=== PATIENT | female | born 1980 | race Caucasian/White ===

== ENCOUNTER 2018-01-30 09:49 | Emergency (ER) | payer SELFPAY ==
[~2018-01-30] VITALS: Ht 172.7 cm; Wt 113.4 kg
[2018-01-30] MEDS ORDERED: IBU600 MG PO (10:02)
== END 2018-01-30 10:05 | disposition home or self-care (01) ==
LOC: ED 09:49
DX: M25.511 Pain in right shoulder (principal)

== ENCOUNTER 2018-09-25 16:04 | Emergency (ER) | payer OTHER ==
[~2018-09-25] VITALS: Ht 172.7 cm; Wt 107.0 kg
--- OUTSIDE RECORDS SUMMARY | ~2018-09-25 | XMS | Clinical Summary ---
Demographics + + + | Address | [address] | | | [place] [address] | + + + | Home Phone | | + + + | Preferred Language | Unknown | + + + | Marital Status | Single | + + + | Taoist Affiliation | Unknown | + + + | Race | Unknown | + + + | Ethnic Group | Unknown | + + + Author + + + | Author | [facility] | | | and [place] | + + + | Organization | [facility] | | | and [place] | + + + | Address | Unknown | + + + | Phone | Unavailable | + + + Support + + +---------+ + | Name | Relationship | Address | Phone | + + +---------+ + | Lilia Borja | ECON | Unknown | | + + +---------+ + | Jose Felipe | ECON | Unknown | | + + +---------+ + Care Team Providers + +------+ + | Care Plaster And Stucco Worker Name | Role | Phone | + +------+ + | Gela Leong DO | PP | | + +------+ + Allergies No Known Allergies Medications + + + +---------+------+------+-------+ | Medication | Sig | Dispensed | Refills | Star | End | Statu | | | | | | t | Date | s | | | | | | Date | | | + + + +---------+------+------+-------+ | ibuprofen | Take 600 mg by mouth | | 0 | | | Activ | | (ADVIL,MOTRIN) 600 | every 8 hours as | | | | | e | | MG tablet | needed for Pain. | | | | | | + + + +---------+------+------+-------+ Active Problems + + + | Problem | Noted Date | + + + | Opioid contract exists | 04/25/2017 | + + + Immunizations + + + + | Name | Dates Previously Given | Next Due | + + + + | INFLUENZA PF | 03/13/2012 | | | TRIVALENT(PED/ADOL/A | | | | DULPenelope)ALEJANDRA | | | + + + + Family History + + +--------+ + | Medical History | Relation | Name | Comments | + + +--------+ + | Other (see comment) | Brother | | problems with digestion | + + +--------+ + | Hearing loss | Daughter | | | + + +--------+ + | Nephrolithiasis | Father | | | + + +--------+ + | Colon cancer | Maternal | | | | | Grandfath | | | | | er | | | + + +--------+ + | High cholesterol | Maternal | | | | | Grandfath | | | | | er | | | + + +--------+ + | Hypertension | Maternal | | | | | Grandfath | | | | | er | | | + + +--------+ + | Other (see comment) | Maternal | | Hepatitis | | | Grandfath | | | | | er | | | + + +--------+ + | Prostate cancer | Maternal | | | | | Grandfath | | | | | er | | | + + +--------+ + | Arthritis | Mother | | | + + +--------+ + | Cervical cancer | Mother | | | + + +--------+ + | Depression | Mother | | | + + +--------+ + | Asthma | Other | Aunt | | + + +--------+ + | Breast cancer | Other | Aunt | | + + +--------+ + | Diabetes | Other | Aunt | | + + +--------+ + | Alcohol abuse | Other | Family | | + + +--------+ + | Drug abuse | Other | Family | | + + +--------+ + + +--------+--------+ + | Relation | Name | Status | Comments | + +--------+--------+ + | Brother | | | | + +--------+--------+ + | Daughter | | | | + +--------+--------+ + | Father | | | | + +--------+--------+ + | Maternal Grandfather | | | | + +--------+--------+ + | Mother | | | | + +--------+--------+ + | Other | Aunt | | | + +--------+--------+ + | Other | Family | | | + +--------+--------+ + Social History + + + +--------+------+ [...] + +---------+ + | Alcohol Use | Drinks/We | oz/Week | Comments | | | ek | | | + + +---------+ + | No [...] recent travel history available. | + + Last Filed Vital Signs + + + + | Vital Sign | Reading | Time Taken | + + + + | Blood Pressure | 131/81 | 12/26/20171032 PDT | + + + + | Pulse | 92 | 12/26/20171032 PDT | + + + + | Temperature | 35.8 C (96.4 F) | 12/26/20171032 PDT | + + + + | Respiratory Rate | 16 | 12/26/20171032 PDT | + + + + | Oxygen Saturation | 99% | 12/26/20171032 PDT | + + + + | Inhaled Oxygen | - | - | | Concentration | | | + + + + | Weight | 113.4 kg (250 lb) | 12/26/20171032 PDT | + + + + | Height | 172.7 cm (5' 8") | 12/26/20171032 PDT | + + + + | Body Mass Index | 38.01 | 12/26/20171032 PDT | + + + + Plan of Treatment + + + + + | Health Maintenance | Due Date | Last Done | Comments | + + + + + | Primary Care | | | | | Outreach (Low Risk) | 9 | | | + + + + + | Vaccine: | | | | | Dtap/Tdap/Td (1 - | 8 | | | | Tdap) | | | | + + + + + | Vaccine: | | | | | Pneumococcal 19-64 | 8 | | | | (PPSV23 only) Medium | | | | | Risk (1 of 1 - | | | | | PPSV23) | | | | + + + + + | Cervical Cancer | | 02/09/2012 | | | Screening (Pap) | 7 | | | + + + + + | Vaccine: Influenza | | 03/13/2012 | | | (Season Ended) | 9 | | | + + + + + Results Not on filefrom Last 3 Months Insurance + +--------+ +--------+ +---------+--------+ | Payer | Benefi | Subscriber | Effect | Phone | Address | Type | | | t Plan | ID | dick | | | | | | / | | Dates | | | | | | Group | | | | | | + +--------+ +--------+ +---------+--------+ | [employer] | MOD[employer] | [id number] | | [phone] | | Medica | | MEDICAID HMO | HEALTH | | [phone] | 1 | | id | | | MDCD | | esent | | | | | | [place]MO [place] | | | | | | + +--------+ +--------+ +---------+--------+ + +--------+ +--------+ + + | Guarantor Name | Accoun | Relation to | Date | Phone | Billing Address | | | t Type | Patient | of | | | | | | | | | | + +--------+ +--------+ + + | Lauro Melara | Person | Self | [birth year] | [address] | | Meliza | piper/Brandon | | 1981 | [phone] | [address] [place] | | | lad[place] | | | 5 (Home) | [phone] | + +--------+ +--------+ + + Advance Directives Patient has advance care planning documents on file. For more information, please contact:[facility] [place] [address]
--- OUTSIDE RECORDS SUMMARY | ~2018-09-25 | XMS | Clinical Summary ---
Demographics + + + | Address | [address] | | | [place] [address] | + + + | Home Phone | | + + + | Preferred Language | Unknown | + + + | Marital Status | Single | + + + | Latter Day Affiliation | Unknown | + + + | Race | Unknown | + + + | Ethnic Group | Unknown | + + + Author + + + | Author | [facility] | | | and [place] | + + + | Organization | [facility] | | | and [place] [...] Team Providers + +------+ + | Care Drawbench Operator Helper Name | Role | Phone | [...] | [employer] | MODA | [id number] | | [phone] | | Medica | | MEDICAID HMO [...] ladi | | | 5 (Home) | [phone] | + +--------+ +--------+ + + Advance Directives Patient has advance care planning documents on file. For more information, please contact:[facility] [place] [address]
[~2018-09-25 16:04] MED LIST: CYCLOBENZAPRINE5 MG PO; IBU600 MG PO; NAPROSYN500 MG PO; NORCO 5-325 TA1 EACH PO
[2018-09-25] MEDS ORDERED: NEURONTIN300 MG PO (16:20)
== END 2018-09-25 18:30 | disposition home or self-care (01) ==
LOC: ED 16:04
DX: S50.12XA Contusion of left forearm, initial encounter (principal); S50.11XA Contusion of right forearm, initial encounter; W10.9XXA Fall (on) (from) unspecified stairs and steps, initial encounter; F17.200 Nicotine dependence, unspecified, uncomplicated; Z79.899 Other long term (current) drug therapy
CPT/HCPCS: 73110; 99283

== ENCOUNTER 2019-05-17 17:20 | Emergency (ER) | payer OTHER ==
[~2019-05-17] VITALS: Ht 172.7 cm; Wt 117.9 kg
--- OUTSIDE RECORDS SUMMARY | ~2019-05-17 | XMS | Encounter Summary ---
Demographics + + + | Address | [address] | | | [place] [address] | + + + | Home Phone | | + + + | Preferred Language | Unknown | + + + | Marital Status | Single | + + + | Zoroastrianism Affiliation | Unknown | + + + | Race | Unknown | + + + | Ethnic Group | Unknown | + + + Author + + + | Author | [facility] | | | and [place] | + + + | Organization | [facility] | | | and [place] | + + + | Address | Unknown | + + + | Phone | Unavailable | + + + Support + + +---------+ + | Name | Relationship | Address | Phone | + + +---------+ + | Jose Felipe | ECON | Unknown | | + + +---------+ + | Jey Nicholas | ECON | Unknown | | + + +---------+ + Care Team Providers + +------+ + | Care Continuous Mining Machine Coal Miner Name | Role | Phone | + +------+ + | Gela Leong DO | PCP | | + +------+ + Encounter Details +--------+ + + + + | Date | Type | Department | Care Team | Description | +--------+ + + + + | 01/22/ | Abstract | [facility] | Gela Leong | | | 2018 | | [facility] | DO [address] | | | | | [address] | [address] [place] | | | | | [address] [place], | [place] [address] | | | | | [place] [address] | [phone] | | | | | [phone] | | | +--------+ + + + + Social History + + + +--------+------+ | Tobacco Use | Types | Packs/Day | Years | Date | | | | | Used | | + + + +--------+------+ | Heavy Tobacco Smoker | Cigarettes | 0.5 | | | + + + +--------+------+ + +---+---+---+ | Smokeless Tobacco: | | | | | Never Used | | | | + +---+---+---+ + + +---------+ + | Alcohol Use | Drinks/Week | oz/Week | Comments | + + +---------+ + | No | | | | + + +---------+ + + + + | Sex Assigned at | Date Recorded | | | | + + + | Not on file | | + + + + + + + | Job Start Date | Occupation | Industry | + + + + | Not on file | Not on file | Not on file | + + + + + + + + | Travel History | Travel Start | Travel End | + + + + + + | No recent travel history available. | + + documented as of this encounter Plan of Treatment +--------+---------+ + + + | Date | Type | Specialty | Care Team | Description | +--------+---------+ + + + | 06/05/ | Office | Physical Medicine | Jaime Gonzalez, | | | 2019 | Visit | and Rehabilitation | MD [address] | | | | | | [place] | | | | | | [address] | | | | | | | | +--------+---------+ + + + documented as of this encounter Procedures + +--------+ + + + | Procedure Name | Priori | Date/Time | Associated Diagnosis | Comments | | | ty | | | | + +--------+ + + + | EXTERNAL LAB: PAP | Routin | 02/09/2012 | | Results for this | | SMEAR | e | | | procedure are in the | | | | | | results section. | + +--------+ + + + documented in this encounter Results External Lab: PAP Smear (02/09/2012) + + + + + + | Component | Value | Ref Range | Performed | Pathologist | | | | | At | Signature | + + + + + + | Pap Smear, | No evidence of | | | | | External | intraepithelial lesion | | | | | | or malignancy | | | | + + + + + + documented in this encounter Visit Diagnoses Not on filedocumented in this encounter"
--- OUTSIDE RECORDS SUMMARY | ~2019-05-17 | XMS | Encounter Summary ---
Demographics + + + | Address | [address] | | | [place] [address] | + + + | Home Phone | | + + + | Preferred Language | Unknown | + + + | Marital Status | Single | + + + | Denominational Affiliation | Unknown | + + + | Race | Unknown | + + + | Ethnic Group | Unknown | + + + Author + + + | Author | [facility] | | | and [place] | + + + | Organization | [facility] | | | and [place] | [...] Team Providers + +------+ + | Care Interactive Developer Name | Role | Phone | + +------+ + PCP | Unavailable | + +------+ + Encounter Details +--------+ + + + + | Date | Type | Department | Care Team | Description | +--------+ + + + + | 11/17/ | Hospital | [facility] | Tiana Bennett, | | | 2011 | Encounter | [facility] | [employer] [address] | | | | | [address] [place], [place] | | | | | [place], [place] | [address] | | | | | [address] | | | | | | [phone] | | | +--------+ + + + [...] Visit | and Rehabilitation | MD [address]erline [address]rickson | | | | | | [place] | | | | | | [address] | | | | | | | | +--------+---------+ + + + documented as of this encounter Visit Diagnoses Not on filedocumented in this encounter"
--- OUTSIDE RECORDS SUMMARY | ~2019-05-17 | XMS | Encounter Summary ---
Demographics + + + | Address | [address] | | | [place] [address] | + + + | Home Phone | | + + + | Preferred Language | Unknown | + + + | Marital Status | Single | + + + | Mu-Ism Affiliation | Unknown | + + + | Race | Unknown | + + + | Ethnic Group | Unknown | + + + Author + + + | Author | [facility] | | | and [place] | + + + | Organization | [facility] | | | and [place] [...] Team Providers + +------+ + | Care Orchestra Teacher Name | Role | Phone | + +------+ + PCP | Unavailable | + +------+ + Encounter Details +--------+ + + + + | Date | Type | Department | Care Team | Description | +--------+ + + + + | 08/12/ | Hospital | [facility] | Carl Servin MD | | | 2012 | Encounter | [facility] | [address] | | | | | [address] | [place], [place] | | | | | [address] [place], | [address] | | | | | [place] [address] | | | | | | [phone] | | | +--------+ + + + [...] Description | +--------+---------+ + + + | 01/23/ | Office | Physical Medicine | Jaime Gonzalez, | | | 2019 | Visit | and Rehabilitation | MD [address] | | | | | | [place] | | | | | | [address] | | | | | | | | +--------+---------+ + + + documented as of this encounter Visit Diagnoses Not on filedocumented in this encounter"
--- OUTSIDE RECORDS SUMMARY | ~2019-05-17 | XMS | Encounter Summary ---
Demographics + + + | Address | [address] | | | [place] [address] | + + + | Home Phone | | + + + | Preferred Language | Unknown | + + + | Marital Status | Single | + + + | Sikhism Affiliation | Unknown | + + + | Race | Unknown | + + + | Ethnic Group | Unknown | + + + Author + + + | Author | [facility] | | | and [place] | + + + | Organization | [facility] | | | and [...] Team Providers + +------+ + | Care Network Support Administrator Name | Role | Phone | + +------+ + PCP | Unavailable | + +------+ + Encounter Details +--------+ + + + + | Date | Type | Department | Care Team | Description | +--------+ + + + + | 11/20/ | Hospital | [facility] | Carl Servin MD | | | 2012 | Encounter | [facility] | [address] | | | | | MED[address] | [place], [place] | | | | | [address] [place], | [address] | | | | | [place] [address] | | | | | | [phone] | | | +--------+ + + + [...] [place] | | | | | | [address] | | | | | | | | +--------+---------+ + + + documented as of this encounter Visit Diagnoses Not on filedocumented in this encounter"
--- OUTSIDE RECORDS SUMMARY | ~2019-05-17 | XMS | Encounter Summary ---
Demographics + + + | Address | [address] | | | [place] [address] | + + + | Home Phone | | + + + | Preferred Language | Unknown | + + + | Marital Status | Single | + + + | Yazdanism Affiliation | Unknown | + + + | Race | Unknown | + + + | Ethnic Group | Unknown | + + + Author + + + | Author | [facility] | | | and [place] | + + + | Organization | [facility] | | | and [place] | [...] Team Providers + +------+ + | Care Recreational Vehicle Repairer Name | Role | Phone | + +------+ + | Gela Leong DO | PCP | | + +------+ + Reason for Visit + + + | Reason | Comments | + + + | ED Follow-up | | + + + Encounter Details +--------+ + + + + | Date | Type | Department | Care Team | Description | +--------+ + + + + | 11/07/ | Telephone | [facility] | Gela Leong | ED Follow-up | | 2018 | | [facility] | [address] | | | | | [address] | [address] [place] | | | | | [address] [place], | [place] [address] | | | | | [place] [address] | [phone] | | | | | [phone] | | | +--------+ + + + [...] [place] | | | | | | [address] | | | | | | | | +--------+---------+ + + + documented as of this encounter Visit Diagnoses Not on filedocumented in this encounter"
--- OUTSIDE RECORDS SUMMARY | ~2019-05-17 | XMS | Encounter Summary ---
Demographics + + + | Address | [address] | | | [place] [address] | + + + | Home Phone | | + + + | Preferred Language | Unknown | + + + | Marital Status | Single | + + + | Restoration Affiliation | Unknown | + + + | Race | Unknown | + + + | Ethnic Group | Unknown | + + + Author + + + | Author | [facility] | | | and [place] | + + + | Organization | [facility] | | | and [place] [...] Team Providers + +------+ + | Care Button Reclaimer Name | Role | Phone | + [...] | +--------+ + + + + | 01/03/ | Telephone | [place] | Gela Leong | ED Follow-up | | 2018 | | [facility] | [address] | | | | | [address] | [address] [place] | | | | | [address] [place], | [place] [address] | | | | | [place] [address] | [phone] | | | | | [phone] | | | +--------+ + + + [...] [place] | | | | | | [address] | | | | | | | | +--------+---------+ + + + documented as of this encounter Visit Diagnoses Not on filedocumented in this encounter"
--- OUTSIDE RECORDS SUMMARY | ~2019-05-17 | XMS | Encounter Summary ---
Demographics + + + | Address | [address] | | | [place] [address] | + + + | Home Phone | | + + + | Preferred Language | Unknown | + + + | Marital Status | Single | + + + | Zoroastrianism Affiliation | Unknown | + + + | Race | Unknown | + + + | Ethnic Group | Unknown | + + + Author + + + | Author | [facility] | | | and [place] | + + + | Organization | [facility] | | | and [place] [...] Team Providers + +------+ + | Care Dress Operator Name | Role | Phone | + +------+ + PCP | Unavailable | + +------+ + Encounter Details +--------+ + + + + | Date | Type | Department | Care Team | Description | +--------+ + + + + | 12/27/ | Hospital | [facility] | Gela Leong | | | 2017 | Encounter | [facility] | [address] | | | | | [address] | [address] [place] | | | | | [address] [place], | [place] [address] | | | | | [place] [address] | [phone] | | | | | [phone] | | | +--------+ + + + [...] | Visit | and Rehabilitation | MD [address] | | | | | | [place] | | | | | | [address] | | | | | | | | +--------+---------+ + + + documented as of this encounter Visit Diagnoses Not on filedocumented in this encounter"
--- OUTSIDE RECORDS SUMMARY | ~2019-05-17 | XMS | Encounter Summary ---
Demographics + + + | Address | [address] | | | [place] [address] | + + + | Home Phone | | + + + | Preferred Language | Unknown | + + + | Marital Status | Single | + + + | Hoahaoism Affiliation | Unknown | + + + | Race | Unknown | + + + | Ethnic Group | Unknown | + + + Author + + + | Author | [facility] | | | and [place] | + + + | Organization | [facility] | | | and [place] | [...] Team Providers + +------+ + | Care Outboard Motor Mechanic Name | Role | Phone | + +------+ + PCP | Unavailable | + +------+ + Encounter Details +--------+ + + + + | Date | Type | Department | Care Team | Description | +--------+ + + + + | 10/04/ | Hospital | [facility] | Imer Mak | | | 2015 | Encounter | HOSPITAL [facility] | MD [address] | | | | | CENTER [address] | [address] [place] | | | | | [place], [place] | [place] [address] | | | | | [address] | [phone] | | | | | [phone] | | | +--------+ + + + [...] Medicine | Jaime Gonzalez, | | | 2020 | Visit | and Rehabilitation | MD [address] | | | | | | [place] | | | | | | [address] | | | | | | | | +--------+---------+ + + + documented as of this encounter Visit Diagnoses Not on filedocumented in this encounter"
--- OUTSIDE RECORDS SUMMARY | ~2019-05-17 | XMS | Encounter Summary ---
Demographics + + + | Address | [address] | | | [place] [address] | + + + | Home Phone | | + + + | Preferred Language | Unknown | + + + | Marital Status | Single | + + + | Gnosticism Affiliation | Unknown | + + + | Race | Unknown | + + + | Ethnic Group | Unknown | + + + Author + + + | Author | [facility] | | | and [place] | + + + | Organization | [facility] | | | and [...] Team Providers + +------+ + | Care Ship'S Pilot Name | Role | Phone | + +------+ + PCP | Unavailable | + +------+ + Encounter Details +--------+ + + + + | Date | Type | Department | Care Team | Description | +--------+ + + + + | 01/31/ | Hospital | [facility] | Pina El | | | 2011 | Encounter | [facility] | MD Sheryl [address] | | | | | MED[address] | [place], [place] | | | | | [address] [place], | [address] | | | | | [place] [address] | [phone] | | | | | [phone] | | | +--------+ + + + [...] [place] | | | | | | [address] | | | | | | | | +--------+---------+ + + + documented as of this encounter Visit Diagnoses Not on filedocumented in this encounter"
--- OUTSIDE RECORDS SUMMARY | ~2019-05-17 | XMS | Encounter Summary ---
Demographics + + + | Address | [address] | | | [place] [address] | + + + | Home Phone | | + + + | Preferred Language | Unknown | + + + | Marital Status | Single | + + + | Episcopal Affiliation | Unknown | + + + | Race | Unknown | + + + | Ethnic Group | Unknown | + + + Author + + + | Author | [facility] | | | and [place] | + + + | Organization | [facility] | | | and [...] Team Providers + +------+ + | Care Weight And Balance Control Agent Name | Role | Phone | + +------+ + | Kayla Garcia | PCP | | + +------+ + Reason for Visit Evaluate & Treat (Routine) +--------+--------+ + + + + | Status | Reason | Specialty | Diagnoses / | Referred By | Referred To | | | | | Procedures | Contact | Contact | +--------+--------+ + + + + | Closed | | Audiology | Diagnoses | Haven, | Esarey, | | | | | audio and | Harsha Irizarry MD | MS Philomena | | | | | tymps/Lori @ | [address] | [facility] [address] | | | | [address], [address] | [address] [place] | | | | | Jamie/Mod | [place], | [address] [place] | | | | | a/fax report | [place] [address] | [place], [place] | | | | | Procedures | Phone: | [address] Phone: | | | | | OFFICE | [phone] | [phone] | | | | | VISIT | Fax: | Fax: | | | | | REGULAR | [phone] | [phone] | +--------+--------+ + + + + Encounter Details +--------+---------+ + + + | Date | Type | Department | Care Team | Description | +--------+---------+ + + + | 03/31/ | Office | [facility] [place] | Philomena Hay MS | Normal hearing noted | | 2019 | Visit | AUDIOLOGY AND | [facility] [address] | on examination | | | | [facility] | [address] [place] | (Primary Dx); Pain | | | | [address] | [place] [address] | in left ear | | | | [address] [place] | [phone] | | | | | [place] [address] | | | | | | [phone] | | | +--------+---------+ + + + [...] + + documented as of this encounter Progress Notes Philomena Hay, CCC[facility]A - 03/31/2019 11:00 AM PSTReferring Provider: MD Rachell Kaye Ms. Melara presents with pain in the left ear. Results of Hearing Test: Right ear--Pure tone air and bone conduction testing showed 15-20d B threshold at 250 Hz through 8 KHz. Left ear --Pure tone air and bone conduction testing showed 15-20dB threshold at 250 Hz through 8 KHz. Speech Recognition Thresholds were 15dB in the right ear and 20dB in the left ear. Speech Discrimination Scores were 100% in right ear and 100% in the left ear. Tympanometry showed normal type A tracings in both ears. Impression and Recommendation: Normal hearing sensitivity in both ears. Gentle massage wi th oil was recommended for the left ear to help alleviate the pain. Follow-up care with Dr. Ayala, ENT. Thank you. documented in thi s encounter Plan of Treatment +--------+---------+ + + + | Date | Type | Specialty | Care Team | Description | +--------+---------+ + + + | 06/05/ | Office | Physical Medicine | Jaime Gonzalez, | | | 2019 | Visit | and Rehabilitation | MD Guerline Coyle | | | | | | [place] | | | | | | [address] | | | | | | | | +--------+---------+ + + + documented as of this encounter Procedures + +--------+ + + + | Procedure Name | Priori | Date/Time | Associated Diagnosis | Comments | | | ty | | | | + +--------+ + + + | DIAGNOSTIC REPORT - | | 03/31/2019 | | Results for this | | EXTERNAL SCAN | | 12:00 AM | | procedure are in the | | | | PST | | results section. | + +--------+ + + + documented in this encounter Results DIAGNOSTIC REPORT - EXTERNAL SCAN (03/31/2019 12:00 AM PST) + + + | Narrative | Performed At | + + + | Ordered by an | | | unspecified provider. | | + + + documented in this encounter Visit Diagnoses + + | Diagnosis | + + | Normal hearing noted on examination - Primary | + + | Pain in left ear Otalgia, unspecified | + + documented in this encounter"
--- OUTSIDE RECORDS SUMMARY | ~2019-05-17 | XMS | Encounter Summary ---
Demographics + + + | Address | [address] | | | [place] [address] | + + + | Home Phone | | + + + | Preferred Language | Unknown | + + + | Marital Status | Single | + + + | Yazdanism Affiliation | Unknown | + + + | Race | Unknown | + + + | Ethnic Group | Unknown | + + + Author + + + | Author | [facility] | | | and [place] | + + + | Organization | [facility] | | | and [place]ana [...] Team Providers + +------+ + | Care Mission Worker Name | Role | Phone | + [...] | | [address] [place], | [address] | | | | | [place] [address] | | | | | | [phone] | | | +--------+ + + + [...] [place] | | | | | | [address] | | | | | | | | +--------+---------+ + + + documented as of this encounter Visit Diagnoses Not on filedocumented in this encounter"
--- OUTSIDE RECORDS SUMMARY | ~2019-05-17 | XMS | Encounter Summary ---
Demographics + + + | Address | [address] | | | [place] [address] | + + + | Home Phone | | + + + | Preferred Language | Unknown | + + + | Marital Status | Single | + + + | Yazidism Affiliation | Unknown | + + + | Race | Unknown | + + + | Ethnic Group | Unknown | + + + Author + + + | Author | [facility] | | | and [place] | + + + | Organization | [facility] | | | and [...] Team Providers + +------+ + | Care Supervisor Lens Generating Name | Role | Phone | + +------+ + PCP | Unavailable | + +------+ + Encounter Details +--------+ + + + + | Date | Type | Department | Care Team | Description | +--------+ + + + + | 07/08/ | Hospital | [facility] | Richard Paredes | | | 2015 | Encounter | [facility] | [address] | | | | | [address] | [address] [place], [place] | | | | | [place] | [address] | | | | | [address] | | | | | | [phone] | | | +--------+ + + + [...] Leonides | | | | | | [place] | | | | | | [address] | | | | | | | | +--------+---------+ + + + documented as of this encounter Procedures + +--------+ + + + | Procedure Name | Priori | Date/Time | Associated Diagnosis | Comments | | | ty | | | | + +--------+ + + + | CBC W/AUTO | Routin | 07/08/2014 | | Results for this | | DIFFERENTIAL | e | 11:14 AM | | procedure are in the | | | | PST | | results section. | + +--------+ + + + | DRUGS OF ABUSE, | Routin | 07/08/2014 | | Results for this | | SCREEN, URINE | e | 11:14 AM | | procedure are in the | | | | PST | | results section. | + +--------+ + + + | COMPREHENSIVE | Routin | 07/08/2014 | | Results for this | | METABOLIC PANEL | e | 11:14 AM | | procedure are in the | | | | PST | | results section. | + +--------+ + + + documented in this encounter Results Drugs of Abuse, Screen, Urine (07/08/2014 11:14 AM PST) + +-------+ + + + | Component | Value | Ref Range | Performed | Pathologist | | | | | At | Signature | + +-------+ + + + | THC RESULT | NEG | NEG ng/mL | EXTERNAL | | | | | | LAB | | + +-------+ + + + | Phencyclidi | NEG | NEG ng/mL | EXTERNAL | | | ne | | | LAB | | + +-------+ + + + | Cocaine | NEG | NEG ng/mL | EXTERNAL | | | | | | LAB | | + +-------+ + + + | Methampheta | NEG | NEG ng/mL | EXTERNAL | | | mine | | | LAB | | + +-------+ + + + | Opiates | POS | NEG ng/mL | EXTERNAL | | | | | | LAB | | + +-------+ + + + | Amphetamine | NEG | NEG ng/mL | EXTERNAL | | | s | | | LAB | | + +-------+ + + + | Benzodiazep | POS | NEG ng/mL | EXTERNAL | | | martínez | | | LAB | | | Screen, | | | | | | Urine | | | | | + +-------+ + + + | TCA Scrn | NEG | NEG ng/mL | EXTERNAL | | | | | | LAB | | + +-------+ + + + | Methadone | NEG | NEG ng/mL | EXTERNAL | | | Screen, | | | LAB | | | Urine | | | | | + +-------+ + + + | Barbiturate | NEG | NEG ng/mL | EXTERNAL | | | s | | | LAB | | + +-------+ + + + | Oxycodone | NEG | NEG ng/mL | EXTERNAL | | | | | | LAB | | + +-------+ + + + | Propoxyphen | NEG | NEG ng/mL | EXTERNAL | | | e | | | LAB | | + +-------+ + + + | Buprenorphi | NEG | NEG ng/mL | EXTERNAL | | | ne | | | LAB | | + +-------+ + + + + + | Specimen | + + | | + + + +---------+ + + | Performing | Address | City/State/Zipcode | Phone Number | | Organization | | | | + +---------+ + + | EXTERNAL LAB | | | | + +---------+ + + CBC w/ Auto Differential (07/08/2014 11:14 AM PST) + +-------+ + + + | Component | Value | Ref Range | Performed | Pathologist | | | | | At | Signature | + +-------+ + + + | WBC | 12.5 | 4.3 - 10.4 | EXTERNAL | | | | | 1000/mm3 | LAB | | + +-------+ + + + | RBC | 4.73 | 4.12 - 5.30 | EXTERNAL | | | | | mil/mm3 | LAB | | + +-------+ + + + | HGB, | 14.1 | 12.4 - 15.7 | EXTERNAL | | | External | | g/dL | LAB | | + +-------+ + + + | HCT, | 40.7 | 37.7 - 47.0 % | EXTERNAL | | | External | | | LAB | | + +-------+ + + + | MCV | 86 | 82 - 97 fl | EXTERNAL | | | | | | LAB | | + +-------+ + + + | MCH | 29.8 | 27.1 - 32.3 pg | EXTERNAL | | | | | | LAB | | + +-------+ + + + | MCHC | 34.6 | 32.0 - 36.9 | EXTERNAL | | | | | g/dL | LAB | | + +-------+ + + + | RDW-CV | 13.7 | <=17.0 % | EXTERNAL | | | | | | LAB | | + +-------+ + + + | Platelet | 318 | 150 - 450 | EXTERNAL | | | Count | | 1000/mm3 | LAB | | | Plasma | | | | | + +-------+ + + + | MPV | 8.5 | 9.4 - 12.3 FL | EXTERNAL | | | | | | LAB | | + +-------+ + + + | % Segmented | 68.6 | 42.0 - 76.0 % | EXTERNAL | | | | | | LAB | | | Neutrophils | | | | | + +-------+ + + + | LYMPH % | 24.4 | 20.0 - 40.0 % | EXTERNAL | | | | | | LAB | | + +-------+ + + + | % Monocytes | 7 | <=12.0 % | EXTERNAL | | | | | | LAB | | + +-------+ + + + | Absolute | 8.5 | 2.50 - 8.50 | EXTERNAL | | | Neutrophils | | 1000/mm3 | LAB | | + +-------+ + + + | Absolute | 3.1 | 1.00 - 3.80 | EXTERNAL | | | Lymphocytes | | 1000/mm3 | LAB | | + +-------+ + + + | Absolute | 0.9 | <=1.25 1000/mm3 | EXTERNAL | | | Monocytes | | | LAB | | + +-------+ + + + | SLIDE | NO | | EXTERNAL | | | REVIEW | | | LAB | | + +-------+ + + + + + | Specimen | + + | | + + + +---------+ + + | Performing | Address | City/State/Zipcode | Phone Number | | Organization | | | | + +---------+ + + | EXTERNAL LAB | | | | + +---------+ + + Comprehensive Metabolic Panel (07/08/2014 11:14 AM PST) + +-------+ + + + | Component | Value | Ref Range | Performed | Pathologist | | | | | At | Signature | + +-------+ + + + | Sodium | 141 | 132 - 143 | EXTERNAL | | | | | mmol/L | LAB | | + +-------+ + + + | Potassium | 4 | 3.3 - 4.9 | EXTERNAL | | | | | mmol/L | LAB | | + +-------+ + + + | Cl | 107 | 95 - 108 mmol/L | EXTERNAL | | | | | | LAB | | + +-------+ + + + | CO2 | 22 | 23 - 34 mmol/L | EXTERNAL | | | | | | LAB | | + +-------+ + + + | Anion Gap | 12 | 7 - 16 | EXTERNAL | | | | | | LAB | | + +-------+ + + + | Calcium | 8.7 | 8.3 - 10.0 | EXTERNAL | | | | | mg/dL | LAB | | + +-------+ + + + | Glucose | 94 | 70 - 110 mg/dL | EXTERNAL | | | | | | LAB | | + +-------+ + + + | BUN, Bld | 13 | 5 - 26 mg/dL | EXTERNAL | | | | | | LAB | | + +-------+ + + + | Creatinine | 0.9 | 0.6 - 1.3 mg/dL | EXTERNAL | | | | | | LAB | | + +-------+ + + + | BUN/Creatin | 14.4 | 7.0 - 24.0 | EXTERNAL | | | ine Ratio | | RATIO | LAB | | + +-------+ + + + | GFR | 60 | >=60 | EXTERNAL | | | ESTIMATE | | mL/min/1.73m2 | LAB | | | (REF) | | | | | + +-------+ + + + | Bilirubin, | 0.3 | <=1.2 mg/dL | EXTERNAL | | | Total | | | LAB | | + +-------+ + + + | Protein, | 7.6 | 6.6 - 8.5 g/dL | EXTERNAL | | | Total | | | LAB | | + +-------+ + + + | Albumin | 3.6 | 3.0 - 4.5 g/dL | EXTERNAL | | | | | | LAB | | + +-------+ + + + | Alkaline | 95 | 46 - 116 U/L | EXTERNAL | | | Phosphatase | | | LAB | | + +-------+ + + + | ALT, | 24 | 14 - 59 U/L | EXTERNAL | | | External | | | LAB | | + +-------+ + + + | AST, | 15 | <=38 U/L | EXTERNAL | | [...]
--- OUTSIDE RECORDS SUMMARY | ~2019-05-17 | XMS | Encounter Summary ---
Demographics + + + | Address | [address] | | | [place] [address] | + + + | Home Phone | | + + + | Preferred Language | Unknown | + + + | Marital Status | Single | + + + | Mosque Affiliation | Unknown | + + + | Race | Unknown | + + + | Ethnic Group | Unknown | + + + Author + + + | Author | [facility] | | | and [place] | + + + | Organization | [facility] | | | and [...] Team Providers + +------+ + | Care Register Repairer Name | Role | Phone | + +------+ + | No, Physician | PCP | Unavailable | + +------+ + Reason for Visit + + + | Reason | Comments | + + + | Facial Swelling | | + + + | Cellulitis | | + + + | Otalgia | | + + + Encounter Details +--------+ + + + + | Date | Type | Department | Care Team | Description | +--------+ + + + + | 02/28/ | Emergency | [facility] | Doni Wong | Stephaniegia of left ear | | 2019 | | [facility] | Venkatesh Marley MD | (Primary Dx) | | | | CENTER [address] | [address] | | | | | [place] | [place] | | | | | [address] | [address] | | | | | [phone] | | | +--------+ + + + [...] + + + | Blood Pressure | 128/65 | 02/28/2019 11:39 AM | | | | | PDT | | + + + + + | Pulse | 89 | 02/28/2019 11:39 AM | | | | | PDT | | + + + + + | Temperature | 36.2 C (97.2 F) | 02/28/2019 11:39 AM | | | | | PDT | | + + + + + | Respiratory Rate | 16 | 02/28/2019 11:39 AM | | | | | PDT | | + + + + + | Oxygen Saturation | 99% | 02/28/2019 11:39 AM | | | | | PDT | | + + + + + | Inhaled Oxygen | - | - | | | Concentration | | | | + + + + + | Weight | 112 kg (247 lb) | 02/28/2019 11:39 AM | | | | | PDT | | + + + + + | Height | 171.5 cm (5' 7.5") | 02/28/2019 11:39 AM | | | | | PDT | | + + + + + | Body Mass Index | 38.11 | 02/28/2019 11:39 AM | | | | | PDT | | + + + + + documented in this encounter Discharge Instructions Instructions Doni Wong MD - 02/28/2019Take antibiotics as previously pre scribed. Take pain medication as needed. documented in this encounter Medications at Time [...] 6 hours as | | | | | | tablet | needed for Pain. | | | | | + + + +---------+ + + | ibuprofen | Take 1 tablet by | 30 | 0 | 10/18/20 | | | (ADVIL,MOTRIN) 600 | mouth every 6 hours | tablet | | 19 | | | MG tablet | as needed for Pain. | | | | | + + + +---------+ + + | LORazepam (ATIVAN) | Take 0.5 mg by mouth | | 0 | | | | 0.5 mg tablet | as needed for | | | | | | | Anxiety or Insomnia. | | | | | + + + +---------+ + + | predniSONE | Take 2 tablets by | 10 | 0 | 02/29/20 | | | (DELTASONE) 20 mg | mouth Daily. | tablet | | 19 | | | tablet | | | [...] daily. | | | | | | methoprim (BACTRIM | | | [...] | | Take 1-2 tablets by | 12 | 0 | 02/29/20 | | | HYDROcodone-acetamin | mouth every 6 hours | tablet | | 19 | 9 | | ophen (NORCO) 5-325 | as [...] [place] | | | | | | [address] | | | | | | | | +--------+---------+ + + + + +------+--------+ + + | Name | Type | Priori | Associated Diagnoses | Date/Time | | | | ty | | | + +------+--------+ + + | ED INFORMATION | VIKTOR | Routin | | 02/28/2019 11:24 AM | | EXCHANGE | | e | | PDT | + +------+--------+ + + documented as of this encounter Procedures + +--------+ + + + | Procedure Name | Priori | Date/Time | Associated Diagnosis | Comments | | | ty | | | | + +--------+ + + + | ED INFORMATION | Routin | 02/28/2019 | | | | EXCHANGE | e | 11:24 AM | | | | | | PDT | | | + +--------+ + + + +---+--------+ | | | | | Proced | | | ure | | | Note - | | | Usman, | | | Lab In | | | | | | Hlseve | | | n - | | | | | | 2018 | | | 11:25 | | | AM PDT | | | | | | [...] | | | FICATI | | | ON?10/ | | | [birth year]/201 | | | 9 | | | 11:23? | | | PATTER | | | SON, | | | LAURO | | | M?MRN: | | | | | | [id number] | | | [id number] | | | riteri | | | [...] | | | St[facility] | | | [facility] | [facility] | | | l | | | Center | | | 1 0 | | | [facility] | | | y | | | Hospit | | | al 2 0 | | | Total | | [...] | | | int | | | Oct | | | 18, | | | 2019 | | | Provid | | | ence | | | [facility] | [facility] | [place] | | | [place] | | | Emerge | | | ncy | | | | | | facial | | | | | | swelli | | | ng | | | May | | | 15, | | | 2019 | | | [facility] | | | y H. | | [...] | | licate | | | d Oct | | | 18, | | | 2018 | | | [facility] | | | y H. | | | [place] | | | [place] | | | Emerge | | | ncy | | | Pain | | | in | | | right | | | should | | | er | | | Nicoti | | | [...] | | OLVERA | | | , GELA | | | RIRI | | | , D.O | | | | | | Family | | | | | | Medici | | | ne | | | Curren | | | t | | | OLVERA | | | , GELA | | [...] | | | St. | | | [facility] | | | Medica | | | [...] | | | /notif | | | [id number] | | | [id number] | | | [id number] | | | [id number] | | | [id number] | | | [id number] | | | fa | | | PLEASE | | | [...] + | Diagnosis | + + | Otalgia of left ear - Primary Otalgia, unspecified | + + documented in this encounter Administered Medications + +--------+ +---------+------+------+ | Medication Order | MAR | Action | Dose | Rate | Site | | | Action | Date | | | | + +--------+ +---------+------+------+ | HYDROcodone-acetaminophen | Given | 02/29/20 | 2 | | | | (NORCO) 5-325 mg per tablet 2 | | 19 12:31 | tablets | | | | tablet 2 tablet, Oral, ONCE, Fri | | PM PDT | | | | | 02/28/19 at 1220, For 1 dose | | | | | | + +--------+ +---------+------+------+ +---+---+ | | | +---+---+ + +-------+ +--------+---+---+ | ibuprofen (ADVIL,MOTRIN) tablet | Given | 02/29/20 | 600 mg | | | | 600 mg 600 mg, Oral, ONCE, Fri | | 19 12:31 | | | | | 02/28/19 at 1220, For 1 dose, | | PM PDT | | | | | Give with food., | | | | | | + +-------+ +--------+---+---+ +---+---+ | | | +---+---+ + +-------+ +-------+---+---+ | predniSONE (DELTASONE) tablet | Given | 02/29/20 | 40 mg | | | | 40 mg 40 mg, Oral, ONCE, Fri | | 19 12:31 | | | | | 02/28/19 at 1220, For 1 dose | | PM PDT | | | | + +-------+ +-------+---+---+ +---+---+ | | | +---+---+ documented in this encounter
--- OUTSIDE RECORDS SUMMARY | ~2019-05-17 | XMS | Encounter Summary ---
Demographics + + + | Address | [address] | | | [place] [address] | + + + | Home Phone | | + + + | Preferred Language | Unknown | + + + | Marital Status | Single | + + + | Confucianism Affiliation | Unknown | + + + | Race | Unknown | + + + | Ethnic Group | Unknown | + + + Author + + + | Author | [facility] | | | and [place] | + + + | Organization | [facility] | | | and [place] [...] Team Providers + +------+ + | Care Instructor Industrial Design Name | Role | Phone | + [...] | | [address] [place], | [address] | | | | | [place] [address] | | | | | | [phone] | | | +--------+ + + + [...] [place] | | | | | | [address] | | | | | | | | +--------+---------+ + + + documented as of this encounter Visit Diagnoses Not on filedocumented in this encounter"
--- OUTSIDE RECORDS SUMMARY | ~2019-05-17 | XMS | Encounter Summary ---
Demographics + + + | Address | [address] | | | [place] [address] | + + + | Home Phone | | + + + | Preferred Language | Unknown | + + + | Marital Status | Single | + + + | Tenriism Affiliation | Unknown | + + + | Race | Unknown | + + + | Ethnic Group | Unknown | + + + Author + + + | Author | [facility] | | | and [place] | + + + | Organization | [facility] | | | and [place] [...] Team Providers + +------+ + | Care Back Closer Name | Role | Phone | + +------+ + PCP | Unavailable | + +------+ + Encounter Details +--------+ + + + + | Date | Type | Department | Care Team | Description | +--------+ + + + + | 07/30/ | Hospital | [facility] | Adarsh Ren FNP | | | 2013 | Encounter | [facility] | [address] | | | | | [address] [place] | [place], [place] | | | | | [place], [place] | [address] | | | | | [address] | [phone] | | | | | [phone] | | | +--------+ + + + [...] [place] | | | | | | [address] | | | | | | | | +--------+---------+ + + + documented as of this encounter Visit Diagnoses Not on filedocumented in this encounter"
--- OUTSIDE RECORDS SUMMARY | ~2019-05-17 | XMS | Encounter Summary ---
Demographics + + + | Address | [address] | | | [place] [address] | + + + | Home Phone | | + + + | Preferred Language | Unknown | + + + | Marital Status | Single | + + + | Restorationist Affiliation | Unknown | + + + | Race | Unknown | + + + | Ethnic Group | Unknown | + + + Author + + + | Author | [facility] | | | and [place] | + + + | Organization | [facility] | | | and [...] Team Providers + +------+ + | Care Landscape Account Manager Name | Role | Phone | + +------+ + PCP | Unavailable | + +------+ + Encounter Details +--------+ + + + + | Date | Type | Department | Care Team | Description | +--------+ + + + + | 05/15/ | Hospital | [facility] | Carl Servin MD | | | 2012 | Encounter | [facility] | [address] | | | | | [facility] [address] | [place], [place] | | | | | [address] [place], | [address] | | | | | [place] [address] | | | | | | [phone] | | | +--------+ + + + [...] [place] | | | | | | [address] | | | | | | | | +--------+---------+ + + + documented as of this encounter Visit Diagnoses Not on filedocumented in this encounter"
--- OUTSIDE RECORDS SUMMARY | ~2019-05-17 | XMS | Encounter Summary ---
Demographics + + + | Address | [address] | | | [place] [address] | + + + | Home Phone | | + + + | Preferred Language | Unknown | + + + | Marital Status | Single | + + + | Orthodox Affiliation | Unknown | + + + | Race | Unknown | + + + | Ethnic Group | Unknown | + + + Author + + + | Author | [facility] | | | and [place] | + + + | Organization | [facility] | | | and [place] [...] Team Providers + +------+ + | Care Quality Control Specialist Name | Role | Phone | + +------+ + PCP | Unavailable | + +------+ + Encounter Details +--------+ + + + + | Date | Type | Department | Care Team | Description | +--------+ + + + + | 07/21/ | Hospital | [facility] | Antonio Villalta | | | 2013 | Encounter | [facility] | [address] | | | | | [facility] | [facility], [place] | | | | | [address] [facility], | [address] | | | | | [place] [address] | [phone] | | | | | [phone] | | | +--------+ + + + [...] [place] | | | | | | [address] | | | | | | | | +--------+---------+ + + + documented as of this encounter Visit Diagnoses Not on filedocumented in this encounter"
--- OUTSIDE RECORDS SUMMARY | ~2019-05-17 | XMS | Encounter Summary ---
Demographics + + + | Address | [address] | | | [place] [address] | + + + | Home Phone [...] + | Organization | [facility] | | | and [place]ana [...] Team Providers + +------+ + | Care Psychologist Chief Name | Role | Phone | + +------+ + PCP | Unavailable | + +------+ + Encounter Details +--------+ + + + + | Date | Type | Department | Care Team | Description | +--------+ + + + + | 07/21/ | Hospital | [facility] | Antonio Villalta | | | 2013 | Encounter | [facility] | [address] | | | | | [facility] [address] | [facility], [place] | | | | | [address] [facility], | [address] | | | | | [place] [address] | [phone] | | | | | [phone] | | | +--------+ + + + [...] [place] | | | | | | [address] | | | | | | | | +--------+---------+ + + + documented as of this encounter Visit Diagnoses Not on filedocumented in this encounter"
--- OUTSIDE RECORDS SUMMARY | ~2019-05-17 | XMS | Encounter Summary ---
Demographics + + + | Address | [address] | | | [place] [address] | + + + | Home Phone | | + + + | Preferred Language | Unknown | + + + | Marital Status | Single | + + + | Bahai Affiliation | Unknown | + + + | Race | Unknown | + + + | Ethnic Group | Unknown | + + + Author + + + | Author | [facility] | | | and [place] | + + + | Organization | [facility] | | | and [...] Team Providers + +------+ + | Care Anodiser Name | Role | Phone | + +------+ + PCP | Unavailable | + +------+ + Encounter Details +--------+ + + + + | Date | Type | Department | Care Team | Description | +--------+ + + + + | 10/13/ | Hospital | [facility] | Richard Paredes | | | 2015 | Encounter | [facility] | [address] | | | | | MEDICAL CL[address] | [address] [place], [place] | | | | | 4TH [facility] [place], | [address] | | | | | [place] [address] | | | | | | [phone] | | | +--------+ + + + [...] [place] | | | | | | [address] | | | | | | | | +--------+---------+ + + + documented as of this encounter Visit Diagnoses Not on filedocumented in this encounter"
--- OUTSIDE RECORDS SUMMARY | ~2019-05-17 | XMS | Encounter Summary ---
Demographics + + + | Address | [address] | | | [place] [address] | + + + | Home Phone [...] Organization | [facility] | | | and [...] Team Providers + +------+ + | Care Associate Professor Of English Name | Role | Phone | + +------+ + PCP | Unavailable | + +------+ + Encounter Details +--------+ + + + + | Date | Type | Department | Care Team | Description | +--------+ + + + + | 05/29/ | Hospital | [facility] | Adarsh Ren FNP | | | 2014 | Encounter | [facility] XRAY [facility] | [address] | | | | | [place] | [place], [place] | | | | | [place], [place] | [address] | | | | | [address] | [phone] | | | | | [phone] | | | +--------+ + + + [...] [place] | | | | | | [address] | | | | | | | | +--------+---------+ + + + documented as of this encounter Visit Diagnoses Not on filedocumented in this encounter"
--- OUTSIDE RECORDS SUMMARY | ~2019-05-17 | XMS | Encounter Summary ---
Demographics + + + | Address | [address] | | | [place] [address] | + + + | Home Phone | | + + + | Preferred Language | Unknown | + + + | Marital Status | Single | + + + | Hinduism Affiliation | Unknown | + + + | Race | Unknown | + + + | Ethnic Group | Unknown | + + + Author + + + | Author | [facility] | | | and [place] | + + + | Organization | [facility] | | | and [...] Team Providers + +------+ + | Care Christmas Tree Farm Manager Name | Role | Phone | + +------+ + PCP | Unavailable | + +------+ + Encounter Details +--------+ + + + + | Date | Type | Department | Care Team | Description | +--------+ + + + + | 01/22/ | Hospital | [facility] | Carl Servin MD | | | 2012 | Encounter | HOSPITAL LABORATORY | [address] | | | | | [address] [place] | [place], [place] | | | | | [place], [place] | [address] | | | | | [address] | | | | | | [phone] | | | +--------+ + + + [...] [place] | | | | | | [address] | | | | | | | | +--------+---------+ + + + documented as of this encounter Visit Diagnoses Not on filedocumented in this encounter"
--- OUTSIDE RECORDS SUMMARY | ~2019-05-17 | XMS | Encounter Summary ---
Demographics + + + | Address | [address] | | | [place] [address] | + + + | Home Phone | | + + + | Preferred Language | Unknown | + + + | Marital Status | Single | + + + | Synagogue Affiliation | Unknown | + + + | Race | Unknown | + + + | Ethnic Group | Unknown | + + + Author + + + | Author | [facility] | | | and [place] | + + + | Organization | [facility] | | | and [place]ana [...] Team Providers + +------+ + | Care Revenue Analyst Name | Role | Phone | + +------+ + PCP | Unavailable | + +------+ + Encounter Details +--------+ + + + + | Date | Type | Department | Care Team | Description | +--------+ + + + + | 10/24/ | Hospital | [facility] | Harsha Alvarado | | | 2011 | Encounter | HOSPITAL EMERGENCY | MD Dick Dawn | | | | | [address] | [place] | | | | | [address] [place], [place] | [place] [address] | | | | | [address] | [phone] | | | | | [phone] | | | +--------+ + + + [...] [place] | | | | | | [address] | | | | | | | | +--------+---------+ + + + documented as of this encounter Visit Diagnoses Not on filedocumented in this encounter"
--- OUTSIDE RECORDS SUMMARY | ~2019-05-17 | XMS | Encounter Summary ---
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 | | | | | MEDICAL CL[address] | [place], [place] [address] | | | | | 4TH [facility] [place], | [phone] | | | | | [place] [address] | | | | | | [phone] | | | +--------+ + + + [...] [place] | | | | | | [address] | | | | | | | | +--------+---------+ + + + documented as of this encounter Visit Diagnoses Not on filedocumented in this encounter"
--- OUTSIDE RECORDS SUMMARY | ~2019-05-17 | XMS | Encounter Summary ---
Demographics + + + | Address | [address] | | | [place] [address] | + + + | Home Phone | | + + + | Preferred Language | Unknown | + + + | Marital Status | Single | + + + | Islam Affiliation | Unknown | + + + | Race | Unknown | + + + | Ethnic Group | Unknown | + + + Author + + + | Author | [facility] | | | and [place] | + + + | Organization | [facility] | | | and [place]ana [...] Team Providers + +------+ + | Care House Nurse Name | Role | Phone | + [...] | | | | CENTER [address] | [address] | | | | | [place] | [place] | | | | | [address] | [address] | | | | | [phone] | | | +--------+ + + + [...] [place] | | | | | | [address] | | | | | | | [...] M?MRN: | | | | | | [id number] | | | [id number] | | | riteri | | | [...] | | | St. | | | Alex[place] | | | y | | | [...] | | | St. | | | [place] | | | y H. | | [...] | | | St. | | | [place] | | | y H. | | [...]
--- OUTSIDE RECORDS SUMMARY | ~2019-05-17 | XMS | Encounter Summary ---
Demographics + + + | Address | [address] | | | [place] [address] | + + + | Home Phone | | + + + | Preferred Language | Unknown | + + + | Marital Status | Single | + + + | Restorationism Affiliation | Unknown | + + + | Race | Unknown | + + + | Ethnic Group | Unknown | + + + Author + + + | Author | [facility] | | | and [place] | + + + | Organization | [facility] and [facility] | | | and [...] Team Providers + +------+ + | Care Algebra Tutor Name | Role | Phone | + +------+ + PCP | Unavailable | + +------+ + Encounter Details +--------+ + + + + | Date | Type | Department | Care Team | Description | +--------+ + + + + | 02/12/ | Hospital | [facility] | Oneal Florian | | | 2011 | Encounter | HOSPITAL OBSTETRICS | MD [address] | | | | | [address] [place] | [address] | | | | | [place], [place] | [place], [place] | | | | | [address] | [address] | | | | | [phone] | [phone] | | | | | | | [...] [place] | | | | | | [address] | | | | | | | | +--------+---------+ + + + documented as of this encounter Visit Diagnoses Not on filedocumented in this encounter"
--- OUTSIDE RECORDS SUMMARY | ~2019-05-17 | XMS | Encounter Summary ---
Demographics + + + | Address | [address] | | | [place] [address] | + + + | Home Phone [...] | Organization | [facility] | | | and [...] Team Providers + +------+ + | Care Business Economist Name | Role | Phone | + [...] [address] Dawn | | | | | [facility] [address] | [place] | | | | | [place], [place] | [place] [address] | | | | | [address] | [phone] | | | | | [phone] | | | +--------+ + + + [...] [place] | | | | | | [address] | | | | | | | | +--------+---------+ + + + documented as of this encounter Visit Diagnoses Not on filedocumented in this encounter"
--- OUTSIDE RECORDS SUMMARY | ~2019-05-17 | XMS | Encounter Summary ---
Demographics + + + | Address | [address] | | | [place] [address] | + + + | Home Phone | | + + + | Preferred Language | Unknown | + + + | Marital Status | Single | + + + | Shinto Affiliation | Unknown | + + + | Race | Unknown | + + + | Ethnic Group | Unknown | + + + Author + + + | Author | [facility] | | | and [place] | + + + | Organization | [facility] and [facility] | | | and [place] [...] Team Providers + +------+ + | Care Director Of Financial Aid Name | Role | Phone | + +------+ + PCP | Unavailable | + +------+ + Encounter Details +--------+ + + + + | Date | Type | Department | Care Team | Description | +--------+ + + + + | 06/10/ | Hospital | [facility] | Richard Paredes | | | 2015 | Encounter | [facility] | [address] | | | | | MEDICAL CL[address] | [address] [place], [place] | | | | | [address] [facility] [place], | [address] | | | | | [place] [address] | | | | | | [phone] | | | +--------+ + + + [...] [place] | | | | | | [address] | | | | | | | | +--------+---------+ + + + documented as of this encounter Visit Diagnoses Not on filedocumented in this encounter"
--- OUTSIDE RECORDS SUMMARY | ~2019-05-17 | XMS | Encounter Summary ---
Demographics + + + | Address | [address] | | | [place] [address] | + + + | Home Phone | | + + + | Preferred Language | Unknown | + + + | Marital Status | Single | + + + | Adventism Affiliation | Unknown | + + + | Race | Unknown | + + + | Ethnic Group | Unknown | + + + Author + + + | Author | [facility] | | | and [place] | + + + | Organization | [facility] | | | and [place]ana [...] Team Providers + +------+ + | Care Hydrometeorologist Name | Role | Phone | + +------+ + | Gela Leong DO | PCP | | + +------+ + Reason for Visit + + + | Reason | Comments | + + + | Medication Refill | | + + + Encounter Details +--------+ + + + + | Date | Type | Department | Care Team | Description | +--------+ + + + + | 04/13/ | Telephone | [facility] | Richard Paredes | Medication Refill | | 2017 | | HOSPITAL NEUROLOGY | [address] | | | | | [address] | [address] [place], [place] | | | | | DR [place], | [address] | | | | | [place] [address] | | | | | | [phone] | | | +--------+ + + + [...] [place] | | | | | | [id number] | | | | | | | | +--------+---------+ + + + documented as of this encounter Visit Diagnoses Not on filedocumented in this encounter"
--- OUTSIDE RECORDS SUMMARY | ~2019-05-17 | XMS | Encounter Summary ---
Demographics + + + | Address | [address] | | | [place] [address] | + + + | Home Phone | | + + + | Preferred Language | Unknown | + + + | Marital Status | Single | + + + | Advent Affiliation | Unknown | + + + | Race | Unknown | + + + | Ethnic Group | Unknown | + + + Author + + + | Author | [facility] | | | and [place] | + + + | Organization | [facility] | | | and [...] Team Providers + +------+ + | Care Powder Compounder Name | Role | Phone | + +------+ + PCP | Unavailable | + +------+ + Encounter Details +--------+ + + + + | Date | Type | Department | Care Team | Description | +--------+ + + + + | 08/14/ | Hospital | [facility] | Gela Leong | | | 2015 | Encounter | [facility] XRAY [facility] | [address] | | | | | [address] [place] | [place] | | | | | [place], [place] | [place] [address] | | | | | [address] | [phone] | | | | | [phone] | | | +--------+ + + + [...] [place] | | | | | | [address] | | | | | | | | +--------+---------+ + + + documented as of this encounter Procedures + +--------+ + + + | Procedure Name | Priori | Date/Time | Associated Diagnosis | Comments | | | ty | | | | + +--------+ + + + | NM HEPATOBILIARY W | Routin | 08/14/2014 | | Results for this | | CCK | e | 1:21 PM | | procedure are in the | | | | PDT | | results section. | + +--------+ + + + documented in this encounter Results NM Hepatobiliary w PHARM (08/14/2014 1:21 PM PDT) + + | Specimen | + + | | + + + + + | Narrative | Performed At | + + + | ORIGINAL HISTORY: Right upper quadrant pain. | | | NUCLEAR MEDICINE HEPATOBILIARY SCAN: The patient was injected | | | with 5.1 mCi of Tc-99 Choletech intravenously and imaging of the right | | | upper quadrant was performed in standard projection. The liver | | | demonstrates normal radiotracer uptake and excretion. The | | | gallbladder is identified on the 15-minute image which is normal. | | | There is normal radiotracer activity in the biliary system and small | | | bowel. The patient was then injected with 2.0 mCi of Kinevac | | | intravenously and a gallbladder ejection fraction of 82% is provided. | | | Normal is greater than 35%. CONCLUSION: Normal hepatobiliary | | | scan. JOB #: [id number] Read By: BHAVANA Levy | | | MD SHOAIB Released By: BHAVANA CRAMER MD Date: | | | 08/14/2014 17:33 | | + + + + + | Procedure Note | + + | Usman Rad Results In - 03/21/2017 6:57 PM PST ORIGINAL HISTORY:Right upper | | quadrant pain. NUCLEAR MEDICINE HEPATOBILIARY SCAN: The patient was injected with 5.1 | | mCi of Tc-99 Choletech intravenously and imaging of the right upper quadrant was | | performed in standard projection. The liver demonstrates normal radiotracer uptake and | | excretion. The gallbladder is identified on the 15-minute image which is normal. There | | is normal radiotracer activity in the biliary system and small bowel. The patient was | | then injected with 2.0 mCi of Kinevac intravenously and a gallbladder ejection fraction | | of 82% is provided. Normal is greater than 35%. CONCLUSION:Normal hepatobiliary scan. | | JOB #: [id number] Read By: BHAVANA CRAMER MD Released By: BHAVANA Allen. | | SHOAIB MDDate: 08/14/2014 17:33 | |The patient was injected with 5.1 mCi of Tc-99 Choletech intravenously and imaging of the r ight upper quadrant was performed in standard projection. | | | |The liver demonstrates normal radiotracer uptake and excretion. The gallbladder is identif ied on the 15-minute image which is normal. There is normal radiotracer activity in the martin iary system and small bowel. The patient was then injected with 2.0 | |mCi of Kinevac intravenously and a gallbladder ejection fraction of 82% is provided. Sue l is greater than 35%. | | | |CONCLUSION: | |Normal hepatobiliary scan. | | | | | |JOB #: [id number] | | | | | |Read By: BHAVANA CRAMER MD | | | |Released By: BHAVANA CRAMER MD | |Date: 08/14/2014 17:33 | | | | | + + documented in this encounter Visit Diagnoses Not on filedocumented in this encounter"
--- OUTSIDE RECORDS SUMMARY | ~2019-05-17 | XMS | Encounter Summary ---
Demographics + + + | Address | [address] | | | [place] [address] | + + + | Home Phone | | + + + | Preferred Language | Unknown | + + + | Marital Status | Single | + + + | Christianity Affiliation | Unknown | + + + | Race | Unknown | + + + | Ethnic Group | Unknown | + + + Author + + + | Author | [facility] | | | and [place] | + + + | Organization | [facility] and [facility] | | | and [place]ana [...] Team Providers + +------+ + | Care Escort Patients Name | Role | Phone | + +------+ + PCP | Unavailable | + +------+ + Encounter Details +--------+ + + + + | Date | Type | Department | Care Team | Description | +--------+ + + + + | 08/17/ | Hospital | [facility] | Gela Leong | | | 2016 | Encounter | [facility] | [address] | | | | | [address] | [place] | | | | | [address] [place], | [place] [address] | | | | | [place] [address] | [phone] | | | | | [phone] | | | +--------+ + + + [...] [place] | | | | | | [address] | | | | | | | | +--------+---------+ + + + documented as of this encounter Visit Diagnoses Not on filedocumented in this encounter"
--- OUTSIDE RECORDS SUMMARY | ~2019-05-17 | XMS | Encounter Summary ---
Demographics + + + | Address | [address] | | | [place] [address] | + + + | Home Phone | | + + + | Preferred Language | Unknown | + + + | Marital Status | Single | + + + | Protestant Affiliation | Unknown | + + + | Race | Unknown | + + + | Ethnic Group | Unknown | + + + Author + + + | Author | [facility] | | | and [place] | + + + | Organization | [facility] | | | and [...] Team Providers + +------+ + | Care Sample Maker Hand Name | Role | Phone | + [...] | | [address] [place], | [address] | | | | | [place] [address] | [phone] | | | | | [phone] | | | +--------+ + + + [...] [place] | | | | | | [address] | | | | | | | | +--------+---------+ + + + documented as of this encounter Visit Diagnoses Not on filedocumented in this encounter"
--- OUTSIDE RECORDS SUMMARY | ~2019-05-17 | XMS | Encounter Summary ---
Demographics + + + | Address | [address] | | | [place] [address] | + + + | Home Phone | | + + + | Preferred Language | Unknown | + + + | Marital Status | Single | + + + | Anglican Affiliation | Unknown | + + + | Race | Unknown | + + + | Ethnic Group | Unknown | + + + Author + + + | Author | [facility] and [facility] | | | and [place] | + + + | Organization | [facility] | | | and [place]ana [...] Team Providers + +------+ + | Care Filter Changer Name | Role | Phone | + +------+ + PCP | Unavailable | + +------+ + Encounter Details +--------+ + + + + | Date | Type | Department | Care Team | Description | +--------+ + + + + | 01/15/ | Hospital | [facility] | Carl Servin MD | | | 2012 | Encounter | HOSPITAL LABORATORY | [address] | | | | | [address] [place] | [place], [place] | | | | | [place], [place] | [address] | | | | | [address] | | | | | | [phone] | | | +--------+ + + + [...] [place] | | | | | | [address] | | | | | | | | +--------+---------+ + + + documented as of this encounter Visit Diagnoses Not on filedocumented in this encounter"
--- OUTSIDE RECORDS SUMMARY | ~2019-05-17 | XMS | Encounter Summary ---
Demographics + + + | Address | [address] | | | [place] [address] | + + + | Home Phone | | + + + | Preferred Language | Unknown | + + + | Marital Status | Single | + + + | Baptism Affiliation | Unknown | + + + | Race | Unknown | + + + | Ethnic Group | Unknown | + + + Author + + + | Author | [facility] | | | and [place] | + + + | Organization | [facility] | | | and [place] | [...] Team Providers + +------+ + | Care Case Filler Name | Role | Phone | + [...] 11/23/ | Telephone | [facility] | Gela Leong | ED Follow-up | | 2018 | | [facility] | [address] | | | | | MED[address] | [address] [place] | | | | | [address] [place], | [place] [address] | | | | | [place] [address] | [phone] | | | | | [phone] | | | +--------+ + + + [...] [place] | | | | | | [address] | | | | | | | | +--------+---------+ + + + documented as of this encounter Visit Diagnoses Not on filedocumented in this encounter"
--- OUTSIDE RECORDS SUMMARY | ~2019-05-17 | XMS | Encounter Summary ---
Demographics + + + | Address | [address] | | | [place] [address] | + + + | Home Phone | | + + + | Preferred Language | Unknown | + + + | Marital Status | Single | + + + | Orthodoxy Affiliation | Unknown | + + + | Race | Unknown | + + + | Ethnic Group | Unknown | + + + Author + + + | Author | [facility] | | | and [place] | + + + | Organization | [facility] | | | and [...] Team Providers + +------+ + | Care Driller Operator Name | Role | Phone | + +------+ + PCP | Unavailable | + +------+ + Encounter Details +--------+ + + + + | Date | Type | Department | Care Team | Description | +--------+ + + + + | 07/14/ | Hospital | [facility] | Richard Paredes | | | 2014 | Encounter | [facility] | [address] | | | | | MEDICAL CL[address] | [address] [place], [place] | | | | | [address] [facility] [place], | [address] | | | | | [place] [address] | | | | | | [phone] | | | +--------+ + + + [...] [place] | | | | | | [address] | | | | | | | | +--------+---------+ + + + documented as of this encounter Visit Diagnoses Not on filedocumented in this encounter"
--- OUTSIDE RECORDS SUMMARY | ~2019-05-17 | XMS | Encounter Summary ---
Demographics + + + | Address | [address] | | | [place] [address] | + + + | Home Phone | | + + + | Preferred Language | Unknown | + + + | Marital Status | Single | + + + | Quaker Affiliation | Unknown | + + + | Race | Unknown | + + + | Ethnic Group | Unknown | + + + Author + + + | Author | [facility] and [facility] | | | and [place] | + + + | Organization | [facility] | | | and [place]ana [...] Team Providers + +------+ + | Care Condenser Tester Name | Role | Phone | + +------+ + | Gela Leong DO | PCP | | + +------+ + Encounter Details +--------+ + + + + | Date | Type | Department | Care Team | Description | +--------+ + + + + | 04/10/ | [facility] | Carl Servin MD | | | 2017 | Encounter | HOSPITAL NEUROLOGY | [address] | | | | | CL[address] | [place] | | | | | [address] [place], | [address] | | | | | [place] [address] | | | | | | [phone] | | | +--------+ + + + [...] [place] | | | | | | [address] | | | | | | | | +--------+---------+ + + + documented as of this encounter Visit Diagnoses Not on filedocumented in this encounter"
--- OUTSIDE RECORDS SUMMARY | ~2019-05-17 | XMS | Encounter Summary ---
Demographics + + + | Address | [address] | | | [place] [address] | + + + | Home Phone | | + + + | Preferred Language | Unknown | + + + | Marital Status | Single | + + + | Muslim Affiliation | Unknown | + + + | Race | Unknown | + + + | Ethnic Group | Unknown | + + + Author + + + | Author | [facility] | | | and [place] | + + + | Organization | [facility] | | [...] Team Providers + +------+ + | Care Train Brakeman Name | Role | Phone | + +------+ + PCP | Unavailable | + +------+ + Encounter Details +--------+ + + + + | Date | Type | Department | Care Team | Description | +--------+ + + + + | 03/18/ | Hospital | [facility] | Carl Servin MD | | | 2015 | Encounter | [facility] | [address] | | | | | [place] | [place], [place] | | | | | [place], [place] | [address] | | | | | [address] | | | | | | [phone] | | | +--------+ + + + [...] [place] | | | | | | [address] | | | | | | | | +--------+---------+ + + + documented as of this encounter Procedures + +--------+ + + + | Procedure Name | Priori | Date/Time | Associated Diagnosis | Comments | | | ty | | | | + +--------+ + + + | CT CERVICAL SPINE WO | Routin | 03/18/2015 | | Results for this | | CONTRAST | e | 2:12 PM | | procedure are in the | | | | PST | | results section. | + +--------+ + + + documented in this encounter Results CT Cervical Spine wo Contrast (03/18/2015 2:12 PM PST) + + | Specimen | + + | | + + + + + | Narrative | Performed At | + + + | ORIGINAL CT OF THE CERVICAL SPINE WITHOUT CONTRAST: | | | HISTORY: Neck pain with left-sided radiculopathy. TECHNIQUE: | | | 3.75-mm axial slices were acquired through the cervical spine without | | | contrast. COMPARISON: None. DOSE REPORT: DLP 526.22 mGy-cm. | | | FINDINGS: The visualized paranasal sinuses and mastoid air cells | | | are clear. Cervical vertebral bodies are normally aligned. There | | | is no prevertebral soft-tissue swelling. Intervertebral disk heights | | | are normal. The neural foramina are patent. No facet | | | hypertrophy. No obvious central stenosis. The aerodigestive tract | | | is patent. No prevertebral soft-tissue swelling. The visualized | | | thyroid gland is homogeneous. Lung apices are clear. No carotid | | | atherosclerosis. IMPRESSION: Normal exam. Job | | | #: [id number] Read By: JEY RICHMOND MD Released By: JEY | | | Ruby RICHMOND MD Date: 03/19/2015 12:15 | | + + + + + | Procedure Note | + + | Usman, Rad Results In - 03/21/2017 8:[address] OF THE CERVICAL | | SPINE WITHOUT CONTRAST: HISTORY:Neck pain with left-sided radiculopathy. | | TECHNIQUE:3.75-mm axial slices were acquired through the cervical spine without | | contrast. COMPARISON:None. DOSE REPORT:DLP 526.22 mGy-cm. FINDINGS:The visualized | | paranasal sinuses and mastoid air cells are clear. Cervical vertebral bodies are | | normally aligned. There is no prevertebral soft-tissue swelling. Intervertebral disk | | heights are normal. The neural foramina are patent. No facet hypertrophy. No obvious | | central stenosis. The aerodigestive tract is patent. No prevertebral soft-tissue | | swelling. The visualized thyroid gland is homogeneous. Lung apices are clear. No | | carotid atherosclerosis. IMPRESSION:Normal exam. Job #: [id number] Read By: | | JEY RICHMOND MD Released By: JEY RICHMOND, MDDate: 03/19/2015 12:15 | | | |COMPARISON: | |None. | | | |DOSE REPORT: | |DLP 526.22 mGy-cm. | | | |FINDINGS: | |The visualized paranasal sinuses and mastoid air cells are clear. Cervical vertebral marcelo s are normally aligned. There is no prevertebral soft-tissue swelling. Intervertebral disk heights are normal. The neural foramina are patent. No facet | |hypertrophy. No obvious central stenosis. The aerodigestive tract is patent. No preverte bral soft-tissue swelling. The visualized thyroid gland is homogeneous. Lung apices are cl ear. No carotid atherosclerosis. | | | |IMPRESSION: | |Normal exam. | | | | | | | | | |Read By: JEY RICHMOND MD | | | |Released By: JEY RICHMOND MD | |Date: 03/19/2015 12:15 | | | | | + + documented in this encounter Visit Diagnoses Not on filedocumented in this encounter"
--- OUTSIDE RECORDS SUMMARY | ~2019-05-17 | XMS | Encounter Summary ---
Demographics + + + | Address | [address] | | | [place] [address] | + + + | Home Phone | | + + + | Preferred Language | Unknown | + + + | Marital Status | Single | + + + | Nondenominational Affiliation | Unknown | + + + | Race | Unknown | + + + | Ethnic Group | Unknown | + + + Author + + + | Author | [facility] | | | and [place] | + + + | Organization | [facility] | | [...] Providers + +------+ + | Care Director Regulatory Affairs Name | Role | Phone | + [...] | [address] [place], [place] | [place] [address] | | | | | [address] | [phone] | | | | | [phone] | | | +--------+ + + + [...] [place] | | | | | | [address] | | | | | | | | +--------+---------+ + + + documented as of this encounter Visit Diagnoses Not on filedocumented in this encounter"
--- OUTSIDE RECORDS SUMMARY | ~2019-05-17 | XMS | Encounter Summary ---
Demographics + + + | Address | [address] | | | [place] [address] | + + + | Home Phone | | + + + | Preferred Language | Unknown | + + + | Marital Status | Single | + + + | Scientology Affiliation | Unknown | + + + | Race | Unknown | + + + | Ethnic Group | Unknown | + + + Author + + + | Author | [facility] | | | and [place] | + + + | Organization | [facility] | | | and [...] Team Providers + +------+ + | Care Agricultural Sciences Professor Name | Role | Phone | + +------+ + PCP | Unavailable | + +------+ + Encounter Details +--------+ + + + + | Date | Type | Department | Care Team | Description | +--------+ + + + + | 02/27/ | Hospital | [facility] | Carl Servin MD | | | 2011 | Encounter | [facility] | [address] | | | | | [place] | [place], [place] | | | | | [place], [place] | [address] | | | | | [address] | | | | | | [phone] | | | +--------+ + + + [...] [place] | | | | | | [address] | | | | | | | | +--------+---------+ + + + documented as of this encounter Visit Diagnoses Not on filedocumented in this encounter"
--- OUTSIDE RECORDS SUMMARY | ~2019-05-17 | XMS | Encounter Summary ---
Demographics + + + | Address | [address] | | | [place] [address] | + + + | Home Phone | | + + + | Preferred Language | Unknown | + + + | Marital Status | Single | + + + | Mormonism Affiliation | Unknown | + + + | Race | Unknown | + + + | Ethnic Group | Unknown | + + + Author + + + | Author | [facility] | | | and [place] | + + + | Organization | [facility] | | | and [place] [...] Team Providers + +------+ + | Care Flower Pot Press Operator Name | Role | Phone | + +------+ + PCP | Unavailable | + +------+ + Encounter Details +--------+ + + + + | Date | Type | Department | Care Team | Description | +--------+ + + + + | 08/10/ | Hospital | [facility] | Gela Leong | | | 2015 | Encounter | HOSPITAL LABORATORY | [address] | | | | | [address] [place] | [place] | | | | | [place], [place] | [place] [address] | | | | | [address] | [phone] | | | | | [phone] | | | +--------+ + + + [...] [place] | | | | | | [address] | | | | | | | | +--------+---------+ + + + documented as of this encounter Procedures + +--------+ + + + | Procedure Name | Priori | Date/Time | Associated Diagnosis | Comments | | | ty | | | | + +--------+ + + + | C. DIFFICILE DNA | Routin | 08/11/2014 | | Results for this | | AMPLIFIED | e | 2:38 PM | | procedure are in the | | | | PDT | | results section. | + +--------+ + + + | OCCULT BLOOD, STOOL, | Routin | 08/11/2014 | | Results for this | | SPECIMEN 1 | e | 2:38 PM | | procedure are in the | | | | PDT | | results section. | + +--------+ + + + documented in this encounter Results Occult Blood, Stool, Specimen 1 (08/11/2014 2:38 PM PDT) + + + + + + | Component | Value | Ref Range | Performed | Pathologist | | | | | At | Signature | + + + + + + | STOOL | NEGATIVE | NEGATIVE | EXTERNAL | | | OCCULT | | | LAB | | | BLOOD X1 | | | | | + + + + + + | Internal QC | POSITIVE | POSITIVE | EXTERNAL | | | | | | LAB | | + + + + + + | STOOL | NEGATIVE | NEGATIVE | EXTERNAL | | | OCCULT | | | LAB | | | BLOOD X2 | | | | | + + + + + + | Internal QC | POSITIVE | POSITIVE | EXTERNAL | | | | | | LAB | | + + + + + + | Occult | NEGATIVE | NEGATIVE | EXTERNAL | | | Blood 3 | | | LAB | | + + + + + + | Internal QC | POSITIVE | POSITIVE | EXTERNAL | | | | | | LAB | | + + + + + + + + | Specimen | + + | | + + + +---------+ + + | Performing | Address | City/State/Zipcode | Phone Number | | Organization | | | | + +---------+ + + | EXTERNAL LAB | | | | + +---------+ + + Clostridium difficile DNA amplified (08/11/2014 2:38 PM PDT) + + + + + + | Component | Value | Ref Range | Performed | Pathologist | | | | | At | Signature | + + + + + + | Clostridium | NEGATIVE | NEGATIVE | EXTERNAL | | | Diff | | | LAB | | + + + + + + | Internal QC | POSITIVE | POSITIVE | EXTERNAL | | | | | | LAB | | + + + + + + + + | Specimen [...]
--- OUTSIDE RECORDS SUMMARY | ~2019-05-17 | XMS | Encounter Summary ---
Demographics + + + | Address | [address] | | | [place] [address] | + + + | Home Phone | | + + + | Preferred Language | Unknown | + + + | Marital Status | Single | + + + | Anabaptism Affiliation | Unknown | + + + | Race | Unknown | + + + | Ethnic Group | Unknown | + + + Author + + + | Author | [facility] | | | and [place] | + + + | Organization | [facility] | | | and [place] | [...] Team Providers + +------+ + | Care Rough Rounder Machine Name | Role | Phone | + +------+ + PCP | Unavailable | + +------+ + Encounter Details +--------+ + + + + | Date | Type | Department | Care Team | Description | +--------+ + + + + | 12/11/ | Hospital | [facility] | Richard Paredes | | | 2017 | Encounter | HOSPITAL NEUROLOGY | [address] | | | | | CL[address] [place], [place] | | | | | [address] [place], | [address] | | | | | [place] [address] | | | | | | [phone] | | | +--------+ + + + [...] [place] | | | | | | [address] | | | | | | | | +--------+---------+ + + + documented as of this encounter Visit Diagnoses Not on filedocumented in this encounter"
--- OUTSIDE RECORDS SUMMARY | ~2019-05-17 | XMS | Encounter Summary ---
Demographics + + + | Address | [address] | | | [place] [address] | + + + | Home Phone | | + + + | Preferred Language | Unknown | + + + | Marital Status | Single | + + + | Yarsani Affiliation | Unknown | + + + | Race | Unknown | + + + | Ethnic Group | Unknown | + + + Author + + + | Author | [facility] | | | and [place] | + + + | Organization | [facility] | | | and [place] | [...] Team Providers + +------+ + | Care Stave Mill Hand Name | Role | Phone | + +------+ + PCP | Unavailable | + +------+ + Encounter Details +--------+ + + + + | Date | Type | Department | Care Team | Description | +--------+ + + + + | 01/12/ | Hospital | [facility] | Richard Paredes | | | 2016 | Encounter | [facility] | [address] | | | | | MED[facility] [address] | [address] [place], [place] | | | | | [address] [facility] [place], | [address] | | | | | [place] [address] | | | | | | [phone] | | | +--------+ + + + [...] [place] | | | | | | [address] | | | | | | | | +--------+---------+ + + + documented as of this encounter Visit Diagnoses Not on filedocumented in this encounter"
--- OUTSIDE RECORDS SUMMARY | ~2019-05-17 | XMS | Encounter Summary ---
Demographics + + + | Address | [address] | | | [place] [address] | + + + | Home Phone [...] Organization | [facility] | | | and [...] Team Providers + +------+ + | Care Tester Armature Or Fields Name | Role | Phone | + [...] | | [address] [place], | [address] | | | | | [place] [address] | | | | | | [phone] | | | +--------+ + + + [...] [place] | | | | | | [address] | | | | | | | | +--------+---------+ + + + documented as of this encounter Visit Diagnoses Not on filedocumented in this encounter"
--- OUTSIDE RECORDS SUMMARY | ~2019-05-17 | XMS | Encounter Summary ---
Demographics + + + | Address | [address] | | | [place] [address] | + + + | Home Phone | | + + + | Preferred Language | Unknown | + + + | Marital Status | Single | + + + | Muslim Affiliation | Unknown | + + + | Race | Unknown | + + + | Ethnic Group | Unknown | + + + Author + + + | Author | [facility] | | | and [place] | + + + | Organization | [facility] | | | and [...] Team Providers + +------+ + | Care Superintendent Board Mill Name | Role | Phone | + +------+ + | Kayla Garcia | PCP | | + +------+ + Encounter Details +--------+ + + + + | Date | Type | Department | Care Team | Description | +--------+ + + + + | 04/07/ | Imaging | [facility] | Provider, | | | 2019 | Exam | [facility] | [address] | | | | | IMAGING | [place] | | | | | [phone] | [place] [address] | | +--------+ + + + + [...] 06/05/ | Office | Physical Medicine | Gonzalez, Jaime E A, | | | 2020 | Visit | and Rehabilitation | [address] | | | | | | [place] | | | | | | [address] | | | | | | | [...] Results CT Cervical Spine wo Contrast (03/18/2015 12:00 AM PST) + + | Specimen | + [...]
--- OUTSIDE RECORDS SUMMARY | ~2019-05-17 | XMS | Encounter Summary ---
Demographics + + + | Address | [address] | | | [place] [address] | + + + | Home Phone | | + + + | Preferred Language | Unknown | + + + | Marital Status | Single | + + + | Confucianist Affiliation | Unknown | + + + | Race | Unknown | + + + | Ethnic Group | Unknown | + + + Author + + + | Author | [facility] | | | and [place] | + + + | Organization | [facility] | | | and [...] Team Providers + +------+ + | Care Qc Manager Name | Role | Phone | + +------+ + PCP | Unavailable | + +------+ + Encounter Details +--------+ + + + + | Date | Type | Department | Care Team | Description | +--------+ + + + + | 07/13/ | Hospital | [facility] | Richard Paredes | | | 2016 | Encounter | [facility] | [address] | | | | | MEDICAL CL[facility] | [address] [place], [place] | | | | | [address] [facility] [place], | [address] | | | | | [place] [address] | | | | | | [phone] | | | +--------+ + + + [...] [place] | | | | | | [address] | | | | | | | | +--------+---------+ + + + documented as of this encounter Visit Diagnoses Not on filedocumented in this encounter"
--- OUTSIDE RECORDS SUMMARY | ~2019-05-17 | XMS | Encounter Summary ---
Demographics + + + | Address | [address] | | | [place] [address] | + + + | Home Phone | | + + + | Preferred Language | Unknown | + + + | Marital Status | Single | + + + | Christianity Affiliation | Unknown | + + + | Race | Unknown | + + + | Ethnic Group | Unknown | + + + Author + + + | Author | [facility] | | | and [place] | + + + | Organization | [facility] | | | and [place] [...] Providers + +------+ + | Care Continuous Process Rotary Drum Tanner Name | Role | Phone | + +------+ + PCP | Unavailable | + +------+ + Encounter Details +--------+ + + + + | Date | Type | Department | Care Team | Description | +--------+ + + + + | 09/17/ | Hospital | [facility] | Tiana Bennett, | | | 2017 | Encounter | HOSPITAL EMERGENCY | COLLEGE ADVISOR [address] | | | | | CENTER [address] | [address] [place], [place] | | | | | [place], [place] | [address] | | | | | [address] | | | | | | [phone] | | | +--------+ + + + [...] [place] | | | | | | [address] | | | | | | | | +--------+---------+ + + + documented as of this encounter Procedures + +--------+ + + + | Procedure Name | Priori | Date/Time | Associated Diagnosis | Comments | | | ty | | | | + +--------+ + + + | XR CHEST 2 VIEWS | Routin | 09/17/2016 | | Results for this | | | e | 11:13 AM | | procedure are in the | | | | PDT | | results section. | + +--------+ + + + documented in this encounter Results XR Chest 2 VW (09/17/2016 11:13 AM PDT) + + | Specimen | + + | | + + + + + | Narrative | Performed At | + + + | EXAMINATION: CHEST PA & LAT (2V) HISTORY: Cough for 3 months, | | | worse for 3 days COMPARISON STUDY: None FINDINGS: The lungs | | | are well ventilated. No pleural effusion. No pneumothorax. | | | Cardiomediastinal silhouette is normal. No acute osseous process. | | | IMPRESSION: No acute cardiopulmonary process. JOB #: [id number] | | | Digitally Released by: Jey Richmond Read By: JEY Beltran | | | MD BASILIO Date: 09/17/2016 18:16 | | + + + + + | Procedure Note | + + | Usman, Rad Results In - 05/24/2017 12:24 PM PST EXAMINATION: | | CHEST PA & LAT (2V) | | | | HISTORY: | | Cough for 3 months, worse for 3 days | | | | COMPARISON STUDY: | | None | | | | FINDINGS: | | The lungs are well ventilated. No pleural effusion. No pneumothorax. | | Cardiomediastinal silhouette is normal. No acute osseous process. | | | | IMPRESSION: | | No acute cardiopulmonary process. | | | | | | JOB #: [id number] | | Digitally Released by: Jey Richmond | | | | | | Read By: JEY RICHMOND MD | | Date: 09/17/2016 18:16 | | | + + documented in this encounter Visit Diagnoses Not on filedocumented in this encounter"
--- OUTSIDE RECORDS SUMMARY | ~2019-05-17 | XMS | Encounter Summary ---
Demographics + + + | Address | [address] | | | [place] [address] | + + + | Home Phone | | + + + | Preferred Language | Unknown | + + + | Marital Status | Single | + + + | Mormon Affiliation | Unknown | + + + | Race | Unknown | + + + | Ethnic Group | Unknown | + + + Author + + + | Author | [facility] | | | and [place] | + + + | Organization | [facility] | | | and [place] [...] Providers + +------+ + | Care Director For Beauty School Name | Role | Phone | + +------+ + PCP | Unavailable | + +------+ + Encounter Details +--------+ + + + + | Date | Type | Department | Care Team | Description | +--------+ + + + + | 05/29/ | Hospital | [facility] | Adarsh Ren FNP | | | 2013 | Encounter | HOSPITAL ORTHOPEDIC | [address] | | | | | [address] [place] | [place], [place] | | | | | [place], [place] | [address] | | | | | [address] | [phone] | | | | | [phone] | | | +--------+ + + + [...] [place] | | | | | | [address] | | | | | | | | +--------+---------+ + + + documented as of this encounter Visit Diagnoses Not on filedocumented in this encounter"
--- OUTSIDE RECORDS SUMMARY | ~2019-05-17 | XMS | Encounter Summary ---
Demographics + + + | Address | [address] | | | [place] [address] | + + + | Home Phone | | + + + | Preferred Language | Unknown | + + + | Marital Status | Single | + + + | Tenriism Affiliation | Unknown | + + + | Race | Unknown | + + + | Ethnic Group | Unknown | + + + Author + + + | Author | [facility] | | | and [place] | + + + | Organization | [facility] | | | and [...] Team Providers + +------+ + | Care Public Services Librarian Name | Role | Phone | + +------+ + PCP | Unavailable | + +------+ + Encounter Details +--------+ + + + + | Date | Type | Department | Care Team | Description | +--------+ + + + + | 09/04/ | Hospital | [facility] | Gela Leong | | | 2013 | Encounter | [facility] | [address] | | | | | [address] [place] | [place] | | | | | [place], [place] | [place] [address] | | | | | [address] | [phone] | | | | | [phone] | | | +--------+ + + + [...] [place] | | | | | | [address] | | | | | | | | +--------+---------+ + + + documented as of this encounter Visit Diagnoses Not on filedocumented in this encounter"
--- OUTSIDE RECORDS SUMMARY | ~2019-05-17 | XMS | Encounter Summary ---
Demographics + + + | Address | [address] | | | [place] [address] | + + + | Home Phone | | + + + | Preferred Language | Unknown | + + + | Marital Status | Single | + + + | Hindu Affiliation | Unknown | + + + | Race | Unknown | + + + | Ethnic Group | Unknown | + + + Author + + + | Author | [facility] | | | and [place] | + + + | Organization | [facility] | | | and [place] | [...] Team Providers + +------+ + | Care Well Digger Name | Role | Phone | + +------+ + PCP | Unavailable | + +------+ + Encounter Details +--------+ + + + + | Date | Type | Department | Care Team | Description | +--------+ + + + + | 09/26/ | Hospital | [facility] | Carl Servin MD | | | 2013 | Encounter | HOSPITAL LABORATORY | [address] | | | | | [address] [place] | [place], [place] | | | | | [place], [place] | [address] | | | | | [address] | | | | | | [phone] | | | +--------+ + + + [...] [place] | | | | | | [address] | | | | | | | | +--------+---------+ + + + documented as of this encounter Procedures + +--------+ + + + | Procedure Name | Priori | Date/Time | Associated Diagnosis | Comments | | | ty | | | | + +--------+ + + + | DRUGS OF ABUSE, | Routin | 09/26/2013 | | Results for this | | SCREEN, URINE | e | 3:41 PM | | procedure are in the | | | | PDT | | results section. | + +--------+ + + + documented in this encounter Results Drugs of Abuse, Screen, Urine (09/26/2013 3:41 PM PDT) + +-------+ + + + [...] +-------+ + + + | Benzodiazep | NEG | NEG ng/mL | EXTERNAL [...]
--- OUTSIDE RECORDS SUMMARY | ~2019-05-17 | XMS | Clinical Summary ---
Demographics + + + | Address | [address] | | | [place] [address] | + + + | Home Phone | | + + + | Preferred Language | Unknown | + + + | Marital Status | Single | + + + | Denominational Affiliation | Unknown | + + + | Race | Unknown | + + + | Ethnic Group | Unknown | + + + Author + + + | Author | [facility] | | | and [place] | + + + | Organization | [facility] | | | and [place] [...] Team Providers + +------+ + | Care Tax Associate Attorney Name | Role | Phone | + +------+ + | Kayla Garcia | PCP | | + +------+ + Allergies No Known Allergies Medications + + + +---------+------+------+-------+ | Medication | Sig | Dispensed | Refills | Star | End | Statu | | | | | | t | Date | s | | | | | | Date | | | + + + +---------+------+------+-------+ | ibuprofen (ADVIL, | Take 800 mg by mouth | | 0 | | | Activ | | MOTRIN) 200 mg | every 6 hours as | | | | | e | | tablet | needed for Pain. | | | | | | + + + +---------+------+------+-------+ | pseudoePHEDrine | Take 60 mg by mouth | | 0 | | | Activ | | (SUDAFED) 30 mg | 2 times daily. | | | | | e | | tablet | | | | | | | + + + +---------+------+------+-------+ | LORazepam (ATIVAN) | Take 0.5 mg by mouth | | 0 | | | Activ | | 0.5 mg tablet | as needed for | | | | | e | | | Anxiety or Insomnia. | | | | | | + + + +---------+------+------+-------+ | topiramate | Take 50 mg by mouth | | 0 | | | Activ | | (TOPAMAX) 50 MG | 2 times daily. | | | | | e | | tablet | | | | | | | + + + +---------+------+------+-------+ | traZODone | Take 50 mg by mouth | | 0 | | | Activ | | (DESYREL) 50 mg | nightly. | | | | | e | | tablet | | | | | | | + + + +---------+------+------+-------+ | | Take 1 tablet by | | 0 | | | Activ | | sulfamethoxazole-tri | mouth 2 times daily. | | | | | e | | methoprim (BACTRIM | | | | | | | | DS) 800-160 mg per | | | | | | | | tablet | | | | | | | + + + +---------+------+------+-------+ | predniSONE | Take 2 tablets by | 10 | 0 | 10/1 | | Activ | | (DELTASONE) 20 mg | mouth Daily. | tablet | | 8/20 | | e | | tablet | | | | 19 | | | + + + +---------+------+------+-------+ +---+ + | | Additional | | | informationPatient | | | not taking. Reason: | | | Not Available, | | | Reported on | | | 03/18/2019 9:31 AM | +---+ + + + +--------+---+------+---+-------+ | ibuprofen | Take 1 tablet by | 30 | 0 | 10/1 | | Activ | | (ADVIL,MOTRIN) 600 | mouth every 6 hours | tablet | | 8/20 | | e | | MG tablet | as needed for Pain. | | | 19 | | | + + +--------+---+------+---+-------+ | | Take 1-2 tablets by | 20 | 0 | 11/0 | | Activ | | HYDROcodone-acetamin | mouth every 6 hours | tablet | | 5/20 | | e | | ophen (NORCO) 5-325 | as needed for Pain. | | | 19 | | | | mg per tablet | | | | | | | + + +--------+---+------+---+-------+ Active Problems + + + | Problem | Noted Date | + + + | Opioid contract exists | 04/25/2017 | + + + Encounters +--------+ + + + + | Date | Type | Specialty | Care Team | Description | +--------+ + + + + | 03/31/ | Office | Audiology | Philomena Hay MS | Normal hearing noted | | 2018 | Visit | | CCC-A | on examination | | | | | | (Primary Dx); Pain | | | | | | in left ear | +--------+ + + + + | 03/18/ | Emergency | Emergency Medicine | Terrell Vera MD | Dysfunction of | | 2018 | | | | Eustachian tube, | | | | | | unspecified | | | | | | laterality (Primary | | | | | | Dx) | +--------+ + + + + | 02/28/ | Emergency | Emergency Medicine | Doni Wong | Otalgia of left ear | | 2018 | | | Venkatesh Marley MD | (Primary Dx) | +--------+ + + + + from Last 3 Months Immunizations + + + + | Name | Administration Dates | Next Due | + + + + | INFLUENZA PF | 03/13/2012 | | | TRIVALENT(PED/ADOL/A | | | | ALEJANDRA POWELL | | | + + + + [...] | | + + + + + Plan of Treatment +--------+---------+ + + + | Date | Type | Specialty | Care Team | Description | +--------+---------+ + + + | 06/05/ | Office | Physical Medicine | Jaime Gonzalez, | | | 2020 | Visit | and Rehabilitation | MD [address] | | | | | | [place] | | | | | | [address] | | | | | | | | +--------+---------+ + + + + + + + + | Health Maintenance | Due Date | Last Done | Comments | + + + + + | Primary Care | | | | | Outreach (Low Risk) | 9 | | | + + + + + | Vaccine: | | | | | Pneumococcal 19-64 | 5 | | | | (1 of 1 - PPSV23) | | | | + + + + + | Vaccine: | | | | | Dtap/Tdap/Td (1 - | 0 | | | | Tdap) | | | | + + + + + | Cervical Cancer | | 02/09/2012 | | | Screening (Pap) | 7 | | | + + + + + | Vaccine: Influenza | | 01/10/2018, 03/13/2012, | | | (#1) | 9 | 04/20/2010 | | + + + + + Procedures + +--------+ + + + | [...] | | | FICATI | | | ON? | | | 05/201 | | | 9 | | | 09:18? | | | PATTER | | | SON, | | | LAURO | | | M?MRN: | | | | | | [id number] | | | [id number] | | | riteri | | | [...] | | | guidel | | | mratínez | | | and | | | [...] | | | St. | | | [place] | | | y | | | [...] | | | St. | | | [place] | | | y H. | | [...] | | | [phone] | | | [id number] | | | 6e | | | [...] | | | ed.? | | | 2018 | | | Collec | | | tive | | | Medica | | | l | | | Techno | | | logies | | | , Inc. | | | - | | | [email or web address] | | | llecti | | | vemedi | | | [email or web address] | | | m | +---+--------+ + +--------+ +---+---+ | ED INFORMATION | Routin | 02/28/2019 | | | | EXCHANGE | e | 11:24 AM | | | | | | PDT | | | + +--------+ +---+---+ +---+--------+ | | | | | Proced | | | ure | | | Note - | | | Usman, | | | Lab In | | | | | | Hlseve | | | n - | | | 02/28/ | | | 2018 | | | [...] M?MRN: | | | | | | [id number] | | | [id number] | | | riteri | | | [...] | | | St. | | | [address] | | | y | | | [...] | | | St. | | | [address] | | | y H. | | [...] | | | St. | | | [place] | | | y H. | | [...] [email or web address] | | | m | +---+--------+ from Last 3 Months Results DIAGNOSTIC REPORT - EXTERNAL SCAN (03/31/2019 12:00 AM PST) + + + | Narrative | Performed At | + + + | Ordered by an | | | unspecified provider. | | + + + from Last 3 Months Insurance + +--------+ +--------+ [...] | [employer] | MOD[employer] | [id number] | | [phone] | | Medica | | MEDICAID HMO | HEALTH | | 018-Pr | 1 | | id | | | MDCD | | esent | | | | | | HMO [place] | | | | | | + +--------+ +--------+ +---------+--------+ | [employer] | [employer] | [id number] | 02/28/ | [phone] | | Medica | | MEDICAID HMO | HEALTH | | 2019-P | 1 | | id | | | MDCD | | resent | | | | | | HMO [...] Person | Self | [birth year] | [address] | | Meliza | piper/Brandon | | 1981 | [phone] | [place] [address] | | | ladi | | | 5 (Home) | | + +--------+ +--------+ + + | Lauro Melara | Person | Self | [birth year] | | [address] | | [place]iza | al/Fam | | 1981 | [phone] | [place] [address] | | | ladi | | | 5 (Home) | | + +--------+ +--------+ + + Advance Directives + + + + + | Type | Date Recorded | Patient | Explanation | | | | Rotary Planer Set Up Operator | | + + + + + | Power of | | | | | Brand Coordinator | | | | + + + + + | Advance | 11/03/2017 2:12 | | | | Directive | PM | | | + + + + +
--- OUTSIDE RECORDS SUMMARY | ~2019-05-17 | XMS | Encounter Summary ---
Demographics + + + | Address | [address] | | | [place] [address] | + + + | Home Phone [...] + + | Organization | [facility] | | | and [place] [...] Team Providers + +------+ + | Care Websphere Portal Developer Name | Role | Phone | [...] | +--------+ + + + + | 08/24/ | Telephone | [facility] | Carl Servin MD | Medication Refill | | 2017 | | HOSPITAL NEUROLOGY | [address] | | | | | CLINIC [address] | [place] | | | | | [address] [place], | [address] | | | | | [place] [address] | | | | | | [phone] | | | +--------+ + + + [...] [place] | | | | | | [id number] | | | | | | | | +--------+---------+ + + + documented as of this encounter Visit Diagnoses Not on filedocumented in this encounter"
--- OUTSIDE RECORDS SUMMARY | ~2019-05-17 | XMS | Encounter Summary ---
Demographics + + + | Address | [address] | | | [place] [address] | + + + | Home Phone | | + + + | Preferred Language | Unknown | + + + | Marital Status | Single | + + + | Evangelical Affiliation | Unknown | + + + | Race | Unknown | + + + | Ethnic Group | Unknown | + + + Author + + + | Author | [facility] | | | and [place] | + + + | Organization | [facility] | | | and [place] [...] Providers + +------+ + | Care Manager Pathology Name | Role | Phone | + +------+ + PCP | Unavailable | + +------+ + Encounter Details +--------+ + + + + | Date | Type | Department | Care Team | Description | +--------+ + + + + | 12/24/ | [facility] | Mariama Fajardo, | | | 2011 | Encounter | HOSPITAL EMERGENCY | [facility] [address] | | | | | CENTER [address] | [address] [place], [place] | | | | | [place], [place] | [address] | | | | | [address] | | | | | | [phone] | | | +--------+ + + + [...] [place] | | | | | | [address] | | | | | | | | +--------+---------+ + + + documented as of this encounter Visit Diagnoses Not on filedocumented in this encounter"
--- OUTSIDE RECORDS SUMMARY | ~2019-05-17 | XMS | Encounter Summary ---
Demographics + + + | Address | [address] | | | [place] [address] | + + + | Home Phone [...] + + + | Author | [facility] | | | and [place] | + + + | Organization | [facility] | | | [...] Team Providers + +------+ + | Care Pipe Line Inspector Name | Role | Phone | + [...] [place] | | | | | [phone] | [place] [address] | | +--------+ + + + + [...] | Visit | and Rehabilitation | MD [address] | | | | | | [place] | | | | | | [address] | | | | | | | | +--------+---------+ + + + documented as of this encounter Procedures + +--------+ + + + | Procedure Name | Priori | Date/Time | Associated Diagnosis | Comments | | | ty | | | | + +--------+ + + + | MRI LUMBAR SPINE W | Routin | 02/12/2014 | | Results for this | | WO CONTRAST | e | 12:00 AM | | procedure are in the | | | | PDT | | results section. | + +--------+ + + + documented in this encounter Results MRI Lumbar Spine w wo Contrast (02/12/2014 12:00 AM PDT) + + | Specimen [...]
--- OUTSIDE RECORDS SUMMARY | ~2019-05-17 | XMS | Encounter Summary ---
Demographics + + + | Address | [address] | | | [place] [address] | + + + | Home Phone | | + + + | Preferred Language | Unknown | + + + | Marital Status | Single | + + + | Presybeterian Affiliation | Unknown | + + + | Race | Unknown | + + + | Ethnic Group | Unknown | + + + Author + + + | Author | [facility] | | | and [place] | + + + | Organization | [facility] | | [...] Team Providers + +------+ + | Care Platen Press Operator Name | Role | Phone | + +------+ + PCP | Unavailable | + +------+ + Encounter Details +--------+ + + + + | Date | Type | Department | Care Team | Description | +--------+ + + + + | 11/30/ | Hospital | [facility] | Harsha Alvarado | | | 2011 | Encounter | HOSPITAL EMERGENCY | MD Dick Dawn | | | | | CENTER [address] | [place] | | | | | [address] [place], [place] | [place] [address] | | | | | [address] | [phone] | | | | | [phone] | | | +--------+ + + + [...] [place] | | | | | | [address] | | | | | | | | +--------+---------+ + + + documented as of this encounter Visit Diagnoses Not on filedocumented in this encounter"
--- OUTSIDE RECORDS SUMMARY | ~2019-05-17 | XMS | Encounter Summary ---
Demographics + + + | Address | [address] | | | [place] [address] | + + + | Home Phone [...] | Organization | [facility] | | [...] Team Providers + +------+ + | Care Department Store Manager Name | Role | Phone | + +------+ + PCP | Unavailable | + +------+ + Encounter Details +--------+ + + + + | Date | Type | Department | Care Team | Description | +--------+ + + + + | 09/03/ | Hospital | [facility] | Gela Leong | | | 2013 | Encounter | HOSPITAL LABORATORY | [address] | | | | | [address] [place] | [place] | | | | | [place], [place] | [place] [address] | | | | | [address] | [phone] | | | | | [phone] | | | +--------+ + + + [...] Visit | and Rehabilitation | [address] | | | | | | [place] | | | | | | [address] | | | | | | | [...]
--- OUTSIDE RECORDS SUMMARY | ~2019-05-17 | XMS | Encounter Summary ---
Demographics + + + | Address | [address] | | | [place] [address] | + + + | Home Phone | | + + + | Preferred Language | Unknown | + + + | Marital Status | Single | + + + | Roman Catholic Affiliation | Unknown | + + + | Race | Unknown | + + + | Ethnic Group | Unknown | + + + Author + + + | Author | [facility] | | | and [place] | + + + | Organization | [facility] | | [...] Team Providers + +------+ + | Care Wafer Polishing Worker Name | Role | Phone | [...] [place] | | | | | [phone] | [place] [address] | | +--------+ + + + + [...] | and Rehabilitation | MD [address] | | | | | | [place] | | | | | | [address] | | | | | | | [...]
--- OUTSIDE RECORDS SUMMARY | ~2019-05-17 | XMS | Encounter Summary ---
Demographics + + + | Address | [address] | | | [place] [address] | + + + | Home Phone | | + + + | Preferred Language | Unknown | + + + | Marital Status | Single | + + + | Worship Affiliation | Unknown | + + + | Race | Unknown | + + + | Ethnic Group | Unknown | + + + Author + + + | Author | [facility] | | | and [place] | + + + | Organization | [facility] | | | and [place] | [...] Team Providers + +------+ + | Care Unix Developer Name | Role | Phone | + +------+ + PCP | Unavailable | + +------+ + Encounter Details +--------+ + + + + | Date | Type | Department | Care Team | Description | +--------+ + + + + | 09/09/ | Hospital | [facility] | Richard Paredes | | | 2015 | Encounter | [facility] | [address] | | | | | MEDICAL CLINIC [address] | [address] [place], [place] | | | | | [address] [facility] [place], | [address] | | | | | [place] [address] | | | | | | [phone] | | | +--------+ + + + [...] [place] | | | | | | [address] | | | | | | | | +--------+---------+ + + + documented as of this encounter Visit Diagnoses Not on filedocumented in this encounter"
--- OUTSIDE RECORDS SUMMARY | ~2019-05-17 | XMS | Encounter Summary ---
Demographics + + + | Address | [address] | | | [place] [address] | + + + | Home Phone [...] + + + | Author | [facility] | | | and [place] | + + + | Organization | [facility] | [...] Team Providers + +------+ + | Care Setter Out Name | Role | Phone | + [...] [address] [place] | [address] [place], [place] | | | | | [place] | [address] | | | | | [address] | | | | | | [phone] | | | +--------+ + + + [...] | | | | | [place] | | | | | | [address] | | | | | | | [...]
--- OUTSIDE RECORDS SUMMARY | ~2019-05-17 | XMS | Encounter Summary ---
Demographics + + + | Address | [address] | | | [place] [address] | + + + | Home Phone | | + + + | Preferred Language | Unknown | + + + | Marital Status | Single | + + + | Amish Affiliation | Unknown | + + + | Race | Unknown | + + + | Ethnic Group | Unknown | + + + Author + + + | Author | [facility] | | | and [place] | + + + | Organization | [facility] [...] Team Providers + +------+ + | Care Teaching Manager Name | Role | Phone | + +------+ + PCP | Unavailable | + +------+ + Encounter Details +--------+ + + + + | Date | Type | Department | Care Team | Description | +--------+ + + + + | 02/16/ | Hospital | [facility] | Carl Servin MD | | | 2013 | Encounter | [facility] | [address] | | | | | MEDICAL CLIN[facility] [address] | [place], [place] | | | | | [address] [place], | [address] | | | | | [place] [address] | | | | | | [phone] | | | +--------+ + + + [...] [place] | | | | | | [address] | | | | | | | | +--------+---------+ + + + documented as of this encounter Visit Diagnoses Not on filedocumented in this encounter"
--- OUTSIDE RECORDS SUMMARY | ~2019-05-17 | XMS | Encounter Summary ---
Demographics + + + | Address | [address] | | | [place] [address] | + + + | Home Phone [...] + + | Author | [facility] | | | and [place] | + + + | Organization | [facility] | [...] Team Providers + +------+ + | Care Pearl Restorer Name | Role | Phone | + +------+ + PCP | Unavailable | + +------+ + Encounter Details +--------+ + + + + | Date | Type | Department | Care Team | Description | +--------+ + + + + | 09/02/ | Hospital | [facility] | Gela Leong | | | 2013 | Encounter | [facility] | [address] | | | | | MEDICAL [facility] | [place] | | | | | [address] [place], | [place] [address] | | | | | [place] [address] | [phone] | | | | | [phone] | | | +--------+ + + + [...] [place] | | | | | | [address] | | | | | | | | +--------+---------+ + + + documented as of this encounter Visit Diagnoses Not on filedocumented in this encounter"
--- OUTSIDE RECORDS SUMMARY | ~2019-05-17 | XMS | Encounter Summary ---
Demographics + + + | Address | [address] | | | [place] [address] | + + + | Home Phone [...] Organization | [facility] | | | and [...] Providers + +------+ + | Care Supervisor Endless Track Vehicle Name | Role | Phone | + +------+ + | Gela Leong DO | PCP | | + +------+ + Reason for Visit +---------+ + | Reason | Comments | +---------+ + | No Show | | +---------+ + Encounter Details +--------+ + + + + | Date | Type | Department | Care Team | Description | +--------+ + + + + | 06/01/ | Telephone | [facility] | Richard Paredes | No Show | | 2018 | | HOSPITAL NEUROLOGY | [address] | | | | | CLIN[address] | [address] [place], [place] | | | | | [address] [place], | [address] | | | | | [place] [address] | | | | | | [phone] | | | +--------+ + + + [...] [place] | | | | | | [address] | | | | | | | | +--------+---------+ + + + documented as of this encounter Visit Diagnoses Not on filedocumented in this encounter"
--- OUTSIDE RECORDS SUMMARY | ~2019-05-17 | XMS | Encounter Summary ---
Demographics + + + | Address | [address] | | | [place] [address] | + + + | Home Phone | | + + + | Preferred Language | Unknown | + + + | Marital Status | Single | + + + | Scientologist Affiliation | Unknown | + + + | Race | Unknown | + + + | Ethnic Group | Unknown | + + + Author + + + | Author | [facility] | | | and [place] | + + + | Organization | [facility] | [...] + +------+ + | Care High School Social Science Teacher Name | Role | Phone | [...] | CLINIC [address] | [address] [place], [place] | | | | | [address] [place], | [address] | | | | | [place] [address] | | | | | | [phone] | | | +--------+ + + + [...] [place] | | | | | | [id number] | | | | | | | | +--------+---------+ + + + documented as of this encounter Visit Diagnoses Not on filedocumented in this encounter"
--- OUTSIDE RECORDS SUMMARY | ~2019-05-17 | XMS | Encounter Summary ---
Demographics + + + | Address | [address] | | | [place] [address] | + + + | Home Phone | | + + + | Preferred Language | Unknown | + + + | Marital Status | Single | + + + | Alevism Affiliation | Unknown | + + + | Race | Unknown | + + + | Ethnic Group | Unknown | + + + Author + + + | Author | [facility] | | | and [place] | + + + | Organization | [facility] | | | and [...] Team Providers + +------+ + | Care Certified Real Estate Appraiser Name | Role | Phone | + [...] [address] [place], | [place] [address] | | | | | [place] [address] | [phone] | | | | | [phone] | | | +--------+ + + + [...] [place] | | | | | | [address] | | | | | | | | +--------+---------+ + + + documented as of this encounter Visit Diagnoses Not on filedocumented in this encounter"
--- OUTSIDE RECORDS SUMMARY | ~2019-05-17 | XMS | Encounter Summary ---
Demographics + + + | Address | [address] | | | [place] [address] | + + + | Home Phone | | + + + | Preferred Language | Unknown | + + + | Marital Status | Single | + + + | Amish Affiliation | Unknown | + + + | Race | Unknown | + + + | Ethnic Group | Unknown | + + + Author + + + | Author | [facility] | | | and [place] | + + + | Organization | [facility] | | | and [...] Team Providers + +------+ + | Care Math Tutor Name | Role | Phone | + +------+ + PCP | Unavailable | + +------+ + Encounter Details +--------+ + + + + | Date | Type | Department | Care Team | Description | +--------+ + + + + | 10/02/ | Hospital | [facility] | Carl Servin MD | | | 2012 | Encounter | HOSPITAL THERAPY PT | [address] | | | | | [address] [place] | [place], [place] | | | | | [place], [place] | [address] | | | | | [address] | | | | | | [phone] | | | +--------+ + + + [...] [place] | | | | | | [address] | | | | | | | | +--------+---------+ + + + documented as of this encounter Visit Diagnoses Not on filedocumented in this encounter"
--- OUTSIDE RECORDS SUMMARY | ~2019-05-17 | XMS | Encounter Summary ---
Demographics + + + | Address | [address] | | | [place] [address] | + + + | Home Phone | | + + + | Preferred Language | Unknown | + + + | Marital Status | Single | + + + | Judaism Affiliation | Unknown | + + + | Race | Unknown | + + + | Ethnic Group | Unknown | + + + Author + + + | Author | [facility] | | | and [place] | + + + | Organization | [facility] | | | and [...] Team Providers + +------+ + | Care Protective Services Officer Name | Role | Phone | + +------+ + PCP | Unavailable | + +------+ + Encounter Details +--------+ + + + + | Date | Type | Department | Care Team | Description | +--------+ + + + + | 08/21/ | Hospital | [facility] | Pina El | | | 2012 | Encounter | HOSPITAL LABORATORY | MD Sheryl [address] | | | | | [address] [place] | [place], [place] | | | | | [place], [place] | [address] | | | | | [address] | [phone] | | | | | [phone] | | | +--------+ + + + [...] [place] | | | | | | [address] | | | | | | | | +--------+---------+ + + + documented as of this encounter Visit Diagnoses Not on filedocumented in this encounter"
--- OUTSIDE RECORDS SUMMARY | ~2019-05-17 | XMS | Encounter Summary ---
Demographics + + + | Address | [address] | | | [place] [address] | + + + | Home Phone | | + + + | Preferred Language | Unknown | + + + | Marital Status | Single | + + + | Confucianist Affiliation | Unknown | + + + | Race | Unknown | + + + | Ethnic Group | Unknown | + + + Author + + + | Author | [facility] | | | and [place] | + + + | Organization | [facility] | | [...] Team Providers + +------+ + | Care Stuffer Name | Role | Phone | + [...] ED Follow-up | | 2018 | | [facility] | [address] | | | | | MED[address] CL[address] | [address] [place] | | | | | [address] [place], | [place] [address] | | | | | [place] [address] | [phone] | | | | | [phone] | | | +--------+ + + + [...] [place] | | | | | | [address] | | | | | | | | +--------+---------+ + + + documented as of this encounter Visit Diagnoses Not on filedocumented in this encounter"
--- OUTSIDE RECORDS SUMMARY | ~2019-05-17 | XMS | Encounter Summary ---
Demographics + + + | Address | [address] | | | [place] [address] | + + + | Home Phone | | + + + | Preferred Language | Unknown | + + + | Marital Status | Single | + + + | Sikh Affiliation | Unknown | + + + | Race | Unknown | + + + | Ethnic Group | Unknown | + + + Author + + + | Author | [facility] | | | and [place] | + + + | Organization | [facility] | | | and Carlosana [...] Team Providers + +------+ + | Care Wireline Operator Name | Role | Phone | + +------+ + PCP | Unavailable | + +------+ + Encounter Details +--------+ + + + + | Date | Type | Department | Care Team | Description | +--------+ + + + + | 11/17/ | Hospital | [facility] | Tiana Bennett, | | | 2011 | Encounter | [facility] | AIR CONDITIONING INSULATION INSTALLER [address] | | | | | CENTER [address] | [address] [place], [place] | | | | | [place], [place] | [address] | | | | | [address] | | | | | | [phone] | | | +--------+ + + + [...] [place] | | | | | | [address] | | | | | | | | +--------+---------+ + + + documented as of this encounter Visit Diagnoses Not on filedocumented in this encounter"
--- OUTSIDE RECORDS SUMMARY | ~2019-05-17 | XMS | Encounter Summary ---
Demographics + + + | Address | [address] | | | [place] [address] | + + + | Home Phone | | + + + | Preferred Language | Unknown | + + + | Marital Status | Single | + + + | Jew Affiliation | Unknown | + + + | Race | Unknown | + + + | Ethnic Group | Unknown | + + + Author + + + | Author | [facility] | | | and [place] | + + + | Organization | [facility] | | | and [...] Team Providers + +------+ + | Care Mesmerist Name | Role | Phone | + +------+ + PCP | Unavailable | + +------+ + Encounter Details +--------+ + + + + | Date | Type | Department | Care Team | Description | +--------+ + + + + | 08/07/ | Hospital | [facility] | Gela Leong | | | 2015 | Encounter | [facility] | DO Sar[address] | | | | | [facility] | [place] | | | | | [address] [place], | [place] [address] | | | | | [place] [address] | [phone] | | | | | [phone] | | | +--------+ + + + [...] [place] | | | | | | [address] | | | | | | | | +--------+---------+ + + + documented as of this encounter Visit Diagnoses Not on filedocumented in this encounter"
--- OUTSIDE RECORDS SUMMARY | ~2019-05-17 | XMS | Encounter Summary ---
Demographics + + + | Address | [address] | | | [place] [address] | + + + | Home Phone | | + + + | Preferred Language | Unknown | + + + | Marital Status | Single | + + + | Zoroastrian Affiliation | Unknown | + + + | Race | Unknown | + + + | Ethnic Group | Unknown | + + + Author + + + | Author | [facility] | | | and [place] | + + + | Organization | [facility] | | | and [place]ana | [...] Team Providers + +------+ + | Care Yarrow Gatherer Name | Role | Phone | + [...] [address] [place], | [place] [address] | | | | | [place] [address] | [phone] | | | | | [phone] | | | +--------+ + + + [...] [place] | | | | | | [address] | | | | | | | | +--------+---------+ + + + documented as of this encounter Visit Diagnoses Not on filedocumented in this encounter"
--- OUTSIDE RECORDS SUMMARY | ~2019-05-17 | XMS | Encounter Summary ---
Demographics + + + | Address | [address] | | | [place] [address] | + + + | Home Phone | | + + + | Preferred Language | Unknown | + + + | Marital Status | Single | + + + | Buddhism Affiliation | Unknown | + + + | Race | Unknown | + + + | Ethnic Group | Unknown | + + + Author + + + | Author | [facility] | | | and [place] | + + + | Organization | [facility] | | | and [...] Team Providers + +------+ + | Care Residence Director Name | Role | Phone | + +------+ + PCP | Unavailable | + +------+ + Encounter Details +--------+ + + + + | Date | Type | Department | Care Team | Description | +--------+ + + + + | 11/18/ | Hospital | [facility] | Carl Servin MD | | | 2012 | Encounter | HOSPITAL [facility]ORY | [address] | | | | | [address] [place] | [place], [place] | | | | | [place], [place] | [address] | | | | | [address] | | | | | | [phone] | | | +--------+ + + + [...] [place] | | | | | | [address] | | | | | | | | +--------+---------+ + + + documented as of this encounter Visit Diagnoses Not on filedocumented in this encounter"
--- OUTSIDE RECORDS SUMMARY | ~2019-05-17 | XMS | Encounter Summary ---
Demographics + + + | Address | [address] | | | [place] [address] | + + + | Home Phone [...] | Author | [facility] | | | and [place] | + + + | Organization | [facility] | | | and Carlosana [...] Team Providers + +------+ + | Care Community Engagement Manager Name | Role | Phone | + +------+ + PCP | Unavailable | + +------+ + Encounter Details +--------+ + + + + | Date | Type | Department | Care Team | Description | +--------+ + + + + | 01/12/ | Hospital | [facility] | Richard Paredes | | | 2016 | Encounter | H[facility]PITAL [facility] | [address] | | | | | [address] [place] | [address] [place], [place] | | | | | [place] | [address] | | | | | [address] | | | | | | [phone] | | | +--------+ + + + [...] | | | | | [place] | | | | | | [address] | | | | | | | | +--------+---------+ + + + documented as of this encounter Procedures + +--------+ + + + | Procedure Name | Priori | Date/Time | Associated Diagnosis | Comments | | | ty | | | | + +--------+ + + + | CBC W/AUTO | Routin | 01/13/2016 | | Results for this | | DIFFERENTIAL | e | 1:45 PM | | procedure are in the | | | | PDT | | results section. | + +--------+ + + + | DRUGS OF ABUSE, | Routin | 01/13/2016 | | Results for this | | SCREEN, URINE | e | 1:45 PM | | procedure are in the | | | | PDT | | results section. | + +--------+ + + + | COMPREHENSIVE | Routin | 01/13/2016 | | Results for this | | METABOLIC PANEL | e | 1:45 PM | | procedure are in the | | | | PDT | | results section. | + +--------+ + + + documented in this encounter Results Drugs of Abuse, Screen, Urine (01/13/2016 1:45 PM PDT) + +-------+ + + + [...] +-------+ + + + | Methampheta | POS | NEG ng/mL | EXTERNAL | | | mine | | | LAB | | + +-------+ + + + | Opiates | POS | NEG ng/mL | EXTERNAL | | | | | | LAB | | + +-------+ + + + | Amphetamine | POS | NEG ng/mL | EXTERNAL [...] + +---------+ + + Comprehensive Metabolic Panel (01/13/2016 1:45 PM PDT) + +-------+ + + + | Component | Value | Ref Range | Performed | Pathologist | | | | | At | Signature | + +-------+ + + + | Sodium | 138 | 132 - 143 | EXTERNAL | | | | | mmol/L | LAB | | + +-------+ + + + | Potassium | 3.5 | 3.3 - 4.9 | EXTERNAL | [...] +-------+ + + + | Calcium | 8.8 | 8.3 - 10.0 | EXTERNAL | | | | | mg/dL | LAB | | + +-------+ + + + | Glucose | 106 | 70 - 110 mg/dL | EXTERNAL | | | | | | LAB | | + +-------+ + + + | BUN, Bld | 15 | 5 - 26 mg/dL | EXTERNAL | | | | | | LAB | | + +-------+ + + + | Creatinine | 0.9 | 0.60 - 1.30 | EXTERNAL | [...] +-------+ + + + | Bilirubin, | 0.4 | <=1.2 mg/dL | EXTERNAL | | | Total | | | LAB | | + +-------+ + + + | Protein, | 7.5 | 6.6 - 8.5 g/dL | EXTERNAL | | | Total | | | LAB | | + +-------+ + + + | Albumin | 3.8 | 3.0 - 4.5 g/dL | EXTERNAL | | | | | | LAB | | + +-------+ + + + | Alkaline | 93 | 46 - 116 U/L | EXTERNAL | | | Phosphatase | | | LAB | | + +-------+ + + + | ALT, | 77 | 14 - 59 U/L | EXTERNAL | | | External | | | LAB | | + +-------+ + + + | AST, | 34 | <=38 U/L | EXTERNAL | | [...] +---------+ + + CBC w/ Auto Differential (01/13/2016 1:45 PM PDT) + +-------+ + + + | Component | Value | Ref Range | Performed | Pathologist | | | | | At | Signature | + +-------+ + + + | WBC | 11.9 | 4.3 - 10.4 | EXTERNAL | | | | | 1000/mm3 | LAB | | + +-------+ + + + | RBC | 4.47 | 4.12 - 5.30 | EXTERNAL | | | | | mil/mm3 | LAB | | + +-------+ + + + | HGB, | 12.7 | 12.4 - 15.7 | EXTERNAL | | | External | | g/dL | LAB | | + +-------+ + + + | HCT, | 36.8 | 37.7 - 47.0 % | EXTERNAL | | | External | | | LAB | | + +-------+ + + + | MCV | 82 | 82 - 97 fl | EXTERNAL | | | | | | LAB | | + +-------+ + + + | MCH | 28.4 | 27.1 - 32.3 pg | EXTERNAL | | | | | | LAB | | + +-------+ + + + | MCHC | 34.5 | 32.0 - 36.9 | EXTERNAL | | | | | g/dL | LAB | | + +-------+ + + + | RDW-CV | 14.2 | <=17.0 % | EXTERNAL | | | | | | LAB | | + +-------+ + + + | Platelet | 360 | 150 - 450 | EXTERNAL | | | Count | | 1000/mm3 | LAB | | | Plasma | | | | | + +-------+ + + + | MPV | 8.6 | 9.4 - 12.3 FL | EXTERNAL | | | | | | LAB | | + +-------+ + + + | % Segmented | 55.7 | 42.0 - 76.0 % | EXTERNAL | | | | | | LAB | | | Neutrophils | | | | | + +-------+ + + + | LYMPH % | 36.6 | 20.0 - 40.0 % | EXTERNAL | | | | | | LAB | | + +-------+ + + + | % Monocytes | 7.7 | <=12.0 % | EXTERNAL | | | | | | LAB | | + +-------+ + + + | Absolute | 6.6 | 2.50 - 8.50 | EXTERNAL | | | Neutrophils | | 1000/mm3 | LAB | | + +-------+ + + + | Absolute | 4.4 | 1.00 - 3.80 | EXTERNAL | [...]
--- OUTSIDE RECORDS SUMMARY | ~2019-05-17 | XMS | Encounter Summary ---
Demographics + + + | Address | [address] | | | [place] [address] | + + + | Home Phone | | + + + | Preferred Language | Unknown | + + + | Marital Status | Single | + + + | Sabianism Affiliation | Unknown | + + + | Race | Unknown | + + + | Ethnic Group | Unknown | + + + Author + + + | Author | [facility] | | | and [place] | + + + | Organization | [facility] | | | and Carlosana [...] Team Providers + +------+ + | Care Generator Operator Name | Role | Phone | [...] | | [place], [place] | [place] [address] | | | | | [address] | [phone] | | | | | [phone] | | | +--------+ + + + [...] [place] | | | | | | [address] | | | | | | | [...]
--- OUTSIDE RECORDS SUMMARY | ~2019-05-17 | XMS | Encounter Summary ---
Demographics + + + | Address | [address] | | | [place] [address] | + + + | Home Phone | | + + + | Preferred Language | Unknown | + + + | Marital Status | Single | + + + | Sabianist Affiliation | Unknown | + + + | Race | Unknown | + + + | Ethnic Group | Unknown | + + + Author + + + | Author | [facility] | | | and [place] | + + + | Organization | [facility] | | | and [place]ana [...] Providers + +------+ + | Care Die Cut Operator Name | Role | Phone | + +------+ + PCP | Unavailable | + +------+ + Encounter Details +--------+ + + + + | Date | Type | Department | Care Team | Description | +--------+ + + + + | 04/03/ | Hospital | [facility] | Pina El | | | 2011 | Encounter | [facility] | MD Sheryl [address] | | | | | [address] | [place], [place] | | | | | [address] [place], | [address] | | | | | [place] [address] | [phone] | | | | | [phone] | | | +--------+ + + + [...] [place] | | | | | | [address] | | | | | | | | +--------+---------+ + + + documented as of this encounter Visit Diagnoses Not on filedocumented in this encounter"
--- OUTSIDE RECORDS SUMMARY | ~2019-05-17 | XMS | Encounter Summary ---
Demographics + + + | Address | [address] | | | [place] [address] | + + + | Home Phone | | + + + | Preferred Language | Unknown | + + + | Marital Status | Single | + + + | Holiness Affiliation | Unknown | + + + | Race | Unknown | + + + | Ethnic Group | Unknown | + + + Author + + + | Author | [facility] | | | and [place] | + + + | Organization | [facility] | | | and [...] Team Providers + +------+ + | Care Oven Heater Name | Role | Phone | + [...] | | [address] [place], | [address] | | | | | [place] [address] | [phone] | | | | | [phone] | | | +--------+ + + + [...] [place] | | | | | | [address] | | | | | | | | +--------+---------+ + + + documented as of this encounter Visit Diagnoses Not on filedocumented in this encounter"
--- OUTSIDE RECORDS SUMMARY | ~2019-05-17 | XMS | Encounter Summary ---
Demographics + + + | Address | [address] | | | [place] [address] | + + + | Home Phone | | + + + | Preferred Language | Unknown | + + + | Marital Status | Single | + + + | Faith Affiliation | Unknown | + + + | Race | Unknown | + + + | Ethnic Group | Unknown | + + + Author + + + | Author | [facility] | | | and [place] | + + + | Organization | [facility] | | | and [...] Team Providers + +------+ + | Care Teenage Program Director Name | Role | Phone | + +------+ + PCP | Unavailable | + +------+ + Encounter Details +--------+ + + + + | Date | Type | Department | Care Team | Description | +--------+ + + + + | 07/08/ | Hospital | [facility] | Richard Paredes | | | 2015 | Encounter | [facility] | [address] | | | | | MEDICAL CL[address] | [address] [place], [place] | | | | | [facility] [facility] [place], | [address] | | | | | [place] [address] | | | | | | [phone] | | | +--------+ + + + [...] [place] | | | | | | [address] | | | | | | | | +--------+---------+ + + + documented as of this encounter Visit Diagnoses Not on filedocumented in this encounter"
--- OUTSIDE RECORDS SUMMARY | ~2019-05-17 | XMS | Encounter Summary ---
Demographics + + + | Address | [address] | | | [place] [address] | + + + | Home Phone | | + + + | Preferred Language | Unknown | + + + | Marital Status | Single | + + + | Rastafarian Affiliation | Unknown | + + + | Race | Unknown | + + + | Ethnic Group | Unknown | + + + Author + + + | Author | [facility] | | | and [place] | + + + | Organization | [facility] | | | and [place]ana [...] Team Providers + +------+ + | Care Soaker Soda Worker Name | Role | Phone | [...] of | [address] | | | | [address] | [address], [address] | | | | | tube, | [place], | [place], | | | | | unspecified | [place] [address] | [place] [address] | | | | | laterality | Phone: | Phone: | | | | | | [phone] | [phone] | | | | | | Fax: | Fax: | | | | | | [phone] | [phone] | +--------+ + + + + + Reason for Visit +---------+ + | Reason | Comments | +---------+ + | Otalgia | | +---------+ + Encounter Details +--------+ + + + + | Date | Type | Department | Care Team | Description | +--------+ + + + + | 03/18/ | Emergency | [facility] | Terrell Vera MD | Dysfunction of | | 2019 | | [facility] | [address] | Eustachian tube, | | | | CENTER [address] | [place], [place] | unspecified | | | | [place], [place] | [address] | laterality (Primary | | | | [address] | | Dx) | | | | [phone] | | | +--------+ + + + [...] Discharge Instructions Instructions Terrell Vera MD - 03/18/2019Mamary use pain medication as needed Continue Sudafed [...] tablet | | 19 | | | ophen (NORCO) 5-325 | as [...] tablet by | 30 | 0 | 02/28/20 | | | (ADVIL,MOTRIN) 600 | mouth [...] tablets by | 10 | 0 | 02/28/ | | | (DELTASONE) 20 mg | [...] 2019 | Visit | and Rehabilitation | [address] | | | | | | [place] | | | | | | [address] | | | | | | | [...] + +--------+ + + | ENT - Caro | Outpatient | Routin | Dysfunction of [...] | | | ON? | | | | | | 9 | | | 09:18? | | | PATTER | | | SON, | | | LAURO | | | M?MRN: | | | | | | [id number] | | | [id number] | | | riteri | | | [...] | | | d: | | | | | | 9 2:22 | | [...] | | | St. | | | [place] | | | y | | | [...] | | | St. | | | [place] | | | y H. | | [...] | | | 7-206e | | | [id number] | | | 6e | | | [...]
--- OUTSIDE RECORDS SUMMARY | ~2019-05-17 | XMS | Encounter Summary ---
Demographics + + + | Address | [address] | | | [place] [address] | + + + | Home Phone | | + + + | Preferred Language | Unknown | + + + | Marital Status | Single | + + + | Jainism Affiliation | Unknown | + + + | Race | Unknown | + + + | Ethnic Group | Unknown | + + + Author + + + | Author | [facility] | | | and [place] | + + + | Organization | [facility] | | | and [place]ana | [...] Team Providers + +------+ + | Care Sourcing Specialist Name | Role | Phone | [...] [address] | | | | | [address] | [address] [place], [place] | | | | | [place] | [address] | | | | | [address] | | | | | | [phone] | | | +--------+ + + + [...] [place] | | | | | | [address] | | | | | | | | +--------+---------+ + + + documented as of this encounter Visit Diagnoses Not on filedocumented in this encounter"
--- OUTSIDE RECORDS SUMMARY | ~2019-05-17 | XMS | Encounter Summary ---
Demographics + + + | Address | [address] | | | [place] [address] | + + + | Home Phone | | + + + | Preferred Language | Unknown | + + + | Marital Status | Single | + + + | Moravian Affiliation | Unknown | + + + | Race | Unknown | + + + | Ethnic Group | Unknown | + + + Author + + + | Author | [facility] | | | and [place] | + + + | Organization | [facility] | [...] Team Providers + +------+ + | Care Oxyacetylene Welder Name | Role | Phone | + +------+ + PCP | Unavailable | + +------+ + Encounter Details +--------+ + + + + | Date | Type | Department | Care Team | Description | +--------+ + + + + | 03/13/ | Hospital | [facility] | Pina El | | | 2011 | Encounter | [facility] | MD Sheryl [address] | | | | | MEDICAL [address] | [place], [place] | | | | | [address] [place], | [address] | | | | | [place] [address] | [phone] | | | | | [phone] | | | +--------+ + + + [...] [place] | | | | | | [address] | | | | | | | | +--------+---------+ + + + documented as of this encounter Visit Diagnoses Not on filedocumented in this encounter"
--- OUTSIDE RECORDS SUMMARY | ~2019-05-17 | XMS | Encounter Summary ---
Demographics + + + | Address | [address] | | | [place] [address] | + + + | Home Phone | | + + + | Preferred Language | Unknown | + + + | Marital Status | Single | + + + | Episcopalian Affiliation | Unknown | + + + | Race | Unknown | + + + | Ethnic Group | Unknown | + + + Author + + + | Author | [facility] | | | and [place] | + + + | Organization | [facility] [...] Team Providers + +------+ + | Care Communications Intern Name | Role | Phone | + +------+ + PCP | Unavailable | + +------+ + Encounter Details +--------+ + + + + | Date | Type | Department | Care Team | Description | +--------+ + + + + | 05/01/ | Hospital | [facility] | Pina [place] | | | 2011 | Encounter | [facility] | MD Sheryl [address] | | | | | MEDICAL [address] | [place], [place] | | | | | [address] [place], | [address] | | | | | [place] [address] | [phone] | | | | | [phone] | | | +--------+ + + + [...] | and Rehabilitation | [address] | | | | | | [place] | | | | | | [address] | | | | | | | | +--------+---------+ + + + documented as of this encounter Visit Diagnoses Not on filedocumented in this encounter"
--- OUTSIDE RECORDS SUMMARY | ~2019-05-17 | XMS | Encounter Summary ---
Demographics + + + | Address | [address] | | | [place] [address] | + + + | Home Phone | | + + + | Preferred Language | Unknown | + + + | Marital Status | Single | + + + | Voodoo Affiliation | Unknown | + + + | Race | Unknown | + + + | Ethnic Group | Unknown | + + + Author + + + | Author | [facility] | | | and [place] | + + + | Organization | [facility] | | | and [...] Team Providers + +------+ + | Care Psychotherapist Social Worker Name | Role | Phone | [...] | MEDICAL CL[address] | [address] [place], [place] | | | | | [address] [facility] [place], | [address] | | | | | [place] [address] | | | | | | [phone] | | | +--------+ + + + [...] [place] | | | | | | [address] | | | | | | | | +--------+---------+ + + + documented as of this encounter Visit Diagnoses Not on filedocumented in this encounter"
--- OUTSIDE RECORDS SUMMARY | ~2019-05-17 | XMS | Encounter Summary ---
Demographics + + + | Address | [address] | | | [place] [address] | + + + | Home Phone [...] [facility] | | | and Carlosana [...] Team Providers + +------+ + | Care Wig Stylist Name | Role | Phone | + [...] [address] [place] | [address] [place], [place] | | | | | [place] | [address] | | | | | [address] | | | | | | [phone] | | | +--------+ + + + [...] [place] | | | | | | [address] | | | | | | | [...]
--- OUTSIDE RECORDS SUMMARY | ~2019-05-17 | XMS | Encounter Summary ---
Demographics + + + | Address | [address] | | | [place] [address] | + + + | Home Phone [...] | Organization | [facility] | [...] Team Providers + +------+ + | Care Lock Up Worker Name | Role | Phone | [...] | | tube, | [place], | [place], | | | | | unspecified | [place] [address] | [place] [address] | | | | | laterality | Phone: | Phone: | | | | | | [phone] | [phone] | | | | | | Fax: | Fax: | | | | | | [phone] | [phone] | +--------+ + + + + + [...] | | | | CENTER [address] | [place], [place] | unspecified | | | | [place], [place] | [address] | laterality (Primary | | | | [address] | | Dx) | | | | [phone] | | | +--------+ + + + [...] Visit | and Rehabilitation | [address] | | | | | | [place] | | | | | | [address] | | | | | | | [...] + +--------+ + + | ENT - [place] | Outpatient | Routin | Dysfunction of [...] M?MRN: | | | | | | [id number] | | | [id number] | | | riteri | | | [...] | | | St. | | | [place] | | | y | | | [...] | | | St. | | | [place] | | | y H. | | [...] | | | 7-206e | | | [address] | | | 6e | | | [...]
--- OUTSIDE RECORDS SUMMARY | ~2019-05-17 | XMS | Encounter Summary ---
Demographics + + + | Address | [address] | | | [place] [address] | + + + | Home Phone | | + + + | Preferred Language | Unknown | + + + | Marital Status | Single | + + + | Samaritan Affiliation | Unknown | + + + | Race | Unknown | + + + | Ethnic Group | Unknown | + + + Author + + + | Author | [facility] | | | and [place] | + + + | Organization | [facility] | | | and [place]ana [...] Team Providers + +------+ + | Care Sack Cleaning Hand Name | Role | Phone | + +------+ + PCP | Unavailable | + +------+ + Encounter Details +--------+ + + + + | Date | Type | Department | Care Team | Description | +--------+ + + + + | 07/16/ | Hospital | [facility] | Antonio Villalta | | | 2012 | Encounter | [facility] | [address]RIST [address] | | | | | MEDICAL [address] | [facility], [place] | | | | | [address] [facility], | [address] | | | | | [place] [address] | [phone] | | | | | [phone] | | | +--------+ + + + [...] [place] | | | | | | [address] | | | | | | | | +--------+---------+ + + + documented as of this encounter Visit Diagnoses Not on filedocumented in this encounter"
--- OUTSIDE RECORDS SUMMARY | ~2019-05-17 | XMS | Encounter Summary ---
Demographics + + + | Address | [address] | | | [place] [address] | + + + | Home Phone | | + + + | Preferred Language | Unknown | + + + | Marital Status | Single | + + + | Spiritism Affiliation | Unknown | + + + | Race | Unknown | + + + | Ethnic Group | Unknown | + + + Author + + + | Author | [facility] and Services [facility] | | | and Carlosana | + + + | Organization | [facility] and [facility] [...] Team Providers + +------+ + | Care Passenger Representative Name | Role | Phone | + +------+ + PCP | Unavailable | + +------+ + Encounter Details +--------+ + + + + | Date | Type | Department | Care Team | Description | +--------+ + + + + | 10/13/ | Hospital | [facility] [facility] | Richard Paredes | | | 2014 | Encounter | [facility] | [address] | | | | | MEDICAL CLIN[address] | [address] [place], [place] | | | | | 4TH [facility] [place], | [address] | | | | | [place] [address] | | | | | | [phone] | | | +--------+ + + + [...] [place] | | | | | | [address] | | | | | | | | +--------+---------+ + + + documented as of this encounter Visit Diagnoses Not on filedocumented in this encounter"
--- OUTSIDE RECORDS SUMMARY | ~2019-05-17 | XMS | Encounter Summary ---
Demographics + + + | Address | [address] | | | [place] [address] | + + + | Home Phone | | + + + | Preferred Language | Unknown | + + + | Marital Status | Single | + + + | Uatsdin Affiliation | Unknown | + + + | Race | Unknown | + + + | Ethnic Group | Unknown | + + + Author + + + | Author | [facility] and [facility] | | | and [place]ana | + + + | Organization | [facility] | | | and [...] Team Providers + +------+ + | Care Directory Clerk Name | Role | Phone | + +------+ + PCP | Unavailable | + +------+ + Encounter Details +--------+ + + + + | Date | Type | Department | Care Team | Description | +--------+ + + + + | 02/04/ | Hospital | [facility] | Richard Paredes | | | 2013 | Encounter | [facility] | [address] | | | | | MEDICAL CLIN[address] | [address] [place], [place] | | | | | 4TH [facility] [place], | [address] | | | | | [place] [address] | | | | | | [phone] | | | +--------+ + + + [...] [place] | | | | | | [address] | | | | | | | | +--------+---------+ + + + documented as of this encounter Visit Diagnoses Not on filedocumented in this encounter"
--- OUTSIDE RECORDS SUMMARY | ~2019-05-17 | XMS | Encounter Summary ---
Demographics + + + | Address | [address] | | | [place] [address] | + + + | Home Phone [...] + + + | Author | [facility] and [facility] | | | and [place]ana | + + + | Organization | [facility] [...] Team Providers + +------+ + | Care Hr Shared Services Consultant Name | Role | Phone | [...] | | [address] [place], | [address] | | | | | [place] [address] | | | | | | [phone] | | | +--------+ + + + [...] [place] | | | | | | [address] | | | | | | | | +--------+---------+ + + + documented as of this encounter Visit Diagnoses Not on filedocumented in this encounter"
--- OUTSIDE RECORDS SUMMARY | ~2019-05-17 | XMS | Encounter Summary ---
Demographics + + + | Address | [address] | | | [place] [address] | + + + | Home Phone | | + + + | Preferred Language | Unknown | + + + | Marital Status | Single | + + + | Yarsani Affiliation | Unknown | + + + | Race | Unknown | + + + | Ethnic Group | Unknown | + + + Author + + + | Author | [facility] and [facility] | | | and [place] | + + + | Organization | [facility] | | | and [...] Team Providers + +------+ + | Care Lead Carpenter Name | Role | Phone | + [...] | | | | [place], [place] | [address] | | | | | [address] | | | | | | [phone] | | | +--------+ + + + [...] [place] | | | | | | [address] | | | | | | | [...]
--- OUTSIDE RECORDS SUMMARY | ~2019-05-17 | XMS | Encounter Summary ---
Demographics + + + | Address | [address] | | | [place] [address] | + + + | Home Phone [...] | [facility] | | | and [place]ana | + + + | Organization | [facility] and [facility] | | | [...] Team Providers + +------+ + | Care Dental Professional Name | Role | Phone | + [...] | | [address] [place], | [address] | | | | | [place] [address] | [phone] | | | | | [phone] | | | +--------+ + + + [...] [place] | | | | | | [address] | | | | | | | | +--------+---------+ + + + documented as of this encounter Visit Diagnoses Not on filedocumented in this encounter"
--- OUTSIDE RECORDS SUMMARY | ~2019-05-17 | XMS | Encounter Summary ---
Demographics + + + | Address | [address] | | | [place] [address] | + + + | Home Phone [...] Organization | [facility] | | | and Carlosana [...] Team Providers + +------+ + | Care Exterminator Termite Name | Role | Phone | + [...] + | 11/18/ | Emergency | [place] [facility] | Tiana Bennett, | Pharyngitis, | | 2018 | | HOSPITAL EMERGENCY | AVIONICS SYSTEM ENGINEER [address] | unspecified etiology | | | | CENTER [address] | [place] | (Primary Dx) | | | | [place] | [address] | | | | | [address] | | | | | | [phone] | | | +--------+ + + + [...] +---------+--------+ + documented as of this encounter Plan [...] [place] | | | | | | [address] | | | | | | | [...] | + +--------+ + + + | CULTURE, STREP A, | Routin | 11/18/2017 | [...] | | n - | | | 07/08/ | | | 2018 | | | 7:26 | | | [...] | | | FICATI | | | ON?07/ | | | 08/201 | | | 8 | | | 19:25? | | | PATTER | | | SON, | | | LAURO | | | M?MRN: | | | | | | [id number] | | | [id number] | | | ecurit | | | [...] + + + + + | [facility] | [address] | [place] [address] | [phone] | | HOSPITAL LAB[facility]ATORY | | | | + + + [...] + + + + + | [facility] | [address] | [place] [address] | [phone] | | HOSPITAL LABORATORY | | | | + + + [...]
--- OUTSIDE RECORDS SUMMARY | ~2019-05-17 | XMS | Encounter Summary ---
Demographics + + + | Address | [address] | | | [place] [address] | + + + | Home Phone | | + + + | Preferred Language | Unknown | + + + | Marital Status | Single | + + + | Baptist Affiliation | Unknown | + + + | Race | Unknown | + + + | Ethnic Group | Unknown | + + + Author + + + | Author | [facility] | | | and [place] | + + + | Organization | [facility] and [facility] | [...] Team Providers + +------+ + | Care Crosscutter Rolled Glass Name | Role | Phone | + [...] | | | | [place], [place] | [address] | | | | | [address] | | | | | | [phone] | | | +--------+ + + + [...] [place] | | | | | | [address] | | | | | | | | +--------+---------+ + + + documented as of this encounter Visit Diagnoses Not on filedocumented in this encounter"
--- OUTSIDE RECORDS SUMMARY | ~2019-05-17 | XMS | Encounter Summary ---
Demographics + + + | Address | [address] | | | [place] [address] | + + + | Home Phone | | + + + | Preferred Language | Unknown | + + + | Marital Status | Single | + + + | Jewish Affiliation | Unknown | + + + | Race | Unknown | + + + | Ethnic Group | Unknown | + + + Author + + + | Author | [facility] and [facility] | | | and [place] | + + + | Organization | [facility] | | | and [...] Team Providers + +------+ + | Care Boom Tender Name | Role | Phone | + +------+ + PCP | Unavailable | + +------+ + Encounter Details +--------+ + + + + | Date | Type | Department | Care Team | Description | +--------+ + + + + | 01/24/ | Hospital | [facility] [facility] | Pina El | | | 2012 | Encounter | [facility] | MD Sheryl [address] | | | | | MEDICAL CLIN[address] | [place], [place] | | | | | [address] [place], | [address] | | | | | [place] [address] | [phone] | | | | | [phone] | | | +--------+ + + + [...] [place] | | | | | | [address] | | | | | | | | +--------+---------+ + + + documented as of this encounter Visit Diagnoses Not on filedocumented in this encounter"
--- OUTSIDE RECORDS SUMMARY | ~2019-05-17 | XMS | Encounter Summary ---
Demographics + + + | Address | [address] | | | [place] [address] | + + + | Home Phone [...] + | Organization | [facility] | | | and [place]ana | [...] Team Providers + +------+ + | Care Heating Systems Installer Name | Role | Phone | + [...] | | | | [place], [place] | [address] | | | | | [address] | [phone] | | | | | [phone] | | | +--------+ + + + [...] [place] | | | | | | [address] | | | | | | | | +--------+---------+ + + + documented as of this encounter Visit Diagnoses Not on filedocumented in this encounter"
--- OUTSIDE RECORDS SUMMARY | ~2019-05-17 | XMS | Encounter Summary ---
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
--- OUTSIDE RECORDS SUMMARY | ~2019-05-17 | XMS | Encounter Summary ---
Demographics + + + | Address | [address] | | | [place] [address] | + + + | Home Phone | | + + + | Preferred Language | Unknown | + + + | Marital Status | Single | + + + | Lutheran Affiliation | Unknown | + + + | Race | Unknown | + + + | Ethnic Group | Unknown | + + + Author + + + | Author | [facility] and [facility] | | | and [place] | + + + | Organization | [facility] | | | and [place]ana [...] Team Providers + +------+ + | Care Development Expert Name | Role | Phone | + +------+ + PCP | Unavailable | + +------+ + Encounter Details +--------+ + + + + | Date | Type | Department | Care Team | Description | +--------+ + + + + | 01/20/ | Hospital | [facility] | Carl Servin MD | | | 2012 | Encounter | [facility] | [address] | | | | | MEDICAL CLIN[address] | [place], [place] | | | | | [address] [place], | [address] | | | | | [place] [address] | | | | | | [phone] | | | +--------+ + + + [...] [place] | | | | | | [address] | | | | | | | | +--------+---------+ + + + documented as of this encounter Visit Diagnoses Not on filedocumented in this encounter"
--- OUTSIDE RECORDS SUMMARY | ~2019-05-17 | XMS | Encounter Summary ---
Demographics + + + | Address | [address] | | | [place] [address] | + + + | Home Phone [...] Organization | [facility] | | | and Carlosana [...] Team Providers + +------+ + | Care Wardrobe Specialty Worker Name | Role | Phone | [...] [address] [place], | [place] [address] | | | | | [place] [address] | [phone] | | | | | [phone] | | | +--------+ + + + [...] [place] | | | | | | [address] | | | | | | | | +--------+---------+ + + + documented as of this encounter Visit Diagnoses Not on filedocumented in this encounter"
--- OUTSIDE RECORDS SUMMARY | ~2019-05-17 | XMS | Encounter Summary ---
Demographics + + + | Address | [address] | | | [place] [address] | + + + | Home Phone [...] Organization | [facility] | | | and [...] Team Providers + +------+ + | Care Production Laborer Name | Role | Phone | + +------+ + PCP | Unavailable | + +------+ + Encounter Details +--------+ + + + + | Date | Type | Department | Care Team | Description | +--------+ + + + + | 10/13/ | Hospital | [facility] | Richard Paredes | | | 2014 | Encounter | [facility] | [address] | | | | | MEDICAL CLIN[address] | [address] [place], [place] | | | | | 4TH [facility] [place], | [address] | | | | | [place] [address] | | | | | | [phone] | | | +--------+ + + + [...] [place] | | | | | | [address] | | | | | | | | +--------+---------+ + + + documented as of this encounter Visit Diagnoses Not on filedocumented in this encounter"
--- OUTSIDE RECORDS SUMMARY | ~2019-05-17 | XMS | Encounter Summary ---
Demographics + + + | Address | [address] | | | [place] [address] | + + + | Home Phone [...] Organization | [facility] [...] Providers + +------+ + | Care Artificial Foliage Arranger Name | Role | Phone | + +------+ + PCP | Unavailable | + +------+ + Encounter Details +--------+ + + + + | Date | Type | Department | Care Team | Description | +--------+ + + + + | 02/08/ | Hospital | [facility] | Pina El | | | 2011 | Encounter | [facility]ITAL [facility] | MD Sheryl [address] | | | | | [address] [place] | [place], [place] | | | | | [place], [place] | [address] | | | | | [address] | [phone] | | | | | [phone] | | | +--------+ + + + [...] [place] | | | | | | [address] | | | | | | | | +--------+---------+ + + + documented as of this encounter Visit Diagnoses Not on filedocumented in this encounter"
--- OUTSIDE RECORDS SUMMARY | ~2019-05-17 | XMS | Encounter Summary ---
Demographics + + + | Address | [address] | | | [place] [address] | + + + | Home Phone | | + + + | Preferred Language | Unknown | + + + | Marital Status | Single | + + + | Jain Affiliation | Unknown | + + + | Race | Unknown | + + + | Ethnic Group | Unknown | + + + Author + + + | Author | [facility] and Services [facility] | | | and [place] | + + + | Organization | [facility] | | | and [...] Team Providers + +------+ + | Care Pull Up Hand Name | Role | Phone | + +------+ + PCP | Unavailable | + +------+ + Encounter Details +--------+ + + + + | Date | Type | Department | Care Team | Description | +--------+ + + + + | 12/07/ | Hospital | [facility] | Tiana Bennett, | | | 2017 | Encounter | HOSPITAL EMERGENCY | SOFTWARE ANALYST [address] | | | | | CENTER [address] | [address] [place], [place] | | | | | [place], [place] | [address] | | | | | [address] | | | | | | [phone] | | | +--------+ + + + [...] [place] | | | | | | [address] | | | | | | | [...] | IMPRESSION: No acute finding JOB #: [id number] Digitally Released | | | by: Rosita Reza Read By: ROSITA REZA MD Date: | | | 12/07/2016 10:54 | | + + + + + | Procedure Note | + + | Usman, Rad Results In - 05/24/2017 1:15 PM PST [...] | | | | | JOB #: [id number] | | Digitally Released by: Rosita Reza | | | | | | Read By: ROSITA REZA MD | | Date: 12/07/2016 10:54 | | | + + documented in this encounter Visit Diagnoses Not on filedocumented in this encounter"
--- OUTSIDE RECORDS SUMMARY | ~2019-05-17 | XMS | Encounter Summary ---
Demographics + + + | Address | [address] | | | [place] [address] | + + + | Home Phone | | + + + | Preferred Language | Unknown | + + + | Marital Status | Single | + + + | Pentecostal Affiliation | Unknown | + + + | Race | Unknown | + + + | Ethnic Group | Unknown | + + + Author + + + | Author | [facility] | | | and [place] | + + + | Organization | [facility] | | | and [place]ana | [...] Team Providers + +------+ + | Care Louver Mortiser Operator Name | Role | Phone | [...] | | | | [place], [place] | [address] | | | | | [address] | | | | | | [phone] | | | +--------+ + + + [...] [place] | | | | | | [address] | | | | | | | | +--------+---------+ + + + documented as of this encounter Visit Diagnoses Not on filedocumented in this encounter"
--- OUTSIDE RECORDS SUMMARY | ~2019-05-17 | XMS | Encounter Summary ---
Demographics + + + | Address | [address] | | | [place] [address] | + + + | Home Phone [...] + + + | Author | [facility] | | | and [place] | + + + | Organization | [facility] | | [...] + +------+ + | Care Mortgage Loan Counselor Name | Role | Phone | + [...] ED Follow-up | | 2018 | | [facility] | Saray, DO [address] | | | | | MEDICAL CL[address] | [address] [place] | | | | | [address] [place], | [place] [address] | | | | | [place] [address] | [phone] | | | | | [phone] | | | +--------+ + + + [...] [place] | | | | | | [address] | | | | | | | | +--------+---------+ + + + documented as of this encounter Visit Diagnoses Not on filedocumented in this encounter"
--- OUTSIDE RECORDS SUMMARY | ~2019-05-17 | XMS | Encounter Summary ---
Demographics + + + | Address | [address] | | | [place] [address] | + + + | Home Phone | | + + + | Preferred Language | Unknown | + + + | Marital Status | Single | + + + | Sabianist Affiliation | Unknown | + + + | Race | Unknown | + + + | Ethnic Group | Unknown | + + + Author + + + | Author | [facility] | | | and [place] | + + + | Organization | [facility] | | | and [...] Team Providers + +------+ + | Care Senior Client Advisor Name | Role | Phone | + [...] | | [address] [place], | [address] | | | | | [place] [address] | [phone] | | | | | [phone] | | | +--------+ + + + [...] [place] | | | | | | [address] | | | | | | | | +--------+---------+ + + + documented as of this encounter Visit Diagnoses Not on filedocumented in this encounter"
--- OUTSIDE RECORDS SUMMARY | ~2019-05-17 | XMS | Encounter Summary ---
Demographics + + + | Address | [address] | | | [place] [address] | + + + | Home Phone | | + + + | Preferred Language | Unknown | + + + | Marital Status | Single | + + + | Temple Affiliation | Unknown | + + + | Race | Unknown | + + + | Ethnic Group | Unknown | + + + Author + + + | Author | [facility] | | | and [place]ana | + + + | Organization | [facility] [...] Team Providers + +------+ + | Care Veneer Drier Name | Role | Phone | + +------+ + PCP | Unavailable | + +------+ + Encounter Details +--------+ + + + + | Date | Type | Department | Care Team | Description | +--------+ + + + + | 09/09/ | Hospital | [facility] [facility] | Richard Paredes | | | 2015 | Encounter | [facility] | [address] | | | | | MEDICAL CLIN[address] | [address] [place], [place] | | | | | 4TH [facility] [place], | [address] | | | | | [place] [address] | | | | | | [phone] | | | +--------+ + + + [...] [place] | | | | | | [address] | | | | | | | | +--------+---------+ + + + documented as of this encounter Visit Diagnoses Not on filedocumented in this encounter"
--- OUTSIDE RECORDS SUMMARY | ~2019-05-17 | XMS | Encounter Summary ---
Demographics + + + | Address | [address] | | | [place] [address] | + + + | Home Phone [...] + + + | Author | [facility] | | | and [place] | + + + | Organization | [facility] | | | and Carlosana [...] Providers + +------+ + | Care Back Stayer Name | Role | Phone | + [...] | | [place], [place] | [place] [address] | | | | | [address] | [phone] | | | | | [phone] | | | +--------+ + + + [...] [place] | | | | | | [address] | | | | | | | [...]
--- OUTSIDE RECORDS SUMMARY | ~2019-05-17 | XMS | Encounter Summary ---
Demographics + + + | Address | [address] | | | [place] [address] | + + + | Home Phone [...] | [facility] | [...] Team Providers + +------+ + | Care Electric Motor Tester Name | Role | Phone | [...] + | 11/03/ | Emergency | [place] [facility] | Nelson Gardner, | Acute right-sided | | 2017 | | HOSPITAL EMERGENCY | UNIVERSITY LIBRARIAN [address] | back pain, | | | | CENTER [address] | [address] [place], [place] | unspecified back | | | | [place], [place] | [address] | location (Primary | | | | [address] | | Dx) | | | | [phone] | | | +--------+ + + + [...] be sent through Care Everywhere.Back Pain, Joselyn wilson (Pashto)documented in this encounter Medications at Time of [...] | | | | | [place] | | | | | | [address] | | | | | | | [...] | | | 2017 | | | 2:13 | | | [...] | | | FICATI | | | ON?06/ | | | 23/201 | | | 8 | | | 14:11? | | | PATTER | | | SON, | | | LAURO | | | M?MRN: | | | | | | [id number] | | | [id number] | | | ecurit | | | [...]
--- OUTSIDE RECORDS SUMMARY | ~2019-05-17 | XMS | Encounter Summary ---
Demographics + + + | Address | [address] | | | [place] [address] | + + + | Home Phone [...] | Located [facility] [...] Team Providers + +------+ + | Care Bridge Crane Operator Name | Role | Phone | [...] [address] [place], | [place] [address] | | | | | [place] [address] | [phone] | | | | | [phone] | | | +--------+ + + + [...] [place] | | | | | | [address] | | | | | | | | +--------+---------+ + + + documented as of this encounter Visit Diagnoses Not on filedocumented in this encounter"
--- OUTSIDE RECORDS SUMMARY | ~2019-05-17 | XMS | Encounter Summary ---
Demographics + + + | Address | [address] | | | [place] [address] | + + + | Home Phone [...] + | Organization | [facility] | | | [...] Providers + +------+ + | Care Production Worker Name | Role | Phone | [...] 2018 | | HOSPITAL NEUROLOGY | Martin, BRAND ENGINEER [address] | | | | | CLINIC [address] | [address] [place], [place] | | | | | [address] [place], | [address] | | | | | [place] [address] | | | | | | [phone] | | | +--------+ + + + [...] [place] | | | | | | [address] | | | | | | | | +--------+---------+ + + + documented as of this encounter Visit Diagnoses Not on filedocumented in this encounter"
--- OUTSIDE RECORDS SUMMARY | ~2019-05-17 | XMS | Encounter Summary ---
Demographics + + + | Address | [address] | | | [place] [address] | + + + | Home Phone | | + + + | Preferred Language | Unknown | + + + | Marital Status | Single | + + + | Druze Affiliation [...] [facility] | | | [...] Team Providers + +------+ + | Care Non Profit Financial Controller Name | Role | Phone | + +------+ + | Gela Leong DO | PCP | | + +------+ + Reason for Visit + + + | Reason | Comments | + + + | Foot Pain | | + + + Encounter Details +--------+ + + + + | Date | Type | Department | Care Team | Description | +--------+ + + + + | 12/26/ | Emergency | [facility] | Chris Jones, | Contusion of left | | 2018 | | HOSPITAL EMERGENCY | PUBLIC RECORDS OFFICER [address] | foot, initial | | | | CENTER [address] | [place] | encounter (Primary | | | | [place] | [id number] | Dx) | | | | [address] | | | | | | [phone] | | | +--------+ + + + [...] + | Blood Pressure | 131/81 | 12/26/2017 10:33 AM | | | | | PDT | | + + + + + | Pulse | 92 | 12/26/2017 10:33 AM | | | | | PDT | | + + + + + | Temperature | 35.8 C (96.4 F) | 12/26/2017 10:33 AM | | | | | PDT | | + + + + + | Respiratory Rate | 16 | 12/26/2017 10:33 AM | | | | | PDT | | + + + + + | Oxygen Saturation | 99% | 12/26/2017 10:33 AM | | | | | PDT | | + + + + + | Inhaled Oxygen | - | - | | | Concentration | | | | + + + + + | Weight | 113.4 kg (250 lb) | 12/26/2017 10:33 AM | | | | | PDT | | + + + + + | Height | 172.7 cm (5' 8") | 12/26/2017 10:33 AM | | | | | PDT | | + + + + + | Body Mass Index | 38.01 | 12/26/2017 10:33 AM | | | | | PDT | | + + + + + documented in this encounter Discharge Instructions Instructions Chris Jones NP - 12/26/2017-Ice to sore areas for 20 minutes, every 2 ho urs while awake, as needed for pain this is especially important for the first 2-[address] you may find heat helps as well. -Elevate if possible. -Use ibuprofen or acetaminophen as needed for pain. Make sure to not exceed recommended do ses. -Protect site from further injury. -Follow up with primary care provider as needed. AttachmentsThe following attachments cannot be sent through Care Everywhere.Bone Bruise (Wood ne Contusion), Understanding (Citizen Of [place])documented in this encounter Medications at Time of Discharge + + + +---------+--------+ + | Medication | Sig | Dispensed | Refills | Start | End Date | | | | | | Date | | + + + +---------+--------+ + | ibuprofen | Take 600 mg by mouth | | 0 | | // | | (ADVIL,MOTRIN) 600 | every 8 [...] [place] | | | | | | [address] | | | | | | | | +--------+---------+ + + + documented as of this encounter Procedures + +--------+ + + + | Procedure Name | Priori | Date/Time | Associated Diagnosis | Comments | | | ty | | | | + +--------+ + + + | XR FOOT RIGHT 3 + VW | STAT | 12/26/2017 | | Results for this | | | | 10:54 AM | | procedure are in the | | | | PDT | | results section. | + +--------+ + + + documented in this encounter Results DAVID Jordan 3 + Vw (12/26/2017 10:54 AM PDT) + + | Specimen | + + | | + + + + + | Impressions | Performed At | + + + | IMPRESSION: No acute finding Dictated by: Alfred Reza | [facility] | | | | + + + + + + | Narrative | Performed At | + + + | EXAMINATION: XR FOOT RIGHT 3 + VW HISTORY: FOOT PAIN | [facility] | | COMPARISON STUDY: None FINDINGS: Images in multiple views showed | | | no significant soft tissue or bony abnormality. If concern for acute | | | fracture remains clinically follow-up images in 10 to 14 days | | | recommended. . | | + + + + -------+ | Procedure Note | + -------+ | Rivera Mary Results In - 12/26/2017 12:51 PM PDT EXAMINATION:XR FOOT RIGHT 3 + | | VWHISTORY:FOOT PAINCOMPARISON STUDY:NoneFINDINGS:Images in multiple views showed no | | significant soft tissue or bony abnormality.If concern for acute fracture remains | | clinically follow-up images in 10 to 14 days recommended. .IMPRESSION: IMPRESSION:No | | acute findingDictated by: Alfred RezaElectronically Signed by: Alfred Reza on | | 12/26/2017 12:47 PM | |COMPARISON STUDY: | |None | | | |FINDINGS: | |Images in multiple views showed no significant soft tissue or bony abnormality. | |If concern for acute fracture remains clinically follow-up images in 10 to 14 days recommen ded. . | | | |IMPRESSION: | |IMPRESSION: | |No acute finding | | | |Dictated by: Alfred Reza | | | | | + -------+ + +---------+ + + | Performing | Address | City/State/Zipcode | Phone Number | | Organization | | | | + +---------+ + + | [facility] | | | | + +---------+ + + documented in this encounter Visit Diagnoses + + | Diagnosis | + + | Contusion of left foot, initial encounter - Primary | + + documented in this encounter
--- OUTSIDE RECORDS SUMMARY | ~2019-05-17 | XMS | Encounter Summary ---
Demographics + + + | Address | [address] | | | [place] [address] | + + + | Home Phone [...] | [facility] [...] Team Providers + +------+ + | Care Electronic Intelligence Officer Name | Role | Phone | + +------+ + PCP | Unavailable | + +------+ + Encounter Details +--------+ + + + + | Date | Type | Department | Care Team | Description | +--------+ + + + + | 07/08/ | Hospital | [facility] | Richard Paredes | | | 2015 | Encounter | [facility] | [address] | | | | | MEDICAL CLIN[facility] [address] | [address] [place], [place] | | | | | 4TH [facility] [place], | [address] | | | | | [place] [address] | | | | | | [phone] | | | +--------+ + + + [...] [place] | | | | | | [address] | | | | | | | | +--------+---------+ + + + documented as of this encounter Visit Diagnoses Not on filedocumented in this encounter"
--- OUTSIDE RECORDS SUMMARY | ~2019-05-17 | XMS | Encounter Summary ---
Demographics + + + | Address | [address] | | | [place] [address] | + + + | Home Phone [...] | Organization | [facility] | | | and [place] | + [...] Team Providers + +------+ + | Care Gas Plant Operator Name | Role | Phone | [...] [address] | | | | | [place] [address] | | | | | | [phone] | | | +--------+ + + + [...] [place] | | | | | | [address] | | | | | | | | +--------+---------+ + + + documented as of this encounter Visit Diagnoses Not on filedocumented in this encounter"
--- OUTSIDE RECORDS SUMMARY | ~2019-05-17 | XMS | Encounter Summary ---
Demographics + + + | Address | [address] | | | [place] [address] | + + + | Home Phone [...] Organization | [facility] | | | and [place] | [...] Team Providers + +------+ + | Care Shoe Sprayer Name | Role | Phone | + +------+ + PCP | Unavailable | + +------+ + Encounter Details +--------+ + + + + | Date | Type | Department | Care Team | Description | +--------+ + + + + | 09/17/ | Hospital | [facility] | Tiana Bennett, | | | 2017 | Encounter | HOSPITAL EMERGENCY | SUPERVISOR SMALL APPLIANCE ASSEMBLY [address] | | | | | CENTER [address] | [address] [place], [place] | | | | | [place], [place] | [address] | | | | | [address] | | | | | | [phone] | | | +--------+ + + + [...] [place] | | | | | | [address] | | | | | | | [...] IMPRESSION: No acute cardiopulmonary process. JOB #: [id number] | | | Digitally Released by: Jey [...] | | | | | JOB #: [id number] | | Digitally Released by: Jey Richmond | | | | | | Read By: JEY RICHMOND MD | | Date: 09/17/2016 18:16 | | | + + documented in this encounter Visit Diagnoses Not on filedocumented in this encounter"
--- OUTSIDE RECORDS SUMMARY | ~2019-05-17 | XMS | Encounter Summary ---
Demographics + + + | Address | [address] | | | [place] [address] | + + + | Home Phone [...] | Located Within [facility] | | | and [place] [...] Team Providers + +------+ + | Care Tip Cementer Name | Role | Phone | + [...] | MEDICAL CLINIC [address] | [address] [place], [place] | | | | | 4TH [facility] [place], | [address] | | | | | [place] [address] | | | | | | [phone] | | | +--------+ + + + [...] [place] | | | | | | [address] | | | | | | | | +--------+---------+ + + + documented as of this encounter Visit Diagnoses Not on filedocumented in this encounter"
--- OUTSIDE RECORDS SUMMARY | ~2019-05-17 | XMS | Encounter Summary ---
Demographics + + + | Address | [address] | | | [place] [address] | + + + | Home Phone [...] | Organization | [facility] | | | [...] Team Providers + +------+ + | Care Employee Benefits Administrator Name | Role | Phone | + +------+ + PCP | Unavailable | + +------+ + Encounter Details +--------+ + + + + | Date | Type | Department | Care Team | Description | +--------+ + + + + | 11/26/ | Hospital | [facility] | Toni Pompa | | | 2017 | Encounter | HOSPITAL EMERGENCY | [address] | | | | | CENTER [address] | [address] [place] | | | | | [place], [place] | [place] [address] | | | | | [address] | [phone] | | | | | [phone] | | | +--------+ + + + [...] [place] | | | | | | [address] | | | | | | | | +--------+---------+ + + + documented as of this encounter Visit Diagnoses Not on filedocumented in this encounter"
--- OUTSIDE RECORDS SUMMARY | ~2019-05-17 | XMS | Encounter Summary ---
Demographics + + + | Address | [address] | | | [place] [address] | + + + | Home Phone | | + + + | Preferred Language | Unknown | + + + | Marital Status | Single | + + + | Oriental Orthodox Affiliation | Unknown | + + + | Race | Unknown | + + + | Ethnic Group | Unknown | + + + Author + + + | Author | [facility] | | | and [place] | + + + | Organization | [facility] | [...] Team Providers + +------+ + | Care Information Clerk [employer]obile [employer] Name | Role | Phone | + [...] | | | | [place], [place] | [address] | | | | | [address] | | | | | | [phone] | | | +--------+ + + + [...] [place] | | | | | | [address] | | | | | | | | +--------+---------+ + + + documented as of this encounter Visit Diagnoses Not on filedocumented in this encounter"
--- OUTSIDE RECORDS SUMMARY | ~2019-05-17 | XMS | Encounter Summary ---
Demographics + + + | Address | [address] | | | [place] [address] | + + + | Home Phone [...] | [facility] | | | and [place] [...] Team Providers + +------+ + | Care Cilnical Scientist Name | Role | Phone | + +------+ + PCP | Unavailable | + +------+ + Encounter Details +--------+ + + + + | Date | Type | Department | Care Team | Description | +--------+ + + + + | 09/11/ | Hospital | [facility] | Carl Servin MD | | | 2012 | Encounter | [facility] | [address] | | | | | MEDICAL CLINIC [address] | [place], [place] | | | | | [address] [place], | [address] | | | | | [place] [address] | | | | | | [phone] | | | +--------+ + + + [...] [place] | | | | | | [address] | | | | | | | | +--------+---------+ + + + documented as of this encounter Visit Diagnoses Not on filedocumented in this encounter"
--- OUTSIDE RECORDS SUMMARY | ~2019-05-17 | XMS | Encounter Summary ---
Demographics + + + | Address | [address] | | | [place] [address] | + + + | Home Phone | | + + + | Preferred Language | Unknown | + + + | Marital Status | Single | + + + | Anabaptist Affiliation | Unknown | + + + | Race | Unknown | + + + | Ethnic Group | Unknown | + + + Author + + + | Author | [facility] | | | and [place] | + + + | Organization | [facility] | | | and [...] | 2017 | | HOSPITAL EMERGENCY | MATERIAL ATTENDANT [address] | back pain, | | | | CENTER [address] | [address] [place], [place] | unspecified back | | | | [place], [place] | [address] | location (Primary | | | | [address] | | Dx) | | | | [phone] | | | +--------+ + + + [...] sent through Care Everywhere.Back Pain, Joselyn wilson (Uzbek)documented in this encounter Medications at Time of [...] | | | | | [place] | | | | | | [address] | | | | | | | [...] M?MRN: | | | | | | [id number] | | | [id number] | | | ecurit | | | [...]
--- OUTSIDE RECORDS SUMMARY | ~2019-05-17 | XMS | Encounter Summary ---
Demographics + + + | Address | [address] | | | [place] [address] | + + + | Home Phone [...] | Organization | [facility] | | | and [place] | [...] Team Providers + +------+ + | Care Launderette Attendant Name | Role | Phone | + [...] | | [place], [place] | [place] [address] | | | | | [address] | [phone] | | | | | [phone] | | | +--------+ + + + [...] [place] | | | | | | [address] | | | | | | | [...]
--- OUTSIDE RECORDS SUMMARY | ~2019-05-17 | XMS | Encounter Summary ---
Demographics + + + | Address | [address] | | | [place] [address] | + + + | Home Phone [...] Organization | [facility] | | | [...] Team Providers + +------+ + | Care General Education Professor Name | Role | Phone | + +------+ + PCP | Unavailable | + +------+ + Encounter Details +--------+ + + + + | Date | Type | Department | Care Team | Description | +--------+ + + + + | 01/28/ | [facility] | Mary Carmen [place] | | | 2014 | Encounter | [facility] | [address] | | | | | MEDICAL CLINIC [address] | [address] [place], | | | | | [address] [facility] [place], | [place] [address] | | | | | [place] [address] | [phone] | | | | | [phone] | | | +--------+ + + + [...] [place] | | | | | | [address] | | | | | | | | +--------+---------+ + + + documented as of this encounter Visit Diagnoses Not on filedocumented in this encounter"
--- OUTSIDE RECORDS SUMMARY | ~2019-05-17 | XMS | Encounter Summary ---
Demographics + + + | Address | [address] | | | [place] [address] | + + + | Home Phone [...] + + | Author | [facility] | | | and [place] | + + + | Organization | [facility] | | | and [place] [...] Team Providers + +------+ + | Care Tableau Administrator Name | Role | Phone | + +------+ + PCP | Unavailable | + +------+ + Encounter Details +--------+ + + + + | Date | Type | Department | Care Team | Description | +--------+ + + + + | 07/06/ | Hospital | [facility] | Richard Paredes | | | 2015 | Encounter | [facility] | [address] | | | | | MEDICAL CLIN[address] | [address] [place], [place] | | | | | 4TH [facility] [place], | [address] | | | | | [place] [address] | | | | | | [phone] | | | +--------+ + + + [...] [place] | | | | | | [address] | | | | | | | | +--------+---------+ + + + documented as of this encounter Visit Diagnoses Not on filedocumented in this encounter"
--- OUTSIDE RECORDS SUMMARY | ~2019-05-17 | XMS | Encounter Summary ---
Demographics + + + | Address | [address] | | | [place] [address] | + + + | Home Phone | | + + + | Preferred Language | Unknown | + + + | Marital Status | Single | + + + | Church Affiliation | Unknown | + + + | Race | Unknown | + + + | Ethnic Group | Unknown | + + + Author + + + | Author | [facility] | | | and [place] | + + + | Organization | [facility] | | | and [...] Team Providers + +------+ + | Care Psychometrician Name | Role | Phone | + [...] | 2018 | | HOSPITAL EMERGENCY | [employer] [address] | foot, initial | | | | CENTER [address] | [place] | encounter (Primary | | | | [place] | [phone] | Dx) | | | | [address] | | | | | | [phone] | | | +--------+ + + + [...] Care Everywhere.Bone Bruise (Wood ne Contusion), Understanding (Beninese)documented in this encounter Medications at Time of [...] [place] | | | | | | [address] | | | | | | | [...] IMPRESSION:No | | acute findingDictated by: Alfred RzeaElectronically Signed by: Alfred Reza on | | [...]
--- OUTSIDE RECORDS SUMMARY | ~2019-05-17 | XMS | Encounter Summary ---
Demographics + + + | Address | [address] | | | [place] [address] | + + + | Home Phone [...] | [facility] [...] Providers + +------+ + | Care Director Corporate Communications Name | Role | Phone | + +------+ + PCP | Unavailable | + +------+ + Encounter Details +--------+ + + + + | Date | Type | Department | Care Team | Description | +--------+ + + + + | 01/28/ | [facility] | Mary Carmen Salcedo | | | 2014 | Encounter | [facility] | [address] | | | | | MEDICAL CLINIC [address] | [address] [place], | | | | | [address] [facility] | [place] [address] | | | | | [place] [address] | [phone] | | | | | [phone] | | | +--------+ + + + [...] [place] | | | | | | [address] | | | | | | | | +--------+---------+ + + + documented as of this encounter Visit Diagnoses Not on filedocumented in this encounter"
--- OUTSIDE RECORDS SUMMARY | ~2019-05-17 | XMS | Encounter Summary ---
Demographics + + + | Address | [address] | | | [place] [address] | + + + | Home Phone | | + + + | Preferred Language | Unknown | + + + | Marital Status | Single | + + + | Mandaen Affiliation | Unknown | + + + | Race | Unknown | + + + | Ethnic Group | Unknown | + + + Author + + + | Author | [facility] | | | and [place] | + + + | Organization | [facility] | | [...] Team Providers + +------+ + | Care Charge Aide Name | Role | Phone | + [...] [address] | [address] [place], [place] | | | | | [place] | [address] | | | | | [address] | | | | | | [phone] | | | +--------+ + + + [...] [place] | | | | | | [address] | | | | | | | [...]
--- OUTSIDE RECORDS SUMMARY | ~2019-05-17 | XMS | Encounter Summary ---
Demographics + + + | Address | [address] | | | [place] [address] | + + + | Home Phone | | + + + | Preferred Language | Unknown | + + + | Marital Status | Single | + + + | Rastafarian Affiliation | Unknown | + + + | Race | Unknown | + + + | Ethnic Group | Unknown | + + + Author + + + | Author | [facility] | | | and [place] | + + + | Organization | [facility] | | [...] Team Providers + +------+ + | Care Top Hat Body Maker Name | Role | Phone | [...] [place], [place] | | | | | [address] | [address] | | | | | [phone] | [phone] | | | | | | | [...] [place] | | | | | | [address] | | | | | | | | +--------+---------+ + + + documented as of this encounter Visit Diagnoses Not on filedocumented in this encounter"
--- OUTSIDE RECORDS SUMMARY | ~2019-05-17 | XMS | Encounter Summary ---
Demographics + + + | Address | [address] | | | [place] [address] | + + + | Home Phone [...] Organization | [facility] | | [...] Team Providers + +------+ + | Care Habilitation Specialist Name | Role | Phone | [...] | | | CENTER [address] | [place] | | | | | [address] [place], [place] | [place] [address] | | | | | [address] | [phone] | | | | | [phone] | | | +--------+ + + + [...] [place] | | | | | | [address] | | | | | | | | +--------+---------+ + + + documented as of this encounter Visit Diagnoses Not on filedocumented in this encounter"
--- OUTSIDE RECORDS SUMMARY | ~2019-05-17 | XMS | Encounter Summary ---
Demographics + + + | Address | [address] | | | [place] [address] | + + + | Home Phone [...] | Organization | [facility] | | | and [place] [...] Team Providers + +------+ + | Care Medical Reimbursement Manager Name | Role | Phone | [...] | | | [place], [place] | [address] | | | | | [address] | [phone] | | | | | [phone] | | | +--------+ + + + [...] [place] | | | | | | [address] | | | | | | | | +--------+---------+ + + + documented as of this encounter Visit Diagnoses Not on filedocumented in this encounter"
--- OUTSIDE RECORDS SUMMARY | ~2019-05-17 | XMS | Encounter Summary ---
Demographics + + + | Address | [address] | | | [place] [address] | + + + | Home Phone [...] | Organization | [facility] | | | and [place] [...] Team Providers + +------+ + | Care Facility Environmental Technician Name | Role | Phone | [...] | | | [place], [place] | [address] | | | | | [address] | [phone] | | | | | [phone] | | | +--------+ + + + [...] [place] | | | | | | [address] | | | | | | | | +--------+---------+ + + + documented as of this encounter Visit Diagnoses Not on filedocumented in this encounter"
--- OUTSIDE RECORDS SUMMARY | ~2019-05-17 | XMS | Encounter Summary ---
Demographics + + + | Address | [address] | | | [place] [address] | + + + | Home Phone [...] | Organization | [facility] | | | and [...] Team Providers + +------+ + | Care Auto Washer Name | Role | Phone | + [...] | MEDICAL CLINIC [address] | [address] [place], [place] | | | | | 4TH [facility] [place], | [address] | | | | | [place] [address] | | | | | | [phone] | | | +--------+ + + + [...] [place] | | | | | | [address] | | | | | | | | +--------+---------+ + + + documented as of this encounter Visit Diagnoses Not on filedocumented in this encounter"
--- OUTSIDE RECORDS SUMMARY | ~2019-05-17 | XMS | Encounter Summary ---
Demographics + + + | Address | [address] | | | [place] [address] | + + + | Home Phone [...] Organization | [facility] [...] Team Providers + +------+ + | Care Life Sciences Teacher Name | Role | Phone | [...] | | [place], [place] | [place] [address] | | | | | [address] | [phone] | | | | | [phone] | | | +--------+ + + + [...] [place] | | | | | | [address] | | | | | | | [...] hepatobiliary | | | scan. JOB #: [id number] Read By: BHAVANA Levy | | | [...] CONCLUSION:Normal hepatobiliary scan. | | JOB #: [id number] Read By: BHAVANA CRAMER MD Released By: [...] | | | | | |JOB #: [id number] | | | | | |Read By: BHAVANA CRAMER MD | | | |Released By: BHAVANA CRAMER MD | |Date: 08/14/2014 17:33 | | | | | + + documented in this encounter Visit Diagnoses Not on filedocumented in this encounter"
--- OUTSIDE RECORDS SUMMARY | ~2019-05-17 | XMS | Encounter Summary ---
Demographics + + + | Address | [address] | | | [place] [address] | + + + | Home Phone | | + + + | Preferred Language | Unknown | + + + | Marital Status | Single | + + + | Caodaism Affiliation | Unknown | + + + | Race | Unknown | + + + | Ethnic Group | Unknown | + + + Author + + + | Author | [facility] | | | and [place] | + + + | Organization | [facility] | [...] Team Providers + +------+ + | Care Applications Instructor Name | Role | Phone | [...] | | [address] [place], | [address] | | | | | [place] [address] | [phone] | | | | | [phone] | | | +--------+ + + + [...] [place] | | | | | | [address] | | | | | | | | +--------+---------+ + + + documented as of this encounter Visit Diagnoses Not on filedocumented in this encounter"
--- OUTSIDE RECORDS SUMMARY | ~2019-05-17 | XMS | Encounter Summary ---
Demographics + + + | Address | [address] | | | [place] [address] | + + + | Home Phone [...] + | Organization | [facility] | | | and [...] Team Providers + +------+ + | Care Software Engineering Project Manager Name | Role | Phone | [...] | | [place], [place] | [place] [address] | | | | | [address] | [phone] | | | | | [phone] | | | +--------+ + + + [...] [place] | | | | | | [address] | | | | | | | [...]
--- OUTSIDE RECORDS SUMMARY | ~2019-05-17 | XMS | Encounter Summary ---
Demographics + + + | Address | [address] | | | [place] [address] | + + + | Home Phone [...] Organization | [facility] | | | and [place]ana | [...] Team Providers + +------+ + | Care Commercial Pilot Name | Role | Phone | [...] | | | DR [address] [place], | [address] | | | | | [place] [address] | | | | | | [phone] | | | +--------+ + + + [...] [place] | | | | | | [address] | | | | | | | | +--------+---------+ + + + documented as of this encounter Visit Diagnoses Not on filedocumented in this encounter"
--- OUTSIDE RECORDS SUMMARY | ~2019-05-17 | XMS | Encounter Summary ---
Demographics + + + | Address | [address] | | | [place] [address] | + + + | Home Phone [...] + + | Organization | [facility] | | | and [place]ana [...] Team Providers + +------+ + | Care Oyster Bed Worker Name | Role | Phone | [...] MED[facility] [address] | [address] [place], [place] | | | | | 4TH [facility] [place], | [address] | | | | | [place] [address] | | | | | | [phone] | | | +--------+ + + + [...] [place] | | | | | | [address] | | | | | | | | +--------+---------+ + + + documented as of this encounter Visit Diagnoses Not on filedocumented in this encounter"
--- OUTSIDE RECORDS SUMMARY | ~2019-05-17 | XMS | Encounter Summary ---
Demographics + + + | Address | [address] | | | [place] [address] | + + + | Home Phone [...] Organization | [facility] | | | and [...] Team Providers + +------+ + | Care Wet Process Miller Head Name | Role | Phone | + [...] | | [address] [place], | [address] | | | | | [place] [address] | [phone] | | | | | [phone] | | | +--------+ + + + [...] 01/23/ | Office | Physical Medicine | Jamie Gonzalez, | | | 2019 | Visit | and Rehabilitation | MD [address] | | | | | | [place] | | | | | | [address] | | | | | | | | +--------+---------+ + + + documented as of this encounter Visit Diagnoses Not on filedocumented in this encounter"
--- OUTSIDE RECORDS SUMMARY | ~2019-05-17 | XMS | Encounter Summary ---
Demographics + + + | Address | [address] | | | [place] [address] | + + + | Home Phone | | + + + | Preferred Language | Unknown | + + + | Marital Status | Single | + + + | Confucianist Affiliation | Unknown | + + + | Race | Unknown | + + + | Ethnic Group | Unknown | + + + Author + + + | Author | [facility] | | | and [place] | + + + | Organization | [facility] | | | and [place] [...] Team Providers + +------+ + | Care Press Technician Name | Role | Phone | + +------+ + PCP | Unavailable | + +------+ + Encounter Details +--------+ + + + + | Date | Type | Department | Care Team | Description | +--------+ + + + + | 02/11/ | Hospital | [facility] | Carl Servin MD | | | 2011 | Encounter | [facility] | [address] | | | | | MEDICAL CL[facility] [address] | [place], [place] | | | | | [address] [place], | [address] | | | | | [place] [address] | | | | | | [phone] | | | +--------+ + + + [...] [place] | | | | | | [address] | | | | | | | | +--------+---------+ + + + documented as of this encounter Visit Diagnoses Not on filedocumented in this encounter"
--- OUTSIDE RECORDS SUMMARY | ~2019-05-17 | XMS | Encounter Summary ---
Demographics + + + | Address | [address] | | | [place] [address] | + + + | Home Phone [...] | [facility] | | | and [place]ana [...] Providers + +------+ + | Care Manager Lean Name | Role | Phone | + [...] | | [address] [place], | [address] | | | | | [place] [address] | [phone] | | | | | [phone] | | | +--------+ + + + [...] [place] | | | | | | [address] | | | | | | | | +--------+---------+ + + + documented as of this encounter Visit Diagnoses Not on filedocumented in this encounter"
--- OUTSIDE RECORDS SUMMARY | ~2019-05-17 | XMS | Encounter Summary ---
Demographics + + + | Address | [address] | | | [place] [address] | + + + | Home Phone [...] | [facility] | | | and [...] Providers + +------+ + | Care Nutrition Program Instructor Name | Role | Phone | [...] | | [address] [place], [place] | [place] [address] | | | | | [address] | [phone] | | | | | [phone] | | | +--------+ + + + [...] [place] | | | | | | [address] | | | | | | | | +--------+---------+ + + + documented as of this encounter Visit Diagnoses Not on filedocumented in this encounter"
--- OUTSIDE RECORDS SUMMARY | ~2019-05-17 | XMS | Encounter Summary ---
Demographics + + + | Address | [address] | | | [place] [address] | + + + | Home Phone [...] Organization | [facility] | | | and [...] Team Providers + +------+ + | Care Talent Acquisition Assistant Name | Role | Phone | + +------+ + PCP | Unavailable | + +------+ + Encounter Details +--------+ + + + + | Date | Type | Department | Care Team | Description | +--------+ + + + + | 04/28/ | Hospital | [facility] | Richard Paredes | | | 2012 | Encounter | [facility] | [address] | | | | | MEDICAL CLIN[facility] [address] | [address] [place], [place] | | | | | 4TH [facility] [place], | [address] | | | | | [place] [address] | | | | | | [phone] | | | +--------+ + + + [...] [place] | | | | | | [address] | | | | | | | | +--------+---------+ + + + documented as of this encounter Visit Diagnoses Not on filedocumented in this encounter"
--- OUTSIDE RECORDS SUMMARY | ~2019-05-17 | XMS | Encounter Summary ---
Demographics + + + | Address | [address] | | | [place] [address] | + + + | Home Phone [...] + | Organization | [facility] | | | and [place] [...] Team Providers + +------+ + | Care Professional Shopper Name | Role | Phone | + +------+ + PCP | Unavailable | + +------+ + Encounter Details +--------+ + + + + | Date | Type | Department | Care Team | Description | +--------+ + + + + | 06/26/ | Hospital | [facility] | Nas Lutz, | | | 2012 | Encounter | [facility] | ORDER ADMINISTRATOR [address] [facility] | | | | | MEDICAL CLIN[address] | [place], [place] [address] | | | | | 4TH [facility] [place], | [phone] | | | | | [place] [address] | | | | | | [phone] | | | +--------+ + + + [...] [place] | | | | | | [address] | | | | | | | | +--------+---------+ + + + documented as of this encounter Visit Diagnoses Not on filedocumented in this encounter"
--- OUTSIDE RECORDS SUMMARY | ~2019-05-17 | XMS | Encounter Summary ---
Demographics + + + | Address | [address] | | | [place] [address] | + + + | Home Phone [...] + + + | Author | [facility] | | | and [place] | + + + | Organization | [facility] [...] Team Providers + +------+ + | Care Metal Grinder Name | Role | Phone | + [...] | | [place], [place] | [place] [address] | | | | | [address] | [phone] | | | | | [phone] | | | +--------+ + + + [...] [place] | | | | | | [address] | | | | | | | [...]
--- OUTSIDE RECORDS SUMMARY | ~2019-05-17 | XMS | Encounter Summary ---
Demographics + + + | Address | [address] | | | [place] [address] | + + + | Home Phone [...] | [facility] | | [...] Team Providers + +------+ + | Care Cradle Slide Maker Name | Role | Phone | [...] | CLIN[address] [place], [place] | | | | | [address] [place], | [address] | | | | | [place] [address] | | | | | | [phone] | | | +--------+ + + + [...] [place] | | | | | | [address] | | | | | | | | +--------+---------+ + + + documented as of this encounter Visit Diagnoses Not on filedocumented in this encounter"
--- OUTSIDE RECORDS SUMMARY | ~2019-05-17 | XMS | Encounter Summary ---
Demographics + + + | Address | [address] | | | [place] [address] | + + + | Home Phone [...] | Organization | [facility] | [...] Team Providers + +------+ + | Care Cold Header Name | Role | Phone | + [...] | | [address] [place], [place] | [place] [address] | | | | | [address] | [phone] | | | | | [phone] | | | +--------+ + + + [...] [place] | | | | | | [address] | | | | | | | [...] + + + + + + | Clarity | CLOUDY | CLEAR | EXTERNAL | | | | | | LAB | | + + + + + + | Color | YELLOW | YELLOW | EXTERNAL | | | | | | LAB | | + + + + + + | Specific | 1.02 | 1.005 - 1.030 | EXTERNAL | | | [place], | | | LAB | | | [...] + + + + + + | WBC UA | 6-10 | </= 5 /HPF | EXTERNAL | | | | | | LAB | | + + + + + + | RBC COUNT | NONE SEEN | </= 5 PER [...] + + + + + + | SQUAMOUS | MANY | FEW /LPF | EXTERNAL | | | EPITHELIAL | | | LAB | | | UA | | | | | + + + + + + | MUCUS UA | FEW | NONE SEEN /HPF | EXTERNAL | | | | | [...] | | right ovarian cyst. Job #: [id number] Read By: BHAVANA CRAMER MD | | [...]
--- OUTSIDE RECORDS SUMMARY | ~2019-05-17 | XMS | Encounter Summary ---
Demographics + + + | Address | [address] | | | [place] [address] | + + + | Home Phone [...] | [facility] | | | and [...] Team Providers + +------+ + | Care Woodyard Crane Operator Name | Role | Phone [...] | | [address] [place], | [address] | | | | | [place] [address] | | | | | | [phone] | | | +--------+ + + + [...] [place] | | | | | | [address] | | | | | | | | +--------+---------+ + + + documented as of this encounter Visit Diagnoses Not on filedocumented in this encounter"
--- OUTSIDE RECORDS SUMMARY | ~2019-05-17 | XMS | Encounter Summary ---
Demographics + + + | Address | [address] | | | [place] [address] | + + + | Home Phone | | + + + | Preferred Language | Unknown | + + + | Marital Status | Single | + + + | Christian Affiliation | Unknown | + + + | Race | Unknown | + + + | Ethnic Group | Unknown | + + + Author + + + | Author | [facility] | | | and [place] | + + + | Organization | [facility] | | | [...] Team Providers + +------+ + | Care Process Lead Name | Role | Phone | [...] ED Follow-up | | 2018 | | [facility] | Saray, DO [address] | | | | | MEDICAL CL[address] | [address] [place] | | | | | [address] [place], | [place] [address] | | | | | [place] [address] | [phone] | | | | | [phone] | | | +--------+ + + + [...] [place] | | | | | | [address] | | | | | | | | +--------+---------+ + + + documented as of this encounter Visit Diagnoses Not on filedocumented in this encounter"
--- OUTSIDE RECORDS SUMMARY | ~2019-05-17 | XMS | Encounter Summary ---
Demographics + + + | Address | [address] | | | [place] [address] | + + + | Home Phone [...] | [facility] | | | and [...] Team Providers + +------+ + | Care Control Valve Technician Name | Role | Phone | [...] | | | MEDICAL CLIN[facility] [address] | [address] [place] | | | | | [address] [place], | [place] [address] | | | | | [place] [address] | [phone] | | | | | [phone] | | | +--------+ + + + [...] [place] | | | | | | [address] | | | | | | | [...]
--- OUTSIDE RECORDS SUMMARY | ~2019-05-17 | XMS | Encounter Summary ---
Demographics + + + | Address | [address] | | | [place] [address] | + + + | Home Phone | | + + + | Preferred Language | Unknown | + + + | Marital Status | Single | + + + | Zoroastrianism Affiliation | Unknown | + + + | Race | Unknown | + + + | Ethnic Group | Unknown | + + + Author + + + | Author | [facility] | | | and [place] | + + + | Organization | [facility] | | | and [place] [...] Team Providers + +------+ + | Care System Configuration Specialist Name | Role | Phone | [...] | | [address] [place], | [address] | | | | | [place] [address] | | | | | | [phone] | | | +--------+ + + + [...] [place] | | | | | | [address] | | | | | | | | +--------+---------+ + + + documented as of this encounter Visit Diagnoses Not on filedocumented in this encounter"
--- OUTSIDE RECORDS SUMMARY | ~2019-05-17 | XMS | Encounter Summary ---
Demographics + + + | Address | [address] | | | [place] [address] | + + + | Home Phone [...] Organization | [facility] | | | and Carlosana [...] Providers + +------+ + | Care Business Mail Entry Clerk Name | Role | Phone | [...] | [address] [place], [place] | [place] [address] | | | | | [address] | [phone] | | | | | [phone] | | | +--------+ + + + [...] [place] | | | | | | [address] | | | | | | | | +--------+---------+ + + + documented as of this encounter Visit Diagnoses Not on filedocumented in this encounter"
--- OUTSIDE RECORDS SUMMARY | ~2019-05-17 | XMS | Encounter Summary ---
Demographics + + + | Address | [address] | | | [place] [address] | + + + | Home Phone [...] | Organization | [facility] | | | and [...] Team Providers + +------+ + | Care Mattress Stuffer Name | Role | Phone | [...] | | | | [place], [place] | [address] | | | | | [address] | | | | | | [phone] | | | +--------+ + + + [...] [place] | | | | | | [address] | | | | | | | | +--------+---------+ + + + documented as of this encounter Visit Diagnoses Not on filedocumented in this encounter"
--- OUTSIDE RECORDS SUMMARY | ~2019-05-17 | XMS | Encounter Summary ---
Demographics + + + | Address | [address] | | | [place] [address] | + + + | Home Phone | | + + + | Preferred Language | Unknown | + + + | Marital Status | Single | + + + | Yarsanism Affiliation | Unknown | + + + | Race | Unknown | + + + | Ethnic Group | Unknown | + + + Author + + + | Author | [facility] | | | and [place] | + + + | Organization | [facility] | | | and [place] | + + + | Address | [...] Providers + +------+ + | Care Metal Polisher Name | Role | Phone | + +------+ + PCP | Unavailable | + +------+ + Encounter Details +--------+ + + + + | Date | Type | Department | Care Team | Description | +--------+ + + + + | 03/02/ | Hospital | [facility] | Carl Servin MD | | | 2015 | Encounter | [facility] | [address] | | | | | MEDICAL CLIN[address] | [place], [place] | | | | | [address] [place], | [address] | | | | | [place] [address] | | | | | | [phone] | | | +--------+ + + + [...] [place] | | | | | | [address] | | | | | | | | +--------+---------+ + + + documented as of this encounter Visit Diagnoses Not on filedocumented in this encounter"
--- OUTSIDE RECORDS SUMMARY | ~2019-05-17 | XMS | Encounter Summary ---
Demographics + + + | Address | [address] | | | [place] [address] | + + + | Home Phone [...] + | Organization | [facility] | [...] Providers + +------+ + | Care Aircraft Restorer Name | Role | Phone | [...] | | | | [place], [place] | [address] | | | | | [address] | | | | | | [phone] | | | +--------+ + + + [...] [place] | | | | | | [address] | | | | | | | | +--------+---------+ + + + documented as of this encounter Visit Diagnoses Not on filedocumented in this encounter"
--- OUTSIDE RECORDS SUMMARY | ~2019-05-17 | XMS | Encounter Summary ---
Demographics + + + | Address | [address] | | | [place] [address] | + + + | Home Phone [...] + | Organization | [facility] | | | and Carlosana [...] Team Providers + +------+ + | Care Exhibit Builder Name | Role | Phone | + [...] | | [address] [place], | [address] | | | | | [place] [address] | | | | | | [phone] | | | +--------+ + + + [...] [place] | | | | | | [address] | | | | | | | | +--------+---------+ + + + documented as of this encounter Visit Diagnoses Not on filedocumented in this encounter"
--- OUTSIDE RECORDS SUMMARY | ~2019-05-17 | XMS | Encounter Summary ---
Demographics + + + | Address | [address] | | | [place] [address] | + + + | Home Phone [...] Organization | [facility] | | | and [...] Team Providers + +------+ + | Care Baseball Hand Sewer Name | Role | Phone | + +------+ + PCP | Unavailable | + +------+ + Encounter Details +--------+ + + + + | Date | Type | Department | Care Team | Description | +--------+ + + + + | 02/04/ | Hospital | [facility] | Richard Paredes | | | 2013 | Encounter | [facility] | [address] | | | | | MEDICAL CLIN[address] | [address] [place], [place] | | | | | 4TH [facility] [place], | [address] | | | | | [place] [address] | | | | | | [phone] | | | +--------+ + + + [...] [place] | | | | | | [address] | | | | | | | | +--------+---------+ + + + documented as of this encounter Visit Diagnoses Not on filedocumented in this encounter"
--- OUTSIDE RECORDS SUMMARY | ~2019-05-17 | XMS | Encounter Summary ---
Demographics + + + | Address | [address] | | | [place] [address] | + + + | Home Phone | | + + + | Preferred Language | Unknown | + + + | Marital Status | Single | + + + | Cheondoism Affiliation | Unknown | + + + | Race | Unknown | + + + | Ethnic Group | Unknown | + + + Author + + + | Author | [facility] | | | and [place] | + + + | Organization | [facility] | | | and [...] Team Providers + +------+ + | Care Controller Instructor Name | Role | Phone | [...] | | [place], [place] | [place] [address] | | | | | [address] | [phone] | | | | | [phone] | | | +--------+ + + + [...] [place] | | | | | | [address] | | | | | | | [...]
--- OUTSIDE RECORDS SUMMARY | ~2019-05-17 | XMS | Encounter Summary ---
Demographics + + + | Address | [address] | | | [place] [address] | + + + | Home Phone [...] | Organization | [facility] | | | and [...] Team Providers + +------+ + | Care Ornament Setter Name | Role | Phone | [...] | | [address] | [address] [place], [place] | | | | | [place] | [address] | | | | | [address] | | | | | | [phone] | | | +--------+ + + + [...] [place] | | | | | | [address] | | | | | | | | +--------+---------+ + + + documented as of this encounter Visit Diagnoses Not on filedocumented in this encounter"
--- OUTSIDE RECORDS SUMMARY | ~2019-05-17 | XMS | Encounter Summary ---
Demographics + + + | Address | [address] | | | [place] [address] | + + + | Home Phone [...] | Organization | [facility] | [...] Team Providers + +------+ + | Care Theatre Instructor Name | Role | Phone | [...] | | | | [place], [place] | [address] | | | | | [address] | [phone] | | | | | [phone] | | | +--------+ + + + [...] [place] | | | | | | [address] | | | | | | | | +--------+---------+ + + + documented as of this encounter Visit Diagnoses Not on filedocumented in this encounter"
--- OUTSIDE RECORDS SUMMARY | ~2019-05-17 | XMS | Encounter Summary ---
Demographics + + + | Address | [address] | | | [place] [address] | + + + | Home Phone [...] | Organization | [facility] | | | and [...] + +------+ + | Care Director Of Strategic Partnerships Name | Role | Phone | + [...] Closed | | Audiology | Diagnoses | [place], | [place], | | | | | audio and | Harsha Irizarry MD | MS Philomena | | | | | tymps/Lori @ | [address] | [address] [address] | | | | | [address], [address] [place] | | | | | Jamie/Mod | [place], | [address] | | | | | a/fax report | [place] [address] | [place], [place] | | | | | Procedures | Phone: | [address] Phone: | | | | | OFFICE | [phone] | [phone] | | | | | VISIT | Fax: | Fax: | | | | | REGULAR | [phone] | [phone] | +--------+--------+ + + + + Encounter [...] | [address] | [place] [address] | in left ear | | | | [address] | [phone] | | | | | [place] [address] | | | | | | [phone] | | | +--------+---------+ + + + [...] [place] | | | | | | [address] | | | | | | | [...]
--- OUTSIDE RECORDS SUMMARY | ~2019-05-17 | XMS | Encounter Summary ---
Demographics + + + | Address | [address] | | | [place] [address] | + + + | Home Phone [...] Organization | [facility] | [...] Providers + +------+ + | Care Pearl Peller Name | Role | Phone | + +------+ + PCP | Unavailable | + +------+ + Encounter Details +--------+ + + + + | Date | Type | Department | Care Team | Description | +--------+ + + + + | 12/07/ | Hospital | [facility] | Tiana Bennett, | | | 2017 | Encounter | [facility] | SHOP CLERK [address] | | | | | CENTER [address] | [address] [place], [place] | | | | | [place], [place] | [address] | | | | | [address] | | | | | | [phone] | | | +--------+ + + + [...] [place] | | | | | | [address] | | | | | | | [...] | IMPRESSION: No acute finding JOB #: [id number] Digitally Released | | | by: Rosita [...] | | | | | JOB #: [id number] | | Digitally Released by: Rosita Reza | | | | | | Read By: ROSITA REZA MD | | Date: 12/07/2016 10:54 | | | + + documented in this encounter Visit Diagnoses Not on filedocumented in this encounter"
--- OUTSIDE RECORDS SUMMARY | ~2019-05-17 | XMS | Encounter Summary ---
Demographics + + + | Address | [address] | | | [place] [address] | + + + | Home Phone [...] | [facility] | | | and [...] Team Providers + +------+ + | Care Sluice Tender Name | Role | Phone | [...] | MEDICAL CL[address] | [address] [place], [place] | | | | | [address] [facility] [place], | [address] | | | | | [place] [address] | | | | | | [phone] | | | +--------+ + + + [...] [place] | | | | | | [address] | | | | | | | | +--------+---------+ + + + documented as of this encounter Visit Diagnoses Not on filedocumented in this encounter"
--- OUTSIDE RECORDS SUMMARY | ~2019-05-17 | XMS | Encounter Summary ---
Demographics + + + | Address | [address] | | | [place] [address] | + + + | Home Phone [...] [facility] | | | and [...] Team Providers + +------+ + | Care Bobbin Winder Name | Role | Phone | + [...] | | | MEDICAL CL[address] | [facility], [place] | | | | | 4TH [facility], | [address] | | | | | [place] [address] | [phone] | | | | | [phone] | | | +--------+ + + + [...] [place] | | | | | | [address] | | | | | | | | +--------+---------+ + + + documented as of this encounter Visit Diagnoses Not on filedocumented in this encounter"
--- OUTSIDE RECORDS SUMMARY | ~2019-05-17 | XMS | Encounter Summary ---
Demographics + + + | Address | [address] | | | [place] [address] | + + + | Home Phone [...] Organization | [facility] | | | and [...] Team Providers + +------+ + | Care Research Hydrologist Name | Role | Phone | + +------+ + PCP | Unavailable | + +------+ + Encounter Details +--------+ + + + + | Date | Type | Department | Care Team | Description | +--------+ + + + + | 04/28/ | Hospital | [facility] | Richard Paredes | | | 2012 | Encounter | [facility] | [address] | | | | | MEDICAL CLIN[address] | [address] [place], [place] | | | | | [address] [facility] [place], | [address] | | | | | [place] [address] | | | | | | [phone] | | | +--------+ + + + [...] [place] | | | | | | [address] | | | | | | | | +--------+---------+ + + + documented as of this encounter Visit Diagnoses Not on filedocumented in this encounter"
--- OUTSIDE RECORDS SUMMARY | ~2019-05-17 | XMS | Encounter Summary ---
Demographics + + + | Address | [address] | | | [place] [address] | + + + | Home Phone [...] | Organization | [facility] | | | and [...] Team Providers + +------+ + | Care Inserting Operator Name | Role | Phone | [...] | | | | [place], [place] | [address] | | | | | [address] | | | | | | [phone] | | | +--------+ + + + [...] [place] | | | | | | [address] | | | | | | | [...] Normal exam. Job | | | #: [id number] Read By: JEY RICHMOND MD Released By: [...] | carotid atherosclerosis. IMPRESSION:Normal exam. Job #: [id number] Read By: | | JEY RICHMOND MD [...]
--- OUTSIDE RECORDS SUMMARY | ~2019-05-17 | XMS | Encounter Summary ---
Demographics + + + | Address | [address] | | | [place] [address] | + + + | Home Phone [...] Organization | [facility] | | | and [...] Providers + +------+ + | Care Director Strategy Name | Role | Phone | + [...] | | [place], [place] | [place] [address] | | | | | [address] | [phone] | | | | | [phone] | | | +--------+ + + + [...] [place] | | | | | | [address] | | | | | | | | +--------+---------+ + + + documented as of this encounter Visit Diagnoses Not on filedocumented in this encounter"
--- OUTSIDE RECORDS SUMMARY | ~2019-05-17 | XMS | Clinical Summary ---
Demographics + + + | Address | [address] | | | [place] [address] | + + + | Home Phone [...] | Organization | [facility] | [...] Team Providers + +------+ + | Care Lab Instructor Name | Role | Phone | [...] [place] | | | | | | [address] | | | | | | | [...] M?MRN: | | | | | | [id number] | | | [id number] | | | riteri | | | [...] | | | St. | | | [place] | | | y | | | [...] | | | St. | | | [place] | | | y H. | | [...] | | | [phone] | | | [phone] | | | [phone] | | | [...] M?MRN: | | | | | | [id number] | | | [id number] | | | riteri | | | [...] | | | St. | | | [place] | | | y | | | [...] | | | St. | | | [place] | | | y H. | | [...] | | | St. | | | [place] | | | y H. | | [...] | [employer] | [employer] | [id number] | | [phone] | | Medica | | MEDICAID HMO | HEALTH | | 018-Pr | 1 | | id | | | MDCD | | esent | | | | | | [place] | | | | | | + +--------+ +--------+ +---------+--------+ | [employer] | [employer] | [id number] | 02/28/ | [phone] | | Medica | | MEDICAID HMO [...] Meliza | piper/Brandon | | 1981 | [phone] | [place] [address] | | | ladi | | | 5 (Home) | | + +--------+ +--------+ + + | Lauro Melara | Person | Self | [birth year] | [address] | | Meliza | al/Fam | | 1981 | [phone] | [place] [address] | | | ladi | | | 5 (Home) | | + +--------+ +--------+ + + Advance Directives + + + + + | Type | Date Recorded | Patient | Explanation | | | | Wood Box Maker | | + + + + + | Power of | | | | | Electrical System Specialist | | | | + + + + + | Advance | 11/03/2017 2:12 | | | | Directive | PM | | | + + + + +
--- OUTSIDE RECORDS SUMMARY | ~2019-05-17 | XMS | Encounter Summary ---
Demographics + + + | Address | [address] | | | [place] [address] | + + + | Home Phone [...] Organization | [facility] | | | and [...] Team Providers + +------+ + | Care Berry Picker Machine Operator Name | Role | Phone | + +------+ + PCP | Unavailable | + +------+ + Encounter Details +--------+ + + + + | Date | Type | Department | Care Team | Description | +--------+ + + + + | 07/14/ | Hospital | [place] [facility] | Richard Paredes | | | 2014 | Encounter | [facility] | [address] | | | | | [facility] [address] [place], [place] | | | | | [address] [facility] [place], | [address] | | | | | [place] [address] | | | | | | [phone] | | | +--------+ + + + [...] [place] | | | | | | [address] | | | | | | | | +--------+---------+ + + + documented as of this encounter Visit Diagnoses Not on filedocumented in this encounter"
--- OUTSIDE RECORDS SUMMARY | ~2019-05-17 | XMS | Encounter Summary ---
Demographics + + + | Address | [address] | | | [place] [address] | + + + | Home Phone [...] Organization | [facility] | | [...] Team Providers + +------+ + | Care Night Court Magistrate Name | Role | Phone | + [...] | | [place], [place] | [place] [address] | | | | | [address] | [phone] | | | | | [phone] | | | +--------+ + + + [...] [place] | | | | | | [address] | | | | | | | [...] - 1.030 | EXTERNAL | | | [place], | | | LAB | | | [...] | | right ovarian cyst. Job #: [id number] Read By: BHAVANA CRAMER MD | | [...]
--- OUTSIDE RECORDS SUMMARY | ~2019-05-17 | XMS | Encounter Summary ---
Demographics + + + | Address | [address] | | | [place] [address] | + + + | Home Phone | | + + + | Preferred Language | Unknown | + + + | Marital Status | Single | + + + | Adventist Affiliation | Unknown | + + + | Race | Unknown | + + + | Ethnic Group | Unknown | + + + Author + + + | Author | [facility] | | | and [place] | + + + | Organization | [facility] | [...] Team Providers + +------+ + | Care Automotive Electrical Helper Name | Role | Phone | [...] | | [address] [place], | [address] | | | | | [place] [address] | [phone] | | | | | [phone] | | | +--------+ + + + [...] [place] | | | | | | [address] | | | | | | | | +--------+---------+ + + + documented as of this encounter Visit Diagnoses Not on filedocumented in this encounter"
--- OUTSIDE RECORDS SUMMARY | ~2019-05-17 | XMS | Encounter Summary ---
Demographics + + + | Address | [address] | | | [place] [address] | + + + | Home Phone [...] Organization | [facility] | | [...] Team Providers + +------+ + | Care News Librarian Name | Role | Phone | [...] | | [address] [place], | [address] | | | | | [place] [address] | [phone] | | | | | [phone] | | | +--------+ + + + [...] [place] | | | | | | [address] | | | | | | | | +--------+---------+ + + + documented as of this encounter Visit Diagnoses Not on filedocumented in this encounter"
--- OUTSIDE RECORDS SUMMARY | ~2019-05-17 | XMS | Encounter Summary ---
Demographics + + + | Address | [address] | | | [place] [address] | + + + | Home Phone [...] Organization | [facility] | | | and [place] [...] Team Providers + +------+ + | Care Calendering Supervisor Name | Role | Phone | + +------+ + PCP | Unavailable | + +------+ + Encounter Details +--------+ + + + + | Date | Type | Department | Care Team | Description | +--------+ + + + + | 12/24/ | [facility] | Mariama Fajardo, | | | 2011 | Encounter | [facility] | [facility] | | | | | CENTER [address] [place], [place] | | | | | [place], [place] | [address] | | | | | [address] | | | | | | [phone] | | | +--------+ + + + [...] [place] | | | | | | [address] | | | | | | | | +--------+---------+ + + + documented as of this encounter Visit Diagnoses Not on filedocumented in this encounter"
--- OUTSIDE RECORDS SUMMARY | ~2019-05-17 | XMS | Encounter Summary ---
Demographics + + + | Address | [address] | | | [place] [address] | + + + | Home Phone [...] Organization | [facility] | [...] Team Providers + +------+ + | Care Operations Intelligence Superintendent Name | Role | Phone | + [...] | | | | [place], [place] | [address] | | | | | [address] | [phone] | | | | | [phone] | | | +--------+ + + + [...] [place] | | | | | | [address] | | | | | | | | +--------+---------+ + + + documented as of this encounter Visit Diagnoses Not on filedocumented in this encounter"
--- OUTSIDE RECORDS SUMMARY | ~2019-05-17 | XMS | Encounter Summary ---
Demographics + + + | Address | [address] | | | [place] [address] | + + + | Home Phone [...] | Organization | [facility] | | [...] Team Providers + +------+ + | Care Ribbon Inker Name | Role | Phone | + [...] Viviane JACOBS | | | | | [phone] | [place] [address] | | +--------+ + + + + [...] Visit | and Rehabilitation | [address] | | | | | | [place] | | | | | | [address] | | | | | | | [...]
--- OUTSIDE RECORDS SUMMARY | ~2019-05-17 | XMS | Encounter Summary ---
Demographics + + + | Address | [address] | | | [place] [address] | + + + | Home Phone [...] + | Organization | [facility] | | | and [place] [...] Team Providers + +------+ + | Care Triple Valve Tester Name | Role | Phone | [...] [address] | [address] [place], [place] | | | | | [place] | [address] | | | | | [address] | | | | | | [phone] | | | +--------+ + + + [...] | | | | | [place] | | | | | | [address] | | | | | | | [...]
--- OUTSIDE RECORDS SUMMARY | ~2019-05-17 | XMS | Encounter Summary ---
Demographics + + + | Address | [address] | | | [place] [address] | + + + | Home Phone [...] [facility] | | [...] Providers + +------+ + | Care Poultry Grader Name | Role | Phone | + [...] | | [address] [place], | [address] | | | | | [place] [address] | | | | | | [phone] | | | +--------+ + + + [...] [place] | | | | | | [address] | | | | | | | | +--------+---------+ + + + documented as of this encounter Visit Diagnoses Not on filedocumented in this encounter"
--- OUTSIDE RECORDS SUMMARY | ~2019-05-17 | XMS | Encounter Summary ---
Demographics + + + | Address | [address] | | | [place] [address] | + + + | Home Phone [...] | Organization | [facility] | | | and [place] [...] Team Providers + +------+ + | Care Bottle Cleaner Name | Role | Phone | + [...] | | [place], [place] | [place] [address] | | | | | [address] | [phone] | | | | | [phone] | | | +--------+ + + + [...] [place] | | | | | | [address] | | | | | | | | +--------+---------+ + + + documented as of this encounter Visit Diagnoses Not on filedocumented in this encounter"
[~2019-05-17 17:20] MED LIST changes: +NEURONTIN300 MG PO
--- OUTSIDE RECORDS SUMMARY | 2019-05-17 17:22 | XMS ---
PreManage Notification: JAMEY BROWNE Security Brass Burnisher Events No recent Security Events currently on file CRITERIA MET - [facility] Guidelines - [facility] CARE PROVIDERS RAMILA OLVERA [facility] Current PHONE: Unknown RAMILA OLVERA Primary Care Current PHONE: [phone] Guidelines Source: [facility] Guidelines Date: 10/01/2018 Care Coordination: Mental health services are being provided by [facility].\T\nbsp; Please contact [facility] with mental health concerns.\T\nbsp; [place]/Tima Tejeda: [phone]\T\nbsp; [place]: [phone]. E.D. VISIT COUNT (12 MO.) 2 [facility]. Mary Lauri [address] [facility] TOTAL 4 NOTE: Visits indicate total known visits. ED/UCC VISIT TRACKING (12 MO.) 05/17/2019 17:20 [facility] [facility] [place] TYPE: Emergency COMPLAINT: - [facility]RAINE [facility] DIAGNOSES: - Oth disrd of Eustachian tube, unspecified ear - Otalgia - ear pain 02/28/2019 11:23 [facility] [place] TYPE: Emergency DIAGNOSES: - facial swelling - Otalgia, left ear - Otalgia - Cellulitis 09/25/2018 16:05 [facility] [place] TYPE: Emergency COMPLAINT: - FALL LEFT ARM INJURY DIAGNOSES: - Fall (on) (from) unspecified stairs and steps, init encntr - Other extermination supervisor (current) drug therapy - Pain in left wrist - Nicotine dependence, unspecified, uncomplicated - Contusion of left forearm, initial encounter - Contusion of right forearm, initial encounter INPATIENT VISIT TRACKING (12 MO.) No inpatient visits to display in this time frame [email or web address]
[2019-05-17] MEDS ORDERED: TRAZODONE HCL150 MG PO (17:33)
== END 2019-05-17 19:31 | disposition home or self-care (01) ==
LOC: ED 17:20
DX: G43.909 Migraine, unspecified, not intractable, without status migrainosus (principal); F17.200 Nicotine dependence, unspecified, uncomplicated; Z79.899 Other long term (current) drug therapy
CPT/HCPCS: 96374; 96375; 99283-25; J0780; J1100; J1200; J1885; J7030

== ENCOUNTER 2019-08-18 16:57 | Emergency (ER) | payer OTHER ==
[~2019-08-18] VITALS: Ht 172.7 cm; Wt 117.9 kg
[~2019-08-18 16:57] MED LIST changes: +TRAZODONE HCL150 MG PO
--- OUTSIDE RECORDS SUMMARY | 2019-08-18 17:00 | XMS ---
PreManage Notification: JAMEY BROWNE Security Optometric Coordinator Events No recent Security Events currently on file CRITERIA MET - [facility] - Has Care Guidelines - PDMP CARE PROVIDERS [facility] Current PHONE: [phone] Name [facility] 05/19/2019-Current PHONE: [phone] Guidelines Source: [employer] [place] Guidelines Date: 10/01/2018 Care Coordination: Mental health services are being provided by [employer]T\nbsp; Please contact [employer] with mental health concerns.\T\nbsp; Tiffany/Tima [facility]: \T\nbsp; [place]: [phone]. Care History Medical/Surgical 05/19/2019 [facility] \T\middot;\T\nbsp; PATIENT- [place] ELIGIBLE \T\middot;\T\nbsp; PLEASE REFER PATIENT TO [facility] FOR NON EMERGENT MEDICAL NEEDS. \T\middot;\ T\nbsp; [facility] CAN SEE PATIENTS SAME DAY FOR APTS IF PATIENT CALLS FIRST THING IN THE MORNING. Sharif VISIT COUNT (12 MO.) 2 [facility]. Mary Lauri 3 SHE[place]BY [place] TOTAL 5 NOTE: Visits indicate total known visits. ED/UCC VISIT TRACKING (12 MO.) 08/18/2019 16:58 [place] TYPE: Emergency COMPLAINT: - BACK PAIN 05/17/2019 17:20 [place] TYPE: Emergency COMPLAINT: - MIGRAINE DIAGNOSES: - Migraine, unspecified, not intractable, without status migrai - Other assisted (current) drug therapy - Nicotine dependence, unspecified, uncomplicated - Headache [facility] DIAGNOSES: - Other specified disorders of Eustachian tube, unspecified ear - Otalgia - ear pain [facility]2019 [facility] DIAGNOSES: - facial swelling - Otalgia, left ear - Otalgia - Cellulitis 09/25/2018 16:05 [facility] [facility] TYPE: Emergency COMPLAINT: - FALL LEFT ARM INJURY DIAGNOSES: - Fall (on) (from) unspecified stairs and steps, initial encoun - Other salvage determiner (current) drug therapy - Pain in left wrist - Nicotine dependence, unspecified, uncomplicated - Contusion of left forearm, initial encounter - Contusion of right forearm, initial encounter INPATIENT VISIT TRACKING (12 MO.) No inpatient visits to display in this time frame [email or web address]
[2019-08-18] MEDS ORDERED: LORAZEPAM0.5 MG PO (17:25)
[2019-08-18] MEDS ORDERED: ULTRAM50 MG PO (17:26)
[2019-08-18] MEDS ORDERED: TIZANIDINE HCL4 M1 PO (17:27)
[2019-08-18] MEDS ORDERED: PREDNISONE20 MG PO (18:11)
[2019-08-18] MEDS ORDERED: NORCO 5-325 TA1 EACH PO (18:11)
== END 2019-08-18 18:18 | disposition home or self-care (01) ==
LOC: ED 16:57
DX: S39.012A Strain of muscle, fascia and tendon of lower back, initial encounter (principal); F17.200 Nicotine dependence, unspecified, uncomplicated; Z79.899 Other long term (current) drug therapy; X58.XXXA Exposure to other specified factors, initial encounter
CPT/HCPCS: 81001; 99283

== ENCOUNTER 2020-01-08 17:34 | Emergency (ER) | payer OTHER ==
[~2020-01-08] VITALS: Ht 172.7 cm; Wt 117.9 kg
--- OUTSIDE RECORDS SUMMARY | ~2020-01-08 | XMS | Encounter Summary ---
Demographics + + + | Address | [address] | | | [place] [address] | + + + | Home Phone | | + + + | Preferred Language | Unknown | + + + | Marital Status | Unknown | + + + | Buddhism Affiliation | Unknown | + + + | Race | White | + + + | Ethnic Group | Not or | + + + Author + + + | Author | [facility] | | | and [place] | + + + | Organization | [facility] | | | and [place] | + + + | Address | [...] Team Providers + +------+ + | Care Mortgage Loan Officer Originator Name | Role | Phone | + +------+ + PCP | Unavailable | + +------+ + Encounter Details +--------+ + + + + | Date | Type | Department | Care Team | Description | +--------+ + + + + | 09/02/ | Hospital | [facility] | Gela Leong | | | 2014 | Encounter | [facility] | [place] [address] | | | | | MEDICAL [address] | [facility] [address] | | | | | [address] [facility], | [address] | | | | | [place] [address] | [place] [address] | | | | | [phone] | [phone] | | | | | | | | +--------+ + + + + Social History + +-------+ +--------+------+ | Tobacco Use | Types | Packs/Day | Years | Date | | | | | Used | | + +-------+ +--------+------+ | Never Assessed | | | | | + +-------+ +--------+------+ + + + | Sex Assigned at | Date Recorded | | | | + + + | Not on file | | + + + documented as of this encounter Plan of Treatment Not on filedocumented as of this encounter Visit Diagnoses Not on filedocumented in this encounter"
--- OUTSIDE RECORDS SUMMARY | ~2020-01-08 | XMS | Encounter Summary ---
Demographics + + + | Address | [address] | | | [place] [address] | + + + | Home Phone | | + + + | Preferred Language | Unknown | + + + | Marital Status | Unknown | + + + | Christian Affiliation | Unknown | + + + | Race | White | + + + | Ethnic Group | Not or | + + + Author + + + | Author | [facility] | | | and [place] | + + + | Organization | [facility] | | | and [...] Team Providers + +------+ + | Care Manager Telemetry Name | Role | Phone | + +------+ + | Kayla Garcia | PCP | | + +------+ + Reason for Visit + + + | Reason | Comments | + + + | New Patient | Lumbar issues | + + + Evaluate & Treat (Routine) + +--------+ + + + + | Status | Reason | Specialty | Diagnoses / | Referred By | Referred To | | | | | Procedures | Contact | Contact | + +--------+ + + + + | Authorized | | Neurosurgery | Diagnoses | [place], | [facility] | | | | | Lumbar | Kayla, MARKETING SERVICES SPECIALIST | Neurosurgery | | | | | radiculopath | [id number] | [address] | | | | | y | [address] | [address] | | | | | | [place], | [place], | | | | | | [place] [address] | [place] [address] | | | | | | Phone: | Phone: | | | | | | [phone] | [phone] | | | | | | Fax: | Fax: | | | | | | [phone] | [phone] | + +--------+ + + + + Encounter Details +--------+---------+ + + + | Date | Type | Department | Care Team | Description | +--------+---------+ + + + | 09/22/ | Office | [facility] | Aj Good | Lumbar radiculopathy | | 2020 | Visit | NEUROSURGERY [address] | MD [address] | (Primary Dx); S/P | | | | [address] | [address] | discectomy; | | | | [place] | [place] | Degenerative disc | | | | [id number] | [id number] | disease, lumbar | | | | [phone] | | | +--------+---------+ + + + Social History + + + +--------+------+ | Tobacco Use | Types | Packs/Day | Years | Date | | | | | Used | | + + + +--------+------+ | Heavy Tobacco Smoker | Cigarettes | 0.5 | 29 | | + + + +--------+------+ + +---+---+---+ | Smokeless Tobacco: | | | | | Never Used | | | | + +---+---+---+ + + +---------+ + | Alcohol Use | Drinks/Week | oz/Week | Comments | + + +---------+ + | Yes | | | very rare occasion | + + +---------+ + + + + | Sex Assigned at | Date Recorded | | | | + + + | Not on file | | + + + documented as of this encounter Last Filed Vital Signs + + + + + | Vital Sign | Reading | Time Taken | Comments | + + + + + | Blood Pressure | 128/62 | 09/23/2019 8:54 AM | | | | | PDT | | + + + + + | Pulse | 85 | 09/23/2019 8:54 AM | | | | | PDT | | + + + + + | Temperature | - | - | | + + + + + | Respiratory Rate | 18 | 09/23/2019 8:54 AM | | | | | PDT | | + + + + + | Oxygen Saturation | 98% | 09/23/2019 8:54 AM | | | | | PDT | | + + + + + | Inhaled Oxygen | - | - | | | Concentration | | | | + + + + + | Weight | 131.3 kg (289 lb 7.4 | 09/23/2019 8:54 AM | | | | oz) | PDT | | + + + + + | Height | 171.5 cm (5' 7.5") | 09/23/2019 8:54 AM | | | | | PDT | | + + + + + | Body Mass Index | 44.67 | 09/23/2019 8:54 AM | | | | | PDT | | + + + + + documented in this encounter Progress Notes Aj Good MD - 09/23/2019 8:55 AM PDT Aj Good MD [address] [facility], [address] [place] [id number] FAX: [phone] NEUROSURGERY HISTORY AND PHYSICAL EXAMINATION CHIEF COMPLAINT: Chief Complaint Patient presents with New Patient Lumbar issues HISTORY OF PRESENT ILLNESS: Ms. 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 Ms. Melara fell against a towel rack while trying to help the patient and states that she tore a muscle in her back. She indicates that she was diagnosed with l umbar disc bulging. She experienced pain and numbness in the right greater than left leg. She eventually underwent surgery in [facility] in 2003. Her pain was generally im proved postoperatively. Approximately 3 or 4 months ago she noted onset of recurrent progre ssive severe low back pain with radiation primarily to the right lower extremity. 2 months ago she noted significant bruising in the middle of her lower lumbosacral region extending t owards the right side with significant muscle and tissue swelling. She has been on gabapent in for approximately 4 years. She also takes methocarbamol and ibuprofen. She had physical therapy a couple of years ago. Also chiropractic intervention. She is tried a home TENS u nit which did seem to help her but she does not have this any longer. Ms. Melara states that her pain presently radiates from the mid to lower right lumbar re gion across the low back to the right gluteal musculature and then to the posterior lateral greater than anterior medial right lower extremity into the foot. She describes this as a s hooting type pain. PAST MEDICAL HISTORY: Past Medical History: Diagnosis Date Anxiety Cellulitis Left Cervical Region Cervical spine pain Chronic low back pain Depressive disorder Eustachian tube disorder, left H/O tubal ligation History of alcohol dependence ([facility]) abstinant since 2006 History of methamphetamine abuse ([facility]) hx of IV use, abstinant since 2006 Hypothyroidism Insomnia Lumbar radiculopathy Migraine Myopia, left Nicotine dependence Presbyopia Regular astigmatism, bilateral Urinary incontinence Vitamin D deficiency PAST SURGICAL HISTORY: Past Surgical History: Procedure Laterality Date LUMBAR SPINE SURGERY x 2 TUBAL LIGATION 2006 CURRENT MEDICATIONS: Current Outpatient Medications Medication Sig Dispense Refill CHANTIX CONTINUING MONTH FANTA 1 MG tablet Take 1 mg by mouth 2 times daily. cholecalciferol (VITAMIN D-3) 125 mcg (5,000 units) tablet Take 5,000 Units by mouth Da ladi. gabapentin (NEURONTIN) 300 mg capsule Take 600 mg by mouth 3 times daily. HYDROcodone-acetaminophen (NORCO) 5-325 mg per tablet Take 1-2 tablets by mouth every 6 hours as needed for Pain. 20 tablet 0 lidocaine (LIDODERM) 5% patch Place 1 patch onto the skin Daily. Apply for 12 hours, th en remove for 12 hours. methocarbamol (ROBAXIN) 750 mg tablet Take 750 mg by mouth 3 times daily as needed for Muscle spasms. pseudoePHEDrine (SUDAFED) 30 mg tablet Take 60 mg by mouth 2 times daily. tiZANidine (ZANAFLEX) 4 mg tablet Take 4 mg by mouth every 6 hours. traZODone (DESYREL) 50 mg tablet Take 50 mg by mouth nightly. No current facility-administered medications for this visit. ALLERGIES: No Known Allergies SOCIAL HISTORY: The patient reports that she has been smoking cigarettes. She has a 14.50 pack-year smokin g history. She has never used smokeless tobacco. She reports current alcohol use. She report s current drug use. Drug: Marijuana. FAMILY HISTORY: Family History Problem Relation Age of Onset Depression Mother Cervical cancer Mother Arthritis Mother Nephrolithiasis Father Other (see comment) Brother problems with digestion Hearing loss Daughter Hypertension Maternal Grandfather High cholesterol Maternal Grandfather Other (see comment) Maternal Grandfather Hepatitis Prostate cancer Maternal Grandfather Colon cancer Maternal Grandfather Diabetes Other Breast cancer Other Asthma Other Alcohol abuse Other Drug abuse Other No known problems Sister No known problems Maternal Grandmother No known problems Paternal Grandmother No known problems Paternal Grandfather No known problems Son Review of Systems Constitutional: Negative. HENT: Positive for ear pain, hearing loss and tinnitus. Eyes: Negative. Respiratory: Negative. Cardiovascular: Positive for leg swelling. Gastrointestinal: Negative. Genitourinary: Positive for frequency and urgency. Musculoskeletal: Positive for back pain and joint pain. Skin: Negative. Neurological: Positive for tingling (Right side) and headaches. Lightheadedness - No Endo/Heme/Allergies: Positive for environmental allergies. Bruises/bleeds easily. Psychiatric/Behavioral: The patient is nervous/anxious and has insomnia. PHYSICAL EXAMINATION: Blood pressure 128/62, pulse 85, resp. rate 18, height 1.715 m (5' 7.5"), weight 131.3 kg ( 289 lb 7.4 oz), SpO2 98 %, not currently . Body mass index is 44.67 kg/m. GENERAL: Ms. Melara appears reasonably comfortable during her examination today. Her m anager at work accompanies her to the visit. SPINE: Moderate tenderness to palpation in the mid to lower central to right lumbar region extending towards the paraspinous musculature and right posterior iliac crest and mid to up per gluteal region. EXTREMITIES: No cyanosis, clubbing, or edema. Distal pulses are palpable. MUSCULOSKELETAL: Mild to moderate tenderness over the right proximal lateral thigh. Posit dick low back and gluteal discomfort with internal and external rotation right lower extremit y. She has a slight amount of cutaneous ecchymosis over the right lower lumbosacral region. NEUROLOGICAL EXAM: MENTAL STATUS: The patient is awake, alert, and oriented. She follows simple and complex commands. Her speech is fluent, she comprehends speech well, and she repeats well. 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 MOTOR EXAM: (5 IS NORMAL) * Indicates pain limited MUSCLE/ MOVEMENT: RIGHT LEFT Deltoids 5 5 Biceps 5 5 Triceps 5 5 Wrist Flexion 5 5 Wrist Extension 5 5 Median Intrinsics 5 5 Ulnar Intrinsics 5 5 Tinware Lithograph Press Operator Strength 5 5 Hip Flexion 5 5 Hip Extension 5 5 Knee Flexion 5 5 Knee Extension 5 5 Dorsiflexion 5 5 Extensor Hallicus Longus 5 5 Plantarflexion 5 5 Foot Inversion 5 5 Foot Eversion 5 5 SENSORY EXAM: Sensation is intact to light touch throughout the upper extremities. Sensat ion intact light touch left lower extremity and moderately diminished somewhat diffuse in th e right lower extremity primarily distal greater than proximal. REFLEXES: (2 OR 2+ IS NORMAL) REFLEX: RIGHT LEFT BICEPS 2+ 2+ BRACHIORADIALIS 2+ 2+ TRICEPS 2+ 2+ PATELLAR 2+ 2+ ACHILLES 2+ 2+ VALERIO'S ABSENT ABSENT CLONUS ABSENT ABSENT BABINSKI DOWNGOING DOWNGOING GAIT: Gait is mild antalgic PERIPHERAL NERVE/MISC: Straight leg raise is negative bilaterally. Paresh's test of the hips is negative bilaterally. TEST AND RADIOGRAPHIC REVIEW: 09/23/2019 AP and lateral flexion-extension lumbar spine x-ray images are reviewed. The juan dy reveals normal overall lumbar lordotic curvature. There is moderate decreased height at the L5-S1 level without significant subluxation on flexion-extension images. 09/09/2019 MRI lumbar spine images are reviewed and reveal normal lumbar lordosis. There is moderate decrease signal intensity at the L5-S1 level with good preservation of in tervertebral disc space height. Minimal L4-5 annular displacement. At L5-S1 there is moderate decrease signal intensity and loss of intervertebral disc space height with moderate residual central annular fissure. There is very slight disc and annula r displacement which does not appear to cause significant nerve compression at the canal or lateral recess. There is mild soft tissue signal intensity region along the right L5-S1 reg ion which likely represents small amount of postoperative scar tissue. There is moderate right L5-S1 foraminal stenosis which appears to be related to facet hyper trophy and mild focal annular displacement. This appears to impinge but not definitely comp ress the exiting right L5 nerve root. ASSESSMENT: 1. Patient's symptoms and findings are most consistent with significant right lumbar myofa scial strain. This appears to have been a chronic problem for her with initial injury in 03 07 and probable recurrence over the past 3 to 4 months. 2. L4-5 degenerative disc disease. No significant instability or significant nerve compre ssion 3. Previous L5-S1 discectomy with secondary chronic degenerative changes without evidence of instability. 4. Moderate right L5-S1 foraminal stenosis question of right L5 radiculopathy contributing to her pain symptoms. No definite objective focal deficit on exam. VISIT DIAGNOSES AND ORDERS: 1. Lumbar radiculopathy 2. S/P discectomy 3. Degenerative disc disease, lumbar PLAN: The findings and imaging studies were reviewed at length with Ms. Melara. Options of conservative treatment including physical therapy, use of various medications is been discussed. Option of further physiatry treatment including transforaminal epidural steroid injection h ave been explained. She may potentially be a candidate for right L5-S1 foraminotomy. However, given the diffus e somewhat nonfocal pain and sensory symptoms in the right lower extremity, the questionable degree of nerve compression at the right L5-S1 foramen, as well as apparent scar tissue aliyah und the right L5 and S1 nerve root, there is probably only a moderate chance of success with surgical intervention. Ms. Melara states that she would prefer to avoid surgery if possible. Signs and symptoms to watch for have been discussed. Proper lifting technique, exercises have been discussed. Importance of weight loss, decreasing stress on her back, and improving muscular support quarles s been explained. I would like her to follow-up with physical therapy in [place], including possible TENS t rial with home unit if successful. She should begin a more consistent long-term exercise an d weight loss program. I will be pleased to see her back in the future if she has any significant change in her sy mptoms or deficit. If she decides to pursue surgical intervention, a diagnostic and potenti ally therapeutic right L5-S1 transforaminal epidural steroid injection would be helpful prio r to considering surgery. Approximately 40 minutes was spent in [id number] evaluation of the patient today, greater than 50% which entailed an extensive discussion of her imaging findings, treatment options prognosis and answering questions. ELECTRONICALLY SIGNED BY: Aj Good MD, 09/23/2019 8:53 PM documented in this encounter Plan of Treatment Not on filedocumented as of this encounter Visit Diagnoses + + | Diagnosis | + + | Lumbar radiculopathy - Primary Thoracic or lumbosacral neuritis or radiculitis, | | unspecified | + + | S/P discectomy Other postprocedural status | + + | Degenerative disc disease, lumbar Degeneration of lumbar or lumbosacral | | intervertebral disc | + + documented in this encounter
--- OUTSIDE RECORDS SUMMARY | ~2020-01-08 | XMS | Encounter Summary ---
Demographics + + + | Address | [address] | | | [place] [address] | + + + | Home Phone | | + + + | Preferred Language | Unknown | + + + | Marital Status | Unknown | + + + | Druze Affiliation | Unknown | + + + | Race | White | + + + | Ethnic Group | Not or | + + + Author + + + | Author | [facility] | | | and [place] | + + + | Organization | [facility] | | | and [...] Team Providers + +------+ + | Care Track Greaser Name | Role | Phone | + +------+ + PCP | Unavailable | + +------+ + Encounter Details +--------+ + + + + | Date | Type | Department | Care Team | Description | +--------+ + + + + | 01/11/ | Hospital | [facility] | Harsha Alvarado | | | 2011 | Encounter | [facility] | [address] | | | | | [address] | [facility] | | | | | [address] [place] | [place] [address] | | | | | [address] | [phone] | | | | | [phone] | | | +--------+ + + + [...]
--- OUTSIDE RECORDS SUMMARY | ~2020-01-08 | XMS | Encounter Summary ---
Demographics + + + | Address | [address] | | | [place] [address] | + + + | Home Phone [...] Author + + + | Author | [facility] | | | and [place] | + + + | Organization | [facility] | | | [...] Team Providers + +------+ + | Care Building Construction Teacher Name | Role | Phone | + +------+ + PCP | Unavailable | + +------+ + Encounter Details +--------+ + + + + | Date | Type | Department | Care Team | Description | +--------+ + + + + | 07/21/ | [facility] | Antonio Villalta | | | 2013 | Encounter | [facility] [place] | Demetrice, STATIONARY ENGINEER [address] | | | | | [facility] [address] | [facility], [place] | | | | | [address] [facility], | [address] | | | | | [place] [address] | [phone] | | | | | [phone] | | | +--------+ + + + [...]
--- OUTSIDE RECORDS SUMMARY | ~2020-01-08 | XMS | Encounter Summary ---
Demographics + + + | Address | [address] | | | [place] [address] | + + + | Home Phone | | + + + | Preferred Language | Unknown | + + + | Marital Status | Unknown | + + + | Zoroastrianism Affiliation | Unknown | + + + | Race | White | + + + | Ethnic Group | Not or | + + + Author + + + | Author | [facility] | | | and [place] | + + + | Organization | [facility] | | | and [place] | + [...] Team Providers + +------+ + | Care Boat Oar Maker Name | Role | Phone | + +------+ + PCP | Unavailable | + +------+ + Encounter Details +--------+ + + + + | Date | Type | Department | Care Team | Description | +--------+ + + + + | 03/13/ | [facility] | [facility] | | | 2011 | Encounter | [facility] | MD [address] | | | | | MEDICAL [facility] [address] | [place], [place] | | | | | [address] [place], | [address] | | | | | [place] [address] | [phone] | | | | | [phone] | | | +--------+ + + + [...]
--- OUTSIDE RECORDS SUMMARY | ~2020-01-08 | XMS | Encounter Summary ---
Demographics + + + | Address | [address] | | | [place] [address] | + + + | Home Phone | | + + + | Preferred Language | Unknown | + + + | Marital Status | Unknown | + + + | Alevism Affiliation | Unknown | + + + | Race | White | + + + | Ethnic Group | Not or | + + + Author + + + | Author | [facility] | | | and [place] | + + + | Organization | [facility] | | | and [...] Team Providers + +------+ + | Care Homoeopath Name | Role | Phone | + +------+ + PCP | Unavailable | + +------+ + Encounter Details +--------+ + + + + | Date | Type | Department | Care Team | Description | +--------+ + + + + | 02/12/ | Hospital | [facility] | Richard Paredes | | | 2013 | Encounter | [facility] [address] | [address] | | | | | [address] | [address] [place], [place] | | | | | [place] | [address] | | | | | [address] | | | | | | [phone] | | | +--------+ + + + [...]
--- OUTSIDE RECORDS SUMMARY | ~2020-01-08 | XMS | Encounter Summary ---
Demographics + + + | Address | [address] | | | [place] [address] | + + + | Home Phone | | + + + | Preferred Language | Unknown | + + + | Marital Status | Unknown | + + + | Restoration Affiliation | Unknown | + + + | Race | White | + + + | Ethnic Group | Not or | + + + Author + + + | Author | [facility] | | | and [place] | + + + | Organization | [facility] | | | [...] Team Providers + +------+ + | Care Assembly Detailer Name | Role | Phone | + +------+ + | Gela Leong DO | PCP | | + +------+ + Reason for Visit + + + | Reason | Comments | + + + | Back Pain | | + + + Encounter Details +--------+ + + + + | Date | Type | Department | Care Team | Description | +--------+ + + + + | 11/03/ | Emergency | [facility] | Kendra, Nelson S, | Acute right-sided | | 2017 | | [facility] | [employer]RATOR [address] | back pain, | | | | CENTER [address] | [place] | unspecified back | | | | [place] | [address] | location (Primary | | | | [address] | | Dx) | | | | [phone] | | | +--------+ + + + [...] | | | + +---+---+---+ + + | Tobacco Cessation: Ready to Quit: No | + + + + +---------+ + | Alcohol Use [...] + + + | Blood Pressure | 112/59 | 11/03/2017 2:33 PM | | | | | PDT | | + + + + + | Pulse | 95 | 11/03/2017 2:33 PM | | | | | PDT | | + + + + + | Temperature | 36.1 C (97 F) | 11/03/2017 2:33 PM | | | | | PDT | | + + + + + | Respiratory Rate | 18 | 11/03/2017 2:33 PM | | | | | PDT | | + + + + + | Oxygen Saturation | 100% | 11/03/2017 2:33 PM | | | | | PDT | | + + + + + | Inhaled Oxygen | - | - | | | Concentration | | | | + + + + + | Weight | 108.9 kg (240 lb) | 11/03/2017 2:33 PM | | | | | PDT | | + + + + + | Height | 172.7 cm (5' 8") | 11/03/2017 2:33 PM | | | | | PDT | | + + + + + | Body Mass Index | 36.49 | 11/03/2017 2:33 PM | | | | | PDT | | + + + + + documented in this encounter Discharge Instructions AttachmentsThe following attachments cannot be sent through Care Everywhere.Back Pain, Joselyn wilsno (Colombian)documented in this encounter Medications at Time of Discharge + + + +---------+ + + | Medication | Sig | Dispensed | Refills | Start | End Date | | | | | | Date | | + + + +---------+ + + | cyclobenzaprine | Take 1 tablet by | 15 | 0 | 11/04/19 | | | (FLEXERIL) 5 MG | mouth 3 times daily | tablet | | 18 | 8 | | tablet | as needed for Muscle | | | | | | | spasms for up to 14 | | | | | | | days. | | | | | + + + +---------+ + + | ibuprofen | Take 600 mg by mouth | | 0 | | | | (ADVIL,MOTRIN) 600 | every 8 hours as | | | | 9 | | MG tablet | needed for Pain. | | | | | + + + +---------+ + + documented as of this encounter ED Notes Nelson Gardner FNP - 11/03/2017 2:50 PM PDT [facility] Emergency Department Provider Note Name: Lauro Melara Date: 11/03/2017 : 1980 Room Number: ED02 PCP: Gela Leong DO Medical Decision Making Patient was triaged to room 2. Differential diagnosis include back pain, UTI. She and was given a prescription for Flexeril which alleviated the symptoms. She was discharged home i n stable condition. Patient was encouraged to follow-up with the PCP if symptoms persist. Clinical Impression and Plan Final diagnoses: Acute right-sided back pain, unspecified back location ED Prescriptions Sig cyclobenzaprine (FLEXERIL) 5 MG tablet Take 1 tablet by mouth 3 times daily as needed for Muscle spasms for up to 14 days. Follow-up Information Gela Leong DO. Specialty: Family Medicine Why: As needed, If symptoms worsen Contact information: [address] [place] [address] [place] [address] Extended ED Note CC: Chief Complaint Patient presents with Back Pain Method of Arrival: walk-in History obtained from: Patient HPI: Lauro Melara is a 37 y.o. female who presents with pain on her back. Patient states th e pain is mainly on the right side on the back and radiates to the scapula and has some ches t tightness. She states she went out camping and strained a muscle. She has been having this pain ever since the camping trip. Patient states the pain is getting progressively worse. O n a scale of 1 to 10 patient states the pain is a 6 out of 10. She took Ibuprofen this morni ng but it did not alleviate her symptoms. Review of Systems Review of Systems Constitutional: Negative. HENT: Negative. Eyes: Negative. Respiratory: Positive for chest tightness. Cardiovascular: Negative. Gastrointestinal: Negative. Endocrine: Negative. Genitourinary: Negative. Musculoskeletal: Positive for back pain. Allergic/Immunologic: Negative. Neurological: Negative. Hematological: Negative. Psychiatric/Behavioral: Negative. Physical Exam Physical Exam Constitutional: She is oriented to person, place, and time. She appears well-developed and well-nourished. HENT: Head: Normocephalic. Eyes: Pupils are equal, round, and reactive to light. Neck: Normal range of motion. Cardiovascular: Normal rate. Pulmonary/Chest: Effort normal and breath sounds normal. Musculoskeletal: Right Scapula tenderness noted on exam. Neurological: She is alert and oriented to person, place, and time. Skin: Skin is warm and dry. Psychiatric: She has a normal mood and affect. Her behavior is normal. Judgment and thought content normal. Nursing note and vitals reviewed. Past Medical, Surgical, Social, and Family History History reviewed. No pertinent past medical history. History reviewed. No pertinent surgical history. Social History Substance Use Topics Smoking status: Heavy Tobacco Smoker Packs/day: 0.50 Types: Cigarettes Smokeless tobacco: Never Used Alcohol use No Discharge Medication List as of 11/03/2017 17:11 CONTINUE these medications which have NOT CHANGED Details ibuprofen (ADVIL,MOTRIN) 600 MG tablet Take 600 mg by mouth every 8 hours as needed for Aydee n.Historical Med ARACELI Flores 11/03/17 2292 Anaya Lloyd R N - 11/03/2017 2:31 PM PDTPt c/o right upper back around scapula pain that radiates right l ateral side and into right chest. Symptoms x1 week with no known injury. Electronically sig kian by Anaya Lockhart RN at 11/03/2017 2:32 PM PDTdocumented in this encounter Plan of Treatment + +------+--------+ + + | Name | Type | Priori | Associated Diagnoses | Date/Time | | | | ty | | | + +------+--------+ + + | ED INFORMATION | VIKTOR | Routin | | 11/03/2017 2:12 PM | | EXCHANGE | | e | | PDT | + +------+--------+ + + documented as of this encounter Procedures + +--------+ + + + | Procedure Name | Priori | Date/Time | Associated Diagnosis | Comments | | | ty | | | | + +--------+ + + + | ED INFORMATION | Routin | 11/03/2017 | | | | EXCHANGE | e | 2:12 PM | | | | | | PDT | | | + +--------+ + + + +---+--------+ | | | | | Proced | | | ure | | | Note - | | | Roxanna, | | | Lab In | | | | | | Hlseve | | | n - | | | 11/03/ | | | 2018 | | | 2:13 | | | PM PDT | | | | | | Format | | | ting | | | of | | | this | | | note | | | might | | | be | | | differ | | | ent | | | from | | | the | | | origin | | | al.ROXANNA | | | E?NOTI | | | FICATI | | | ON?/ | | | | | | 8 | | | 14:11? | | | PATTER | | | SON, | | | LAURO | | | M?MRN: | | | | | | [id number] | | | [id number] | | | ecurit | | | y | | | Events | | | No | | | recent | | | | | | Securi | | | ty | | | Events | | | | | | curren | | | tly on | | | | | | fileED | | | Care | | | Guidel | | | inesTh | | | ere | | | are | | | curren | | | tly no | | | ED | | | Care | | | Guidel | | | martínez | | | in | | | VIKTOR | | | for | | | this | | | patien | | | t. | | | Please | | | check | | | your | | | facili | | | ty's | | | medica | | | l | | | record | | | s | | | system | | | .Crite | | | jose | | | met | | | PDMPCa | | | re | | | Provid | | | ersPro | | | vider | | | PRC | | | Type | | | Phone | | | Fax | | | Servic | | | e | | | Dates | | | LEOGN | | | , | | | LEONG | | | , GELA | | | G | | | RIRI, | | | D.O | | | Indivi | | | dual | | | or | | | Groups | | | (of | | | Indivi | | | duals) | | | (541) | | | | | | [phone] | | | 38 | | | Curren | | | t | | | LEONG | | | , GELA | | | G | | | Primar | | | y Care | | | (541) | | | | | | [phone] | | | 38 | | | [phone]) | | | [phone] | | | 20 | | | Curren | | | t | | | Recent | | | | | | Emerge | | | ncy | | | Depart | | | ment | | | Visit | | | [place] | | | yAdmit | | | Date | | | Facili | | | ty | | | City | | | State | | | Type | | | Major | | | Type | | | Diagno | | | ses or | | | Chief | | | | | | Compla | | | int | | | Semaj | | | 23, | | | 2018 | | | [place] | | | [place] | | [place] | | | Emerge | | | ncy | | | Emerge | | | ncy | | | | | | Should | | | er | | | Pain | | | Recent | | | | | | Inpati | | | ent | | | Visit | | | [place] | | | yNo | | | record | | | ed | | | inpati | | | ent | | | visits | | | . E.D. | | | Visit | | | Count | | | (12 | | | mo.)Fa | | | cility | | | | | | Visits | | | | | | [facility] | | | [facility] | | | | [facility] | | | al 3 | | | Total | | | 3 | | | Note: | | | Visits | | | | | | indica | | | te | | | total | | | known | | | visits | | | . The | | | above | | | | | | inform | | | ation | | | is | | | provid | | | ed for | | | the | | | sole | | | purpos | | | e of | | | patien | | | t | | | treatm | | | ent. | | | Use of | | | this | | | inform | | | ation | | | beyond | | | the | | | terms | | | of | | | Data | | | Sharin | | | g | | | Memora | | | ndum | | | of | | | Unders | | | tandin | | | g and | | | Licens | | | e | | | Agreem | | | ent is | | | | | | prohib | | | ited. | | | In | | | certai | | | n | | | cases | | | not | | | all | | | visits | | | may | | | be | | | repres | | | ented. | | | | | | Consul | | | t the | | | aforem | | | ention | | | ed | | | facili | | | ties | | | for | | | additi | | | onal | | | inform | | | ation. | | | ? | | | 2018 | | | Colle[employer] | | | tive | | | Medica | | | l | | | [employer] | | | logies | | | , [employer] | | | - | | | [place] | | | [place] | | | [place], | | | [place] - | | | [email or web address] | | | ollect | | | ivemed | | | icalte | | | [email or web address] | | | | +---+--------+ documented in this encounter Visit Diagnoses + + | Diagnosis | + + | Acute right-sided back pain, unspecified back location - Primary | + + documented in this encounter Administered Medications + +--------+ +-------+------+ + | Medication Order | MAR | Action | Dose | Rate | Site | | | Action | Date | | | | + +--------+ +-------+------+ + | ketorolac (TORADOL) injection | Given | 11/04/19 | 60 mg | | Deltoid- | | 60 mg 60 mg, Intramuscular, | | 18 3:48 | | | Right | | ONCE, 11/03/17 at 1530, For 1 | | PM PDT | | | | | dose | | | | | | + +--------+ +-------+------+ + +---+---+ | | | +---+---+ documented in this encounter
--- OUTSIDE RECORDS SUMMARY | ~2020-01-08 | XMS | Encounter Summary ---
Demographics + + + | Address | [address] | | | [place] [address] | + + + | Home Phone | | + + + | Preferred Language | Unknown | + + + | Marital Status | Unknown | + + + | Zoroastrian Affiliation | Unknown | + + + | Race | White | + + + | Ethnic Group | Not or | + + + Author + + + | Author | [facility] | | | and [place] | + + + | Organization | [facility] | | | [...] Team Providers + +------+ + | Care Feather Boner Name | Role | Phone | + +------+ + | Kayla Garcia | PCP | | + +------+ + Encounter Details +--------+ + + + + | Date | Type | Department | Care Team | Description | +--------+ + + + + | 09/22/ | Hospital | [facility] | Latisha Aj | Lumbar radiculopathy | | 2020 | Encounter | MED CTR XRAY [address] | MD [address] | | | | | [place] | [address] | | | | | [place] [address] | [place], [place] | | | | | [phone] | [address] | | | | | | | [...] + + documented as of this encounter Medications at Time of Discharge + + + +---------+ + + | Medication | Sig | Dispensed | Refills | Start | End Date | | | | | | Date | | + + + +---------+ + + | CHANTIX CONTINUING | Take 1 mg by mouth 2 | | 0 | 08/04/19 | | | MONTH FANTA 1 MG | times daily. | | | 20 | | | tablet | | | | | | + + + +---------+ + + | cholecalciferol | Take 5,000 Units by | | 0 | | | | (VITAMIN D-3) 125 | mouth Daily. | | | | | | mcg (5,000 units) | | | | | | | tablet | | | | | | + + + +---------+ + + | gabapentin | Take 600 mg by mouth | | 0 | 08/04/19 | | | (NEURONTIN) 300 mg | 3 times daily. | | | 20 | | | capsule | | | | | | + + + +---------+ + + | lidocaine | Place 1 patch onto | | 0 | | | | (LIDODERM) 5% patch | the skin Daily. | | | | | | | Apply for 12 hours, | | | | | | | then remove for 12 | | | | | | | hours. | | | | | + + + +---------+ + + | methocarbamol | Take 750 mg by mouth | | 0 | 08/27/19 | | | (ROBAXIN) 750 mg | 3 times daily as | | | 20 | | | tablet | needed for Muscle | | | | | | | spasms. | | | | | + + + +---------+ + + | pseudoePHEDrine | Take 60 mg by mouth | | 0 | | | | (SUDAFED) 30 mg | 2 times daily. | | | | | | tablet | | | | | | + + + +---------+ + + | tiZANidine | Take 4 mg by mouth | | 0 | 08/21/19 | | | (ZANAFLEX) 4 mg | every 6 hours. | | | 20 | | | tablet | | | | | | + + + +---------+ + + | traZODone | Take 50 mg by mouth | | 0 | | | | (DESYREL) 50 mg | nightly. | | | | | | tablet | | | | | | + + + +---------+ + + | | Take 1-2 tablets by | 20 | 0 | 03/18/20 | | | HYDROcodone-acetamin | mouth every 6 hours | tablet | | 19 | 0 | | ophen (NORCO) 5-325 | as needed for Pain. | | | | | | mg per tablet | | | | | | + + + +---------+ + + documented as of this encounter Plan of Treatment Not on filedocumented as of this encounter Procedures + +--------+ + + + | Procedure Name | Priori | Date/Time | Associated Diagnosis | Comments | | | ty | | | | + +--------+ + + + | XR LUMBAR SPINE 4 + | Routin | 09/23/2019 | Lumbar | Results for this | | VW | e | 8:22 AM | radiculopathy | procedure are in the | | | | PDT | | results section. | + +--------+ + + + documented in this encounter Results XR Lumbar Spine 4 + Vw (09/23/2019 8:22 AM PDT) + + | Specimen | + + | | + + + + + | Impressions | Performed At | + + + | 1. RIGHTWARD LUMBAR CURVATURE WITH LOWER LUMBAR DEGENERATIVE | [facility] | | CHANGES. NO VISIBLE SPONDYLOLISTHESIS. Dictated and Signed by: | | | Eliseo Tinsley MD Electronically signed: 09/23/2019 9:45 AM | | + + + + + + | Narrative | Performed At | + + + | FOUR VIEWS LUMBAR SPINE 09/23/2019 8:22 AM CLINICAL HISTORY: Back | [facility] | | Pain COMPARISON: MRI SEPTEMBER 08 FINDINGS: Five non rib-bearing, | | | lumbar type vertebrae are visible. An AP view and lateral views in | | | neutral, flexed and extended positions are provided. There is mild | | | rightward lumbar curvature. Lumbar vertebral height and alignment | | | are otherwise maintained without evident fracture, spondylolysis or | | | spondylolisthesis, even with flexion and extension. Disc space | | | narrowing and vertebral spondylosis are again apparent at L5-S1. | | | There is lower lumbar facet hypertrophy also. The sacroiliac | | | joints and imaged sacrum, bony pelvis and lower ribs are | | | unremarkable. Soft tissues are unremarkable. | | + + + + + | Procedure Note | + + | Usman, Rad Results In - 09/23/2019 9:48 AM PDT FOUR VIEWS LUMBAR SPINE 09/23/2019 8:22 | | AMCLINICAL HISTORY: Back PainCOMPARISON: MRI SEPTEMBER 08FINDINGS: Five non rib-bearing, | | lumbar type vertebrae are visible. An AP viewand lateral views in neutral, flexed and | | extended positions are provided. Thereis mild rightward lumbar curvature. Lumbar | | vertebral height and alignment areotherwise maintained without evident fracture, | | spondylolysis orspondylolisthesis, even with flexion and extension. Disc space | | narrowing andvertebral spondylosis are again apparent at L5-S1. There is lower lumbar | | facethypertrophy also. The sacroiliac joints and imaged sacrum, bony pelvis andlower | | ribs are unremarkable. Soft tissues are unremarkable.IMPRESSION: 1. RIGHTWARD LUMBAR | | CURVATURE WITH LOWER LUMBAR DEGENERATIVE CHANGES. NOVISIBLE SPONDYLOLISTHESIS.Dictated | | and Signed by: Eliseo Tinsley MD Electronically signed: 09/23/2019 9:45 AM | |vertebral spondylosis are again apparent at L5-S1. There is lower lumbar facet | |hypertrophy also. The sacroiliac joints and imaged sacrum, bony pelvis and | |lower ribs are unremarkable. Soft tissues are unremarkable. | | | |IMPRESSION: | | | |1. RIGHTWARD LUMBAR CURVATURE WITH LOWER LUMBAR DEGENERATIVE CHANGES. NO | |VISIBLE SPONDYLOLISTHESIS. | | | |Dictated and Signed by: Eliseo Tinsley MD | | Electronically signed: 09/23/2019 9:45 AM | + + + +---------+ + + | Performing | Address | City/State/Zipcode | Phone Number | | Organization | | | | + +---------+ + + | [facility] | | | | + +---------+ + + documented in this encounter Visit Diagnoses + + | Diagnosis | + + | Lumbar radiculopathy Thoracic or lumbosacral neuritis or radiculitis, unspecified | + + documented in this encounter"
--- OUTSIDE RECORDS SUMMARY | ~2020-01-08 | XMS | Encounter Summary ---
Demographics + + + | Address | [address] | | | [place] [address] | + + + | Home Phone | | + + + | Preferred Language | Unknown | + + + | Marital Status | Unknown | + + + | Congregational Affiliation | Unknown | + + + | Race | White | + + + | Ethnic Group | Not or | + + + Author + + + | Author | [facility] | | | and [place] | + + + | Organization | [facility] | | [...] Team Providers + +------+ + | Care Music Coordinator Name | Role | Phone | + +------+ + PCP | Unavailable | + +------+ + Encounter Details +--------+ + + + + | Date | Type | Department | Care Team | Description | +--------+ + + + + | 01/31/ | [facility] | [facility] | | | 2011 | Encounter | [facility] | MD Sheryl [address] | | | | | [facility] | [place], [place] | | | | | [address] [place], | [address] | | | | | [place] [address] | [phone] | | | | | [phone] | | | +--------+ + + + [...]
--- OUTSIDE RECORDS SUMMARY | ~2020-01-08 | XMS | Encounter Summary ---
Demographics + + + | Address | [address] | | | [place] [address] | + + + | Home Phone | | + + + | Preferred Language | Unknown | + + + | Marital Status | Unknown | + + + | Lutheran Affiliation | Unknown | + + + | Race | White | + + + | Ethnic Group | Not or | + + + Author + + + | Author | [facility] | | | and [place] | + + + | Organization | [facility] | | | [...] Team Providers + +------+ + | Care Tying Machine Operator Lumber Name | Role | Phone | + +------+ + | No, Physician | PCP | Unavailable | + +------+ + Reason for Referral Evaluate & Treat (Urgent) +--------+ + + + + + | Status | Reason | Specialty | Diagnoses / | Referred By | Referred To | | | | | Procedures | Contact | Contact | +--------+ + + + + + | Denied | Specialty | Otolaryngolog | Diagnoses | Vera, | Jamie, | | | Services | y | Dysfunction | Terrell Reinoso MD | Harsha Irizarry MD | | | Required | | of | [address] | | | | | Eustachian | [address] | [address] | | | | | tube, | [place], | [place], | | | | | unspecified | [place] [address] | [place] [address] | | | | | laterality | Phone: | Phone: | | | | | | [phone] | [phone] | | | | | | Fax: | Fax: | | | | | | [phone] | [phone] | +--------+ + + + + + Reason for Visit +---------+ + | Reason | Comments | +---------+ + | Otalgia | | +---------+ + Encounter Details +--------+ + + + + | Date | Type | Department | Care Team | Description | +--------+ + + + + | 03/18/ | Emergency | [facility] | Terrell Vera MD | Dysfunction of | | 2019 | | [facility] | [address] | Eustachian tube, | | | | CENTER [address] | [place], [place] | unspecified | | | | [place], [place] | [address] | laterality (Primary | | | | [address] | | Dx) | | | | [phone] | | | +--------+ + + + [...] + + + | Blood Pressure | 137/89 | 03/18/2019 9:26 AM | | | | | PST | | + + + + + | Pulse | 89 | 03/18/2019 9:26 AM | | | | | PST | | + + + + + | Temperature | 36.7 C (98 F) | 03/18/2019 9:26 AM | | | | | PST | | + + + + + | Respiratory Rate | 16 | 03/18/2019 9:26 AM | | | | | PST | | + + + + + | Oxygen Saturation | 99% | 03/18/2019 9:26 AM | | | | | PST | | + + + + + | Inhaled Oxygen | - | - | | | Concentration | | | | + + + + + | Weight | 115.2 kg (254 lb) | 03/18/2019 9:26 AM | | | | | PST | | + + + + + | Height | 171.5 cm (5' 7.5") | 03/18/2019 9:26 AM | | | | | PST | | + + + + + | Body Mass Index | 39.19 | 03/18/2019 9:26 AM | | | | | PST | | + + + + + documented in this encounter Discharge Instructions Instructions Terrell Vera MD - 03/18/2019May use pain medication as needed Continue Sudafed and allergy medication as needed Follow-up with ear nose and throat Return for worsening symptoms, not improving, other new complaints documented in this encounter Medications at Time of [...] + + + +---------+ + + | cetirizine | Take 10 mg by mouth | | 0 | 03/04/20 | | | (ZYRTEC) 10 mg | Daily. | | | 19 | 0 | | tablet | | | | | | + + + +---------+ + + | gabapentin | Take 100 mg by mouth | | 0 | 03/12/20 | | | (NEURONTIN) 100 mg | 3 times daily. | | | 19 | 0 | | capsule | | | | [...] + + +---------+ + + | ibuprofen (ADVIL, | Take 800 mg by mouth | | 0 | | | | MOTRIN) 200 mg | every 6 hours as | | | | 0 | | tablet | needed for Pain. | | | | | + + + +---------+ + + | ibuprofen | Take 1 tablet by | 30 | 0 | 02/29/20 | | | (ADVIL,MOTRIN) 600 | mouth every 6 hours | tablet | | 19 | 0 | | MG tablet | as needed for Pain. | | | | | + + + +---------+ + + | LORazepam (ATIVAN) | Take 0.5 mg by mouth | | 0 | | | | 0.5 mg tablet | as needed for | | | | 0 | | | Anxiety or Insomnia. | | | | | + + + +---------+ + + | predniSONE | Take 2 tablets by | 10 | 0 | 02/29/20 | | | (DELTASONE) 20 mg | mouth Daily. | tablet | | 19 | 0 | | tablet | | | | | | + + + +---------+ + + | | Take 1 tablet by | | 0 | | | | sulfamethoxazole-tri | mouth 2 times daily. | | | | 0 | | methoprim (BACTRIM | | | | | | | DS) 800-160 mg per | | | | | | | tablet | | | | | | + + + +---------+ + + | topiramate | Take 50 mg by mouth | | 0 | | | | (TOPAMAX) 50 MG | 2 times daily. | | | | 0 | | tablet | | | | | | + + + +---------+ + + documented as of this encounter ED Notes Terrell Vera MD - 03/18/2019 9:31 AM PST Chief Complaint: Ear pain HPI: Lauro Melara is a 38 y.o. female who presents to the Emergency Department with bilateral ear pain that appears to be secondary to eustachian tube dysfunction. She's had d ifficulty hearing as well as pain in her ears. She's been on antibiotics she's been on deco ngestants as well as antihistamines. She is looking for something for the pain at this time . She has follow-up scheduled with ENT but has not for over a month away. She's not had ve rtigo. She's not had fevers. No nausea vomiting. She's been very uncomfortable with this. Past Medical and Surgical History: The patient has a past medical history of H/O tubal ligation. The patient has a past surgic al history that includes Tubal ligation (2005) and Lumbar spine surgery. Family and Social History: The patient's family history includes Alcohol abuse in an other family member; Arthritis in her mother; Asthma in an other family member; Breast cancer in an other family member; Cerv ical cancer in her mother; Colon cancer in her maternal grandfather; Depression in her mothe r; Diabetes in an other family member; Drug abuse in an other family member; Hearing loss in her daughter; High cholesterol in her maternal grandfather; Hypertension in her maternal gr andfather; Nephrolithiasis in her father; Other (see comment) in her brother and maternal gr andfather; Prostate cancer in her maternal grandfather. The patient reports that she has bee n smoking cigarettes. She has a 14.50 pack-year smoking history. She has never used smokele ss tobacco. She reports that she drinks alcohol. She reports that she has current or past dr ug history. Drug: Marijuana. 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 ibuprofen (ADVIL,MOTRIN) 600 MG tablet Take 1 tablet by mouth every 6 hours as needed f or Pain. LORazepam (ATIVAN) 0.5 mg tablet Take 0.5 mg by mouth as needed for Anxiety or Insomnia . predniSONE (DELTASONE) 20 mg tablet Take 2 tablets by mouth Daily. (Patient not taking: Reported on 03/18/2019) pseudoePHEDrine (SUDAFED) 30 mg tablet Take 60 mg by mouth 2 times daily. sulfamethoxazole-trimethoprim (BACTRIM DS) 800-160 mg per tablet Take 1 tablet by mouth 2 times daily. topiramate (TOPAMAX) 50 MG tablet Take 50 mg by mouth 2 times daily. traZODone (DESYREL) 50 mg tablet Take 50 mg by mouth nightly. Allergies: No Known Allergies Review of Systems: As per HPI. All other systems were reviewed and are negative Physical Examination: VITAL SIGNS: (first vital signs):Temp: 36.7 C (98 F) Pulse: 89 Resp: 16 SpO2: 99 % BP: 137/89 General: Alert, appears well, non toxic Eyes::EOMI, no Ptosis ENMT: Normocephalic, atraumatic, OP clear, she has bilateral bulging drums without signs of infection, no drainage, no erythema Neck: Supple, full range of motion, no tracheal deviation Neurologic: Alert, no cranial nerve deficits, no focal deficits Skin: warm and dry, no ulcerations ED Course & Medical Decision Making: Patient here with what appears to eustachian tube dysfunction and middle ear fluid. I do n ot have great treatment plan for. We did offer her some pain control. We will go ahead and refer to ear nose and throat to see if we can get her in sooner. She may need tympanostomy . She otherwise appears nontoxic. Does not appear to need admission or other acute interve ntion. Disposition: Discharge Final Impression: Eustachian tube dysfunction New Prescriptions HYDROCODONE-ACETAMINOPHEN (NORCO) 5-325 MG PER TABLET Take 1-2 tablets by mouth every 6 hours as needed for Pain. Terrell Vera MD 03/18/19 0935 Skye Astorga RN - 03/18/2019 9:27 AM PSTbilat ear pain for the past 1.5 months, finished course of antibiotic s this AM, states that her hearing is compromised and that she hears crackles in her ears, p t is supposed to follow up with ENT documented in this encounter Plan of Treatment + +------+--------+ + + | Name | Type | Priori | Associated Diagnoses | Date/Time | | | | ty | | | + +------+--------+ + + | ED INFORMATION | VIKTOR | Routin | | 03/18/2019 9:19 AM | | EXCHANGE | | e | | PST | + +------+--------+ + + + + +--------+ + + | Name | Type | Priori | Associated Diagnoses | Order Schedule | | | | ty | | | + + +--------+ + + | ENT - Jamie | Outpatient | Routin | Dysfunction of | Ordered: 03/18/2019 | | | Referral | e | Eustachian tube, | | | | | | unspecified | | | | | | laterality | | + + +--------+ + + documented as of this encounter Procedures + +--------+ + + + | Procedure Name | Priori | Date/Time | Associated Diagnosis | Comments | | | ty | | | | + +--------+ + + + | ED INFORMATION | Routin | 03/18/2019 | | | | EXCHANGE | e | 9:19 AM | | | | | | PST | | | + +--------+ + + + +---+--------+ | | | | | Proced | | | ure | | | Note - | | | Usman, | | | Lab In | | | | | | Hlseve | | | n - | | | | | | 2018 | | | 9:20 | | | AM PST | | | | | | Format | | | ting | | | of | | | this | | | note | | | might | | | be | | | differ | | | ent | | | from | | | the | | | origin | | | al.COL | | | LECTIV | | | E?NOTI | | | FICATI | | | ON?/ | | | | | | 9 | | | 09:18? | | | PATTER | | | SON, | | | LAURO | | | M?MRN: | | | | | | [id number] | | | [id number] | | | riteri | | | a Met | | | Care | | | Guidel | | | inesSe | | | curity | | | and | | | Safety | | | No | | | recent | | | | | | Securi | | | ty | | | Events | | | | | | curren | | | tly on | | | | | | fileED | | | Care | | | Guidel | | | martínez | | | from | | | [facility] | | | ys - | | | [place] | | | laLast | | | | | | Update | | | d: | | | 5/21/1 | | | 9 2:22 | | | PM | | | Care | | | Coordi | | | nation | | | :[facility] | | | l | | | health | | | | | | servic | | | es are | | | being | | | | | | provid | | | ed by | | | [facility] | | | ys.? | | | Please | | | | | | contac | | | t | | | [facility] | | | ys | | | with | | | mental | | | | | | health | | | | | | concer | | | ns.? | | | [place] | | | ton/Mi | | | lton | | | [place] | | | ter: | | | [phone] | [phone] | | | ? | | | Hermis | | | ton: | | | [phone] | | | [phone] | | | .These | | | are | | | guidel | | | martínez | | | and | | | the | | | provid | | | er | | | should | | | | | | exerci | | | se | | | clinic | | | al | | | judgme | | | nt | | | when | | | provid | | | ing | | | care.P | | | rescri | | | ption | | | Drug | | | Report | | | (12 | | | Mo.)PD | | | MP | | | query | | | found | | | no | | | report | | | .E.D. | | | Visit | | | Count | | | (12 | | | mo.)Fa | | | cility | | | | | | Visits | | | Low | | | Acuity | | | | | | Provid | | | ence | | | [facility] | | | [facility] | | | l | | | Center | | | 2 0 | | | [facility] | | | y | | | Hospit | | | al 1 0 | | | Total | | | 3 0 | | | Note: | | | Visits | | | | | | indica | | | te | | | total | | | known | | | visits | | | . | | | Medica | | | id Low | | | | | | Acuity | | | Dx | | | are | | | the | | | number | | | of | | | primar | | | y | | | diagno | | | ses on | | | the | | | Medica | | | id's | | | Low | | | Acuity | | | dx | | | list. | | | | | | Recent | | | | | | Emerge | | | ncy | | | Depart | | | ment | | | Visit | | | [facility] | | | yDate | | | Facili | | | ty | | | City | | | State | | | Type | | | Diagno | | | ses or | | | Chief | | | | | | Compla | | | int | | | Nov 5, | | | 2019 | | | Provid | | | ence | | | [facility] | [place] | | | [place] | | | Emerge | | | ncy | | | ear | | | pain | | | Oct | | | 18, | | | 2019 | | | Provid | | | ence | | | [facility] | [facility] | | [place] | | | [place] | | | Emerge | | | ncy | | | | | | facial | | | | | | swelli | | | ng | | | Otalgi | | | a | | | Cellul | | | itis | | | | | | Otalgi | | | a, | | | left | | | ear | | | May | | | 15, | | | 2019 | | | [facility] | | | [facility] | | | [place] | | | [place] | | | Emerge | | | ncy | | | Fall | | | (on) | | | (from) | | | | | | unspec | | | ified | | | stairs | | | and | | | steps, | | | init | | | encntr | | | | | | Pain | | | in | | | left | | | wrist | | | | | | Contus | | | ion of | | | left | | | forear | | | m, | | | initia | | | l | | | encoun | | | ter | | | | | | Contus | | | ion of | | | right | | | | | | forear | | | m, | | | initia | | | l | | | encoun | | | ter | | | Other | | | long | | | term | | | (curre | | | nt) | | | drug | | | therap | | | y | | | Nicoti | | | ne | | | depend | | | ence, | | | unspec | | | ified, | | | | | | uncomp | | | licate | | | d | | | Recent | | | | | | Inpati | | | ent | | | Visit | | | [facility] | | | yNo | | | record | | | ed | | | inpati | | | ent | | | visits | | | . Care | | | | | | TeamPr | | | ovider | | | | | | Specia | | | lty | | | Phone | | | Fax | | | Servic | | | e | | | Dates | | | OLVERA | | | , RAMILA | | | RIRI | | | , D.O | | | | | | Family | | | | | | Medici | | | ne | | | Curren | | | t | | | OLVERA | | | , RAMILA | | | G | | | Primar | | | y Care | | | (541) | | | | | | [phone] | | | [phone] | | | [phone] | | | [phone] | | | 20 | | | Curren | | | t | | | Collec | | | tive | | | Portal | | | This | | | patien | | | t has | | | regist | | | ered | | | at the | | | | | | Provid | | | ence | | | [facility] | | | [facility] | | | l | | | Center | | | | | | Emerge | | | ncy | | | Depart | | | ment | | | For | | | more | | | inform | | | ation | | | visit: | | | | | | https: | | | //secu | | | re.col | | | lectiv | | | emedic | | | al.com | | | /notif | | | [id number] | | | [id number] | | | [email or web address] | | | 7a-aea | | | [phone] | | | [id number] | | | 6e | | | PLEASE | | | NOTE: | | | 1. | | | Any | | | care | | | recomm | | | endati | | | ons | | | and | | | other | | | clinic | | | al | | | inform | | | ation | | | are | | | provid | | | ed as | | | guidel | | | martínez | | | or for | | | | | | histor | | | ical | | | purpos | | | es | | | only, | | | and | | | provid | | | ers | | | should | | | | | | exerci | | | se | | | their | | | own | | | clinic | | | al | | | judgme | | | nt | | | when | | | provid | | | ing | | | care. | | | 2. | | | You | | | may | | | only | | | use | | | this | | | inform | | | ation | | | for | | | purpos | | | es of | | | treatm | | | ent, | | | paymen | | | t or | | | health | | | care | | | operat | | | ions | | | activi | | | ties, | | | and | | | subjec | | | t to | | | the | | | limita | | | tions | | | of | | | applic | | | able | | | Collec | | | tive | | | Polici | | | es. | | | 3. | | | You | | | should | | | | | | consul | | | t | | | direct | | | ly | | | with | | | the | | | organi | | | zation | | | that | | | provid | | | ed a | | | care | | | guidel | | | ine or | | | other | | | | | | clinic | | | al | | | histor | | | y with | | | any | | | questi | | | ons | | | about | | | additi | | | onal | | | inform | | | ation | | | or | | | accura | | | cy or | | | comple | | | teness | | | of | | | inform | | | ation | | | provid | | | ed.? | | | 2019 | | | Collec | | | tive | | | Medica | | | l | | | Techn[employer] | | | logies | | | , Inc[employer] | | | - | | | [email or web address] | | | llecti | | | vemedi | | | [email or web address] | | | m | +---+--------+ documented in this encounter Visit Diagnoses + + | Diagnosis | + + | Dysfunction of Eustachian tube, unspecified laterality - Primary | + + documented in this encounter
--- OUTSIDE RECORDS SUMMARY | ~2020-01-08 | XMS | Encounter Summary ---
Demographics + + + | Address | [address] | | | [place] [address] | + + + | Home Phone | | + + + | Preferred Language | Unknown | + + + | Marital Status | Unknown | + + + | Denominational Affiliation | Unknown | + + + | Race | White | + + + | Ethnic Group | Not or | + + + Author + + + | Author | [facility] | | | and [place] | + + + | Organization | [facility] | | | [...] Team Providers + +------+ + | Care Parts Counterperson Name | Role | Phone | + +------+ + | Gela Leong DO | PCP | | + +------+ + Reason for Visit + +--------+ + | Reason | Onset | Comments | | | Date | | + +--------+ + | ED Follow-up | 11/23/ | | | | 2018 | | + +--------+ + Encounter Details +--------+ + + + + | Date | Type | Department | Care Team | Description | +--------+ + + + + | 11/23/ | Telephone | [facility] | LeongGela | ED Follow-up | | 2018 | | [facility] | [place] [address] | | | | | [facility] [address] | [facility] | | | | | [facility] | [address] | | | | | [place] [address] | [place] [address] | | | | | [phone] | [phone] | | | | | | | [...] + + documented as of this encounter Miscellaneous Notes Telephone Encounter - Sukh Aponte - 11/23/2017 2:24 PM PDTLeft message re: er vis it, asking if this patient wants to follow up with PCP documented in this encounter Plan of Treatment Not on filedocumented as of this encounter Visit Diagnoses Not on filedocumented in this encounter"
--- OUTSIDE RECORDS SUMMARY | ~2020-01-08 | XMS | Encounter Summary ---
Demographics + + + | Address | [address] | | | [place] [address] | + + + | Home Phone | | + + + | Preferred Language | Unknown | + + + | Marital Status | Unknown | + + + | Latter Day Affiliation | Unknown | + + + | Race | White | + + + | Ethnic Group | Not or | + + + Author + + + | Author | [facility] | | | and [place] | + + + | Organization | [facility] | | | [...] Team Providers + +------+ + | Care Iron Molder Helper Name | Role | Phone | + +------+ + PCP | Unavailable | + +------+ + Encounter Details +--------+ + + + + | Date | Type | Department | Care Team | Description | +--------+ + + + + | 09/03/ | Hospital | [facility] | Gela Leong | | | 2014 | Encounter | [facility] | [place] [address] | | | | | [address] [place] | [facility] | | | | | [place], [place] | [address] | | | | | [address] | [place] [address] | | | | | [phone] | [phone] | | | | | | | [...] | + +--------+ + + + | LIPID PANEL | Routin | 09/03/2013 | | Results for this | | | e | 2:03 PM | | procedure are in the | | | | PDT | | results section. | + +--------+ + + + | TSH | Routin | 09/03/2013 | | Results for this | | | e | 2:03 PM | | procedure are in the | | | | PDT | | results section. | + +--------+ + + + | COMPREHENSIVE | Routin | 09/03/2013 | | Results for this | | METABOLIC PANEL | e | 2:03 PM | | procedure are in the | | | | PDT | | results section. | + +--------+ + + + documented in this encounter Results TSH (09/03/2013 2:03 PM PDT) + +-------+ + + + | Component | Value | Ref Range | Performed | Pathologist | | | | | At | Signature | + +-------+ + + + | TSH | 1.04 | 0.40 - 4.68 | EXTERNAL | | | | | mIU/L | LAB | | + +-------+ + + + + + | Specimen | + + | | + + + +---------+ + + | Performing | Address | City/State/Zipcode | Phone Number | | Organization | | | | + +---------+ + + | EXTERNAL LAB | | | | + +---------+ + + Lipid Panel (09/03/2013 2:03 PM PDT) + +-------+ + + + | Component | Value | Ref Range | Performed | Pathologist | | | | | At | Signature | + +-------+ + + + | Cholesterol | 148 | <=200 mg/dL | EXTERNAL | | | , POC | | | LAB | | + +-------+ + + + | HDL | 41 | >=40 mg/dL | EXTERNAL | | | | | | LAB | | + +-------+ + + + | Triglycerid | 63 | 30 - 200 mg/dL | EXTERNAL | | | es | | | LAB | | + +-------+ + + + | Chol/HDL | 3.6 | <=4.6 RATIO | EXTERNAL | | | Ratio | | | LAB | | + +-------+ + + + | VLDL | 13 | 4 - 40 mg/dL | EXTERNAL | | | | | | LAB | | + +-------+ + + + | LDL-C | 94 | <=130 mg/dL | EXTERNAL | | | (calculated | | | LAB | | | ) | | | | | + +-------+ + + + + + | Specimen | + + | | + + + +---------+ + + | Performing | Address | City/State/Zipcode | Phone Number | | Organization | | | | + +---------+ + + | EXTERNAL LAB | | | | + +---------+ + + Comprehensive Metabolic Panel (09/03/2013 2:03 PM PDT) + +-------+ + + + | Component | Value | Ref Range | Performed | Pathologist | | | | | At | Signature | + +-------+ + + + | Sodium | 141 | 132 - 143 | EXTERNAL | | | | | mmol/L | LAB | | + +-------+ + + + | Potassium | 3.6 | 3.3 - 4.9 | EXTERNAL | | | | | mmol/L | LAB | | + +-------+ + + + | Cl | 108 | 95 - 108 mmol/L | EXTERNAL | | | | | | LAB | | + +-------+ + + + | CO2 | 19 | 23 - 34 mmol/L | EXTERNAL | | | | | | LAB | | + +-------+ + + + | Anion Gap | 14 | 7 - 16 | EXTERNAL | | | | | | LAB | | + +-------+ + + + | Calcium | 8.7 | 8.3 - 10.0 | EXTERNAL | | | | | mg/dL | LAB | | + +-------+ + + + | Glucose | 87 | 70 - 110 mg/dL | EXTERNAL | | | | | | LAB | | + +-------+ + + + | BUN, Bld | 12 | 5 - 26 mg/dL | EXTERNAL | | | | | | LAB | | + +-------+ + + + | Creatinine | 0.7 | 0.6 - 1.3 mg/dL | EXTERNAL | | | | | | LAB | | + +-------+ + + + | BUN/Creatin | 17.1 | 7.0 - 24.0 | EXTERNAL | | | ine Ratio | | RATIO | LAB | | + +-------+ + + + | GFR | 60 | >=60 | EXTERNAL | | | ESTIMATE | | mL/min/1.73m2 | LAB | | | (REF) | | | | | + +-------+ + + + | Bilirubin, | 0.2 | <=1.2 mg/dL | EXTERNAL | | | Total | | | LAB | | + +-------+ + + + | Protein, | 6.9 | 6.6 - 8.5 g/dL | EXTERNAL | | | Total | | | LAB | | + +-------+ + + + | Albumin | 3.7 | 3.0 - 4.5 g/dL | EXTERNAL | | | | | | LAB | | + +-------+ + + + | Alkaline | 90 | 33 - 151 U/L | EXTERNAL | | | Phosphatase | | | LAB | | + +-------+ + + + | ALT, | 42 | 18 - 63 U/L | EXTERNAL | | | External | | | LAB | | + +-------+ + + + | AST, | 19 | <=38 U/L | EXTERNAL | | | External | | | LAB | | + +-------+ + + + + + | Specimen | + + | | + + + +---------+ + + | Performing | Address | City/State/Zipcode | Phone Number | | Organization | | | | + +---------+ + + | EXTERNAL LAB | | | | + +---------+ + + documented in this encounter Visit Diagnoses Not on filedocumented in this encounter"
--- OUTSIDE RECORDS SUMMARY | ~2020-01-08 | XMS | Encounter Summary ---
Demographics + + + | Address | [address] | | | [place] [address] | + + + | Home Phone | | + + + | Preferred Language | Unknown | + + + | Marital Status | Unknown | + + + | Advent Affiliation | Unknown | + + + [...] Team Providers + +------+ + | Care Customer Solutions Coordinator Name | Role | Phone | + +------+ + PCP | Unavailable | + +------+ + Encounter Details +--------+ + + + + | Date | Type | Department | Care Team | Description | +--------+ + + + + | 06/26/ | [facility] | Nas Lutz, | | | 2012 | Encounter | [facility] | HUMAN SERVICES CASE MANAGER [address] | | | | | MEDICAL CL[facility] [address] | [place] [address] | | | | | [address] [place], | [phone] | | | | | [place] [address] | | | | | | [phone] | | | +--------+ + + + [...]
--- OUTSIDE RECORDS SUMMARY | ~2020-01-08 | XMS | Encounter Summary ---
Demographics + + + | Address | [address] | | | [place] [address] | + + + | Home Phone | | + + + | Preferred Language | Unknown | + + + | Marital Status | Unknown | + + + | Anabaptism Affiliation | Unknown | + + + | Race | White | + + + | Ethnic Group | Not or | + + + Author + + + | Author | [facility] | | | and [place] | + + + | Organization | [facility] | | | [...] Team Providers + +------+ + | Care Web Marketing Manager Name | Role | Phone | + +------+ + | Kayla Garcia | PCP | | + +------+ + Reason for Visit + + + | Reason | Comments | + + + | Pain Management | Initial encounter | + + + Encounter Details +--------+ + + + + | Date | Type | Department | Care Team | Description | +--------+ + + + + | 09/22/ | Documentati | [facility] | Aj Good | Pain Management | | 2020 | on | NEUROSURGERY [address] | MD [address] | (Initial encounter) | | | | [address] | [address] | | | | | [place] | [place] | | | | | [address] | [address] | | | | | [phone] | | | +--------+ + + + [...] documented as of this encounter Progress Notes Helen Mott, Belt Sander - 09/23/2019 4:06 PM PDT The following information was obtained from [email or web address] on 09/23/19. docum ented in this encounter Plan of Treatment Not on filedocumented as of this encounter Visit Diagnoses Not on filedocumented in this encounter"
--- OUTSIDE RECORDS SUMMARY | ~2020-01-08 | XMS | Encounter Summary ---
Demographics + + + | Address | [address] | | | [place] [address] | + + + | Home Phone | | + + + | Preferred Language | Unknown | + + + | Marital Status | Unknown | + + + | Sabianist Affiliation | Unknown | + + + | Race | White | + + + | Ethnic Group | Not or | + + + Author + + + | Author | [facility] | | | and [place] | + + + | Organization | [facility] [...] Team Providers + +------+ + | Care Nutrition Club Ambassador Name | Role | Phone | + [...] Closed | | Audiology | Diagnoses | Jamie, | Bharti, | | | | | audio and | Harsha Irizarry MD | MS Philomena | | | | | tymps/Lori @ | [address] | CCC-A [address] | | | | | [address] | [address] | | | | | [place] | [place], | [address] [place] | | | | | a/fax report | [place] [address] | [place] | | | | | Procedures | Phone: | [phone] Phone: | | | | | OFFICE | [phone] | [phone] | | | | | VISIT | Fax: | Fax: | | | | | REGULAR | [phone] | [phone] | +--------+--------+ + + + + Encounter Details +--------+---------+ + + + | Date | Type | Department | Care Team | Description | +--------+---------+ + + + | 03/31/ | Office | [facility] [place] | Philomena Hay MS | Normal hearing noted | | 2019 | Visit | AUDIOLOGY AND | [facility] [address] | on examination | | | | [facility] | [address] [place] | (Primary Dx); Pain | | | | [address] | [place] [address] | in left ear | | | | [address] [place] | [phone] | | | | | [place] [address] | | | | | | [phone] | | | +--------+---------+ + + + [...] as of this encounter Progress Notes Philomena Hay CCC-A - 03/31/2019 11:00 AM PSTReferring Provider: [...] in thi s encounter Plan of Treatment Not on filedocumented [...]
--- OUTSIDE RECORDS SUMMARY | ~2020-01-08 | XMS | Encounter Summary ---
Demographics + + + | Address | [address] | | | [place] [address] | + + + | Home Phone [...] + + + | Author | [facility] | | | and [place] | + + + | Organization | [facility] | | [...] Team Providers + +------+ + | Care Help Desk Administrator Name | Role | Phone | + +------+ + | Gela Leong DO | PCP | | + +------+ + Encounter Details +--------+ + + + + | Date | Type | Department | Care Team | Description | +--------+ + + + + | 04/10/ | Hospital | [facility] | Carl Servin MD | | | 2017 | Encounter | [facility]PITAL [facility]UROLOG[facility] | [address] | | | | | CLINIC [address] | [place], [place] | | | | | [address] [place], | [address] | | | | | [place] [address] | | | | | | [phone] | | | +--------+ + + + [...]
--- OUTSIDE RECORDS SUMMARY | ~2020-01-08 | XMS | Encounter Summary ---
Demographics + + + | Address | [address] | | | [place] [address] | + + + | Home Phone [...] Author + + + | Author | [facility] | | | and [place] | + + + | Organization | [facility] | | | [...] Team Providers + +------+ + | Care Civil Engineering Project Designer Name | Role | Phone | + +------+ + PCP | Unavailable | + +------+ + Encounter Details +--------+ + + + + | Date | Type | Department | Care Team | Description | +--------+ + + + + | 08/21/ | [facility] | [place] | | | 2012 | Encounter | [facility] | MD Sheryl [address] | | | | | MEDICAL [facility] [address] | [place], [place] | | | | | [address] [place], | [address] | | | | | [place] [address] | [phone] | | | | | [phone] | | | +--------+ + + + [...]
--- OUTSIDE RECORDS SUMMARY | ~2020-01-08 | XMS | Encounter Summary ---
Demographics + + + | Address | [address] | | | [place] [address] | + + + | Home Phone | | + + + | Preferred Language | Unknown | + + + | Marital Status | Unknown | + + + | Orthodox Affiliation | Unknown | + + + | Race | White | + + + | Ethnic Group | Not or | + + + Author + + + | Author | [facility] | | | and [place] | + + + | Organization | [facility] | | [...] Team Providers + +------+ + | Care Mine Exploration Engineer Name | Role | Phone | + +------+ + PCP | Unavailable | + +------+ + Encounter Details +--------+ + + + + | Date | Type | Department | Care Team | Description | +--------+ + + + + | 01/24/ | [facility] | [place] | | | 2012 | Encounter | [facility] | MD Sheryl [address] | | | | | MEDICAL [facility] | [place], [place] | | | | | [address] [place], | [address] | | | | | [place] [address] | [phone] | | | | | [phone] | | | +--------+ + + + [...]
--- OUTSIDE RECORDS SUMMARY | ~2020-01-08 | XMS | Encounter Summary ---
Demographics + + + | Address | [address] | | | [place] [address] | + + + | Home Phone [...] Author + + + | Author | [facility] | | | and [place] | + + + | Organization | [facility] | [...] Team Providers + +------+ + | Care Secondary Education Professor Name | Role | Phone | + +------+ + | Kayla Garcia | PCP | | + +------+ + Encounter Details +--------+ + + + + | Date | Type | Department | Care Team | Description | +--------+ + + + + | 09/23/ | Imaging | [facility] | Provider, | | | 2019 | Exam | [facility] | [address] | | | | | IMAGING [address] | [address] | | | | | [address] [place] | [place] [address] | | | | | [place] [address] | | | | | | [phone] | | | +--------+ + + + [...] | + +--------+ + + + | CT LUMBAR SPINE WO | Routin | 02/28/2012 | | Results for this | | CONTRAST | e | 12:00 AM | | procedure are in the | | | | PDT | | results section. | + +--------+ + + + documented in this encounter Results CT Lumbar Spine wo Contrast (02/28/2012 12:00 AM PDT) + + | Specimen | + + | | + + + + + | Narrative | Performed At | + + + | External films for comparison only | [facility] | | | | | No results will be in the chart. | | + + + + +---------+ + + | Performing | Address | City/State/Zipcode | Phone Number | | Organization | | | | + +---------+ + + | [facility] | | | | + +---------+ + + documented in this encounter Visit Diagnoses Not on filedocumented in this encounter"
--- OUTSIDE RECORDS SUMMARY | ~2020-01-08 | XMS | Encounter Summary ---
Demographics + + + | Address | [address] | | | [place] [address] | + + + | Home Phone | | + + + | Preferred Language | Unknown | + + + | Marital Status | Unknown | + + + | Voodoo Affiliation | Unknown | + + + | Race | White | + + + | Ethnic Group | Not or | + + + Author + + + | Author | [facility] | | | and [place] | + + + | Organization | [facility] | | | [...] Team Providers + +------+ + | Care Rice Cleaning Machine Tender Name | Role | Phone | + +------+ + PCP | Unavailable | + +------+ + Encounter Details +--------+ + + + + | Date | Type | Department | Care Team | Description | +--------+ + + + + | 05/01/ | [facility] | [place] | | | 2011 | Encounter | [facility] | MD Sheryl [address] | | | | | MEDICAL CL[facility] [address] | [place], [place] | | | | | [address] [place], | [address] | | | | | [place] [address] | [phone] | | | | | [phone] | | | +--------+ + + + [...]
--- OUTSIDE RECORDS SUMMARY | ~2020-01-08 | XMS | Encounter Summary ---
Demographics + + + | Address | [address] | | | [place] [address] | + + + | Home Phone | | + + + | Preferred Language | Unknown | + + + | Marital Status | Unknown | + + + | Synagogue Affiliation | Unknown | + + + | Race | White | + + + | Ethnic Group | Not or | + + + Author + + + | Author | [facility] | | | and [place] | + + + | Organization | [facility] | | | [...] Team Providers + +------+ + | Care Online Marketing Specialist Name | Role | Phone | + +------+ + PCP | Unavailable | + +------+ + Encounter Details +--------+ + + + + | Date | Type | Department | Care Team | Description | +--------+ + + + + | 03/02/ | [facility] | Carl Servin MD | | | 2015 | Encounter | [facility] | [address] | | | | | MEDICAL CL[facility] | [place], [place] | | | | | [facility], | [address] | | | | | [place] [address] | | | | | | [phone] | | | +--------+ + + + [...]
--- OUTSIDE RECORDS SUMMARY | ~2020-01-08 | XMS | Encounter Summary ---
Demographics + + + | Address | [address] | | | [place] [address] | + + + | Home Phone | | + + + | Preferred Language | Unknown | + + + | Marital Status | Unknown | + + + | Methodist Affiliation | Unknown | + + + | Race | White | + + + | Ethnic Group | Not or | + + + Author + + + | Author | [facility] | | | and [place] | + + + | Organization | [facility] | | | and [...] Team Providers + +------+ + | Care Vice President Education Name | Role | Phone | + +------+ + PCP | Unavailable | + +------+ + Encounter Details +--------+ + + + + | Date | Type | Department | Care Team | Description | +--------+ + + + + | 02/04/ | [facility] | Richard Paredes | | | 2014 | Encounter | [facility] | [address] | | | | | MEDICAL CLIN[address] | [address] [place], [place] | | | | | [address] [facility], | [address] | | | | | [place] [address] | | | | | | [phone] | | | +--------+ + + + [...]
--- OUTSIDE RECORDS SUMMARY | ~2020-01-08 | XMS | Encounter Summary ---
Demographics + + + | Address | [address] | | | [place] [address] | + + + | Home Phone | | + + + | Preferred Language | Unknown | + + + | Marital Status | Unknown | + + + | Sikhism Affiliation | Unknown | + + + | Race | White | + + + | Ethnic Group | Not or | + + + Author + + + | Author | [facility] | | | and [place] | + + + | Organization | [facility] | | | and [...] Team Providers + +------+ + | Care Ad Trafficker Name | Role | Phone | + +------+ + PCP | Unavailable | + +------+ + Encounter Details +--------+ + + + + | Date | Type | Department | Care Team | Description | +--------+ + + + + | 08/17/ | Hospital | [facility] | Gela Leong | | | 2016 | Encounter | [facility] | [place] [address] | | | | | [address] [place] | [facility] | | | | | [place], [place] | [address] | | | | | [address] | [place] [address] | | | | | [phone] | [phone] | | | | | | | [...] + + | TSH | Routin | 08/18/2015 | | Results for this | | | e | 4:18 PM | | procedure are in the | | | | PDT | | results section. | + +--------+ + + + | COMPREHENSIVE | Routin | 08/18/2015 | | Results for this | | METABOLIC PANEL | e | 4:18 PM | | procedure are in the | | | | PDT | | results section. | + +--------+ + + + documented in this encounter Results TSH (08/18/2015 4:18 PM PDT) + +-------+ + + + | Component | Value | Ref Range | Performed | Pathologist | | | | | At | Signature | + +-------+ + + + | TSH | 1.2 | 0.40 - 4.68 | EXTERNAL | [...] + +---------+ + + Comprehensive Metabolic Panel (08/18/2015 4:18 PM PDT) + +-------+ + + + | Component | Value | Ref Range | Performed | Pathologist | | | | | At | Signature | + +-------+ + + + | Sodium | 142 | 132 - 143 | EXTERNAL | [...] +-------+ + + + | CO2 | 25 | 23 - 34 mmol/L | EXTERNAL | | | | | | LAB | | + +-------+ + + + | Anion Gap | 10 | 7 - 16 | EXTERNAL | | | | | | LAB | | + +-------+ + + + | Calcium | 8.6 | 8.3 - 10.0 | EXTERNAL | | | | | mg/dL | LAB | | + +-------+ + + + | Glucose | 92 | 70 - 110 mg/dL | EXTERNAL | | | | | | LAB | | + +-------+ + + + | BUN, Bld | 10 | 5 - 26 mg/dL | EXTERNAL | | | | | | LAB | | + +-------+ + + + | Creatinine | 0.6 | 0.60 - 1.30 | EXTERNAL | | | | | mg/dL | LAB | | + +-------+ + + + | BUN/Creatin | 16.7 | 7.0 - 24.0 | EXTERNAL | [...] +-------+ + + + | Protein, | 6.3 | 6.6 - 8.5 g/dL | EXTERNAL | | | Total | | | LAB | | + +-------+ + + + | Albumin | 3.3 | 3.0 - 4.5 g/dL | EXTERNAL | | | | | | LAB | | + +-------+ + + + | Alkaline | 66 | 46 - 116 U/L | EXTERNAL | | | Phosphatase | | | LAB | | + +-------+ + + + | ALT, | 67 | 14 - 59 U/L | EXTERNAL | | | External | | | LAB | | + +-------+ + + + | AST, | 16 | <=38 U/L | EXTERNAL | | [...]
--- OUTSIDE RECORDS SUMMARY | ~2020-01-08 | XMS | Encounter Summary ---
Demographics + + + | Address | [address] | | | [place] [address] | + + + | Home Phone | | + + + | Preferred Language | Unknown | + + + | Marital Status | Unknown | + + + | Jehovah'S Witness Affiliation | Unknown | + + + [...] Team Providers + +------+ + | Care Fishing Rod Mechanic Name | Role | Phone | + +------+ + | Kayla Garcia | PCP | | + +------+ + Reason for Referral Diagnostic/Screening (Routine) +--------+--------+ + + + + | Status | Reason | Specialty | Diagnoses / | Referred By | Referred To | | | | | Procedures | Contact | Contact | +--------+--------+ + + + + | Closed | | Radiology | Diagnoses | [place], | [facility] W[facility] Xray | | | | | Chronic low | Kayla, SHOTGUN SHELL REPRINTING UNIT OPERATOR | [address] | | | | | back pain, | [address] | [address] | | | | | unspecified | [address] | [place], [place] | | | | | back pain | [place], | [address] | | | | | laterality, | [place] [address] | Phone: | | | | | unspecified | Phone: | [phone] | | | | | whether | [phone] | Fax: | | | | | sciatica | Fax: | [phone] | | | | | present | [phone] | | | | | | Lumbar | | | | | | | radiculopath | | | | | | | y | | | | | | | Procedures | | | | | | | MRI Lumbar | | | | | | | Spine wo | | | | | | | Contrast | | | | | | | MRI Lumbar | | | | | | | Spine w wo | | | | | | | Contrast | | | | | | | MRI Lumbar | | | | | | | Spine wo | | | | | | | Contrast | | | +--------+--------+ + + + + Reason for Visit Diagnostic/Screening (Routine) +--------+--------+ + + + + | Status | Reason | Specialty | Diagnoses / | Referred By | Referred To | | | | | Procedures | Contact | Contact | +--------+--------+ + + + + | Closed | | Radiology | Diagnoses | Jose, | Cc Wgr Xray | | | | | Chronic low | Kayla SHOTGUN SHELL REPRINTING UNIT OPERATOR | [address] | | | | | back pain, | [address] | [address] | | | | | unspecified | [address] | [place], [place] | | | | | back pain | [place], | [address] | | | | | [place]ality, | [place] [address] | Phone: | | | | | unspecified | Phone: | [phone] | | | | | whether | [phone] | Fax: | | | | | sciatica | Fax: | [phone] | | | | | present | [phone] | | | | | | Lumbar | | | | | | | radiculopath | | | | | | | y | | | | | | | Procedures | | | | | | | MRI Lumbar | | | | | | | Spine wo | | | | | | | Contrast | | | | | | | MRI Lumbar | | | | | | | Spine w wo | | | | | | | Contrast | | | | | | | MRI Lumbar | | | | | | | Spine wo | | | | | | | Contrast | | | +--------+--------+ + + + + Encounter Details +--------+ + + + + | Date | Type | Department | Care Team | Description | +--------+ + + + + | 09/08/ | Hospital | [facility] | Kayla Garcia, | Chronic low back | | 2020 | Encounter | Hospital MRI [address] | SHOTGUN SHELL REPRINTING UNIT OPERATOR [address] | pain, unspecified | | | | [address] | [place], [place] | back pain | | | | [facility], [place] | [address] | [place], | | | | [address] | | unspecified whether | | | | [phone] | | sciatica present; | | | | | | Lumbar radiculopathy | +--------+ + + + + Social [...] | + +--------+ + + + | MRI LUMBAR SPINE WO | Routin | 09/09/2019 | Chronic low back | Results for this | | CONTRAST | e | 3:57 PM | pain, unspecified | procedure are in the | | | | PDT | back pain | results section. | | | | | laterality, | | | | | | unspecified whether | | | | | | sciatica present | | | | | | Lumbar radiculopathy | | + +--------+ + + + documented in this encounter Results MRI Lumbar Spine wo Contrast (09/09/2019 3:57 PM PDT) + + | Specimen | + + | | + + + + + | Impressions | Performed At | + + + | 1. No acute finding. 2. Mild disc degenerative changes L4-5, L5-S1. | [facility] | | 3. Mild facet degenerative changes L4-5, L5-S1. Dictated by: | | | Alfred Reza Electronically Signed by: Alfred Reza on | | | 09/09/2019 4:16 PM | | + + + + + + | Narrative | Performed At | + + + | EXAMINATION: MRI LUMBAR SPINE WO CONTRAST HISTORY: chronic low | [facility] | | back pain COMPARISON STUDY: MRI 02/12/2014. CT 02/28/2012. | | | TECHNIQUE: Multiplanar multi sequence MRI of the lumbar spine is | | | performed without contrast. FINDINGS: The visualized bone | | | marrow signal isnormal. The cord terminates atL1. The visualized | | | cord signal isnormal. The visualized paraspinal soft tissue signal | | | iswithin normal limits. L1-L2: Disc unremarkable. No central or | | | foraminal stenosis. L2-L3: Disc unremarkable. No central or | | | foraminal stenosis. L3-L4: Disc unremarkable. No central or | | | foraminal stenosis. L4-L5: Decreased T2 disc signal compatible | | | with disc desiccation. The disc spaces maintained.. No central or | | | foraminal stenosis. Mild facet hypertrophic change left more | | | apparent than right L5-S1: Disc space narrowing which is | | | progressed mildly compared to the prior study. Mild posteriorly | | | projecting disc and endplate osteophyte without canal stenosis. Mild | | | foraminal narrowing on the right, and left related to the endplate | | | osteophyte and disc. Mild facet hypertrophic change on left.. | | | | | + + + + + | Procedure Note | + + | Usman, Rad Results In - 09/09/2019 4:19 PM PDT EXAMINATION:MRI LUMBAR SPINE WO | | CONTRASTHISTORY:chronic low back painCOMPARISON STUDY:MRI 02/12/2014. CT | | 02/28/2012.TECHNIQUE:Multiplanar multi sequence MRI of the lumbar spine is performed | | without contrast.FINDINGS:The visualized bone marrow signal isnormal. The cord | | terminates atL1. The visualized cord signal isnormal. The visualized paraspinal soft | | tissue signal iswithin normal limits.L1-L2: Disc unremarkable. No central or foraminal | | stenosis.L2-L3: Disc unremarkable. No central or foraminal stenosis.L3-L4: Disc | | unremarkable. No central or foraminal stenosis.L4-L5: Decreased T2 disc signal | | compatible with disc desiccation. The disc spaces maintained.. No central or foraminal | | stenosis. Mild facet hypertrophic change left more apparent than rightL5-S1: Disc | | space narrowing which is progressed mildly compared to the prior study. Mild | | posteriorly projecting disc and endplate osteophyte without canal stenosis. Mild | | foraminal narrowing on the right, and left related to the endplate osteophyte and | | disc.Mild facet hypertrophic change on left..IMPRESSION: 1. No acute finding.2. Mild | | disc degenerative changes L4-5, L5-S1.3. Mild facet degenerative changes L4-5, | | L5-S1.Dictated by: Alfred Reza | | 4:16 PM | |L2-L3: Disc unremarkable. No central or foraminal stenosis. | | | |L3-L4: Disc unremarkable. No central or foraminal stenosis. | | | |L4-L5: Decreased T2 disc signal compatible with disc desiccation. The disc spaces maintai kian.. No central or foraminal stenosis. Mild facet hypertrophic change left more apparent than right | | | |L5-S1: Disc space narrowing which is progressed mildly compared to the prior study. Mild posteriorly projecting disc and endplate osteophyte without canal stenosis. Mild foraminal narrowing on the right, and left | |related to the endplate osteophyte and | | disc. | | | |Mild facet hypertrophic change on left.. | | | | | |IMPRESSION: | |1. No acute finding. | |2. Mild disc degenerative changes L4-5, L5-S1. | |3. Mild facet degenerative changes L4-5, L5-S1. | | | |Dictated by: Alfred Reza | | | | | + + + +---------+ + + | Performing | Address | City/State/Zipcode | Phone Number | | Organization | | | | + +---------+ + + | [facility] | | | | + +---------+ + + documented in this encounter Visit Diagnoses + + | Diagnosis | + + | Chronic low back pain, unspecified back pain laterality, unspecified whether sciatica | | present | + + | Lumbar radiculopathy Thoracic or lumbosacral neuritis or radiculitis, unspecified | + + documented in this encounter"
--- OUTSIDE RECORDS SUMMARY | ~2020-01-08 | XMS | Encounter Summary ---
Demographics + + + | Address | [address] | | | [place] [address] | + + + | Home Phone | | + + + | Preferred Language | Unknown | + + + | Marital Status | Unknown | + + + | Yarsani Affiliation | Unknown | + + + | Race | White | + + + | Ethnic Group | Not or | + + + Author + + + | Author | [facility] | | | and [place] | + + + | Organization | [facility] | | | [...] Team Providers + +------+ + | Care Consultant Electronics Name | Role | Phone | + +------+ + PCP | Unavailable | + +------+ + Encounter Details +--------+ + + + + | Date | Type | Department | Care Team | Description | +--------+ + + + + | 02/27/ | Hospital | [facility] | Carl Servin MD | | | 2011 | Encounter | [facility] | [address] | | | | | [address] | [place], [place] | | | | | [place], [place] | [address] | | | | | [address] | | | | | | [phone] | | | +--------+ + + + [...]
--- OUTSIDE RECORDS SUMMARY | ~2020-01-08 | XMS | Encounter Summary ---
Demographics + + + | Address | [address] | | | [place] [address] | + + + | Home Phone | | + + + | Preferred Language | Unknown | + + + | Marital Status | Unknown | + + + | Congregation Affiliation | Unknown | + + + | Race | White | + + + | Ethnic Group | Not or | + + + Author + + + | Author | [facility] | | | and [place] | + + + | Organization | [facility] | | | and [...] Team Providers + +------+ + | Care Restaurant Lead Name | Role | Phone | + +------+ + PCP | Unavailable | + +------+ + Encounter Details +--------+ + + + + | Date | Type | Department | Care Team | Description | +--------+ + + + + | 12/24/ | Hospital | [facility] | Mariama Fajardo, | | | 2011 | Encounter | [facility] | PROCESSOR INSPECTOR [address] | | | | | CENTER [address] | [address] [place] | | | | | [place] | [address] | | | | | [address] | | | | | | [phone] | | | +--------+ + + + [...]
--- OUTSIDE RECORDS SUMMARY | ~2020-01-08 | XMS | Encounter Summary ---
Demographics + + + | Address | [address] | | | [place] [address] | + + + | Home Phone [...] Author + + + | Author | [facility] | | | and [place] | + + + | Organization | [facility] | | | [...] Team Providers + +------+ + | Care High School Coordinator Name | Role | Phone | + +------+ + PCP | Unavailable | + +------+ + Encounter Details +--------+ + + + + | Date | Type | Department | Care Team | Description | +--------+ + + + + | 12/07/ | [facility] | Tiana Bennett, | | | 2017 | Encounter | [facility] | ASSISTED LIVING ASSISTANT [address] | | | | | CENTER [address] | [place] | | | | | [place] | [address] | | | | | [address] | | | | | | [phone] | | | +--------+ + + + [...] + +--------+ + + + | XR ANKLE LEFT 3 + VW | Routin | 12/07/2016 | | Results for this | | | e | 9:55 AM | | procedure are in the | | | | PDT | | results section. | + +--------+ + + + documented in this encounter Results XR Ankle Left 3 + Vw (12/07/2016 9:55 AM PDT) + + | Specimen | + + | | + + + + + | Narrative | Performed At | + + + | EXAMINATION: ANKLE 3 VIEW /LEFT HISTORY: Twisted and slipped | | | on stairs. Painful to bear weight. COMPARISON STUDY: Left ankle | | | 12/25/2011 FINDINGS: If concern for acute fracture remains | | | clinically follow-up films in 10 to 14 days recommended. . | | | IMPRESSION: No acute finding JOB #: [id number] Digitally Released | | | by: Rosita Reza Read By: ROSITA REZA MD Date: | | | 12/07/2016 10:54 | | + + + + + | Procedure Note | + + | Rivera Mary Results In - 05/24/2017 1:15 PM PST EXAMINATION: | | ANKLE 3 VIEW /LEFT | | | | HISTORY: | | Twisted and slipped on stairs. Painful to bear weight. | | | | COMPARISON STUDY: | | Left ankle 12/25/2011 | | | | FINDINGS: | | | | If concern for acute fracture remains clinically follow-up films in 10 to 14 | | days recommended. . | | | | IMPRESSION: | | No acute finding | | | | | | JOB #: [id number] | | Digitally Released by: Rosita Reza | | | | | | Read By: ROSITA REZA MD | | Date: 12/07/2016 10:54 | | | + + documented in this encounter Visit Diagnoses Not on filedocumented in this encounter"
--- OUTSIDE RECORDS SUMMARY | ~2020-01-08 | XMS | Encounter Summary ---
Demographics + + + | Address | [address] | | | [place] [address] | + + + | Home Phone | | + + + | Preferred Language | Unknown | + + + | Marital Status | Unknown | + + + | Restorationism Affiliation [...] Phone | + + +---------+ + | Joes Felipe | ECON | Unknown | | + + +---------+ + | Jey Nicholas | ECON | Unknown | | + + +---------+ + Care Team Providers + +------+ + | Care Power Builder Developer Name | Role | Phone | [...] | HOSPITAL XRAY [address] | [place] [address] | | | | | [place] | [facility] | | | | | [place], [place] | [address] | | | | | [address] | [place] [address] | | | | | [phone] | [phone] | | | | | | | [...] hepatobiliary | | | scan. JOB #: [id number] Read By: BHAVANA Levy | | | MD SHOAIB Released By: BHAVANA CRAMER MD Date: | | | 08/14/2014 17:33 | | + + + + + | Procedure Note | + + | Rivera Mary Results In - 03/21/2017 6:57 PM PST [...] CONCLUSION:Normal hepatobiliary scan. | | JOB #: [id number] Read By: BHAVANA CRAMER MD Released By: BHAVANA Levy | | SHOAIB MDDate: 08/14/2014 17:33 | [...] | | | | | |JOB #: [id number] | | | | | |Read By: BHAVANA CRAMER MD | | | |Released By: BHAVANA CRAMER MD | |Date: 08/14/2014 17:33 | | | | | + + documented in this encounter Visit Diagnoses Not on filedocumented in this encounter"
--- OUTSIDE RECORDS SUMMARY | ~2020-01-08 | XMS | Encounter Summary ---
Demographics + + + | Address | [address] | | | [place] [address] | + + + | Home Phone | | + + + | Preferred Language | Unknown | + + + | Marital Status | Unknown | + + + | Jewish Affiliation | Unknown | + + + | Race | White | + + + | Ethnic Group | Not or | + + + Author + + + | Author | [facility] | | | and [place] | + + + | Organization | [facility] [...] Team Providers + +------+ + | Care Aircraft Refueler Name | Role | Phone | + +------+ + | Gela Leong DO | PCP | | + +------+ + Reason for Visit + +--------+ + | Reason | Onset | Comments | | | Date | | + +--------+ + | ED Follow-up | 01/03/ | | | | 2018 | | + +--------+ + Encounter Details +--------+ + + + + | Date | Type | Department | Care Team | Description | +--------+ + + + + | 01/03/ | Telephone | [facility] | Gela Leong | ED Follow-up | | 2018 | | [facility] | [place] [address] | | | | | [facility] [address] | [facility] | | | | | [facility] | [address] | | | | | [place] [address] | [place] [address] | | | | | [phone] | [phone] | | | | | | | [...] Notes Telephone Encounter - Sukh Aponte - 01/03/2018 2:25 PM PDTCalled re: recent er vi sit, wondering if patient needed a follow-up appointment. Could not leave message at all, du e to voicemail not being set up, or too many rings documented in this e ncounter Plan of Treatment Not on filedocumented as of this encounter Visit Diagnoses Not on filedocumented in this encounter"
--- OUTSIDE RECORDS SUMMARY | ~2020-01-08 | XMS | Encounter Summary ---
Demographics + + + | Address | [address] | | | [place] [address] | + + + | Home Phone [...] Team Providers + +------+ + | Care Prisoner Classification Interviewer Name | Role | Phone | + +------+ + | Gela Leong DO | PCP | | + +------+ + Reason for Visit +---------+--------+ + | Reason | Onset | Comments | | | Date | | +---------+--------+ + | No Show | 06/01/ | | | | 2017 | | +---------+--------+ + Encounter Details +--------+ + + + + | Date | Type | Department | Care Team | Description | +--------+ + + + + | 06/01/ | Telephone | [facility] | Richard Paredes | No Show | | 2018 | | [facility] | [address] | | | | | CLIN[address] | [address] [place], [place] | | | | | [address] [place], | [address] | | | | | [place] [address] | | | | | | [phone] | | | +--------+ + + + [...] this encounter Miscellaneous Notes Telephone Encounter - Edwin Rice - 06/01/2017 12:05 PM PSTCalled pt to try to resche dule missed appt with Richard, but the number we have is not working. I tried calling Lilia akers, one of her contacts, to see if she could give me a working number, but I had to leave a voicemail asking her to call back with that number. Edwin Rice documented in this enco unter Plan of Treatment Not on filedocumented as of this encounter Visit Diagnoses Not on filedocumented in this encounter"
--- OUTSIDE RECORDS SUMMARY | ~2020-01-08 | XMS | Encounter Summary ---
Demographics + + + | Address | [address] | | | [place] [address] | + + + | Home Phone | | + + + | Preferred Language | Unknown | + + + | Marital Status | Unknown | + + + | Catholic Affiliation | Unknown | + + + | Race | White | + + + | Ethnic Group | Not or | + + + Author + + + | Author | [facility] | | | and [place] | + + + | Organization | [facility] | | | and [...] Team Providers + +------+ + | Care Vault Custodian Name | Role | Phone | + +------+ + PCP | Unavailable | + +------+ + Encounter Details +--------+ + + + + | Date | Type | Department | Care Team | Description | +--------+ + + + + | 07/30/ | [facility] | Adarsh Ren FNP | | | 2013 | Encounter | [facility] | [address] | | | | | [address] [place] | [place], [place] | | | | | [place], [place] | [address] | | | | | [address] | [phone] | | | | | [phone] | | | +--------+ + + + [...]
--- OUTSIDE RECORDS SUMMARY | ~2020-01-08 | XMS | Encounter Summary ---
Demographics + + + | Address | [address] | | | [place] [address] | + + + | Home Phone [...] Author + + + | Author | [facility] | | | and [place] | + + + | Organization | [facility] [...] Team Providers + +------+ + | Care Television Program Director Name | Role | Phone | + +------+ + PCP | Unavailable | + +------+ + Encounter Details +--------+ + + + + | Date | Type | Department | Care Team | Description | +--------+ + + + + | 07/16/ | [facility] | Antonio Villalta | | | 2013 | Encounter | [facility] | Demetrice, TUBING ASSEMBLER [address] | | | | | MEDICAL CLIN[facility] [address] | [facility], [place] | | | | | [address] [facility], | [address] | | | | | [place] [address] | [phone] | | | | | [phone] | | | +--------+ + + + [...]
--- OUTSIDE RECORDS SUMMARY | ~2020-01-08 | XMS | Encounter Summary ---
Demographics + + + | Address | [address] | | | [place] [address] | + + + | Home Phone | | + + + | Preferred Language | Unknown | + + + | Marital Status | Unknown | + + + | Mandaeism Affiliation | Unknown | + + + | Race | White | + + + | Ethnic Group | Not or | + + + Author + + + | Author | [facility] | | | and [place] | + + + | Organization | [facility] | | [...] Providers + +------+ + | Care Iron Caster Name | Role | Phone | + +------+ + | Kayla Garcia | PCP | | + +------+ + Encounter Details +--------+ + + + + | Date | Type | Department | Care Team | Description | +--------+ + + + + | 09/11/ | Orders Only | [facility] | Aj Good | Lumbar radiculopathy | | 2019 | | NEUROSURGERY [address] | MD [address] | (Primary Dx) | | | | [address] | [address] | | | | | [place], [place] | [place] | | | | | [address] | [address] | | | | | [phone] | | | +--------+ + + + [...] Not on filedocumented as of this encounter Results XR Lumbar Spine 4 [...] radiculitis, | | unspecified | + + documented in this encounter"
--- OUTSIDE RECORDS SUMMARY | ~2020-01-08 | XMS | Encounter Summary ---
Demographics + + + | Address | [address] | | | [place] [address] | + + + | Home Phone | | + + + | Preferred Language | Unknown | + + + | Marital Status | Unknown | + + + | Bahai Affiliation [...] Team Providers + +------+ + | Care Pack Press Operator Name | Role | Phone | + +------+ + PCP | Unavailable | + +------+ + Encounter Details +--------+ + + + + | Date | Type | Department | Care Team | Description | +--------+ + + + + | 09/26/ | [facility] | Carl Servin MD | | | 2013 | Encounter | [facility] | [address] | | | | | [address] [place] | [place], [place] | | | | | [place], [place] | [id number] | | | | | [address] | | | | | | [phone] | | | +--------+ + + + [...]
--- OUTSIDE RECORDS SUMMARY | ~2020-01-08 | XMS | Encounter Summary ---
Demographics + + + | Address | [address] | | | [place] [address] | + + + | Home Phone | | + + + | Preferred Language | Unknown | + + + | Marital Status | Unknown | + + + | Pentecostal Affiliation | Unknown | + + + | Race | White | + + + | Ethnic Group | Not or | + + + Author + + + | Author | [facility] | | | and [place] | + + + | Organization | [facility] | | | [...] Team Providers + +------+ + | Care Global Transportation Manager Name | Role | Phone | + +------+ + PCP | Unavailable | + +------+ + Encounter Details +--------+ + + + + | Date | Type | Department | Care Team | Description | +--------+ + + + + | 08/21/ | [facility] | [place] | | | 2012 | Encounter | [facility] | MD Sheryl [address] | | | | | [address] [place] | [place] | | | | | [place] | [address] | | | | | [address] | [phone] | | | | | [phone] | | | +--------+ + + + [...]
--- OUTSIDE RECORDS SUMMARY | ~2020-01-08 | XMS | Encounter Summary ---
Demographics + + + | Address | [address] | | | [place] [address] | + + + | Home Phone | | + + + | Preferred Language | Unknown | + + + | Marital Status | Unknown | + + + | Taoist Affiliation | Unknown | + + + | Race | White | + + + | Ethnic Group | Not or | + + + Author + + + | Author | [facility] | | | and [place] | + + + | Organization | [facility] | | [...] Providers + +------+ + | Care Building Drafting Officer Name | Role | Phone | + +------+ + PCP | Unavailable | + +------+ + Encounter Details +--------+ + + + + | Date | Type | Department | Care Team | Description | +--------+ + + + + | 07/30/ | Hospital | [facility] | Harsha Alvarado | | | 2015 | Encounter | [facility] | [address] | | | | | [address] | [facility] | | | | | [address] [place] | [place] [address] | | | | | [address] | [phone] | | | | | [phone] | | | +--------+ + + + [...] + + | DRUGS OF ABUSE, | STAT | 07/30/2014 | | Results for this | | SCREEN, URINE | | 7:28 PM | | procedure are in the | | | | PDT | | results section. | + +--------+ + + + | URINALYSIS WITH | STAT | 07/30/2014 | | Results for this | | MICROSCOPIC WITH | | 6:29 PM | | procedure are in the | | CULTURE IF INDICATED | | PDT | | results section. | + +--------+ + + + | CBC W/AUTO | STAT | 07/30/2014 | | Results for this | | DIFFERENTIAL | | 6:29 PM | | procedure are in the | | | | PDT | | results section. | + +--------+ + + + | , SERUM, | STAT | 07/30/2014 | | Results for this | | QUAL | | 6:29 PM | | procedure are in the | | | | PDT | | results section. | + +--------+ + + + | MAGNESIUM | STAT | 07/30/2014 | | Results for this | | | | 6:29 PM | | procedure are in the | | | | PDT | | results section. | + +--------+ + + + | LIPASE | STAT | 07/30/2014 | | Results for this | | | | 6:29 PM | | procedure are in the | | | | PDT | | results section. | + +--------+ + + + | ALCOHOL | STAT | 07/30/2014 | | Results for this | | | | 6:29 PM | | procedure are in the | | | | PDT | | results section. | + +--------+ + + + | COMPREHENSIVE | STAT | 07/30/2014 | | Results for this | | METABOLIC PANEL | | 6:29 PM | | procedure are in the | | | | PDT | | results section. | + +--------+ + + + | CT ABDOMEN PELVIS W | Routin | 07/30/2014 | | Results for this | | CONTRAST | e | 5:57 PM | | procedure are in the | | | | PDT | | results section. | + +--------+ + + + documented in this encounter Results Drugs of Abuse, Screen, Urine (07/30/2014 7:28 PM PDT) + +-------+ + + + [...] +-------+ + + + | Oxycodone | POS | NEG ng/mL | EXTERNAL [...] | | | + +---------+ + + Urinalysis with Microscopic with Culture if Indicated (07/30/2014 6:29 PM PDT) + + + + + + | Component | Value | Ref Range | Performed | Pathologist | | | | | At | Signature | + + + + + + | Source | Clean Catch / VOID | | EXTERNAL | | | | | | LAB | | + + + + + + | Clarity, | CLOUDY | CLEAR | EXTERNAL | | | Urine | | | LAB | | + + + + + + | Color, | YELLOW | YELLOW | EXTERNAL | | | Urine | | | LAB | | + + + + + + | Specific | 1.02 | 1.005 - 1.030 | EXTERNAL | | | [employer], | | | LAB | | | Urine | | | | | + + + + + + | pH, Urine | 6 | 5.0 - 7.0 pH | EXTERNAL | | | | | | LAB | | + + + + + + | Leukocyte | 100 | NEGATIVE /uL | EXTERNAL | | | Esterase, | | | LAB | | | Urine | | | | | + + + + + + | Nitrite, | NEGATIVE | NEGATIVE | EXTERNAL | | | Urine | | | LAB | | + + + + + + | Protein, | NEGATIVE | NEGATIVE mg/dL | EXTERNAL | | | Urine | | | LAB | | + + + + + + | Glucose, | NORMAL | NORMAL mg/dL | EXTERNAL | | | Urine | | | LAB | | + + + + + + | Reducing | NOT REQUIRED | NEGATIVE | EXTERNAL | | | Substance, | | | LAB | | | UA, POC | | | | | + + + + + + | Ketones, | NEGATIVE | NEGATIVE mg/dL | EXTERNAL | | | Urine | | | LAB | | + + + + + + | Urobilinoge | NORMAL | NORMAL mg/dL | EXTERNAL | | | n, Urine | | | LAB | | + + + + + + | Bilirubin, | 1 | NEGATIVE mg/dL | EXTERNAL | | | Urine | | | LAB | | + + + + + + | Blood, | NEGATIVE | NEGATIVE /uL | EXTERNAL | | | Urine | | | LAB | | + + + + + + | White Blood | 6-10 | </= 5 /HPF | EXTERNAL | | | Cells, | | | LAB | | | Urine | | | | | + + + + + + | RBC | NONE SEEN | </= 5 PER HPF | EXTERNAL | | | | | | LAB | | + + + + + + | Bacteria, | FEW | NONE SEEN /HPF | EXTERNAL | | | UA | | | LAB | | + + + + + + | Culture | YES | | EXTERNAL | | | Indicated | | | LAB | | + + + + + + | Squamous | MANY | FEW /LPF | EXTERNAL | | | Epithelial | | | LAB | | | Cells, | | | | | | Urine | | | | | + + + + + + | Mucus, | FEW | NONE SEEN /HPF | EXTERNAL | | | Urine | | | LAB | | + + + + + + | Clue Cells | FEW | NONE SEEN /LPF | EXTERNAL | | | | | | LAB | | + + + + + + + + | Specimen | + + | | + + + +---------+ + + | Performing | Address | City/State/Zipcode | Phone Number | | Organization | | | | + +---------+ + + | EXTERNAL LAB | | | | + +---------+ + + , Serum, Qual (07/30/2014 6:29 PM PDT) + + + + + + | Component | Value | Ref Range | Performed | Pathologist | | | | | At | Signature | + + + + + + | HCG | NEGATIVE | NEGATIVE | EXTERNAL | | | QUALITATIVE | | | LAB | | + [...] | | | + +---------+ + + Magnesium (07/30/2014 6:29 PM PDT) + +-------+ + + + | Component | Value | Ref Range | Performed | Pathologist | | | | | At | Signature | + +-------+ + + + | Magnesium | 2.4 | 1.8 - 2.4 mg/dL | EXTERNAL | | | | | | LAB | | + +-------+ + + + + + | Specimen | + + | | + + + +---------+ + + | Performing | Address | City/State/Zipcode | Phone Number | | Organization | | | | + +---------+ + + | EXTERNAL LAB | | | | + +---------+ + + Ethanol (07/30/2014 6:29 PM PDT) + +-------+ + + + | Component | Value | Ref Range | Performed | Pathologist | | | | | At | Signature | + +-------+ + + + | Alcohol, | 10 | <=10 mg/dL | EXTERNAL | | | Ethyl (B) | | | LAB | | + +-------+ + + + + + | Specimen | + + | | + + + +---------+ + + | Performing | Address | City/State/Zipcode | Phone Number | | Organization | | | | + +---------+ + + | EXTERNAL LAB | | | | + +---------+ + + Lipase (07/30/2014 6:29 PM PDT) + +-------+ + + + | Component | Value | Ref Range | Performed | Pathologist | | | | | At | Signature | + +-------+ + + + | Lipase | 97 | 73 - 393 U/L | EXTERNAL | | | | | [...] + +---------+ + + Comprehensive Metabolic Panel (07/30/2014 6:29 PM PDT) + +-------+ + + + | Component | Value | Ref Range | Performed | Pathologist | | | | | At | Signature | + +-------+ + + + | Sodium | 135 | 132 - 143 | EXTERNAL | | | | | mmol/L | LAB | | + +-------+ + + + | Potassium | 3.7 | 3.3 - 4.9 | EXTERNAL | | | | | mmol/L | LAB | | + +-------+ + + + | Cl | 104 | 95 - 108 mmol/L | EXTERNAL | | | | | | LAB | | + +-------+ + + + | CO2 | 23 | 23 - 34 mmol/L | EXTERNAL | | | | | | LAB | | + +-------+ + + + | Anion Gap | 8 | 7 - 16 | EXTERNAL | | | | | | LAB | | + +-------+ + + + | Calcium | 8.4 | 8.3 - 10.0 | EXTERNAL | | | | | mg/dL | LAB | | + +-------+ + + + | Glucose | 94 | 70 - 110 mg/dL | EXTERNAL | | | | | | LAB | | + +-------+ + + + | BUN, Bld | 17 | 5 - 26 mg/dL | EXTERNAL | | | | | | LAB | | + +-------+ + + + | Creatinine | 1 | 0.6 - 1.3 mg/dL | EXTERNAL | | | | | | LAB | | + +-------+ + + + | BUN/Creatin | 17 | 7.0 - 24.0 | EXTERNAL | [...] +-------+ + + + | Albumin | 4 | 3.0 - 4.5 g/dL | EXTERNAL | | | | | | LAB | | + +-------+ + + + | Alkaline | 96 | 46 - 116 U/L | EXTERNAL | | | Phosphatase | | | LAB | | + +-------+ + + + | ALT, | 21 | 14 - 59 U/L | EXTERNAL | | | External | | | LAB | | + +-------+ + + + | AST, | 11 | <=38 U/L | EXTERNAL | | [...] +---------+ + + CBC w/ Auto Differential (07/30/2014 6:29 PM PDT) + +-------+ + + + | Component | Value | Ref Range | Performed | Pathologist | | | | | At | Signature | + +-------+ + + + | WBC | 11.1 | 4.3 - 10.4 | EXTERNAL | | | | | 1000/mm3 | LAB | | + +-------+ + + + | RBC | 4.98 | 4.12 - 5.30 | EXTERNAL | | | | | mil/mm3 | LAB | | + +-------+ + + + | HGB, | 15 | 12.4 - 15.7 | EXTERNAL | | | External | | g/dL | LAB | | + +-------+ + + + | HCT, | 42.7 | 37.7 - 47.0 % | EXTERNAL | | | External | | | LAB | | + +-------+ + + + | MCV | 86 | 82 - 97 fl | EXTERNAL | | | | | | LAB | | + +-------+ + + + | MCH | 30.1 | 27.1 - 32.3 pg | EXTERNAL | | | | | | LAB | | + +-------+ + + + | MCHC | 35.1 | 32.0 - 36.9 | EXTERNAL | | | | | g/dL | LAB | | + +-------+ + + + | RDW-CV | 13.6 | <=17.0 % | EXTERNAL | | | | | | LAB | | + +-------+ + + + | RDW-SD | 42 | 34.0 - 57.0 fL | EXTERNAL | | | | | | LAB | | + +-------+ + + + | Platelet | 302 | 150 - 450 | EXTERNAL | | | Count | | 1000/mm3 | LAB | | | Plasma | | | | | + +-------+ + + + | MPV | 9.6 | 9.4 - 12.3 FL | EXTERNAL | | | | | | LAB | | + +-------+ + + + | % Segmented | 65.2 | 42.0 - 76.0 % | EXTERNAL | | | | | | LAB | | | Neutrophils | | | | | + +-------+ + + + | % | 23.8 | 20.0 - 40.0 % | EXTERNAL | | | Lymphocytes | | | LAB | | + +-------+ + + + | % Monocytes | 9.2 | 3.0 - 13.0 % | EXTERNAL | | | | | | LAB | | + +-------+ + + + | % | 1.6 | 0.0 - 7.0 % | EXTERNAL | | | Eosinophils | | | LAB | | + +-------+ + + + | % Basophils | 0.2 | 0.0 - 2.0 % | EXTERNAL | | | | | | LAB | | + +-------+ + + + | Absolute | 7.27 | 2.50 - 8.50 | EXTERNAL | | | Neutrophils | | 1000/mm3 | LAB | | + +-------+ + + + | Absolute | 2.65 | 1.00 - 3.80 | EXTERNAL | | | Lymphocytes | | 1000/mm3 | LAB | | + +-------+ + + + | Absolute | 1.02 | 0.00 - 0.80 | EXTERNAL | | | Monocytes | | 1000/mm3 | LAB | | + +-------+ + + + | Absolute | 0.18 | 0.00 - 0.70 | EXTERNAL | | | Eosinophils | | 1000/mm3 | LAB | | + +-------+ + + + | Absolute | 0.02 | 0.00 - 0.20 | EXTERNAL | | | Basophils | | 1000/mm3 | LAB | | + +-------+ + + + | SLIDE | NO | | EXTERNAL | | | REVIEWED | | | LAB | | + +-------+ + + + + + | Specimen | + + | | + + + +---------+ + + | Performing | Address | City/State/Zipcode | Phone Number | | Organization | | | | + +---------+ + + | EXTERNAL LAB | | | | + +---------+ + + CT Abdomen Pelvis w Contrast (07/30/2014 5:57 PM PDT) + + | Specimen | + + | | + + + + + | Narrative | Performed At | + + + | ORIGINAL HISTORY: 2 weeks epigastric abdominal pain | | | now with fever, nausea and vomiting. ABDOMEN AND PELVIS CT SCAN: | | | No comparisons. Dose summary: 1219 mGy-cm. The bone structures | | | are unremarkable. Visualized breast tissues are normal. The heart | | | is of normal appearance. The distal esophagus is normal, the | | | stomach is likewise unremarkable. The small bowel and mesentery are | | | normal. The large bowel and appendix are normal. The liver | | | demonstrates no focal lesion. The gallbladder is normal. The | | | portal vein and common bile duct are normal. The pancreas and spleen | | | are also unremarkable. No adrenal mass is evident. The kidneys | | | demonstrate no focal lesion or hydronephrosis. The ureters and | | | urinary bladder are normal. The uterus is normal. The left ovary | | | demonstrates a normal appearance, the right ovary contains a 2.3-cm | | | cyst with rim enhancement likely representing a recently-ruptured | | | follicle. CONCLUSION: 1. No definite abnormalities are noted to | | | account for the patient's abdominal pain. 2. Incidental note is made | | | of a 2.3-cm right ovarian cyst. | | | Read By: BHAVANA CRAMER MD Released By: BHAVANA CRAMER | | | Date: 2014 15:31 | | + + + + + | Procedure Note | + + | Usman, Rad Results In - 03/21/2017 6:50 PM PST ORIGINAL HISTORY:2 weeks | | epigastric abdominal pain now with fever, nausea and vomiting. ABDOMEN AND PELVIS CT | | SCAN:No comparisons. Dose summary: 1219 mGy-cm. The bone structures are unremarkable. | | Visualized breast tissues are normal. The heart is of normal appearance. The distal | | esophagus is normal, the stomach is likewise unremarkable. The small bowel and | | mesentery are normal. The large bowel and appendix are normal. The liver demonstrates | | no focal lesion. The gallbladder is normal. The portal vein and common bile duct are | | normal. The pancreas and spleen are also unremarkable. No adrenal mass is evident. | | The kidneys demonstrate no focal lesion or hydronephrosis. The ureters and urinary | | bladder are normal. The uterus is normal. The left ovary demonstrates a normal | | appearance, the right ovary contains a 2.3-cm cyst with rim enhancement likely | | representing a recently-ruptured follicle. CONCLUSION:1. No definite abnormalities are | | noted to account for the patient's abdominal pain.2. Incidental note is made of a 2.3-cm | | right ovarian cyst. Job #: [id number] Read By: BHAVANA CRAMER MD | | Released By: CORTNEY STEVENSate: 2014 15:31 | |CONCLUSION: | |1. No definite abnormalities are noted to account for the patient's abdominal pain. | |2. Incidental note is made of a 2.3-cm right ovarian cyst. | | | | | | | | | | | |Read By: BHAVANA CRAMER MD | | | |Released By: BHAVANA CRAMER MD | |Date: 2014 15:31 | | | | | + + documented in this encounter Visit Diagnoses Not on filedocumented in this encounter"
--- OUTSIDE RECORDS SUMMARY | ~2020-01-08 | XMS | Encounter Summary ---
Demographics + + + | Address | [address] | | | [place] [address] | + + + | Home Phone [...] + + + | Author | [facility] | | | and [place] | + + + | Organization | [facility] | | [...] Team Providers + +------+ + | Care Die Maker Apprentice Name | Role | Phone | + +------+ + PCP | Unavailable | + +------+ + Encounter Details +--------+ + + + + | Date | Type | Department | Care Team | Description | +--------+ + + + + | 04/03/ | [facility] | [facility] | | | 2011 | Encounter | [facility] | MD Sheryl [address] | | | | | MEDICAL CL[facility] [address] | [place], [place] | | | | | [address] [place], | [address] | | | | | [place] [address] | [phone] | | | | | [phone] | | | +--------+ + + + [...]
--- OUTSIDE RECORDS SUMMARY | ~2020-01-08 | XMS | Encounter Summary ---
Demographics + + + | Address | [address] | | | [place] [address] | + + + | Home Phone [...] Organization | [facility] [...] Providers + +------+ + | Care Manager Roofing Name | Role | Phone | + +------+ + | Gela Leong DO | PCP | | + +------+ + Reason for Visit + +--------+ + | Reason | Onset | Comments | | | Date | | + +--------+ + | ED Follow-up | 11/07/ | | | | 2018 | | + +--------+ + Encounter Details +--------+ + + + + | Date | Type | Department | Care Team | Description | +--------+ + + + + | 11/07/ | Telephone | [facility] | Gela Leong | ED Follow-up | | 2018 | | [facility] | [place] [address] | | | | | MEDICAL CLIN[address] | [facility] | | | | | [facility] [facility] | [address] | | | | | [place] [address] | [place] [address] | | | | | [phone] | [phone] | | | | | | | [...] Notes Telephone Encounter - Sukh Aponte - 11/07/2017 2:17 PM PDTPatient discharged from [facility] on Diagnosis of: acute right-sided back pain, unspecified back location DISCHARGE INSTRUCTIONS: Patient verbalizes understanding of discharge instructions. NEW MEDICATIONS AT ED DISCHARGE: Cyclobenzaprine FOLLOW UP APPOINTMENT: Patient want a follow-up appointment, but wants to figure out her health insurance first. CASE MANAGEMENT: Patient says her pain is "bad." She said she wants to make a follow-up appointment, but she doesn't have insurance at the moment and wants to take care of that first. She said she lisandra ns to do that tomorrow, and plans to make a follow-up appointment after that. Patient does not require additional RN Contact Clarissa Aponte, Clinic Station Inspector Floorwalker documented in this e ncounter Plan of Treatment Not on filedocumented as of this encounter Visit Diagnoses Not on filedocumented in this encounter
--- OUTSIDE RECORDS SUMMARY | ~2020-01-08 | XMS | Encounter Summary ---
Demographics + + + | Address | [address] | | | [place] [address] | + + + | Home Phone | | + + + | Preferred Language | Unknown | + + + | Marital Status | Unknown | + + + | Jew Affiliation | Unknown | + + + [...] Team Providers + +------+ + | Care Audio Video Tech Name | Role | Phone | + +------+ + PCP | Unavailable | + +------+ + Encounter Details +--------+ + + + + | Date | Type | Department | Care Team | Description | +--------+ + + + + | 07/13/ | Oniel | [facility] | Richard Paredes | | | 2016 | Encounter | [facility] | [address] | | | | | MEDICAL CLIN[facility] [address] | [address] [place], [place] | | | | | [address] [facility], | [address] | | | | | [place] [address] | | | | | | [phone] | | | +--------+ + + + [...]
--- OUTSIDE RECORDS SUMMARY | ~2020-01-08 | XMS | Encounter Summary ---
Demographics + + + | Address | [address] | | | [place] [address] | + + + | Home Phone | | + + + | Preferred Language | Unknown | + + + | Marital Status | Unknown | + + + | Mormon Affiliation | Unknown | + + + | Race | White | + + + | Ethnic Group | Not or | + + + Author + + + | Author | [facility] | | | and [place] | + + + | Organization | [facility] | | [...] Team Providers + +------+ + | Care Fitness Leader Name | Role | Phone | + +------+ + | Gela Leong DO | PCP | | + +------+ + Reason for Visit + +--------+ + | Reason | Onset | Comments | | | Date | | + +--------+ + | Medication Refill | 04/13/ | | | | 2016 | | + +--------+ + Encounter Details +--------+ + + + + | Date | Type | Department | Care Team | Description | +--------+ + + + + | 04/13/ | Telephone | [facility] | Richard Paredes | Medication Refill | | 2017 | | [facility] | [address] | | | | | CL[address] | [address] [place], [place] | | | | | [address] [place], | [address] | | | | | [place] [address] | | | | | | [phone] | | | +--------+ + + + [...] this encounter Miscellaneous Notes Telephone Encounter - Ariana Lynn RN - 04/13/2017 10:34 AM PSTPatient notified that the rx for Tramadol and [place] will not be refilled until patient has a follow-up appointment. elephone Encounter - Ariana Louis RN - 04/13/2017 9:38 AM PSTPatient is requesting a refill of Tramadol and No rco. Tramadol 50 mg. 1 tab three times/day #84 (28 day supply) last filled on 01/12/17. Tampa 10-325 1 tab 4 times/day (14 day supply) Last filled on 01/12/17. Patient last seen by you on 12/11/16 with a discussion regarding the need for a f/u with her PCP to discuss switching to buprenorphine and an updated pain contract. Patient cancelled the appointment in December with Dr. Leong and cancelled the appointment s cheduled 04/10/[address] Servin. No further follow-ups are scheduled.Electronically signed by Ariana Lynn RN at 9:45 AM PSTTelephone Encounter - Halley Medina - 04/13/2017 8:22 AM PSTPatient is re questing a refill on her [place] and Tramadol. Her insurance is G[employer]. Thank you, Mary signed by Halley Medina at 04/13/2017 8:23 AM PSTdocumented in this encounter Plan of Treatment Not on filedocumented as of this encounter Visit Diagnoses Not on filedocumented in this encounter"
--- OUTSIDE RECORDS SUMMARY | ~2020-01-08 | XMS | Encounter Summary ---
Demographics + + + | Address | [address] | | | [place] [address] | + + + | Home Phone | | + + + | Preferred Language | Unknown | + + + | Marital Status | Unknown | + + + | Amish Affiliation [...] Team Providers + +------+ + | Care Assayer Helper Name | Role | Phone | + +------+ + PCP | Unavailable | + +------+ + Encounter Details +--------+ + + + + | Date | Type | Department | Care Team | Description | +--------+ + + + + | 01/20/ | [facility] | Carl Servin MD | | | 2012 | Encounter | [facility] | [address] | | | | | MEDICAL CL[facility] [address] | [facility] [place] | | | | | [address] [facility], | [address] | | | | | [place] [address] | | | | | | [phone] | | | +--------+ + + + [...]
--- OUTSIDE RECORDS SUMMARY | ~2020-01-08 | XMS | Encounter Summary ---
Demographics + + + | Address | [address] | | | [place] [address] | + + + | Home Phone [...] + + + | Author | [facility] | | | and [place] | + + + | Organization | [facility] | | | [...] Team Providers + +------+ + | Care Meat And Seafood Manager Name | Role | Phone | + +------+ + PCP | Unavailable | + +------+ + Encounter Details +--------+ + + + + | Date | Type | Department | Care Team | Description | +--------+ + + + + | 12/11/ | Oniel JUARES | Richard Paredes | | | 2017 | Encounter | [facility] | [address] | | | | | CL[address] | [address] [place], [place] | | | | | [address], | [address] | | | | | [place] [address] | | | | | | [phone] | | | +--------+ + + + [...]
--- OUTSIDE RECORDS SUMMARY | ~2020-01-08 | XMS | Encounter Summary ---
Demographics + + + | Address | [address] | | | [place] [address] | + + + | Home Phone | | + + + | Preferred Language | Unknown | + + + | Marital Status | Unknown | + + + | Judaism Affiliation | Unknown | + + + | Race | White | + + + | Ethnic Group | Not or | + + + Author + + + | Author | [facility] | | | and [place] | + + + | Organization | [facility] | | [...] Team Providers + +------+ + | Care Heat Seal Operator Name | Role | Phone | + +------+ + PCP | Unavailable | + +------+ + Encounter Details +--------+ + + + + | Date | Type | Department | Care Team | Description | +--------+ + + + + | 07/06/ | Oniel JUARES | Richard Paredes | | | 2015 | Encounter | [facility] | [address] | | | | | MEDICAL CLIN[address] | [address] [place], [place] | | | | | [address] [facility], | [address] | | | | | [place] [address] | | | | | | [phone] | | | +--------+ + + + [...]
--- OUTSIDE RECORDS SUMMARY | ~2020-01-08 | XMS | Encounter Summary ---
Demographics + + + | Address | [address] | | | [place] [address] | + + + | Home Phone | | + + + | Preferred Language | Unknown | + + + | Marital Status | Unknown | + + + | Restorationist Affiliation [...] Team Providers + +------+ + | Care Granite Sandblaster Apprentice Name | Role | Phone | + +------+ + | Gela Leong DO | PCP | | + +------+ + Reason for Visit + + + | Reason | Comments | + + + | Sore Throat | | + + + Encounter Details +--------+ + + + + | Date | Type | Department | Care Team | Description | +--------+ + + + + | 11/18/ | Emergency | [facility] | Tiana Bennett, | Pharyngitis, | | 2017 | | [facility] | 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 [address] | unspecified etiology | | | | CENTER [address] | [address] [place] | (Primary Dx) | | | | [place] | [address] | | | | | [address] | | | | | | [phone] | | | +--------+ + + + [...] + + + | Blood Pressure | 124/69 | 11/18/2017 8:52 PM | | | | | PDT | | + + + + + | Pulse | 80 | 11/18/2017 8:52 PM | | | | | PDT | | + + + + + | Temperature | 35.9 C (96.6 F) | 11/18/2017 7:28 PM | | | | | PDT | | + + + + + | Respiratory Rate | 18 | 11/18/2017 8:52 PM | | | | | PDT | | + + + + + | Oxygen Saturation | 99% | 11/18/2017 8:52 PM | | | | | PDT | | + + + + + | Inhaled Oxygen | - | - | | | Concentration | | | | + + + + + | Weight | 108.9 kg (240 lb) | 11/18/2017 7:28 PM | | | | | PDT | | + + + + + | Height | 172.7 cm (5' 8") | 11/18/2017 7:28 PM | | | | | PDT | | + + + + + | Body Mass Index | 36.49 | 11/18/2017 7:28 PM | | | | | PDT | | + + + + + documented in this encounter Medications at Time of Discharge + + + +---------+--------+ + | Medication | Sig | Dispensed | Refills | Start | End Date | | | | | | Date | | + + + +---------+--------+ + | ibuprofen | Take 600 mg by mouth | | 0 | | | | (ADVIL,MOTRIN) 600 | every 8 hours as | | | | 9 | | MG tablet | needed for Pain. | | | | | + + + +---------+--------+ + documented as of this encounter ED Notes Tiana Bennett FNP - 11/18/2017 7:46 PM PDTFormatting of this note might be different fr om the original. [facility] Emergency Department Provider Note Name: Lauro Melara Date: 11/18/2017 : 1980 Room Number: ED10 PCP: Gela Leong DO Medical Decision Making This 37-year-old woman states she has had a sore throat and has felt feverish for the last 3 days. She states today she had a hard time eating because her throat is so sore. On exam ination her tonsils are red and swollen and a swab was done for strep. She has tenderness o f her anterior cervical lymph nodes. Her tympanic membranes are normal. Her lungs are zenia r to auscultation. The rapid strep came back negative. A Depo-Medrol shot was offered to stephen orozco with her tonsillar swelling and the patient accepted. She is advised that a throat cult ure is also being done. She is advised to call her primary for a follow-up appointment socorro marquis. Patient agrees with plan of treatment. Diagnosis is pharyngitis of unclear etiology with tonsillitis. Clinical Impression and Plan Final diagnoses: Pharyngitis, unspecified etiology ED Prescriptions None Extended ED Note CC: Chief Complaint Patient presents with Sore Throat Method of Arrival: walk-in History obtained from: Patient HPI: Lauro Melara is a 37 y.o. female who presents with sore throat with tonsillar swelling and subjective fever for the past 3 days. Patient states she has had difficulty swallowing food. She did however eat a popsicle right before coming into the ER. Diagnostics and Procedures Rapid strep Depo-Medrol 80 mg IM Review of Systems Review of Systems Constitutional: Positive for chills and fever. HENT: Positive for sore throat and trouble swallowing. Negative for drooling. Eyes: Negative. Respiratory: Negative. Cardiovascular: Negative. Gastrointestinal: Negative. Musculoskeletal: Negative. Neurological: Negative. Physical Exam Pulse: 87- Resp: 18- BP: 127/71 - SpO2: 98 % - Temp: 35.9 C (96.6 F) Physical Exam Constitutional: She appears well-developed and well-nourished. HENT: Head: Normocephalic. Right Ear: External ear normal. Left Ear: External ear normal. Bilateral tonsils swollen and red. Small amount of exudate on the right tonsil. When swab bed for strep screen swab was read, and patient states she does state a popsicle. Neck: Normal range of motion. Under anterior cervical nodes which are not enlarged. Cardiovascular: Normal rate and regular rhythm. Pulmonary/Chest: Effort normal and breath sounds normal. No respiratory distress. Skin: Skin is warm and dry. No rash noted. Psychiatric: She has a normal mood and affect. Past Medical, Surgical, Social, and Family History History reviewed. No pertinent past medical history. History reviewed. No pertinent surgical history. Social History Substance Use Topics Smoking status: Heavy Tobacco Smoker Packs/day: 0.50 Types: Cigarettes Smokeless tobacco: Never Used Alcohol use No Previous Medications IBUPROFEN (ADVIL,MOTRIN) 600 MG TABLET Take 600 mg by mouth every 8 hours as needed for Pain. ARACELI Taylor 11/18/172023 oyes, Elayne Irizarry RN - 11/18/2017 7:28 PM PDTPt with sore throat and fever for two days, tired. Electronically s igned by Elayne Padgett RN at 11/18/2017 7:28 PM PDTdocumented in this encounter Plan of Treatment + +------+--------+ + + | Name | Type | Priori | Associated Diagnoses | Date/Time | | | | ty | | | + +------+--------+ + + | ED INFORMATION | VIKTOR | Routin | | 11/18/2017 7:25 PM | | EXCHANGE | | e | | PDT | + +------+--------+ + + documented as of this encounter Procedures + +--------+ + + + | Procedure Name | Priori | Date/Time | Associated Diagnosis | Comments | | | ty | | | | + +--------+ + + + | STREPTOCOCCUS GROUP | STAT | 11/18/2017 | | Results for this | | A, RAPID SCREEN | | 7:42 PM | | procedure are in the | | | | PDT | | results section. | + +--------+ + + + | EVI STREP A, | Routin | 11/18/2017 | | Results for this | | THROAT | e | 7:42 PM | | procedure are in the | | | | PDT | | results section. | + +--------+ + + + | ED INFORMATION | Routin | 11/18/2017 | | | | EXCHANGE | e | 7:25 PM | | | | | | PDT | | | + +--------+ + + + +---+--------+ | | | | | Proced | | | ure | | | Note - | | | Roxanna, | | | Lab In | | | | | | Hlseve | | | n - | | | | | | 2017 | | | 7:26 | | | PM PDT | | [...] | | | 8 | | | 19:25? | | | PATTER | | | SON, | | | LAURO | | | M?MRN: | | | | | | [id number] | | | [id number] | | | ecurit | | | [...] | | | Dates | | | LEONG | | | , | | | [...] | | | int | | | Alfred 8, | | | 2018 | | | Jesus | | | [place] | | | [place]. [place] | | | [place]. | | | [place] | | | Emerge | | | ncy | | | Emerge | | | ncy | | | | | | Troubl | | | e | | | swallo | | | wing | | | compla | | | int | | | [...] | | | Pain | | | Back | | | Pain | | | | | | Dorsal | | | monika, | | | unspec | | | ified | | | | | | Recent [...] | | Hospit | | | al 4 | | | Total | | | 4 | | | Note: | | | [...] | | +---+--------+ documented in this encounter Results Culture, Strep A, Throat (11/18/2017 7:42 PM PDT) + + + + + + | Component | Value | Ref Range | Performed | Pathologist | | | | | At | Signature | + + + + + + | Culture | No Group A Streptococcus | | [facility] | | | | isolated | | [facility] | | | | [facility] | | | | | | [facility] | | + + + + + + + + | Specimen | + + | Tissue - Specimen | | from throat | | (specimen) | + + + + + | Narrative | Performed At | + + + | 4+ Streptococcus dysgalactiae; penicillin is the drug of choice for | [facility] | | this organism. | HOSPITAL | | | LABORATORY | + + + + + + + + | Performing | Address | City/State/Zipcode | Phone Number | | Organization | | | | + + + + + | [facility] | [address] | [place] | [phone] | | [facility]OSP[facility] | | [address] | | + + + + + Streptococcus Group A, Rapid Screen (11/18/2017 7:42 PM PDT) + + + + + + | Component | Value | Ref Range | Performed | Pathologist | | | | | At | Signature | + + + + + + | Rapid Strep | Negative | Negative | [facility] | | | A Screen | | | [facility] | | | | [facility] | | | | | | LAB[facility]ATORY | | + + + + + + + + | Specimen | + + | Tissue - Specimen | | from throat | | (specimen) | + + + + + + + | Performing | Address | City/State/Zipcode | Phone Number | | Organization | | | | + + + + + | [facility] | [address] | [place] | [phone] | | [facility]OS[facility] | | [address] | | + + + + + documented in this encounter Visit Diagnoses + + | Diagnosis | + + | Pharyngitis, unspecified etiology - Primary | + + documented in this encounter Administered Medications + +--------+ +-------+------+ + | Medication Order | MAR | Action | Dose | Rate | Site | | | Action | Date | | | | + +--------+ +-------+------+ + | methylPREDNISolone acetate | Given | 11/19/19 | 80 mg | | Ventrogl | | (DEPO-MEDROL) 80 mg/mL injection | | 18 8:28 | | | uteal-Ri | | 80 mg 80 mg, Intramuscular, | | PM PDT | | | ght | | ONCE, 11/18/17 at 2044, For 1 | | | | | | | dose, Not for IV use., | | | | | | + +--------+ +-------+------+ + +---+---+ | | | +---+---+ documented in this encounter
--- OUTSIDE RECORDS SUMMARY | ~2020-01-08 | XMS | Encounter Summary ---
Demographics + + + | Address | [address] | | | [place] [address] | + + + | Home Phone | | + + + | Preferred Language | Unknown | + + + | Marital Status | Unknown | + + + | Nondenominational Affiliation | Unknown | + + + | Race | White | + + + | Ethnic Group | Not or | + + + Author + + + | Author | [facility] | | | and [place] | + + + | Organization | [facility] [...] Team Providers + +------+ + | Care Emu Farmer Name | Role | Phone | + +------+ + PCP | Unavailable | + +------+ + Encounter Details +--------+ + + + + | Date | Type | Department | Care Team | Description | +--------+ + + + + | 02/16/ | [facility] | Carl Servin MD | | | 2013 | Encounter | [facility] | [address] | | | | | [facility] [address] | [place], [place] | | | | | [facility], | [address] | | | | | [place] [address] | | | | | | [phone] | | | +--------+ + + + [...]
--- OUTSIDE RECORDS SUMMARY | ~2020-01-08 | XMS | Encounter Summary ---
Demographics + + + | Address | [address] | | | [place] [address] | + + + | Home Phone [...] + + + | Author | [facility] | | | and [place] | + + + | Organization | [facility] | | | [...] + +------+ + | Care Network Support Specialist Name | Role | Phone | + +------+ + PCP | Unavailable | + +------+ + Encounter Details +--------+ + + + + | Date | Type | Department | Care Team | Description | +--------+ + + + + | 07/14/ | [facility] | Richard Paredes | | | 2014 | Encounter | [facility] | [address] | | | | | MEDICAL CLIN[facility] [address] | [address] [place], [place] | | | | | [facility]TH [facility], | [address] | | | | | [place] [address] | | | | | | [phone] | | | +--------+ + + + [...]
--- OUTSIDE RECORDS SUMMARY | ~2020-01-08 | XMS | Encounter Summary ---
Demographics + + + | Address | [address] | | | [place] [address] | + + + | Home Phone | | + + + | Preferred Language | Unknown | + + + | Marital Status | Unknown | + + + | Confucianism Affiliation | Unknown | + + + | Race | White | + + + | Ethnic Group | Not or | + + + Author + + + | Author | [facility] | | | and [place] | + + + | Organization | [facility] | [...] Team Providers + +------+ + | Care Freelance Programmer/App Developer Name | Role | Phone | + +------+ + PCP | Unavailable | + +------+ + Encounter Details +--------+ + + + + | Date | Type | Department | Care Team | Description | +--------+ + + + + | 12/11/ | [facility] | Richard Paredes | | | 2017 | Encounter | [facility] | [address] | | | | | [address] | [place]VE [place], [place] | | | | | [place] | [address] | | | | | [address] | | | | | | [phone] | | | +--------+ + + + [...] + | CBC W/AUTO | Routin | 12/11/2016 | | Results for this | | DIFFERENTIAL | e | 1:31 PM | | procedure are in the | | | | PDT | | results section. | + +--------+ + + + | COMPREHENSIVE | Routin | 12/11/2016 | | Results for this | | METABOLIC PANEL | e | 1:31 PM | | procedure are in the | | | | PDT | | results section. | + +--------+ + + + documented in this encounter Results Comprehensive Metabolic Panel (12/11/2016 1:31 PM PDT) + +-------+ + + + | Component | Value | Ref Range | Performed | Pathologist | | | | | At | Signature | + +-------+ + + + | Sodium | 139 | 132 - 143 | EXTERNAL | | | | | mmol/L | LAB | | + +-------+ + + + | Potassium | 4 | 3.3 - 4.9 | EXTERNAL | | | | | mmol/L | LAB | | + +-------+ + + + | Cl | 105 | 95 - 108 mmol/L | EXTERNAL | | | | | | LAB | | + +-------+ + + + | CO2 | 24 | 23 - 34 mmol/L | EXTERNAL | | | | | | LAB | | + +-------+ + + + | Anion Gap | 10 | 7 - 16 | EXTERNAL | | | | | | LAB | | + +-------+ + + + | Calcium | 8.5 | 8.3 - 10.0 | EXTERNAL | | | | | mg/dL | LAB | | + +-------+ + + + | Glucose | 120 | 70 - 110 mg/dL | EXTERNAL | | | | | | LAB | | + +-------+ + + + | BUN, Bld | 11 | 5 - 26 mg/dL | EXTERNAL | | | | | | LAB | | + +-------+ + + + | Creatinine | 0.65 | 0.60 - 1.30 | EXTERNAL | | | | | mg/dL | LAB | | + +-------+ + + + | BUN/Creatin | 16.9 | 7.0 - 24.0 | EXTERNAL | | | ine Ratio | | RATIO | LAB | | + +-------+ + + + | GFR | 60 | >=60 | EXTERNAL | | | ESTIMATE | | mL/min/1.73m2 | LAB | | | (REF) | | | | | + +-------+ + + + | Bilirubin, | 0.1 | <=1.2 mg/dL | EXTERNAL | | [...] +-------+ + + + | Alkaline | 81 | 46 - 116 U/L | EXTERNAL | | | Phosphatase | | | LAB | | + +-------+ + + + | ALT, | 47 | 14 - 59 U/L | EXTERNAL | | | External | | | LAB | | + +-------+ + + + | AST, | 26 | <=38 U/L | EXTERNAL | | [...] +---------+ + + CBC w/ Auto Differential (12/11/2016 1:31 PM PDT) + +-------+ + + + | Component | Value | Ref Range | Performed | Pathologist | | | | | At | Signature | + +-------+ + + + | WBC | 15.3 | 4.3 - 10.4 | EXTERNAL | | | | | 1000/mm3 | LAB | | + +-------+ + + + | RBC | 4.66 | 4.12 - 5.30 | EXTERNAL | | | | | mil/mm3 | LAB | | + +-------+ + + + | HGB, | 13.3 | 12.4 - 15.7 | EXTERNAL | | | External | | g/dL | LAB | | + +-------+ + + + | HCT, | 39.1 | 37.7 - 47.0 % | EXTERNAL | | | External | | | LAB | | + +-------+ + + + | MCV | 84 | 82 - 97 fl | EXTERNAL | | | | | | LAB | | + +-------+ + + + | MCH | 28.5 | 27.1 - 32.3 pg | EXTERNAL | | | | | | LAB | | + +-------+ + + + | MCHC | 34 | 32.0 - 36.9 | EXTERNAL | | | | | g/dL | LAB | | + +-------+ + + + | RDW-CV | 14.9 | <=17.0 % | EXTERNAL | | | | | | LAB | | + +-------+ + + + | RDW-SD | 45.2 | 34.0 - 57.0 fL | EXTERNAL | | | | | | LAB | | + +-------+ + + + | Platelet | 359 | 150 - 450 | EXTERNAL | | | Count | | 1000/mm3 | LAB | | | Plasma | | | | | + +-------+ + + + | MPV | 10.1 | 9.4 - 12.3 FL | EXTERNAL | | | | | | LAB | | + +-------+ + + + | % Segmented | 63.9 | 42.0 - 76.0 % | EXTERNAL | | | | | | LAB | | | Neutrophils | | | | | + +-------+ + + + | % | 29.5 | 20.0 - 40.0 % | EXTERNAL | | | Lymphocytes | | | LAB | | + +-------+ + + + | % Monocytes | 4.7 | 3.0 - 13.0 % | EXTERNAL | | | | | | LAB | | + +-------+ + + + | % | 1.3 | 0.0 - 7.0 % | EXTERNAL | | | Eosinophils | | | LAB | | + +-------+ + + + | % Basophils | 0.3 | 0.0 - 2.0 % | EXTERNAL | | | | | | LAB | | + +-------+ + + + | % Immature | 0.3 | 0.0 - 0.5 % | EXTERNAL | | | Granulocyte | | | LAB | | | s | | | | | + +-------+ + + + | % nRBC | 0 | 0.0 - 0.2 /100 | EXTERNAL | | | | | WBC | LAB | | + +-------+ + + + | Absolute | 9.76 | 2.50 - 8.50 | EXTERNAL | | | Neutrophils | | 1000/mm3 | LAB | | + +-------+ + + + | Absolute | 4.51 | 1.00 - 3.80 | EXTERNAL | | | Lymphocytes | | 1000/mm3 | LAB | | + +-------+ + + + | Absolute | 0.72 | 0.00 - 0.80 | EXTERNAL | | | Monocytes | | 1000/mm3 | LAB | | + +-------+ + + + | Absolute | 0.2 | 0.00 - 0.70 | EXTERNAL | | | Eosinophils | | 1000/mm3 | LAB | | + +-------+ + + + | Absolute | 0.04 | 0.00 - 0.20 | EXTERNAL | | | Basophils | | 1000/mm3 | LAB | | + +-------+ + + + | Absolute | 0.04 | 0.00 - 0.15 | EXTERNAL | | | Immature | | 1000/mm3 | LAB | | | Granulocyte | | | | | | s | | | | | + +-------+ + + + | Absolute | 0.01 | 0.00 - 0.01 | EXTERNAL | | | nRBC | | 1000/mm3 | LAB | | [...]
--- OUTSIDE RECORDS SUMMARY | ~2020-01-08 | XMS | Encounter Summary ---
Demographics + + + | Address | [address] | | | [place] [address] | + + + | Home Phone | | + + + | Preferred Language | Unknown | + + + | Marital Status | Unknown | + + + | Shinto Affiliation [...] Team Providers + +------+ + | Care Artificial Insemination Technician Name | Role | Phone | + +------+ + PCP | Unavailable | + +------+ + Encounter Details +--------+ + + + + | Date | Type | Department | Care Team | Description | +--------+ + + + + | 09/09/ | [facility] | Richard Paredes | | | 2015 | Encounter | [facility] | [address] | | | | | MEDICAL [facility] [address] | [address] [place], [place] | | | | | [address] [facility], | [address] | | | | | [place] [address] | | | | | | [phone] | | | +--------+ + + + [...]
--- OUTSIDE RECORDS SUMMARY | ~2020-01-08 | XMS | Encounter Summary ---
Demographics + + + | Address | [address] | | | [place] [address] | + + + | Home Phone | | + + + | Preferred Language | Unknown | + + + | Marital Status | Unknown | + + + | Adventism Affiliation | Unknown | + + + | Race | White | + + + | Ethnic Group | Not or | + + + Author + + + | Author | [facility] | | | and [place] | + + + | Organization | [facility] [...] Team Providers + +------+ + | Care Police Academy Instructor Name | Role | Phone | + +------+ + PCP | Unavailable | + +------+ + Encounter Details +--------+ + + + + | Date | Type | Department | Care Team | Description | +--------+ + + + + | 01/15/ | [facility] | Carl Servin MD | | | 2012 | Encounter | [facility] | [address] | | | | | [address] | [place], [place] | | | | | [place], [place] | [id number] | | | | | [address] | | | | | | [phone] | | | +--------+ + + + [...]
--- OUTSIDE RECORDS SUMMARY | ~2020-01-08 | XMS | Encounter Summary ---
Demographics + + + | Address | [address] | | | [place] [address] | + + + | Home Phone | | + + + | Preferred Language | Unknown | + + + | Marital Status | Unknown | + + + | Church Affiliation | Unknown | + + + | Race | White | + + + | Ethnic Group | Not or | + + + Author + + + | Author | [facility] | | | and [place] | + + + | Organization | [facility] | | | [...] + +------+ + | Care Director Of Academic Support Name | Role | Phone | + +------+ + PCP | Unavailable | + +------+ + Encounter Details +--------+ + + + + | Date | Type | Department | Care Team | Description | +--------+ + + + + | 05/15/ | [facility] | Carl Servin MD | | | 2012 | Encounter | [facility] | [address] | | | | | MED[facility] [address] | [facility] [place] | | | | | [facility], | [address] | | | | | [place] [address] | | | | | | [phone] | | | +--------+ + + + [...]
--- OUTSIDE RECORDS SUMMARY | ~2020-01-08 | XMS | Encounter Summary ---
Demographics + + + | Address | [address] | | | [place] [address] | + + + | Home Phone | | + + + | Preferred Language | Unknown | + + + | Marital Status | Unknown | + + + | Hindu Affiliation | Unknown | + + + | Race | White | + + + | Ethnic Group | Not or | + + + Author + + + | Author | [facility] | | | and [place] | + + + | Organization | [facility] | | [...] Team Providers + +------+ + | Care Factory Machine Computer Operator Name | Role | Phone | + +------+ + PCP | Unavailable | + +------+ + Encounter Details +--------+ + + + + | Date | Type | Department | Care Team | Description | +--------+ + + + + | 06/10/ | [facility] | Richard Paredes | | | 2015 | Encounter | [facility] | [address] | | | | | MEDICAL CLIN[address] | [address] [place], [place] | | | | | [address] [facility], | [address] | | | | | [place] [address] | | | | | | [phone] | | | +--------+ + + + [...]
--- OUTSIDE RECORDS SUMMARY | ~2020-01-08 | XMS | Encounter Summary ---
Demographics + + + | Address | [address] | | | [place] [address] | + + + | Home Phone [...] Team Providers + +------+ + | Care Otm Consultant Name | Role | Phone | + +------+ + PCP | Unavailable | + +------+ + Encounter Details +--------+ + + + + | Date | Type | Department | Care Team | Description | +--------+ + + + + | 01/12/ | [facility] | Richard Paredes | | | 2016 | Encounter | [facility] | [address] | | | | | [address] | [address]VE [place], [place] | | | | | [place] | [address] | | | | | [address] | | | | | | [phone] | | | +--------+ + + + [...]
--- OUTSIDE RECORDS SUMMARY | ~2020-01-08 | XMS | Encounter Summary ---
Demographics + + + | Address | [address] | | | [place] [address] | + + + | Home Phone [...] Providers + +------+ + | Care Supervisor Maple Products Name | Role | Phone | + +------+ + PCP | Unavailable | + +------+ + Encounter Details +--------+ + + + + | Date | Type | Department | Care Team | Description | +--------+ + + + + | 01/28/ | [facility] | [facility] | Mary Carmen Salcedo | | | 2014 | Encounter | [facility] | [address] | | | | | MEDICAL [facility] [address] | [address] [facility], | | | | | [address]TH [facility], | [place] [address] | | | | | [place] [address] | [phone] | | | | | [phone] | | | +--------+ + + + [...]
--- OUTSIDE RECORDS SUMMARY | ~2020-01-08 | XMS | Encounter Summary ---
Demographics + + + | Address | [address] | | | [place] [address] | + + + | Home Phone | | + + + | Preferred Language | Unknown | + + + | Marital Status | Unknown | + + + | Mu-Ism Affiliation [...] Team Providers + +------+ + | Care Waterproof Coating Machine Tender Name | Role | Phone | + +------+ + PCP | Unavailable | + +------+ + Encounter Details +--------+ + + + + | Date | Type | Department | Care Team | Description | +--------+ + + + + | 09/17/ | [facility] | Tiana Bennett, | | | 2017 | Encounter | [facility] | VARNISH FILTERER [address] | | | | | CENTER [address] | [place] | | | | | [place] | [address] | | | | | [address] | | | | | | [phone] | | | +--------+ + + + [...] IMPRESSION: No acute cardiopulmonary process. JOB #: [id number] | | | Digitally Released by: Jey [...] | | | | | JOB #: [id number] | | Digitally Released by: Jye Richmond | | | | | | Read By: JEY RICHMOND MD | | Date: 09/17/2016 18:16 | | | + + documented in this encounter Visit Diagnoses Not on filedocumented in this encounter"
--- OUTSIDE RECORDS SUMMARY | ~2020-01-08 | XMS | Encounter Summary ---
Demographics + + + | Address | [address] | | | [place] [address] | + + + | Home Phone [...] Team Providers + +------+ + | Care Cleat Blanker Name | Role | Phone | + +------+ + PCP | Unavailable | + +------+ + Encounter Details +--------+ + + + + | Date | Type | Department | Care Team | Description | +--------+ + + + + | 11/17/ | [facility] | Tiana Bennett, | | | 2011 | Encounter | [facility] | ELECTROCARDIOGRAPH OPERATOR [address] | | | | | CENTER [address] | [place] | | | | | [place] | [address] | | | | | [address] | | | | | | [phone] | | | +--------+ + + + [...]
--- OUTSIDE RECORDS SUMMARY | ~2020-01-08 | XMS | Encounter Summary ---
Demographics + + + | Address | [address] | | | [place] [address] | + + + | Home Phone | | + + + | Preferred Language | Unknown | + + + | Marital Status | Unknown | + + + | Baptist Affiliation | Unknown | + + + | Race | White | + + + | Ethnic Group | Not or | + + + Author + + + | Author | [facility] | | | and [place] | + + + | Organization | [facility] | [...] Providers + +------+ + | Care Online Publisher Name | Role | Phone | + +------+ + PCP | Unavailable | + +------+ + Encounter Details +--------+ + + + + | Date | Type | Department | Care Team | Description | +--------+ + + + + | 03/22/ | Hospital | [facility] | Gela Leong | | | 2015 | Encounter | [facility] | [place] [address] | | | | | [address] | [facility] | | | | | [place], [place] | [address] | | | | | [address] | [place] [address] | | | | | [phone] | [phone] | | | | | | | [...] + + | TSH | Routin | 03/22/2015 | | Results for this | | | e | 4:19 PM | | procedure are in the | | | | PST | | results section. | + +--------+ + + + documented in this encounter Results TSH (03/22/2015 4:19 PM PST) + +-------+ + + + | Component | Value | Ref Range | Performed | Pathologist | | | | | At | Signature | + +-------+ + + + | [facility] | 2.22 | 0.40 - 4.68 | EXTERNAL | [...]
--- OUTSIDE RECORDS SUMMARY | ~2020-01-08 | XMS | Encounter Summary ---
Demographics + + + | Address | [address] | | | [place] [address] | + + + | Home Phone | | + + + | Preferred Language | Unknown | + + + | Marital Status | Unknown | + + + | Yazdanism Affiliation [...] Team Providers + +------+ + | Care Straddle Carrier Operator Name | Role | Phone | + +------+ + PCP | Unavailable | + +------+ + Encounter Details +--------+ + + + + | Date | Type | Department | Care Team | Description | +--------+ + + + + | 10/02/ | [facility] | Carl Servin MD | | | 2012 | Encounter | [facility] | [address] | | | | | [address] | [place], [place] | | | | | [place] | [address] | | | | | [address] | | | | | | [phone] | | | +--------+ + + + [...]
--- OUTSIDE RECORDS SUMMARY | ~2020-01-08 | XMS | Encounter Summary ---
Demographics + + + | Address | [address] | | | [place] [address] | + + + | Home Phone [...] Team Providers + +------+ + | Care Criminalist Name | Role | Phone | + +------+ + PCP | Unavailable | + +------+ + Encounter Details +--------+ + + + + | Date | Type | Department | Care Team | Description | +--------+ + + + + | 07/08/ | [facility] | Richard Paredes | | | 2015 | Encounter | [facility] | [address] | | | | | [address] | [place]VE [place], [place] | | | | | [place] | [address] | | | | | [address] | | | | | | [phone] | | | +--------+ + + + [...]
--- OUTSIDE RECORDS SUMMARY | ~2020-01-08 | XMS | Encounter Summary ---
Demographics + + + | Address | [address] | | | [place] [address] | + + + | Home Phone | | + + + | Preferred Language | Unknown | + + + | Marital Status | Unknown | + + + | Roman Catholic [...] Team Providers + +------+ + | Care Intern Brand Name | Role | Phone | + [...] | | | [address] | [place] [address] | | | | | [place] [address] | | | | | | [phone] | | | +--------+ + + + [...]
--- OUTSIDE RECORDS SUMMARY | ~2020-01-08 | XMS | Encounter Summary ---
Demographics + + + | Address | [address] | | | [place] [address] | + + + | Home Phone [...] Team Providers + +------+ + | Care Engineer Internship Name | Role | Phone | + +------+ + PCP | Unavailable | + +------+ + Encounter Details +--------+ + + + + | Date | Type | Department | Care Team | Description | +--------+ + + + + | 05/29/ | [facility] | Adarsh Ren FNP | | | 2013 | Encounter | [facility] | [address] | | | | | [address] | [place], [place] | | | | | [place], [place] | [address] | | | | | [address] | [phone] | | | | | [phone] | | | +--------+ + + + [...]
--- OUTSIDE RECORDS SUMMARY | ~2020-01-08 | XMS | Encounter Summary ---
Demographics + + + | Address | [address] | | | [place] [address] | + + + | Home Phone | | + + + | Preferred Language | Unknown | + + + | Marital Status | Unknown | + + + | Pentecostalism Affiliation | Unknown | + + + | Race | White | + + + | Ethnic Group | Not or | + + + Author + + + | Author | [facility] | | | and [place] | + + + | Organization | [facility] | | | [...] Team Providers + +------+ + | Care Vocational Psychologist Name | Role | Phone | + +------+ + PCP | Unavailable | + +------+ + Encounter Details +--------+ + + + + | Date | Type | Department | Care Team | Description | +--------+ + + + + | 01/12/ | [facility] | Richard Paredes | | | 2016 | Encounter | [facility] | [address] | | | | | MED[facility] [address] | [address] [place], [place] | | | | | [address]TH [facility], | [address] | | | | | [place] [address] | | | | | | [phone] | | | +--------+ + + + [...]
--- OUTSIDE RECORDS SUMMARY | ~2020-01-08 | XMS | Encounter Summary ---
Demographics + + + | Address | [address] | | | [place] [address] | + + + | Home Phone [...] Author + + + | Author | [facility] | | | and [place] | + + + | Organization | [facility] | | | and [...] Team Providers + +------+ + | Care Seasonal Recruiter Name | Role | Phone | + +------+ + PCP | Unavailable | + +------+ + Encounter Details +--------+ + + + + | Date | Type | Department | Care Team | Description | +--------+ + + + + | 08/10/ | Hospital | [facility] | Gela Leong | | | 2015 | Encounter | [facility]PITAL [facility] | [place] [address] | | | | | [address] | [facility] | | | | | [place], [place] | [address] | | | | | [address] | [place] [address] | | | | | [phone] | [phone] | | | | | | | [...] NEGATIVE | EXTERNAL | | | Blood in | | | LAB | | | 1st | | | | | | Specimen, | | | | | | Stool | | | | | + + + + + + | Internal QC | POSITIVE | POSITIVE | EXTERNAL | | | | | | LAB | | + + + + + + | Occult | NEGATIVE | NEGATIVE | EXTERNAL | | | Blood in | | | LAB | | | 2nd | | | | | | Specimen, | | | | | | Stool | | | | | + + [...]
--- OUTSIDE RECORDS SUMMARY | ~2020-01-08 | XMS | Encounter Summary ---
Demographics + + + | Address | [address] | | | [place] [address] | + + + | Home Phone | | + + + | Preferred Language | Unknown | + + + | Marital Status | Unknown | + + + | Quaker Affiliation | Unknown | + + + | Race | White | + + + | Ethnic Group | Not or | + + + Author + + + | Author | [facility] | | | and [place] | + + + | Organization | [facility] | [...] Team Providers + +------+ + | Care Utility Supervisor Boat And Plant Name | Role | Phone | + +------+ + PCP | Unavailable | + +------+ + Encounter Details +--------+ + + + + | Date | Type | Department | Care Team | Description | +--------+ + + + + | 11/20/ | [facility] | Carl Servin MD | | | 2012 | Encounter | [facility] | [address] | | | | | [facility] [address] | [facility] [place] | | | | | [facility], | [address] | | | | | [place] [address] | | | | | | [phone] | | | +--------+ + + + [...]
--- OUTSIDE RECORDS SUMMARY | ~2020-01-08 | XMS | Encounter Summary ---
Demographics + + + | Address | [address] | | | [place] [address] | + + + | Home Phone | | + + + | Preferred Language | Unknown | + + + | Marital Status | Unknown | + + + | Presybeterian Affiliation | Unknown | + + + | Race | White | + + + | Ethnic Group | Not or | + + + Author + + + | Author | [facility] | | | and [place] | + + + | Organization | [facility] | | [...] Providers + +------+ + | Care Manager Winter Name | Role | Phone | + +------+ + PCP | Unavailable | + +------+ + Encounter Details +--------+ + + + + | Date | Type | Department | Care Team | Description | +--------+ + + + + | 04/28/ | [facility] | Richard Paredes | | | 2013 | Encounter | [facility] | [address] | | | | | MEDICAL CLIN[facility] [address] | [address] [place], [place] | | | | | [address]TH [facility], | [address] | | | | | [place] [address] | | | | | | [phone] | | | +--------+ + + + [...]
--- OUTSIDE RECORDS SUMMARY | ~2020-01-08 | XMS | Encounter Summary ---
Demographics + + + | Address | [address] | | | [place] [address] | + + + | Home Phone | | + + + | Preferred Language | Unknown | + + + | Marital Status | Unknown | + + + | Sikh Affiliation | Unknown | + + + | Race | White | + + + | Ethnic Group | Not or | + + + Author + + + | Author | [facility] | | | and [place] | + + + | Organization | [facility] [...] Team Providers + +------+ + | Care Fagot Heater Helper Name | Role | Phone | + +------+ + | Gela Leong DO | PCP | | + +------+ + Reason for Visit + +--------+ + | Reason | Onset | Comments | | | Date | | + +--------+ + | Medication Refill | 08/24/ | | | | 2018 | | [...] | | | DR [address], | [phone] | | | | | [place] [address] | | | | | | [phone] | | | +--------+ + + + [...] this encounter Miscellaneous Notes Telephone Encounter - Clemencia Monroe RN - 08/24/2017 3:00 PM PDTCalled and referred pt to Dr. Leong or [facility] for increasing pain. Pt moved out of area, and has returned to [place], has not been seen since 12/11/16, so unable to prescribe medications, until seen by Dr. Servin, pt has appt on 08/29/17. /SOHAIL BriggsElectronically signed by Clemencia Monroe RN at 08/24 3:02 PM PDTTelephone Encounter - Nathalia Balderrama - 08/24/2017 2:31 PM PDTThe aleks ashley is requesting her gabapentin, tramadol, Vicodin, sumatriptan, Tazidime. Please fax to [facility] in [place]. Electronically signed by Nathalia Balderrama at 2017 2:33 PM PDTdocumented in this encounter Plan of Treatment Not on filedocumented as of this encounter Visit Diagnoses Not on filedocumented in this encounter"
--- OUTSIDE RECORDS SUMMARY | ~2020-01-08 | XMS | Encounter Summary ---
Demographics + + + | Address | [address] | | | [place] [address] | + + + | Home Phone [...] Team Providers + +------+ + | Care Milling Operator Name | Role | Phone | + +------+ + PCP | Unavailable | + +------+ + Encounter Details +--------+ + + + + | Date | Type | Department | Care Team | Description | +--------+ + + + + | 02/11/ | [facility] | Carl Servin MD | | | 2011 | Encounter | [facility] | [address] | | | | | MEDICAL CL[facility] [address] | [facility], [place] | | | | | [address]TH [facility], | [address] | | | | | [place] [address] | | | | | | [phone] | | | +--------+ + + + [...]
--- OUTSIDE RECORDS SUMMARY | ~2020-01-08 | XMS | Encounter Summary ---
Demographics + + + | Address | [address] | | | [place] [address] | + + + | Home Phone [...] Team Providers + +------+ + | Care Treatment Manager Name | Role | Phone | [...] + + | 02/28/ | Emergency | [facility] | Doni Wong | Otalgia of left ear | | 2019 | | [facility] | Venkatesh Marley MD | (Primary Dx) | | | | CENTER [address] | [address] | | | | | [place] | [place], [place] | | | | | [address] | [address] | | | | | [phone] | | | +--------+ + + + [...] documented as of this encounter ED Notes Doni Wong MD - 02/28/2019 12:21 PM PDTFormatting of this note might be d ifferent from the original. [facility] Lauro Melara Emergency Department Encounter Note [address] [place] [id number] PCP:No Physician on file [phone] eMERGENCY dEPARTMENT eNCOUnter CHIEF COMPLAINT Chief Complaint Patient presents with Facial Swelling Cellulitis Otalgia TRIAGE ED Triage Notes, ED Triage Notes Lidia Armijo RN 02/28/2019 11:45 Patient arrives with c/o left earache and left ear hearing loss x 4-5 days. Yesterday kimberly rolle started having increasing pain, swelling/redness of left face/neck yesterday morning. [facility]. Started bactrim. Now swelling/ redness/ pain is worse. HPI Lauro Melara is a 38 y.o. female who presents severe pain to the left ear and l eft face. Patient with ongoing pain. Patient has ongoing pain in the left ear and left fac e she is having pain when she swallows. Patient with ongoing facial pain and ear pain. Patient is on antibiotics currently. She s tates that last night she could not sleep due to the pain pain is worsened over the last 24 hours. 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 LORazepam (ATIVAN) 0.5 mg tablet Take 0.5 mg by mouth as needed for Anxiety or Insomnia . pseudoePHEDrine (SUDAFED) 30 mg tablet Take 60 mg by mouth 2 times daily. sulfamethoxazole-trimethoprim (BACTRIM DS) 800-160 mg per tablet Take 1 tablet by mouth 2 times daily. topiramate (TOPAMAX) 50 MG tablet Take 50 mg by mouth 2 times daily. traZODone (DESYREL) 50 mg tablet Take 50 mg by mouth nightly. ALLERGIES No Known Allergies FAMILY HISTORY Family History Problem Relation Age of Onset Depression Mother Cervical cancer Mother Arthritis Mother Nephrolithiasis Father Other (see comment) Brother problems with digestion Hearing loss Daughter Hypertension Maternal Grandfather High cholesterol Maternal Grandfather Other (see comment) Maternal Grandfather Hepatitis Prostate cancer Maternal Grandfather Colon cancer Maternal Grandfather Diabetes Other Breast cancer Other Asthma Other Alcohol abuse Other Drug abuse Other SOCIAL HISTORY Social History Socioeconomic History Marital status: Single Spouse name: Not on file Number of children: Not on file Years of education: Not on file Highest education level: Not on file Tobacco Use Smoking status: Heavy Tobacco Smoker Packs/day: 0.50 Years: 29.00 Pack years: 14.50 Types: Cigarettes Smokeless tobacco: Never Used Substance and Sexual Activity Alcohol use: Yes Comment: very rare occasion Drug use: Yes Types: Marijuana Comment: oncer every other month Sexual activity: Yes control/protection: Surgical Comment: "tubes tied" REVIEW OF SYSTEMS Please see HPI, All systems negative except as marked. Twelve point review of system comp leted my me. PHYSICAL EXAM VITAL SIGNS: Temp: 36.2 C (97.2 F) Pulse: 89 Resp: 16 SpO2: 99 % BP: 128/65 Constitutional: Well developed, Well nourished, Non-toxic appearance. HENT: Normocephalic, Atraumatic, Bilateral external ears normal, and swelling to the tympa margo membrane no redness mild swelling to the otic canal oropharynx moist, No oral exudates, Nose normal. Neck- Normal range of motion, No tenderness, Supple, No stridor. Left sided fa cial pain is noted Eyes: PERRL, EOMI, Conjunctiva normal, No discharge. Respiratory: Normal breath sounds, No respiratory distress, No wheezing, No chest tenderne ss. Cardiovascular: Normal heart rate, Normal rhythm, No murmurs, No rubs, No gallops. GI: Bowel sounds normal, Soft, No tenderness, No masses, No pulsatile masses. Musculoskeletal: Intact distal pulses, No edema, No tenderness, No cyanosis, No clubbing. Good range of motion in all major joints. No tenderness to palpation or major deformities no rhianna. Neurologic: Alert & oriented x 3, Normal motor function, Normal sensory function, No focal deficits noted, no facial assymetry noted. Equal health information internship in all extremities Psychiatric: Affect normal, Judgment normal, Mood normal. ED COURSE & MEDICAL DECISION MAKING Pertinent Labs & Imaging studies reviewed. (See chart for details) Nursing notes reviewed. Patient appears to have eustachian tube dysfunction she is encouraged to suck on kirby mónica rs to chew gum also encouraged to take pain medication as needed. At this point patient is otherwise stable. Currently patient with ongoing ear pain and facial pain she does not appear to have severe infection at this time she is on antibiotics. I am encouraging her to take some pain medica tion do icing starting anti-inflammatory medicine may help she is encouraged to return if sy mptoms worsen. New Prescriptions HYDROCODONE-ACETAMINOPHEN (NORCO) 5-325 MG PER TABLET Take 1-2 tablets by mouth every 6 hours as needed for Pain. IBUPROFEN (ADVIL,MOTRIN) 600 MG TABLET Take 1 tablet by mouth every 6 hours as needed f or Pain. PREDNISONE (DELTASONE) 20 MG TABLET Take 2 tablets by mouth Daily. Discharge Instructions Take antibiotics as previously prescribed. Take pain medication as needed. FINAL IMPRESSION 1. Otalgia of left ear Acute Portions of this chart may have been created with [employer] voice recognition software. Occasi onal wrong-word or sound-alike substitutions may have occurred due to the inherent santiago itations of voice recognition software. Please read the chart carefully and recognize, using context, where these substitutions have occurred Doni Wong MD 02/28/19 1224 Lidia Fox RN - 02/28/2019 11:42 AM PDTPatient arrives with c/o left earache and left ear hea ring loss x 4-5 days. Yesterday morning started having increasing pain, swelling/redness of left face/neck yesterday morning. [facility] r ear infection. Started bactrim. Now swelling/ redness/ pain is worse. documented in this encounter Plan of Treatment [...] M?MRN: | | | | | | [id number] | | | [id number] | | | riteri | | | [...] | | | St. | | | Ora | | | y | | | [...] | | | St. | | | [place] | | | [facility] | | | [place] | | | [place] | | | Emerge | | | ncy | | | | | | facial | | | | | | swelli | | | ng | | | May | | | 15, | | | 2019 | | | [facility] | | | [facility] | | | [facility]ra | | | y H. | | [...] | | | St. | | | Ora | | | y H. | | [...]
--- OUTSIDE RECORDS SUMMARY | ~2020-01-08 | XMS | Encounter Summary ---
Demographics + + + | Address | [address] | | | [place] [address] | + + + | Home Phone [...] Team Providers + +------+ + | Care Poultry Inseminator Name | Role | Phone | + +------+ + PCP | Unavailable | + +------+ + Encounter Details +--------+ + + + + | Date | Type | Department | Care Team | Description | +--------+ + + + + | 08/17/ | Hospital | [facility] | Gela Leong | | | 2016 | Encounter | [facility] | [place] [address] | | | | | MEDICAL CLIN[facility] [address] | [facility] [address] | | | | | [address]TH [facility], | [address] | | | | | [place] [address] | [place] [address] | | | | | [phone] | [phone] | | | | | | | [...]
--- OUTSIDE RECORDS SUMMARY | ~2020-01-08 | XMS | Encounter Summary ---
Demographics + + + | Address | [address] | | | [place] [address] | + + + | Home Phone [...] Team Providers + +------+ + | Care Theatrical Rigger Name | Role | Phone | + +------+ + PCP | Unavailable | + +------+ + Encounter Details +--------+ + + + + | Date | Type | Department | Care Team | Description | +--------+ + + + + | 02/12/ | Hospital | [facility] | Florian, Oneal | | | 2012 | Encounter | [facility] | [address] | | | | | [address] | [address] | | | | | [place], [place] | [place] | | | | | [address] | [address] | | | | | [phone] | | | | | | | [...]
--- OUTSIDE RECORDS SUMMARY | ~2020-01-08 | XMS | Encounter Summary ---
Demographics + + + | Address | [address] | | | [place] [address] | + + + | Home Phone [...] + | Organization | [facility] | [...] Team Providers + +------+ + | Care Human Resource Advisor Name | Role | Phone | + +------+ + PCP | Unavailable | + +------+ + Encounter Details +--------+ + + + + | Date | Type | Department | Care Team | Description | +--------+ + + + + | 12/27/ | Hospital | [facility] | Gela Leong | | | 2017 | Encounter | [facility] | [place] [address] | | | | | MEDICAL CLIN[facility] [address] | [facility] [address] | | | | | [address] [facility], | [address] | | | | | [place] [address] | [place] [address] | | | | | [phone] | [phone] | | | | | | | [...]
--- OUTSIDE RECORDS SUMMARY | ~2020-01-08 | XMS | Encounter Summary ---
Demographics + + + | Address | [address] | | | [place] [address] | + + + | Home Phone [...] Author + + + | Author | [facility] | | | and [place] | + + + | Organization | [facility] | | | [...] Team Providers + +------+ + | Care Learning Center Instructor Name | Role | Phone | + +------+ + | Kayla Garcia | PCP | | + +------+ + Reason for Referral Evaluate & Treat (Routine) + + + + + + + | Status | Reason | Specialty | Diagnoses / | Referred By | Referred To | | | | | Procedures | Contact | Contact | + + + + + + + | Authorized | Specialty | Physical | Diagnoses | Gonzalez, | [facility] | | | Services | Therapy | Chronic | Jaime Allen MD | [facility] | | | Required | | bilateral | [address] | PHYSICAL | | | | | low back | [address] | TH[address]AP[address] | | | | | pain with | [place], | [place] | | | | | right-sided | [place] [address] | [place], [place] | | | | | sciatica | Phone: | [phone] | | | | | Lumbar | [phone] | Phone: | | | | | radiculopath | Fax: | [phone] | | | | | y Right leg | [phone] | Fax: | | | | | | | [phone] | | | | | paresthesias | | | | | | | Tobacco | | | | | | | use disorder | | | | | | | Opioid | | | | | | | contract | | | | | | | exists | | | | | | | Class 3 | | | | | | | severe | | | | | | | obesity due | | | | | | | to excess | | | | | | | calories | | | | | | | with body | | | | | | | mass index | | | | | | | (BMI) of | | | | | | | 40.0 to 44.9 | | | | | | | in adult, | | | | | | | unspecified | | | | | | | whether | | | | | | | serious | | | | | | | comorbidity | | | | | | | present | | | | | | | (HCC) | | | | | | | Procedures | | | | | | | Update | | | | | | | requested | | | | | | | 11/11 | | | | | | | 11/03- | | | | | | | [facility] | | | + + + + + + + Reason for Visit + + + | Reason | Comments | + + + | Back Pain | | + + + Evaluate & Treat (Routine) + +--------+ + + + + | Status | Reason | Specialty | Diagnoses / | Referred By | Referred To | | | | | Procedures | Contact | Contact | + +--------+ + + + + | Authorizatio | | Physical | Diagnoses | Jose, | Jaime Gonzalez | | n not | | Medicine and | Chronic | ARACELI Garza | Tavon Allen MD [address] | | Required | | Rehabilitatio | back pain | [address] | [address] | | | | n | Lumbar | [address] | [place], | | | | | radiculopath | [place], | [place] [address] | | | | | y | [place] [address] | Phone: | | | | | | Phone: | [phone] | | | | | | [phone] | Fax: | | | | | | Fax: | [phone] | | | | | | [phone] | | + +--------+ + + + + Encounter Details +--------+---------+ + + + | Date | Type | Department | Care Team | Description | +--------+---------+ + + + | 10/30/ | Office | [facility] [place] | Jaime Gonzalez, | Chronic bilateral | | 2020 | Visit | PHYSIATRY [address] | MD [address] | low back pain with | | | | [address] | [place] | right-sided sciatica | | | | [place] | [address] | (Primary Dx); | | | | [address] | | Lumbar | | | | [phone] | | radiculopathy; Right | | | | | | leg paresthesias; | | | | | | Tobacco use | | | | | | disorder; Opioid | | | | | | contract exists; | | | | | | Class 3 severe | | | | | | obesity due to | | | | | | excess calories with | | | | | | body mass index | | | | | | (BMI) of 40.0 to | | | | | | 44.9 in adult, | | | | | | unspecified whether | | | | | | serious comorbidity | | | | | | present (HCC); | | | | | | History of | | | | | | methamphetamine | | | | | | abuse (HCC) | +--------+---------+ + + + Social History [...] + + + | Blood Pressure | 130/70 | 10/31/2019 9:19 AM | | | | | PDT | | + + + + + | Pulse | 100 | 10/31/2019 9:19 AM | | | | | PDT | | + + + + + | Temperature | - | - | | + + + + + | Respiratory Rate | - | - | | + + + + + | Oxygen Saturation | - | - | | + + + + + | Inhaled Oxygen | - | - | | | Concentration | | | | + + + + + | Weight | 124.7 kg (275 lb) | 10/31/2019 9:19 AM | | | | | PDT | | + + + + + | Height | 170.2 cm (5' 7") | 10/31/2019 9:19 AM | | | | | PDT | | + + + + + | Body Mass Index | 43.07 | 10/31/2019 9:19 AM | | | | | PDT | | + + + + + documented in this encounter Patient Instructions Patient Instructions Kayla Fajardo RN - 10/31/2019 9:00 AM PDTThe benefits of physical therapy are not achieved after days or weeks, rather they are achieved over months to years . An individual should plan to continue physical therapy exercises independently at home in definitely, even when an individual is feeling better they should still continue exercises. You are encouraged to maintain physical activity.Inactivity may increase rate of degenera tion when arthritis is involved. Activity helps to maintains function, strength, and mobil ity. Please work towards weight loss, research demonstrates that weight loss is the most effecti ve treatment for back pain. If you have weakness in the legs that is getting slowly worse over time, return to the clin ic for reevaluation. If you have increasing pain, return to the clinic for reevaluation. If you develop profound leg weakness, seek emergent medical attention. If you have bowel and/or bladder incontinence, seek emergent medical attention. Physical therapy has been prescribed. Please participate in physical therapy. If you have not be contacted for an appointment with physical therapy within one week, please contact t clinic. Once you have completed physical therapy please continue the home exercise progr am as outline by physical therapy, indefinitely. Please attend the injection appointment with Max Ramsey MD. If his office has not co ntacted you within one week, to schedule the injection, please contact my clinic. Your inje ction will be performed at [facility]. Please take note of whether your pain is significantly reduced in the hours immediately following the injecti on. Follow-up at the hospital thirty minutes before your scheduled procedure to allow for time to check in. You may eat and drink as usual on the day of the procedure. If you are scheduled for an epidural injection do not take any blood thinning medications f or at least 5-7 days prior to your procedure unless you have been instructed by another phys ician not to discontinue blood thinning medications. If you are having a procedure other than an epidural injection (i.e. facet injection, media l branch block, SI joint injection or other joint injection) it is not absolutely necessary to discontinue blood thinning medications but doing so will decrease the risk of bruising or bleeding. If you have had a prior stroke, DVT or PE or if you are taking blood thinning medication be cause you have atrial fibrillation, a prosthetic cardiac valve replacement or heart stenting do not stop taking your blood thinning medications unless you have permission from your car diologist or primary care provider. All other medications should be taken as usual on the day of the procedure. Common blood thinning medications include: Aspirin (a baby aspirin is o.k.) Ibuprofen (Advil or Motrin) Naproxen (Aleve) Nabumetone (Relafen) Clopidogrel (Plavix) Dipyridamole/ASA (Aggrenox) Warfarin (Coumadin) Dabigatran (Pradaxa) Rivaroxaban (Xarelto) There are many others. If you have questions about your medications and whether or not you should stop any medications please contact our office. If you are having an epidural injection or if you take any medication for relaxation/sedati on on the day of the procedure you must provide a transport truck driver to take you home. For all procedur es it is recommended that someone else drive you home. documented in this encounter Progress Notes Jaime Gonzalez MD - 10/31/2019 9:00 AM PDTFormatting of this note might be different fro m the original. Jaime Gonzalez MD [address] [facility] [address] [place], [place] [id number] FAX: PHYSICAL MEDICINE AND REHABILITATION H&P CHIEF COMPLAINT: Chief Complaint Patient presents with Back Pain HISTORY OF PRESENT ILLNESS: Lauro Melara s a 39 y.o. female being seen today a t the request of ARACELI Garrido for the complaint of back pain that began approximatel y 20 years ago. She reports she had a back surgery approximately 15 years ago. She indicates the surgery helped to reduce symptom for approximately 1-2 years. She reports that the pa in started without any inciting event. The symptoms have been rapidly worsening. She has recently been evaluated with neurosurgery, review of note indicates; " She may pote ntially be a candidate for right L5-S1 foraminotomy. However, given the diffuse somewhat no n focal pain and sensory symptoms in the right lower extremity, the questionable degree of n erve compression at the right L5-S1 foramen, as well as apparent scar tissue around the righ t L5 and S1 nerve root, there is probably only a moderate chance of success with surgical in tervention..."- Aj Good MD. Lauro Recinosterson rates the pain as severe. The symptoms are occasional, daily, con tinuous. Lauro Haider Saritha describes the pain as aching, dull, numbing, pulsating, s harp, shooting, throbbing, tight band and tingling. Lauro Recinosterson describes leg symptoms that occur on her and right side. The leg symptoms are persistent and the symptoms travel from the low back, down "sciatic", into righ t hip, down the right leg. She reports intermittent muscle spasms. Lauro Melara does report numbness in the right leg. She does report weakness of the right leg. Patient states she " can't move 40% of the time". Lauro Melara does report bladder incontinence, that started approximately 9 mon ths ago. Her symptoms improve with rest and changing position. Her symptoms worsen with standing, sitting, running, kneeling, bending and twisting. Lauro Melara has tried PT, Chiropactic, TENS, NSAIDS, Muscle relaxers and Brac es. Lauro Melara most recent course of physical therapy was completed [facility] 1 year ago. Lauro Melara is currently taking gabapentin, tizanidine, and methocarbamol for treatment of pain. 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 cholecalciferol (VITAMIN D-3) 125 mcg (5,000 units) tablet Take 5,000 Units by mouth Da ladi. gabapentin (NEURONTIN) 300 mg capsule Take 600 mg by mouth 3 times daily. ibuprofen (ADVIL,MOTRIN) 600 MG tablet lidocaine (LIDODERM) 5% patch Place 1 patch [...] problems Paternal Grandfather No known problems Son REVIEW OF SYSTEMS: Review of Systems Eyes: Blurred vision: glasses. Musculoskeletal: Positive for back pain and joint pain. Neurological: Positive for tingling and weakness. PHYSICAL EXAMINATION: Blood pressure 130/70, pulse 100, height 1.702 m (5' 7"), weight 124.7 kg (275 lb), not cur rently . Body mass index is 43.07 kg/m. GENERAL: She does appear uncomfortable when seated. HEENT: HEAD/FACE: EYES: Normocephalic and atraumatic. There are no areas of recent trauma. Normal sclerae without icterus. SKIN Limited skin exam shows no significant rashes or lesions. CHEST: The patient is in no acute respiratory distress with unlabored respirations. HEART: Regular rate ABDOMEN: The patient is overweight. NEUROLOGIC: The patient is awake, alert, and oriented to time, place, person. She follows simple and complex commands. Her speech is fluent. She comprehends speech well. She has no apparent deficits with short or care home memory. She has appropriate fund of knowledge Cranial nerves appear grossly intact. Sensory exam:intact sensation to light touch in the upper and lower extremities. Subjective decreased sensation with monofilament testing to non dermatomal pattern to the r ight lower extremity; possibly involving the right L4-5 nerve roots MOTOR EXAM: (5 IS NORMAL) * give-way MUSCLE/ MOVEMENT: RIGHT LEFT Hip Flexion 5 5 Hip Extension 5 5 Knee Flexion 5 4+* Knee Extension 5 5 Extensor Hallicus Longus 5 5 Ankle Dorsiflexion 4+* 5 Plantarflexion 5 5 REFLEX: RIGHT LEFT PATELLAR 1+ 1+ ACHILLES 1+ 1+ MUSCULOSKELETAL The patient localized the majority of the pain to the bilateral L5-S1 (wors e to the right ) and bilateral SI region. RADIOGRAPHIC REVIEW: Lumbar MRI completed on 09/09/2019 was reviewed personally by me , I concur with the result s as reported by the Radiologist. The imaging demonstrates: "No acute finding. Mild disc deg enerative changes L4-5, L5-S1. Mild facet degenerative changes L4-5, L5-S1"-Alfred Reza. IMPRESSION: 1. Chronic bilateral low back pain with right-sided sciatica 2. Lumbar radiculopathy 3. Right leg paresthesias 4. Tobacco use disorder 5. Opioid contract exists 6. Class 3 severe obesity due to excess calories with body mass index (BMI) of 40.0 to 44.9 in adult, unspecified whether serious comorbidity present (HCC) 7. History of methamphetamine abuse (HCC) PLAN: 1. Lauro Melara presents to the clinic today for evaluation and treatment of ba ck pain. Upon physical assessment Lauro Melara is noted with; non dermatomal pattern to the right lower extremity; possibly involving the right L4-5 nerve roots, and bilateral leg weakness. She localized the majority of the pain to the bilateral L5-S1 (worse to the righ t ) and bilateral SI region. We discussed Lauro Melara report of bladder incontinence, she was advised that her imaging does not demonstrate changes that would contribute to incontinence. We discussed that her descriptions of incontinence is more consistent with stress incontine nce. 2. The differential diagnosis most consistent with Lauro Melara's physical asse ssment and report of symptoms included, but is not limited to: lumbar radiculopathy. Lauro Melara was advised of the available treatments for this condition includi ng; weight loss, exercise/Physical Therapy, neuropathic pain medication, interventional ster oid injections, and surgical intervention as a last resort if symptoms and imaging indicate. She was advised that the only interventions that can mechanically alter the nerve irritatio n include weight loss, steroid injections, and surgical intervention. 3. We discussed that the goal of physical therapy is to improve lumbar and core strength to reduce the muscles workload and optimize space surroundings the nerves as they exit in the lumbar spine. We discussed that the benefits of physical therapy are not achieved after days or weeks, ra ther they are achieved over months to years. We discussed that an individual should plan to continue physical therapy exercises independently at home indefinitely. We discussed that e nirmala when an individual is feeling better they should still continue exercises. An updated physical therapy order will be placed today to the [facility] for Lauro Reich son to participate in formal lumbar and core focused physical therapy. 3. Lauro Melara was encouraged to work toward weight loss. We discussed that r esearch indicates that weight loss is the most powerful treatment for back pain. We discuss ed that in order to loose weight we need to burn more calories than we consume. 4. Medication management of symptoms was discussed in detail during today's visit. We disc ussed that the goal of medication use is to make symptoms of pain and numbness less noticeab le. Medication use is not expected to fix or cure the cause of her symptoms. 5. Lauro Melara inquires if this clinic will be able to take over refilling her muscle relaxant and pain medication (hydrocodone). She was advised that opiate medications are not prescribed at this clinic, she may discuss this with her PCP. No new medication will be prescribed today. 6. Today we discussed conservative treatment with an interventional steroid injection for t reatment of lumbar radiculopathy. Lauro Melara was advised that steroid injecti ons are considered a temporary treatment given with the goal of reducing symptoms of pain an d numbness. We discussed that the injection will not fix or cure the underlying cause of the pain. The goal of the steroid injection is to minimize swelling and inflammation that may be causing symptoms of pain. We discussed that injections do not work for everyone. Lauro willsonle Melara was advised that on average an injection may offer 3-6 months of reduced pa in, with 4 months being the average. Steroid injections, if needed, may be repeated up to th ree times yearly. Lauro Melara will have a right L5-S1 TFESI completed under fluoroscopy with Dr. Ramsey for treatment of lumbar radiculopathy. Lauro Melara was instructed to keep a detailed pain diary of the response to tr eatment and will return the pain diary to our office 2 weeks after the procedure. 7. Lauro Melara is advised that She has a loss of bowel or bladder control that She should seek emergent medical attention. Lauro Melara was instructed that if She has progressive or profound weakness that She needs to seek urgent medical attention. Lauro Melara has been advised that if She has any significant changes in streng th that She should return to the clinic on an earlier basis. 8. Lauro Melara will be scheduled to return to the clinic in approximately 8 w eeks with a PA to review her response to injection and physical therapy. Thank you for allowing me to be involved in the care of your patient. If you have any ques tions regarding the care of your patient please don't hesitate to call. Approximately 45 minutes was spent face to face with Lauro Melara, over half of which was spent formulating and discussing their medical treatment plan. I, Jaime Gonzalez MD personally performed the services described in this documentation, as scribed by in my presence, Kayla Fajardo RN and are both accurate and complete. Jaime Gonzalez MD - 10/31/2019 CC:ARACELI Garrido documented in this en counter Plan of Treatment + +---------+--------+ + + | Name | Type | Priori | Associated Diagnoses | Order Schedule | | | | ty | | | + +---------+--------+ + + | FL ROSI Lumbar Sacral | Imaging | Routin | Chronic bilateral | Expected: | | Transforaminal | | e | low back pain with | 10/31/2019, Expires: | | | | | right-sided sciatica | 10/30/2020 | | | | | Lumbar | | | | | | radiculopathy Right | | | | | | leg paresthesias | | | | | | Tobacco use disorder | | | | | | Opioid contract | | | | | | exists Class 3 | | | | | | severe obesity due | | | | | | to excess calories | | | | | | with body mass index | | | | | | (BMI) of 40.0 to | | | | | | 44.9 in adult, | | | | | | unspecified whether | | | | | | serious comorbidity | | | | | | present ([facility]) | | + +---------+--------+ + + + + +--------+ + + | Name | Type | Priori | Associated Diagnoses | Order Schedule | | | | ty | | | + + +--------+ + + | Physical Therapy - | Outpatient | Routin | Chronic bilateral | Ordered: 10/31/2019 | | Ambulatory Referral | Referral | e | low back pain with | | | | | | right-sided sciatica | | | | | | Lumbar | | | | | | radiculopathy Right | | | | | | leg paresthesias | | | | | | Tobacco use disorder | | | | | | Opioid contract | | | | | | exists Class 3 | | | | | | severe obesity due | | | | | | to excess calories | | | | | | with body mass index | | | | | | (BMI) of 40.0 to | | | | | | 44.9 in adult, | | | | | | unspecified whether | | | | | | serious comorbidity | | | | | | present ([facility]) | | + + +--------+ + + documented as of this encounter Visit Diagnoses + + | Diagnosis | + + | Chronic bilateral low back pain with right-sided sciatica - Primary | + + | Lumbar radiculopathy Thoracic or lumbosacral neuritis or radiculitis, unspecified | + + | Right leg paresthesias Disturbance of skin sensation | + + | Tobacco use disorder | + + | Opioid contract exists Reserved for inherently not codable concepts WITHOUT codable | | children | + + | Class 3 severe obesity due to excess calories with body mass index (BMI) of 40.0 to | | 44.9 in adult, unspecified whether serious comorbidity present (HCC) | + + | 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
--- OUTSIDE RECORDS SUMMARY | ~2020-01-08 | XMS | Encounter Summary ---
Demographics + + + | Address | [address] | | | [place] [address] | + + + | Home Phone [...] Organization | [facility] [...] Team Providers + +------+ + | Care Account Services Analyst Name | Role | Phone | [...] | | | CENTER [address] | [facility] | | | | | [address] [place] | [place] [address] | | | | | [address] | [phone] | | | | | [phone] | | | +--------+ + + + [...]
--- OUTSIDE RECORDS SUMMARY | ~2020-01-08 | XMS | Encounter Summary ---
Demographics + + + | Address | [address] | | | [place] [address] | + + + | Home Phone [...] Author + + + | Author | [facility] | | | and [place] | + + + | Organization | [facility] | | | [...] Team Providers + +------+ + | Care Marketing Campaign Analyst Name | Role | Phone | + +------+ + | Gela Leong DO | PCP | | + +------+ + Encounter Details +--------+ + + + + | Date | Type | Department | Care Team | Description | +--------+ + + + + | 01/22/ | Abstract | [facility] | Gela Leong | | | 2018 | | [facility] | [place] [address] | | | | | MEDICAL CL[facility] [address] | [facility] | | | | | [address] [place], | [address] | | | | | [place] [address] | [facility], [place] [address] | | | | | [phone] | [phone] | | | | | | | [...]
--- OUTSIDE RECORDS SUMMARY | ~2020-01-08 | XMS | Encounter Summary ---
Demographics + + + | Address | [address] | | | [place] [address] | + + + | Home Phone [...] Author + + + | Author | [facility] | | | and [place] | + + + | Organization | [facility] | | | [...] Team Providers + +------+ + | Care Home Visitor Name | Role | Phone | + +------+ + PCP | Unavailable | + +------+ + Encounter Details +--------+ + + + + | Date | Type | Department | Care Team | Description | +--------+ + + + + | 10/13/ | Oniel JUARES | Richard Paredes | | | 2014 | Encounter | [facility] | [address] | | | | | MEDICAL CLIN[facility] [address] | [address] [place], [place] | | | | | [facility] [facility], | [address] | | | | | [place] [address] | | | | | | [phone] | | | +--------+ + + + [...]
--- OUTSIDE RECORDS SUMMARY | ~2020-01-08 | XMS | Encounter Summary ---
Demographics + + + | Address | [address] | | | [place] [address] | + + + | Home Phone | | + + + | Preferred Language | Unknown | + + + | Marital Status | Unknown | + + + | Yarsanism Affiliation | Unknown | + + + [...] Providers + +------+ + | Care Electric Hoist Operator Name | Role | Phone | [...] + + + + | 09/17/ | Documentati | RAMIREZ KING | Aj Good | Pain Management | | 2020 | on | NEUROSURGERY [address] | MD [address] | (Initial encounter ) | | | | [address] | [address] | | | | | [place] | [place] | | | | | [address] | [address] | | | | | [phone] | | | +--------+ + + + [...] of this encounter Progress Notes Helen Mott, Landfill Gas Technician - 09/18/2019 2:29 PM PDT The following information was obtained from https://secureaccess.sc.gov/myAccess/saw/select .do on 09/18/19. [facility] STEAM BLOCKER was checked on 09/18/19 and no pain medications have been dispens ed in the last 3 months. docum ented in this encounter Plan of Treatment Not on filedocumented as of this encounter Visit Diagnoses Not on filedocumented in this encounter"
--- OUTSIDE RECORDS SUMMARY | ~2020-01-08 | XMS | Encounter Summary ---
Demographics + + + | Address | [address] | | | [place] [address] | + + + | Home Phone [...] Author + + + | Author | [facility] | | | and [place] | + + + | Organization | [facility] | | [...] Team Providers + +------+ + | Care Flexible Babysitter Name | Role | Phone | + [...] | 2018 | | HOSPITAL EM[facility]Y | DRIVER LICENSE AGENT [address] | foot, initial | | | | CENTER [address] | [place] | encounter (Primary | | | | [place] | [address] | Dx) | | | | [address] | | | | | | [phone] | | | +--------+ + + + [...] Care Everywhere.Bone Bruise (Wood ne Contusion), Understanding (Belarusian)documented in this encounter Medications at Time of [...] documented as of this encounter ED Notes Chris Jones NP - 12/26/2017 10:37 AM PDTFormatting of this note might be different fr om the original. [facility] Emergency Department Provider Note Name: Lauro Melara Date: 12/26/2017 : 1980 Room Number: ED02 PCP: Gela Leong DO ED Course and Medical Decision Making: Lauro Melara presented to the ED for evaluation. All available past medical re cords and nursing notes reviewed. Based on her history and exam the differential diagnosis considered in this visit included contusion versus fracture. X-ray of right foot was obtained and shows-No acute fractures. Shaheed wrap was placed and patient was put in a postop shoe for comfort. Patient will need to follow primary care provider if she fails to improve over the next 7-1 0 days. Final Clinical Impression(s): 1. Contusion of left foot, initial encounter Disposition: Discharged home Condition: Good Plan: -Ice to sore areas for 20 minutes, every 2 hours while awake, as needed for pain this i s especially important for the first 2-3 days. Heat may also be used to help with discomfor t. -Elevate if possible. Where Shaheed wrap and postop shoe as needed for comfort. Work release stating keep extremity elevated as much as possible was provided to patient today. -Use ibuprofen or acetaminophen as needed for pain. Make sure to not exceed recommended do ses. -Protect site from further injury. Rx and Follow up: ED Prescriptions None Follow-up Information Go to Gela Leong DO. Specialty: Family Medicine Why: As needed if no improvement or symptoms worsen. Contact information: [address] [place] [address] [place] [address] Extended ED Note CC: Chief Complaint Patient presents with Foot Pain Method of Arrival: walk-in Treatment GRAPHIC USER INTERFACE DESIGNER (EMS): N/A Treatment GRAPHIC USER INTERFACE DESIGNER (Patient/Family): Intermittent dosing of Ibuprofen HPI: History obtained from: Patient Lauro Melara is a 37 y.o. female who presents with 5 day history of left foot p ain. Patient states she was at the local [facility] tearing down crit with a large heavy pipe melissa ded across the top of her foot. Patient states the foot immediately started swelling and ov er the next several days she had bruising to the top of her foot. Patient has continued to have sharp pain especially in the mornings upon waking up where she is unable to bear weight initially. She states she's been icing it at night elevating it at night and taking interm ittent doses of ibuprofen. She does not feel like this injury is improving despite the brui sing resolving. Review of Systems Review of Systems Musculoskeletal: Positive for arthralgias (Left foot) and joint swelling (Left foot). Physical Exam Vital Signs: Vitals Current 24 Hour Min / Max Temp 35.8 C (96.4 F) Temp Min: 35.8 C (96.4 F) Max: 35.8 C (96.4 F) BP 131/81 BP Min: 131/81 Max: 131/81 HR 92 Pulse Min: 92 Max: 92 Sats 99 % SpO2 Min: 99 % Max: 99 % Physical Exam Constitutional: She is oriented to person, place, and time. She appears well-developed and well-nourished. No distress. Cardiovascular: Normal rate, regular rhythm and normal heart sounds. No murmur heard. Pulmonary/Chest: Effort normal and breath sounds normal. No respiratory distress. She exhib its no tenderness. Musculoskeletal: Feet: Neurological: She is alert and oriented to person, place, and time. Skin: Skin is warm and dry. Psychiatric: She has a normal mood and affect. Chris Jones NP 12/26/17 1132 Catherine Bradford RN - 12/26/2017 10:32 AM PDTPt. Dropped heavy pipe on right foot 1 week ago; pt. C/o right foot swelling and pain and intolerance to bear weight documented in this encounter Plan of Treatment [...] + documented in this encounter Results XR Foot Right 3 + Vw (12/26/2017 10:54 AM PDT) [...] | Procedure Note | + -------+ | Usman, Rad Results In - 12/26/2017 12:51 PM PDT [...]
--- OUTSIDE RECORDS SUMMARY | ~2020-01-08 | XMS | Clinical Summary ---
Demographics + + + | Address | [address] | | | [place] [address] | + + + | Home Phone | | + + + | Preferred Language | Unknown | + + + | Marital Status | Unknown | + + + | Spiritism Affiliation [...] Team Providers + +------+ + | Care Label Folder Name | Role | Phone | + [...] | | + + + +---------+------+------+-------+ | cholecalciferol | Take 5,000 Units by | | 0 | | | Activ | | (VITAMIN D-3) 125 | mouth Daily. | | | | | e | | mcg (5,000 units) | | | | | | | | tablet | | | | | | | + + + +---------+------+------+-------+ | gabapentin | Take 600 mg by mouth | | 0 | 03/2 | | Activ | | (NEURONTIN) 300 mg | 3 times daily. | | | 07/31 | | e | | capsule | | | | 20 | | | + + + +---------+------+------+-------+ | tiZANidine | Take 4 mg by mouth | | 0 | 04/0 | | Activ | | (ZANAFLEX) 4 mg | every 6 hours. | | | 01/31 | | e | | tablet | | | | 20 | | | + + + +---------+------+------+-------+ | CHANTIX CONTINUING | Take 1 mg by mouth 2 | | 0 | 03/2 | | Activ | | MONTH FANTA 1 MG | times daily. | | | 07/31 | | e | | tablet | | | | 20 | | | + + + +---------+------+------+-------+ | methocarbamol | Take 750 mg by mouth | | 0 | 04/1 | | Activ | | (ROBAXIN) 750 mg | 3 times daily as | | | 09/30 | | e | | tablet | needed for Muscle | | | 20 | | | | | spasms. | | | | | | + + + +---------+------+------+-------+ | lidocaine | Place 1 patch onto | | 0 | | | Activ | | (LIDODERM) 5% patch | the skin Daily. | | | | | e | | | Apply for 12 hours, | | | | | | | | then remove for 12 | | | | | | | | hours. | | | | | | + + + +---------+------+------+-------+ | ibuprofen | | | 0 | 06/1 | | Activ | | (ADVIL,MOTRIN) 600 | | | | 1/20 | | e | | MG tablet | | | | 20 | | | + + + +---------+------+------+-------+ Active Problems + + + | Problem | Noted Date | + + + | Opioid contract exists | 04/25/2017 | + + + | Hypothyroidism | 03/23/2015 | + + + | Cervical strain | 03/02/2015 | + + + | Spasm of cervical paraspinous muscle | 03/02/2015 | + + + | Bronchitis | 07/21/2013 | + + + | Back pain | 05/29/2013 | + + + | Lumbar radiculopathy | 05/29/2013 | + + + | Intractable migraine | 07/16/2012 | + + + | Methamphetamine abuse | 03/21/2012 | + + + | Impaired fasting glucose | 02/09/2012 | + + + | Depression | 02/01/2012 | + + + | Abnormal Pap smear of cervix | 02/01/2012 | + + + | Tobacco use disorder | 02/01/2012 | + + + Encounters +--------+---------+ + + + | Date | Type | Specialty | Care Team | Description | +--------+---------+ + + + | 10/30/ | Office | Physical Medicine | Jaime Gonzalez, | Chronic bilateral | | 2020 | Visit | and Rehabilitation | MD | low back pain with | | | | | | right-sided sciatica | | | | | | (Primary Dx); | | | | | | Lumbar | | | | | | radiculopathy; Right | | | [...] abuse (HCC) | +--------+---------+ + + + from Last 3 Months Immunizations + + + + | Name | Administration Dates | Next Due | + + + + | INFLUENZA PF | 01/10/2018 | | | QUAD(PED/ADOL/ADULT) | | | | ,PSKT or VIAL | | | + + + + | INFLUENZA PF | 03/13/2012 | | | TRIVALENT(PED/ADOL/A | | | | DULT), PSKT | | | + + + + | INFLUENZA TRIV | 04/20/2010 | | | W/PRES(PED/ADOL/ADUL | | | | T),MULTIDOSE | | | + + + + | INFLUENZA, [id number], | 03/03/2009 | | | UNSPECIFIED | | | + + + + | Immune Globulin (Ig) | 01/27/1995 | | + + + + | TDAP, (ADOL/ADULT) | 06/10/2019 | | + + + + Family History + + + + + | Medical History | Relation | Name | Comments | + + + + + | Other (see comment) | Brother | | problems with digestion | + + + + + | Hearing loss | Daughter | Jose | | | | | [place] | | + + + + + | Nephrolithiasis | Father | | | + + + + + | Colon cancer | Maternal | | | | | Grandfath | | | | | er | | | + + + + + | High cholesterol | Maternal | | | | | Grandfath | | | | | er | | | + + + + + | Hypertension | Maternal | | | | | Grandfath | | | | | er | | | + + + + + | Other (see comment) | Maternal | | Hepatitis | | | Grandfath | | | | | er | | | + + + + + | Prostate cancer | Maternal | | | | | Grandfath | | | | | er | | | + + + + + | No known problems | Maternal | | | | | Grandmoth | | | | | er | | | + + + + + | Arthritis | Mother | Lori | | | | | Jackie | | | | | Patterso | | | | | n | | + + + + + | Cervical cancer | Mother | Lori | | | | | Jackie | | | | | Patterso | | | | | n | | + + + + + | Depression | Mother | Lori | | | | | Jackie | | | | | Patterso | | | | | n | | + + + + + | Asthma | Other | | | + + + + + | Breast cancer | Other | | | + + + + + | Diabetes | Other | | | + + + + + | Alcohol abuse | Other | | | + + + + + | Drug abuse | Other | | | + + + + + | No known problems | Paternal | | | | | Grandfath | | | | | er | | | + + + + + | No known problems | Paternal | | | | | Grandmoth | | | | | er | | | + + + + + | No known problems | Sister | | | + + + + + | No known problems | Son | | | + + + + + + + +--------+ + | Relation | Name | Status | Comments | + + +--------+ + | Brother | | | | + + +--------+ + | Daughter | Jose | | | | | Destinee | | | + + +--------+ + | Father | | | | + + +--------+ + | Maternal Grandfather | | | | + + +--------+ + | Maternal Grandmother | | | | + + +--------+ + | Mother | Lori | | | | | Jackie | | | | | Melara | | | + + +--------+ + | Other | | | Aunt, unknown Maternal or Paternal | + + +--------+ + | Other | | | General Family | + + +--------+ + | Paternal Grandfather | | | | + + +--------+ + | Paternal Grandmother | | | | + + +--------+ + | Sister | | | | + + +--------+ + | Son | | | | + + +--------+ + Social History + + + +--------+------+ [...] on file | | + + + Last Filed Vital Signs + [...] Health Maintenance | Due Date | Last | Comments | | | | Done | | + + + + + | Hepatitis C | | | | | Screening | 9 | | | + + + + + | Med Mgmt: Vit D | | | | | | 9 | | | + + + + + | Medication | | | | | Management | 9 | | | + + + + + | Vaccine: | | | | | Pneumococcal 19-64 | 5 | | | | (1 of 1 - PPSV23) | | | | + + + + + | Urine Drug Screening | | 01/13/20 | | | | 7 | 16, | | | | | 07/31/19 | | | | | 15, | | | | | 07/08/19 | | | | | 15, | | | | | Addition | | | | | al | | | | | history | | | | | exists | | + + + + + | Cervical Cancer | | 02/09/20 | | | Screening (Pap) | 7 | 12 | | + + + + + | Med Mgmt: BUN | | 12/12/19 | | | | 8 | 17, | | | | | 01/13/20 | | | | | 16, | | | | | 08/18/19 | | | | | 16, | | | | | Addition | | | | | al | | | | | history | | | | | exists | | + + + + + | Med Mgmt: Cr | | 12/12/19 | | | | 8 | 17, | | | | | 01/13/20 | | | | | 16, | | | | | 08/18/19 | | | | | 16, | | | | | Addition | | | | | al | | | | | history | | | | | exists | | + + + + + | Med Mgmt: eGFR | | 12/12/19 | | | | 8 | 17, | | | | | 01/13/20 | | | | | 16, | | | | | 08/18/19 | | | | | 16, | | | | | Addition | | | | | al | | | | | history | | | | | exists | | + + + + + | Vaccine: Influenza | | 01/11/20 | | | (#1) | 0 | 18, | | | | | 03/13/20 | | | | | 12, | | | | | 04/20/20 | | | | | 10, | | | | | Addition | | | | | al | | | | | history | | | | | exists | | + + + + + | Primary Care | | 10/31/19 | | | Outreach (Low Risk) | 2 | 20, | | | | | 09/23/19 | | | | | 20 | | + + + + + | Vaccine: | | 06/10/19 | | | Dtap/Tdap/Td (2 - | 0 | 20 | | | Td) | | | | + + + [...] | [employer] | MODA | [id number] | | [phone] | | Medica | | MEDICAID HMO | HEALTH | | 018-Pr | 1 | | id | | | MDCD | | esent | | | | | | [place] | | | | | | + +--------+ +--------+ +---------+--------+ | [employer] | MOD[employer] | [id number] | 02/28/ | [phone] | | Medica | | MEDICAID HMO [...] Person | Self | [birth year] | | Meliza | al/Fam | | 1980 | -7 | [place] [address] | | | ladi | | | 5 (Home) | | + +--------+ +--------+ + + | Lauro Melara | Person | Self | [birth year] | [birth year][address][birth year] | | Meliza | al/Fam | | 1981 | [phone] | [place] [address] | | | ladi | | | 5 (Home) | | + +--------+ +--------+ + + Advance Directives + + + + + | Type | Date Recorded | Patient | Explanation | | | | Corporate Director | | + + + + + | Power of | | | | | Drawing Hand | | | | + + + + + | Advance | 09/03/2019 3:49 | | | | Directive | PM | | | + + + + +
--- OUTSIDE RECORDS SUMMARY | ~2020-01-08 | XMS | Encounter Summary ---
Demographics + + + | Address | [address] | | | [place] [address] | + + + | Home Phone | | + + + | Preferred Language | Unknown | + + + | Marital Status | Unknown | + + + | Scientologist Affiliation | Unknown | + + + | Race | White | + + + | Ethnic Group | Not or | + + + Author + + + | Author | [facility] | | | and [place] | + + + | Organization | [facility] | | | [...] Team Providers + +------+ + | Care Spine Specialist Name | Role | Phone | + +------+ + PCP | Unavailable | + +------+ + Encounter Details +--------+ + + + + | Date | Type | Department | Care Team | Description | +--------+ + + + + | 09/11/ | Oniel JUARES | Carl Servin MD | | | 2012 | Encounter | [facility] | [address] | | | | | MED[facility] CL[facility] [address] | [facility] [place] | | | | | [address]TH [facility], | [address] | | | | | [place] [address] | | | | | | [phone] | | | +--------+ + + + [...]
--- OUTSIDE RECORDS SUMMARY | ~2020-01-08 | XMS | Encounter Summary ---
Demographics + + + | Address | [address] | | | [place] [address] | + + + | Home Phone [...] Team Providers + +------+ + | Care Slater Apprentice Name | Role | Phone | + +------+ + PCP | Unavailable | + +------+ + Encounter Details +--------+ + + + + | Date | Type | Department | Care Team | Description | +--------+ + + + + | 08/07/ | Hospital | [place] [facility] | Gela Leong | | | 2015 | Encounter | [facility] | [place] [address] | | | | | MEDICAL CLINIC [address] | [facility] [address] | | | | | [address]TH [facility], | [address] | | | | | [place] [address] | [place] [address] | | | | | [phone] | [phone] | | | | | | | [...]
--- OUTSIDE RECORDS SUMMARY | ~2020-01-08 | XMS | Encounter Summary ---
Demographics + + + | Address | [address] | | | [place] [address] | + + + | Home Phone [...] Providers + +------+ + | Care Senior Center Manager Name | Role | Phone | + +------+ + PCP | Unavailable | + +------+ + Encounter Details +--------+ + + + + | Date | Type | Department | Care Team | Description | +--------+ + + + + | 08/12/ | Oniel JUARES | Carl Servin MD | | | 2012 | Encounter | [facility] | [address] | | | | | MEDICAL [facility] [address] | [facility] [place] | | | | | [facility], | [address] | | | | | [place] [address] | | | | | | [phone] | | | +--------+ + + + [...]
--- OUTSIDE RECORDS SUMMARY | ~2020-01-08 | XMS | Encounter Summary ---
Demographics + + + | Address | [address] | | | [place] [address] | + + + | Home Phone [...] Team Providers + +------+ + | Care Physical Therapist Clinic Director Name | Role | Phone | [...] Encounter | [facility] | [address] | | | | | [place] | [place], [place] | | | | | [place], [place] | [address] | | | | | [address] | [phone] | | | | | [phone] | | | +--------+ + + + [...]
--- OUTSIDE RECORDS SUMMARY | ~2020-01-08 | XMS | Encounter Summary ---
Demographics + + + | Address | [address] | | | [place] [address] | + + + | Home Phone [...] Team Providers + +------+ + | Care Early Morning Name | Role | Phone | + +------+ + PCP | Unavailable | + +------+ + Encounter Details +--------+ + + + + | Date | Type | Department | Care Team | Description | +--------+ + + + + | 09/04/ | Hospital | [place] [facility] | Gela Leong | | | 2013 | Encounter | [facility] | [place] [address] | | | | | [address] [address] | [facility] | | | | | [place], [place] | [address] | | | | | [address] | [place] [address] | | | | | [phone] | [phone] | | | | | | | [...]
--- OUTSIDE RECORDS SUMMARY | ~2020-01-08 | XMS | Encounter Summary ---
Demographics + + + | Address | [address] | | | [place] [address] | + + + | Home Phone | | + + + | Preferred Language | Unknown | + + + | Marital Status | Unknown | + + + | Jainism Affiliation | Unknown | + + + | Race | White | + + + | Ethnic Group | Not or | + + + Author + + + | Author | [facility] | | | and [place] | + + + | Organization | [facility] | | | [...] Team Providers + +------+ + | Care Law Professor Name | Role | Phone | + +------+ + | Kayla Garcia | PCP | | + +------+ + Encounter Details +--------+ + + + + | Date | Type | Department | Care Team | Description | +--------+ + + + + | 09/09/ | Imaging | [facility] | Provider, | | | 2020 | Exam | [facility] | MD [address] | | | | | IMAGING [address] | [address] | | | | | [address] | [place] [address] | | | | | [place] [address] | | | | | | [phone] | | | +--------+ + + + [...] SPINE WO | Routin | 09/09/2019 | | Results for this | | CONTRAST | e | 12:00 AM | | procedure are in the | | | | PDT | | results section. | + +--------+ + + + documented in this encounter Results MRI Lumbar Spine wo Contrast (09/09/2019 12:00 AM PDT) + + | Specimen [...]
--- OUTSIDE RECORDS SUMMARY | ~2020-01-08 | XMS | Encounter Summary ---
Demographics + + + | Address | [address] | | | [place] [address] | + + + | Home Phone [...] Team Providers + +------+ + | Care Cane Flume Watchman Name | Role | Phone | + [...] | [place], [place] | [place] [address] | | | | | [address] | [phone] | | | | | [phone] | | | +--------+ + + + [...]
--- OUTSIDE RECORDS SUMMARY | ~2020-01-08 | XMS | Encounter Summary ---
Demographics + + + | Address | [address] | | | [place] [address] | + + + | Home Phone [...] Team Providers + +------+ + | Care Retail Asset Protection Specialist Name | Role | Phone | + +------+ + PCP | Unavailable | + +------+ + Encounter Details +--------+ + + + + | Date | Type | Department | Care Team | Description | +--------+ + + + + | 02/08/ | Oniel JUARES | [place] | | | 2011 | Encounter | [facility] | MD Sheryl [address] | | | | | [address] [place] | [place] | | | | | [place] | [address] | | | | | [address] | [phone] | | | | | [phone] | | | +--------+ + + + [...]
--- OUTSIDE RECORDS SUMMARY | ~2020-01-08 | XMS | Encounter Summary ---
Demographics + + + | Address | [address] | | | [place] [address] | + + + | Home Phone | | + + + | Preferred Language | Unknown | + + + | Marital Status | Unknown | + + + | Rastafarian Affiliation [...] Team Providers + +------+ + | Care Inventory Coordinator Name | Role | Phone | + +------+ + | Kayla Garcia | PCP | | + +------+ + Encounter Details +--------+ + + + + | Date | Type | Department | Care Team | Description | +--------+ + + + + | 05/26/ | Abstract | [facility] | Provider, | | | 2019 | | PHYSIATRY [address] | [address] | | | | | [address] | [address]. | | | | | [place] | [place] [address] | | | | | [address] | | | | | | [phone] | | | +--------+ + + + [...]
--- OUTSIDE RECORDS SUMMARY | ~2020-01-08 | XMS | Encounter Summary ---
Demographics + + + | Address | [address] | | | [place] [address] | + + + | Home Phone | | + + + | Preferred Language | Unknown | + + + | Marital Status | Unknown | + + + | Latter-Day Affiliation | Unknown | + + + | Race | White | + + + | Ethnic Group | Not or | + + + Author + + + | Author | [facility] | | | and [place] | + + + | Organization | [facility] | | | [...] Providers + +------+ + | Care Hr Analyst Name | Role | Phone | [...] | | | CENTER [address] | [facility] | | | | | [address] [place] | [place] [address] | | | | | [address] | [phone] | | | | | [phone] | | | +--------+ + + + [...]
--- OUTSIDE RECORDS SUMMARY | ~2020-01-08 | XMS | Encounter Summary ---
Demographics + + + | Address | [address] | | | [place] [address] | + + + | Home Phone | | + + + | Preferred Language | Unknown | + + + | Marital Status | Unknown | + + + | Yazidism Affiliation [...] Team Providers + +------+ + | Care Page Makeup System Operator Name | Role | Phone | + +------+ + PCP | Unavailable | + +------+ + Encounter Details +--------+ + + + + | Date | Type | Department | Care Team | Description | +--------+ + + + + | 01/22/ | Oniel JUARES | Carl Servin MD | | | 2012 | Encounter | [facility] | [address] | | | | | [address] | [place], [place] | | | | | [place], [place] | [id number] | | | | | [address] | | | | | | [phone] | | | +--------+ + + + [...]
--- OUTSIDE RECORDS SUMMARY | ~2020-01-08 | XMS | Encounter Summary ---
Demographics + + + | Address | [address] | | | [place] [address] | + + + | Home Phone [...] Team Providers + +------+ + | Care Mold Filling Operator Name | Role | Phone | + +------+ + | Kayla Garcia | PCP | | + +------+ + Encounter Details +--------+ + + + + | Date | Type | Department | Care Team | Description | +--------+ + + + + | 09/17/ | Abstract | [facility] | Provider, | | | 2019 | | NEUROSURGERY [address] | [address] | | | | | [address] | [address] | | | | | [place], [place] | [place] [address] | | | | | [address] | | | | | | [phone] | | | +--------+ + + + [...]
--- OUTSIDE RECORDS SUMMARY | ~2020-01-08 | XMS | Encounter Summary ---
Demographics + + + | Address | [address] | | | [place] [address] | + + + | Home Phone [...] Team Providers + +------+ + | Care Title 1 Tutor Name | Role | Phone | + +------+ + PCP | Unavailable | + +------+ + Encounter Details +--------+ + + + + | Date | Type | Department | Care Team | Description | +--------+ + + + + | 07/08/ | Oniel JUARES | Richard Paredes | | | 2015 | Encounter | [facility] | [address] | | | | | MEDICAL CLIN[facility] [address] | [address] [place], [place] | | | | | [address]TH [facility], | [address] | | | | | [place] [address] | | | | | | [phone] | | | +--------+ + + + [...]
--- OUTSIDE RECORDS SUMMARY | ~2020-01-08 | XMS | Encounter Summary ---
Demographics + + + | Address | [address] | | | [place] [address] | + + + | Home Phone | | + + + | Preferred Language | Unknown | + + + | Marital Status | Unknown | + + + | Scientology Affiliation [...] Team Providers + +------+ + | Care Counter Professional Name | Role | Phone | + +------+ + PCP | Unavailable | + +------+ + Encounter Details +--------+ + + + + | Date | Type | Department | Care Team | Description | +--------+ + + + + | 11/18/ | Oniel JUARES | Carl Servin MD | | | 2012 | Encounter | [facility] | [address] | | | | | [address] | [place], [place] | | | | | [place], [place] | [phone] | | | | | [address] | | | | | | [phone] | | | +--------+ + + + [...]
--- OUTSIDE RECORDS SUMMARY | ~2020-01-08 | XMS | Encounter Summary ---
Demographics + + + | Address | [address] | | | [place] [address] | + + + | Home Phone | | + + + | Preferred Language | Unknown | + + + | Marital Status | Unknown | + + + | Hinduism Affiliation | Unknown | + + + | Race | White | + + + | Ethnic Group | Not or | + + + Author + + + | Author | [facility] | | | and [place] | + + + | Organization | [facility] [...] Providers + +------+ + | Care Senior Oracle Database Administrator Name | Role | Phone | + +------+ + PCP | Unavailable | + +------+ + Encounter Details +--------+ + + + + | Date | Type | Department | Care Team | Description | +--------+ + + + + | 02/08/ | Oniel JUARES | Pnia [place] | | | 2011 | Encounter | [facility] | MD Sheryl [address] | | | | | [facility] [address] | [place], [place] | | | | | [address] [place], | [address] | | | | | [place] [address] | [phone] | | | | | [phone] | | | +--------+ + + + [...]
--- OUTSIDE RECORDS SUMMARY | ~2020-01-08 | XMS | Encounter Summary ---
Demographics + + + | Address | [address] | | | [place] [address] | + + + | Home Phone [...] | Author | [facility] | | | and [place] | + + + | Organization | [facility] | | | and [...] Providers + +------+ + | Care Restaurant Crew Member Name | Role | Phone | + +------+ + PCP | Unavailable | + +------+ + Encounter Details +--------+ + + + + | Date | Type | Department | Care Team | Description | +--------+ + + + + | 10/13/ | Oniel JUARES | Richard Paredes | | | 2015 | Encounter | [facility] | [address] | | | | | MEDICAL CL[facility] [address] | [address] [place], [place] | | | | | [address] [facility], | [address] | | | | | [place] [address] | | | | | | [phone] | | | +--------+ + + + [...]
--- OUTSIDE RECORDS SUMMARY | ~2020-01-08 | XMS | Encounter Summary ---
Demographics + + + | Address | [address] | | | [place] [address] | + + + | Home Phone [...] Team Providers + +------+ + | Care Ortho Assistant Name | Role | Phone | [...] | | | [address] | [place] [address] | | | | | [place] [address] | | | | | | [phone] | | | +--------+ + + + [...]
--- OUTSIDE RECORDS SUMMARY | ~2020-01-08 | XMS | Encounter Summary ---
Demographics + + + | Address | [address] | | | [place] [address] | + + + | Home Phone [...] | Organization | [facility] [...] Team Providers + +------+ + | Care Pe Manager Name | Role | Phone | [...] | [address] [place], [place] | [place] [address] | | | | | [address] | [phone] | | | | | [phone] | | | +--------+ + + + [...]
--- OUTSIDE RECORDS SUMMARY | ~2020-01-08 | XMS | Encounter Summary ---
Demographics + + + | Address | [address] | | | [place] [address] | + + + | Home Phone [...] Organization | [facility] [...] Team Providers + +------+ + | Care Health Safety Coordinator Name | Role | Phone | [...] [place] | | | | | [place], [place] | [address] | | | | | [address] | | | | | | [phone] | | | +--------+ + + + [...] Normal exam. Job | | | #: [id number] Read By: JEY RICHMOND MD Released By: JEY | | | Ruby RICHMOND MD Date: 03/19/2015 12:15 | | + + + + + | Procedure Note | + + | Rivera Mary In - 03/21/2017 8:49 PM PST ORIGINAL [...] | carotid atherosclerosis. IMPRESSION:Normal exam. Job #: [id number] Read By: | | JEY RICHMOND MD Released By: JEY RICHMOND MDDate: 03/19/2015 12:15 | | | |COMPARISON: [...]
[~2020-01-08 17:34] MED LIST changes: +LORAZEPAM0.5 MG PO; +PREDNISONE20 MG PO; +TIZANIDINE HCL4 M1 PO; +ULTRAM50 MG PO
--- OUTSIDE RECORDS SUMMARY | 2020-01-08 17:38 | XMS ---
PreManage Notification: JAMEY BROWNE Security Logger Driving Horses Events No recent Security Events currently on file CRITERIA MET - [facility] - Has Care Guidelines - PDMP CARE PROVIDERS RAMILA OLVERA [facility] Current PHONE: [phone] Name [facility] 05/19/2019-Current PHONE: [phone] Guidelines Source: [employer] [place] Guidelines Date: 10/01/2018 Care Coordination: Mental health services are being provided by [employer].\T\nbsp; Please contact [employer] with mental health concerns.\T\nbsp; [facility]: \T\nbsp; [place]: [phone]. Care History Medical/Surgical 05/19/2019 [facility] \T\middot;\T\nbsp; PATIENT- [place] ELIGIBLE \T\middot;\T\nbsp; PLEASE REFER PATIENT TO [facility] FOR NON EMERGENT MEDICAL NEEDS. \T\middot;\ T\nbsp; [facility] CAN SEE PATIENTS SAME DAY FOR APTS IF PATIENT CALLS FIRST THING IN THE MORNING. Sharif [facility] MO.) [facility] [place] [place] TOTAL 5 NOTE: Visits indicate total known visits. ED/UCC VISIT TRACKING (12 MO.) 01/08/2020 17:35 [place] TYPE: Emergency COMPLAINT: - HEADACHE, VISION PROBLEMS 08/18/2019 16:58 [facility] TYPE: Emergency COMPLAINT: - BACK PAIN DIAGNOSES: - Other terminal gauger supervisor (current) drug therapy - Low back pain - Exposure to other specified factors, initial encounter - Nicotine dependence, unspecified, uncomplicated - Strain of muscle, fascia and tendon of lower back, initial en 05/17/2019 17:20 [facility] TYPE: Emergency COMPLAINT: - MIGRAINE DIAGNOSES: - Migraine, unspecified, not intractable, without status migrai - Other terminal gauger supervisor (current) drug therapy - Nicotine dependence, unspecified, uncomplicated - Headache [facility] DIAGNOSES: - Other specified disorders of Eustachian tube, unspecified ear - Otalgia - ear pain [facility]/28/2019 [facility] DIAGNOSES: - facial swelling - Otalgia, left ear - Otalgia - Cellulitis INPATIENT VISIT TRACKING (12 MO.) No inpatient visits to display in this time frame [email or web address]
[2020-01-08] MEDS ORDERED: ONDANSETRON ODT8 MG PO (19:38)
[2020-01-08] MEDS ORDERED: REGLAN10 MG PO (19:38)
== END 2020-01-08 20:10 | disposition home or self-care (01) ==
LOC: ED 17:34
DX: G43.909 Migraine, unspecified, not intractable, without status migrainosus (principal); K29.00 Acute gastritis without bleeding; F17.200 Nicotine dependence, unspecified, uncomplicated; Z79.899 Other long term (current) drug therapy
CPT/HCPCS: 80053; 85025; 96361; 96374; 96375; 99284-25; J1100; J1200; J1885; J2765; J7030

== ENCOUNTER 2020-05-23 16:05 | Emergency (ER) | payer OTHER ==
[~2020-05-23] VITALS: Ht 172.7 cm; Wt 118.3 kg
[~2020-05-23 16:05] MED LIST changes: +ONDANSETRON ODT8 MG PO; +REGLAN10 MG PO
--- OUTSIDE RECORDS SUMMARY | 2020-05-23 16:08 | XMS ---
PreManage Notification: JAMEY BROWNE Security Tablet Tester Events No recent Security Events currently on file [facility]: [phone] Name Unknown Clinic/Center 05/19/2019-Current PHONE: [phone] Care Guidelines exist for the following facilities: [facility] ( 10/01/2018 ) Care History Medical/Surgical 05/19/2019 [facility] \T\middot;\T\nbsp; PATIENT- [place] ELIGIBLE \T\middot;\T\nbsp; PLEASE REFER PATIENT TO [facility] FOR NON EMERGENT MEDICAL NEEDS. \T\middot;\ T\nbsp; [facility] CAN SEE PATIENTS SAME DAY FOR APTS IF PATIENT CALLS FIRST THING IN THE MORNING. Sharif VISIT COUNT (12 MO.) 3 SHELBY Comer TOTAL 3 NOTE: Visits indicate total known visits. ED/UCC VISIT TRACKING (12 MO.) 05/23/2020 16:06 [facility] [place] TYPE: Emergency COMPLAINT: - ABD PAIN 01/08/2020 17:35 [facility] [place] TYPE: Emergency COMPLAINT: - HEADACHE, VISION PROBLEMS DIAGNOSES: - Migraine, unspecified, not intractable, without status migrainosus - Other fpc (current) drug therapy - Headache - Acute gastritis without bleeding - Nicotine dependence, unspecified, uncomplicated 08/18/2019 16:58 [facility] [place] TYPE: Emergency COMPLAINT: - BACK PAIN DIAGNOSES: - Other fpc (current) drug therapy - Low back pain - Exposure to other specified factors, initial encounter - Nicotine dependence, unspecified, uncomplicated - Strain of muscle, fascia and tendon of lower back, initial encounter INPATIENT VISIT TRACKING (12 MO.) No inpatient visits to display in this time frame [id number]
[2020-05-23] MEDS ORDERED: METHOCARBAMOL750 MG PO (16:28)
== END 2020-05-23 19:13 | disposition home or self-care (01) ==
LOC: ED 16:05
DX: R10.30 Lower abdominal pain, unspecified (principal); R50.9 Fever, unspecified; G43.909 Migraine, unspecified, not intractable, without status migrainosus; F17.200 Nicotine dependence, unspecified, uncomplicated; Z79.899 Other long term (current) drug therapy
CPT/HCPCS: 74177; 80053; 81001; 84703; 85025; 99284-25; J7030; Q9967

== ENCOUNTER 2021-03-28 16:00 | Emergency (ER) | payer OTHER ==
[~2021-03-28] VITALS: Ht 172.7 cm; Wt 139.0 kg
[~2021-03-28 16:00] MED LIST changes: +METHOCARBAMOL750 MG PO
--- OUTSIDE RECORDS SUMMARY | 2021-03-28 16:02 | XMS ---
PreManage Notification: JAMEY BROWNE Security Senior Care Manager Events 1 event(s) in the past 18 months Most recent security events: Elopement at [facility] 10/15/2020 16:59 - Other Details: PATIENT LWBS. CRITERIA MET - PDMP CARE PROVIDERS [facility] Current PHONE: [phone] [facility] 05/19/2019-[facility] PHONE: [phone] Care Guidelines exist for the following facilities: [facility] ( 06/28/2020 ) Care History Medical/Surgical 05/19/2019 [facility] \T\middot;\T\nbsp; PATIENT- [place] ELIGIBLE \T\middot;\T\nbsp; PLEASE REFER PATIENT TO [facility] FOR NON EMERGENT MEDICAL NEEDS. \T\middot;\ T\nbsp; [facility] CAN SEE PATIENTS SAME DAY FOR APTS IF PATIENT CALLS FIRST THING IN THE MORNING. Sharif VISIT COUNT (12 MO.) 1 [facility] 3 SHELBY Comer TOTAL 4 NOTE: Visits indicate total known visits. ED/UCC VISIT TRACKING (12 MO.) 03/28/2021 16:00 [facility] [place] TYPE: Emergency COMPLAINT: - HEADACHE 10/15/2020 18:23 [facility] EdieDeandreUliDeandre [facility] TYPE: Emergency DIAGNOSES: - Diarrhea, unspecified - Chest Pain - D/ABD Bloating/ chest Pain - Upper abdominal pain, unspecified - Vomiting, unspecified - Syncope and collapse - Fatty (change of) liver, not elsewhere classified - Abdominal Pain 10/15/2020 16:59 SHELBY Elizabeth TYPE: Emergency COMPLAINT: - STOMACH/ FEET SWELLING 05/23/2020 16:06 [facility] [place] TYPE: Emergency COMPLAINT: - ABD PAIN DIAGNOSES: - Lower abdominal pain, unspecified - Nicotine dependence, unspecified, uncomplicated - Fever, unspecified - Migraine, unspecified, not intractable, without status migrainosus - Other marine oil terminal superintendent (current) drug therapy INPATIENT VISIT TRACKING (12 MO.) No inpatient visits to display in this time frame [id number]
[2021-03-28] MEDS ORDERED: IMITREX50 MG PO (18:17)
[2021-03-28] MEDS ORDERED: METOCLOPRAMIDE10 MG PO (18:17)
== END 2021-03-28 18:40 | disposition home or self-care (01) ==
LOC: ED 16:00
DX: R51.9 Headache, unspecified (principal); F17.200 Nicotine dependence, unspecified, uncomplicated; Z88.2 Allergy status to sulfonamides; Z79.899 Other long term (current) drug therapy
CPT/HCPCS: 96374; 96375; 99283-25; J1100; J1200; J1885; J2765; J7030

== ENCOUNTER 2021-04-17 15:32 | Emergency (ER) | payer OTHER ==
[~2021-04-17] VITALS: Ht 172.7 cm; Wt 145.2 kg
[~2021-04-17 15:32] MED LIST changes: +IMITREX50 MG PO; +METOCLOPRAMIDE10 MG PO
--- OUTSIDE RECORDS SUMMARY | 2021-04-17 15:34 | XMS ---
PreManage Notification: JAMEY BROWNE Security Student Truck Driver Events 1 event(s) in the past 18 months Most recent security events: Elopement at [facility] 10/15/2020 16:59 - Other Details: PATIENT LWBS. CRITERIA MET - PDMP - [facility] - 2 Visits in 30 Days CARE PROVIDERS [facility] Current PHONE: [phone] [facility]: [phone] [facility] [facility] PHONE: [phone] Care Guidelines exist for the following facilities: [facility] ( 06/28/2020 ) Sharif VISIT COUNT (12 MO.) 1 Moe [facility] 4 SHELBY Comer TOTAL 5 NOTE: Visits indicate total known visits. ED/UCC VISIT TRACKING (12 MO.) 04/17/2021 15:33 [facility] TYPE: Emergency COMPLAINT: - SHORTNESS OF BREATH 03/28/2021 16:00 [facility] [place] TYPE: Emergency COMPLAINT: - HEADACHE DIAGNOSES: - Other fdc (current) drug therapy - Allergy status to sulfonamides - Nicotine dependence, unspecified, uncomplicated - Headache, unspecified [facility]2020 [facility] DIAGNOSES: - Diarrhea, unspecified - Chest Pain - D/ABD Bloating/ chest Pain - Upper abdominal pain, unspecified - Vomiting, unspecified - Syncope and collapse - Fatty (change of) liver, not elsewhere classified - Abdominal Pain 10/15/2020 16:59 [facility] [place] TYPE: Emergency COMPLAINT: - STOMACH/ FEET SWELLING 05/23/2020 16:[address] [facility] [place] TYPE: Emergency COMPLAINT: - ABD PAIN DIAGNOSES: - Lower abdominal pain, unspecified - Nicotine dependence, unspecified, uncomplicated - Fever, unspecified - Migraine, unspecified, not intractable, without status migrainosus - Other fdc (current) drug therapy INPATIENT VISIT TRACKING (12 MO.) No inpatient visits to display in this time frame [id number]
[2021-04-17] MEDS ORDERED: FUROSEMIDE5 GM PO (16:01)
[2021-04-17] MEDS ORDERED: DOXYCYCLINE HY100 MG PO (21:16)
[2021-04-17] MEDS ORDERED: PREDNISONE20 MG PO (21:16)
[2021-04-17] MEDS ORDERED: VENTOLIN HFA18 GM INH (21:17)
[2021-04-17] MEDS ORDERED: BENZONATATE100 MG PO (21:22)
--- NOTE | 2021-04-19 15:45 | EKG ---
[facility] [address] [facility] [place] [address] Signed Normal sinus rhythm Low voltage QRS Borderline ECG No previous ECGs available Confirmed by CONSTANTINE HARRIS MD ([id number]) on 04/19/2021 3:45:24 PM Electronically Signed By: CONSTANTINE HARRIS MD 04/19/21 1545 PATIENT NAME: JAMEY BROWNE Electrocardiogram DATE OF : 76 PHYSICIAN: CONSTANTINE HARRIS MD REPORT #: [id number] REPORT IS CONFIDENTIAL AND NOT TO BE RELEASED WITHOUT AUTHORIZATION
== END 2021-04-17 21:47 | disposition home or self-care (01) ==
LOC: ED 15:32
DX: J40 Bronchitis, not specified as acute or chronic (principal); R60.0 Localized edema; F17.200 Nicotine dependence, unspecified, uncomplicated; Z79.899 Other long term (current) drug therapy; Z20.822 Contact with and (suspected) exposure to COVID-19
CPT/HCPCS: 71045; 71260; 80053; 83880; 84484; 85025; 85379; 93005; 93010; 94640; 99285-25; C9803; J1100; Q9967; U0003

== ENCOUNTER 2022-12-21 21:41 | Emergency (ER) | payer OTHER ==
[~2022-12-21] VITALS: Ht 172.7 cm; Wt 126.1 kg
--- OUTSIDE RECORDS SUMMARY | ~2022-12-21 | XMS | Continuity of Care Document ---
Demographics + + + | Address | [address] | | | [place] [address] | + + + | Preferred Language | Unknown | + + + | Marital Status | Polygamous | + + + | Presybeterian Affiliation | Unknown | + + + | Race | or | + + + | Ethnic Group | Not or | + + + Author + + + | Author | [facility] | + + + | Organization | [facility] | + + + | Address | [address] [place] [address] | | | [place] [address] | + + + | Phone | | + + + Care Team Providers + + + + | Care Immigration Coordinator Name | Role | Phone | + + + + Unavailable | Unavailable | + + + + Unavailable | Unavailable | + + + + Allergies and Intolerances + + + + + + | date | description | facility | reaction | severity | + + + + + + | (no date) | Sulfur dioxide [facility] (no reaction) | (no severity) [facility] | | | + + + + + + | (no date) | Urticaria | [facility] | (no reaction) | (no severity) | | [facility] | | | + + + + + + | (no date) | Sulfur dioxide [facility] | (no reaction) | (no severity) | | [facility] | | | + + + + + + | (no date) | sulfur dioxide | [facility] | (no reaction) | (no severity) | | | | | | | + + + + + + Encounters No information. Functional Status No information. Immunizations No information. Medications + + + + | date | description | facility | + + + + | 2022-11-16 00:00 | GABAPENTIN | [facility] | + + + + | 2018-02-28 00:00 | NAPROXEN | [facility] | + + + + | 2021-04-17 00:00 | DOXYCYCLINE HYCLATE | [facility] | + + + + | 2021-04-17 00:00 | BENZONATATE | [facility] | + + + + | 2022-11-16 00:00 | LORAZEPAM | [facility] | + + + + | 2022-11-16 00:00 | METHOCARBAMOL | [facility] | + + + + | 2022-11-16 00:00 | Ibuprofen | [facility] | + + + + | 2020-01-08 00:00 | METOCLOPRAMIDE HCL | [facility] | + + + + | 2021-03-28 00:00 | SUMATRIPTAN SUCCINATE | [facility] | + + + + | 2021-03-28 00:00 | METOCLOPRAMIDE HCL | [facility] | + + + + | 2020-01-08 00:00 | ONDANSETRON | [facility] | + + + + | 2019-08-18 00:00 | predniSONE | [facility] | + + + + | 2021-04-17 00:00 | predniSONE | [facility] | + + + + | 2022-11-16 00:00 | TIZANIDINE HCL | [facility] | + + + + | 2018-02-28 00:00 | CYCLOBENZAPRINE HCL | [facility] | + + + + | 2022-11-16 00:00 | TRAMADOL HCL | [facility] | + + + + | 2022-11-16 00:00 | TRAZODONE HCL | [facility] | + + + + | 2018-02-28 00:00 | HYDROCODONE | [facility] | | | BIT/ACETAMINOPHEN | | + + + + | 2019-08-18 00:00 | HYDROCODONE | [facility] | | | BIT/ACETAMINOPHEN | | + + + + | 2021-04-17 00:00 | ALBUTEROL SULFATE | [facility] | + + + + Problems + + + + | date | description | facility | + + + + | 2018-01-30 00:00 | Encounter for medical | [facility] | | | screening examination | | + + + + | 2018-02-28 00:00 | Pain of rhomboid muscle | [facility] | + + + + | 2019-08-18 00:00 | Strain of lumbar region | [facility] | + + + + | 2020-10-15 00:00 | Patient left without being | [facility] | | | seen | | + + + + | 2021-03-28 00:00 | Acute headache | [facility] | + + + + | 2021-09-30 15:00 | Acute suppurative otitis | [facility] | | | media without spontaneous [facility] | | | rupture of ear drum, left | | | | ear | | + + + + | 2021-09-30 15:00 | Acute maxillary sinusitis, | [facility] | | | unspecified | [facility] | + + + + | 2022-11-16 00:00 | Injury of extremity | [facility] | + + + + Procedures No information. Results/Labs No information. Social History No information. Vital Signs + + + +---------+ | date | measurement | value | units | + + + +---------+ | 2022-11-16 00:00 | BMI | 42.3 | kg/m2 | + + + +---------+ | 2022-11-16 00:00 | BP_diastolic | 72 | mmHg | + + + +---------+ | 2022-11-16 00:00 | BP_systolic | 149 | mmHg | + + + +---------+ | 2022-11-16 00:00 | heart_rate | 80 | /min | + + + +---------+ | 2022-11-16 00:00 | height_metric | 172.72 | cm | + + + +---------+ | 2022-11-16 00:00 | height_standard | 68 | in | + + + +---------+ | 2022-11-16 00:00 | o2_saturation | 99 | % | + + + +---------+ | 2022-11-16 00:00 | respiration_rate | 16 | /min | + + + +---------+ | 2022-11-16 00:00 | temperature_metric | 36.67 | C | | | | | | + + + +---------+ | 2022-11-16 00:00 | | 98 | F | | | temperature_standar | | | | | d | | | + + + +---------+ | 2022-11-16 00:00 | weight_metric | 126.3 | kg | + + + +---------+ | 2022-11-16 00:00 | weight_standard | 278.44 | lb | + + + +---------+"
--- OUTSIDE RECORDS SUMMARY | ~2022-12-21 | XMS | Continuity of Care Document ---
Demographics + + + | Address | [address] | | | [place] [address] | + + + | Preferred Language | Unknown | + + + | Marital Status | Polygamous | + + + | Sabianist Affiliation | Unknown | + + + | Race | or | + + + | Ethnic Group | Not or | + + + Author + + + | Author | [facility] | + + + | Organization | [facility] | + + + | Address | [address] [place] [address] | | | [place] [address] | + + + | Phone | | + + + Care Team Providers + + + + | Care Slip Cover Cutter Name | Role | Phone | + [...] + | 2022-11-16 00:00 | GABAPENTIN | [facility] | + + + + | 2018-02-28 00:00 | NAPROXEN | [facility] | + + + + | 2021-04-17 00:00 | DOXYCYCLINE HYCLATE | [facility] | + + + + | 2021-04-17 00:00 | BENZONATATE | [facility] | + + + + | 2022-11-16 00:00 | LORAZEPAM | [facility] | + + + + | 2022-11-16 00:00 | METHOCARBAMOL | [facility] | + + + + | 2022-11-16 00:00 | Ibuprofen | [facility] | + + + + | 2020-01-08 00:00 | METOCLOPRAMIDE HCL | [facility] | + + + + | 2021-03-28 00:00 | SUMATRIPTAN SUCCINATE | [facility] | + + + + | 2021-03-28 00:00 | METOCLOPRAMIDE HCL | [facility] | + + + + | 2020-01-08 00:00 | ONDANSETRON | [facility] | + + + + | 2019-08-18 00:00 | predniSONE | [facility] | + + + + | 2021-04-17 00:00 | predniSONE | [facility] | + + + + | 2022-11-16 00:00 | TIZANIDINE HCL | [facility] | + + + + | 2018-02-28 00:00 | CYCLOBENZAPRINE HCL | [facility] | + + + + | 2022-11-16 00:00 | TRAMADOL HCL | [facility] | + + + + | 2022-11-16 00:00 | TRAZODONE HCL | [facility] | + + + + | 2018-02-28 00:00 | HYDROCODONE | [facility] | | | BIT/ACETAMINOPHEN | | + + + + | 2019-08-18 00:00 | HYDROCODONE | [facility] | | | BIT/ACETAMINOPHEN | | + + + + | 2021-04-17 00:00 | ALBUTEROL SULFATE | [facility] | + + + + Problems + + + + | date | description | facility | + + + + | 2018-01-30 00:00 | Encounter for medical | [facility] | | | screening examination | | + + + + | 2018-02-28 00:00 | Pain of rhomboid muscle | [facility] | + + + + | 2019-08-18 00:00 | Strain of lumbar region | [facility] | + + + + | 2020-10-15 00:00 | Patient left without being | [facility] | | | seen | | + + + + | 2021-03-28 00:00 | Acute headache | [facility] | + + + + | [...] 00:00 | Injury of extremity | [facility] | + + + + Procedures No [...]
[~2022-12-21 21:41] MED LIST changes: +BENZONATATE100 MG PO; +DOXYCYCLINE HY100 MG PO; +FUROSEMIDE5 GM PO; +VENTOLIN HFA18 GM INH
--- OUTSIDE RECORDS SUMMARY | 2022-12-21 21:44 | XMS ---
PreManage Notification: JAMEY BROWNE Security Internet Cafe Manager Events No recent Security Events currently on file CRITERIA MET - PDMP [facility]ONE: Unknown ELIJAH [facility] Current PHONE: Unknown EZEKIEL [facility] 05/19/2019-[facility] PHONE: [phone] Care Guidelines exist for the following facilities: [facility] ( 06/28/2020 ) Sharif VISIT COUNT (12 MO.) 2 SHELBY Comer TOTAL 2 NOTE: Visits indicate total known visits. ED/UCC VISIT TRACKING (12 MO.) 12/21/2022 21:42 [facility] [place] TYPE: Emergency COMPLAINT: - FLANK PAIN 11/16/2022 17:37 [facility] [place] TYPE: Emergency COMPLAINT: - R FOOT SWOLLEN/PAINFUL INPATIENT VISIT TRACKING (12 MO.) No inpatient visits to display in this time frame [id number]
[2022-12-21 23:13] LABS: BILIRUBIN, URINE NEGATIVE (negative); BLOOD/HGB, URINE SMALL (Negative); KETONE, URINE NEGATIVE (Negative); LEUK ESTERASE, URINE NEGATIVE (negative); NITRITE, URINE NEGATIVE (negative); PH, URINE 5.5 (5-7)
[2022-12-21 23:14] LABS: BASOPHILS 2.8 % (0-2); EOSINOPHILS 1.4 % (0-6); HEMATOCRIT 38.8 % (35.0-50.0); HEMOGLOBIN 12.5 g/dL (12.0-18.0); LYMPHOCYTES 32.6 % (24-44); MCH 26.6 (27-36); MCHC 32.3 g/dl (30-36); MCV 82.3 fl (81-99); NEUTROPHILS 59.2 % (39-80); PLATELET COUNT 362 K/uL (140-440); RBC 4.72 M/ul (4.3-5.7)
[2022-12-21 23:19] LABS: CRYSTALS, URINE AMORPHOUS URATES 4+ (0-1+); EPITHELIAL CELLS, URINE SQUAMOUS 1+ /lpf (0-1+); WHITE BLOOD CELLS, URINE 0-1 /HPF (0-5)
[2022-12-21 23:20] LABS: BACTERIA, URINE 1+ /hpf (negative); CASTS, URINE NONE SEEN \\lpf; REFLEX CULTURE, URINE No (No)
[2022-12-21 23:21] LABS: ALBUMIN 3.7 g/dL (3.4-5.0); ALBUMIN/GLOBULIN RATIO 0.93 (1.1-2.4); ANION GAP 10.6 (7-21); BILIRUBIN, TOTAL 0.3 ng/dL (0.2-1.0); BUN/CREATININE RATIO 18.05 (6.0-28.6); CREATININE, SERUM 0.72 mg/dL (0.55-1.02); POTASSIUM 3.6 mmol/L (3.5-5.1); PROTEIN, TOTAL 7.7 g/dL (6.4-8.2)
[2022-12-22 01:03] VITALS: BP 121/79
== END 2022-12-22 01:06 | disposition home or self-care (01) ==
LOC: ED 21:41
PROVIDERS: Internal Medicine
DX: R10.9 Unspecified abdominal pain (principal); F17.200 Nicotine dependence, unspecified, uncomplicated; Z88.8 Allergy status to other drugs, medicaments and biological substances; Z79.899 Other long term (current) drug therapy
CPT/HCPCS: 36415; 74176; 80053; 81001; 83690; 84703; 85025; 96374; 99284-25; J1885; J7121

== ENCOUNTER 2023-05-09 15:26 | Emergency (ER) | payer OTHER ==
[~2023-05-09] VITALS: Ht 172.7 cm; Wt 98.0 kg
[2023-05-09] MEDS ORDERED: CETIRIZINE HCL10 MG (15:38)
[2023-05-09] MEDS ORDERED: WEGOVY2.4 MG/0.7 (15:38)
[2023-05-09] MEDS ORDERED: LIDODERM1 EACH TOP (16:03)
[2023-05-09 16:36] VITALS: BP 126/88
== END 2023-05-09 16:34 | disposition home or self-care (01) ==
LOC: ED 15:26
DX: M54.50 Low back pain, unspecified (principal); G89.29 Other chronic pain; F17.200 Nicotine dependence, unspecified, uncomplicated; Z88.8 Allergy status to other drugs, medicaments and biological substances; Z79.899 Other long term (current) drug therapy
CPT/HCPCS: 96372; 99283; A9270; J1885